=== PATIENT | female | born 1965 | race Caucasian/White ===

== ENCOUNTER 2019-09-01 15:45 | Emergency (ER) | payer OTHER, MEDICAID ==
[~2019-09-01] VITALS: Ht 152.4 cm; Wt 149.7 kg
[2019-09-01 16:57] VITALS: BP 128/88
[2019-09-01 18:10] LABS: Basophils # (auto) 0.1 10 ^3/uL (0-0.2); Eosinophils # (auto) 0.4 10 ^3/uL (0-0.8); Hemoglobin 12.3 g/dL (12.2-16.2); Lymphocytes # (auto) 2.8 10 ^3/uL (0.4-5.4); Mean Corpuscular Hemoglobin 24.5 pg (28.0-32.0); Mean Corpuscular Hgb Conc. 32.2 g/dL (32.0-36.0); Neutrophils # (auto) 6.2 10 ^3/uL (1.6-8.6); Nucleated Red Blood Cells % 0.1 %
[2019-09-01 18:12] LABS: Eosinophils % (auto) 3.6 % (0.0-7.0); Hematocrit 38.3 % (36.0-46.0); Mean Corpuscular Volume 76.1 fL (80.0-100.0); Monocytes # (auto) 0.5 10 ^3/uL (0-1.3); Monocytes % (auto) 5.4 % (0.0-12.0); Platelet Count (auto) 244 10^3/uL (140-450); Red Blood Cells 5.03 10^6/uL (4.0-5.20); Red Cell Distribution Width 18.3 % (11.8-14.3); White Blood Cell 9.9 10^3/uL (4.4-10.8)
[2019-09-01] MEDS ORDERED: CLINDAMYCIN 600 MG/4 ML VL IM ONE (18:15)
== END 2019-09-01 19:02 | disposition home or self-care (01) ==
LOC: ER 15:45
DX: K42.9 Umbilical hernia without obstruction or gangrene (principal); B37.9 Candidiasis, unspecified; L03.316 Cellulitis of umbilicus; J45.909 Unspecified asthma, uncomplicated; K21.9 Gastro-esophageal reflux disease without esophagitis; I10 Essential (primary) hypertension; Z88.0 Allergy status to penicillin
CPT/HCPCS: 36415; 76705; 85025; 87205

== ENCOUNTER 2025-02-20 17:32 | Inpatient (IN) | payer MEDICARE, MEDICAID ==
[~2025-02-20] VITALS: Ht 180.3 cm; Wt 129.3 kg
[2025-02-20 17:52] VITALS: RESP 18; O2SAT 96
[2025-02-20] MEDS ORDERED: VANCOMYCIN PER PHARMACY 0 MG IV SCH (18:00)
--- NOTE | 2025-02-20 18:08 | ED.PDOC ---
Altered Mental Status HPI Comments Patient is a 59-year-old female with past medical history diabetes, asthma, hypertension, who was brought in by EMS due to altered mental status. According to EMS, per patient's caregiver patient has been having a gradually progressive decline in her mentation over the last 2 months, currently patient noted to be AO x2. Patient was found to be covered in her own feces, unable to communicate effectively which is what prompted the caregiver to call the EMS. On route patient was noted to have a blood glucose of 470, tachycardic in 120s with blood pressure 118/98 saturating 80% on room air and 100% on 4 L O2 via NC. An accurate review of systems could not be completed as patient AO x2 only. Past medical history: Asthma, hypertension, diabetes Past surgical history: Unable to obtain Home medications: Albuterol, metoprolol, Ozempic Social & Personal history: Unable to obtain Allergies: Penicillin Patient seen and examined at bedside. Patient is alert and oriented only to time and place, not responding to most questions. Accurate review of systems could not be completed. Attestation note: Dr. Manriquez: I was the supervising attending for this ED encounter. Please see the resident's notes. I was available for questions and consultations. Differential diagnosis: DDX include CVA, TGA, cerebellar ischemia/infarct, carotid stenosis, Intracranial mass/infection/bleed, encephalopathy, electrolyte abnormality, thyroid disease, hydrocephalus, hypoglycemia, drug toxicity, cardiac arrhythmia, seizure, infection in the elderly, Hyperammonemia., kidney failure., sepsis. MDM: MDM: patient presented with the above HPI.-altered mental status-----workup was initiated. patient was found with the above mentioned diagnosis. the following medications were ordered: please refer to order lists of meds and tests obtained by myself Dr. Manriquez. Patient ED course and VS have been stabilized. Patient has been reassessed in the ED and remained in a stable condition. Patient has been observed in the ED adequate length of time to insure improvement/stability. Escalation of care considered: Consideration of escalation to observation or admission Sepsis and DKA protocol were initiated. Patient was ADMITTED to the medicine team for further evaluation and treatment of their presentation. All the reports of any imaging studies that were ordered by myself were reviewed by myself. Chief Complaint: ALOC Time Seen by MD: 17:50 Primary Care Provider: DEBI Reviewed Notes: Allergies Allergies: Coded Allergies: Penicillins (Verified Allergy, Unknown, 09/01/19) Information Source: Emergency Med Personnel Mode of Arrival: EMS Severity: Severe Timing: Days, Months Past Medical History PAST MEDICAL HISTORY: Anemia, Asthma, GERD, HTN Surgical History: Tonsillectomy Family History Family History: No family hx of DM Social History Smoker: Non-Smoker Alcohol: Denies ETOH Use Drugs: Denies Drug Use Lives In: Home Physical Exam General Appearance: Moderate Distress, Obese HEENT: Normal ENT Inspection, PERRL/EOMI Neck: Non-Tender, Normal, Normal Inspection Respiratory: Decreased Breath Sounds, No Accessory Muscle Use, No Respiratory Distress Cardiovascular: No Gallop, Tachycardia Breast Exam: Deferred Gastrointestinal: Non Tender, Normal Bowel Sounds, Other (Noted to have umbilical hernia with dried blood) Genitalia: Deferred Pelvic: Deferred Rectal: Rectal Exam not done Extremities: No calf tenderness, Non-tender, No pedal edema, Other (Cool per ipheral extremities) Neurologic: Disoriented, No Motor Deficits, No Sensory Deficits Cerebellar Function: NOT DONE Reflexes: NOT DONE Skin: Dry, Mottled Peripheral Pulses: 2+ dorsalis pedis (R), 2+ dorsalis pedis (L) Lymphatic: NOT DONE Was a procedure done? Was a procedure done?: No Differential Diagnosis (ALOC) Differential Diagnosis: Dehydration, DKA, Encephalopathy, Sepsis X-Ray, Labs, Meds, VS Vital Signs Date Time Temp Pulse Resp B/P (MAP) Pulse Ox O2 Delivery O2 Flow Rate FiO2 02/20/25 20:00 113 20 157/86 (109) 100 02/20/25 19:45 113 17 141/74 (96) 98 02/20/25 19:30 97.7 110 14 128/86 (100) 96 97.7 02/20/25 19:30 Room Air* 0 21 02/20/25 17:52 18 96 Nasal Cannula* 3 32 02/20/25 17:52 122 02/20/25 17:35 98.9 120 16 115/94 98 98.9 Lab Test 02/20/25 20:14 02/20/25 19:53 02/20/25 19:15 02/20/25 19:00 Range/Units Troponin I High Sensitivity 193 *H 201 *H </=34 ng/L Lactic Acid Level 5.0 *H 0.4-2.0 mmol/L White Blood Count 13.1 H 4.4-10.8 10^3/uL Red Blood Count 5.74 H 4.0-5.20 10^6/uL Hemoglobin 16.1 12.2-16.2 g/dL Hematocrit 50.5 H 36.0-46.0 % Mean Corpuscular Volume 88.0 80.0-100.0 fL Mean Corpuscular Hemoglobin 28.1 28.0-32.0 pg Mean Corpuscular Hemoglobin Concent 31.9 L 32.0-36.0 g/dL Red Cell Distribution Width 18.2 H 11.8-14.3 % Platelet Count 189 140-450 10^3/uL Mean Platelet Volume 10.4 6.9-10.8 fL Neutrophils (%) (Auto) 76.0 37.0-80.0 % Lymphocytes (%) (Auto) 18.6 10.0-50.0 % Monocytes (%) (Auto) 4.8 0.0-12.0 % Eosinophils (%) (Auto) 0.2 0.0-7.0 % Basophils (%) (Auto) 0.4 0.0-2.0 % Neutrophils # (Auto) 10.0 H 1.6-8.6 10 ^3/uL Lymphocytes # (Auto) 2.4 0.4-5.4 10 ^3/uL Monocytes # (Auto) 0.6 0-1.3 10 ^3/uL Eosinophils # (Auto) 0 0-0.8 10 ^3/uL Basophils # (Auto) 0.1 0-0.2 10 ^3/uL Nucleated Red Blood Cells 0.2 % Sodium Level 144 136-145 mmol/L Potassium Level 3.4 L 3.5-5.1 mmol/L Chloride Level 96 L 98-107 mmol/L Carbon Dioxide Level 29 20-31 mmol/L Anion Gap 19 H 5-15 Blood Urea Nitrogen 94 *H 9-23 mg/dL Creatinine 3.31 H 0.550-1.02 mg/dL Glomerular Filtration Rate Calc 16 >90 mL/min BUN/Creatinine Ratio 28.4 H 10.0-20.0 Serum Glucose 459 *H 74-106 mg/dL Serum Osmolality 352 H 278-298 mOsm/kg Calcium Level 9.8 8.7-10.4 mg/dL Phosphorus Level 2.0 L 2.4-5.1 mg/dL Total Bilirubin 1.6 H 0.2-1.0 mg/dL Aspartate Amino Transferase (AST) 52 H 13-40 U/L Alanine Aminotransferase (ALT) 74 H 7-40 U/L Alkaline Phosphatase 146 H 46-116 U/L B-Type Natriuretic Peptide 30.16 0-100 pg/mL Total Protein 7.0 5.7-8.2 g/dL Albumin 4.2 3.2-4.8 g/dL Beta-Hydroxybutyric Acid 0.662 H < 0.4 mmol/L Blood Gas Specimen Type Arterial Blood Gas Sample Site Left radial Blood Gas Patient Temperature 37.0 Arterial Blood Date Drawn [id number] Arterial Blood pH 7.662 *H 7.350-7.450 Arterial Blood Partial Pressure CO2 23.3 L 32.0-45.0 mmHg Arterial Blood Partial Pressure O2 72.6 L 83.0-108.0 mmHg Arterial Blood HCO3 25.8 21.0-28.0 mmol/L Arterial Blood Oxygen Saturation 95.8 94.0-98.0 % Arterial Blood Base Excess 7.0 H -2.0-3.0 mmol/L Arterial Blood Oxyhemoglobin 94.4 94.0-98.0 % Arterial Blood Carboxyhemoglobin 0.9 0.5-1.5 % Arterial Blood Methemoglobin 0.6 0.0-1.5 % Arterial Blood Deoxyhemoglobin 4.1 0.0-5.0 % Fox Test Modified Blood Gas Total Hemoglobin 16.00 12.0-16.0 g/dL Blood Gas Modality Room air FiO2 % 21.0 Blood Gas Critical Value Read Back Yes Blood Gas Notified Whom Md adrian avilez Blood Gas Notified Time [id number] Blood Gas Notified By Rt toney gupta Microbiology Date/Time Source Procedure Growth Status 02/20/25 19:53 Blood Blood Culture - Final NO GROWTH AFTER 5 DAYS OF INCUBATION. Complete 02/20/25 19:15 Blood Blood Culture - Final NO GROWTH AFTER 5 DAYS OF INCUBATION. Complete Time of 1ST Reevaluation: 18:19 Reevaluation 1ST: Unchanged Patient Education/Counseling: Other (Patient altered) Family Education/Counseling: No Family Present SEPSIS Sepsis Screen Date sepsis recognized/suspect: Feb 20, 2025 Time Sepsis recognized/suspect: 1750 Recent Procedure: No On Antibiotic Therapy: No Respiratory Rate >20: No Heart Rate >90: Yes Temp<36 C (96.8 F) or >38.3 C: No SBP <90 or MAP <65 mmHG: No New Acute Mental Status Change: Yes Is the patient on CPAP, BIPAP,: No Physician Orders Electrocardigram (02/20/25 17:51) Chest Portable (02/20/25 17:51) Notify Md If Map <65 Or Bp<90 (02/20/25 17:53) If Map<65 Start Vasopressor (02/20/25 17:53) Sepsis Reassesment After Fluid (02/20/25 18:53) Ct Ab Pel Wo Con-No Oral Or Iv (02/20/25 17:57) Abg W/ Co-Ox (02/20/25 18:07) Insert/Manage Urinary Catheter QSHIFT (02/20/25 18:16) [place] [place] * Cardiology Consult (02/20/25 20:01) Allergies (02/20/25 20:01) Neurological Assessment (02/20/25 20:08) Code Status (02/20/25 20:01) Sodium Chloride Lock (Saline Lock Ns) (02/20/25 22:00) Oxygen Per Hour (02/20/25 20:01) Ondansetron Hcl (Zofran) (02/20/25 20:15) Docusate Sodium Capsule (Colace Capsule) (02/20/25 20:15) Condition: Serious (02/20/25 20:01) Acetaminophen Tablet (Tylenol Tablet) (02/20/25 20:15) Maintain Bed Rest (02/20/25 20:01) Sequential Compression Device (02/20/25 ) Head Without Contrast (02/20/25 20:14) Vital Signs Date Time Temp Pulse Resp B/P (MAP) Pulse Ox O2 Delivery O2 Flow Rate FiO2 02/20/25 20:00 113 20 157/86 (109) 100 02/20/25 19:45 113 17 141/74 (96) 98 02/20/25 19:30 97.7 110 14 128/86 (100) 96 97.7 02/20/25 19:30 Room Air* 0 21 02/20/25 17:52 18 96 Nasal Cannula* 3 32 02/20/25 17:52 122 02/20/25 17:35 98.9 120 16 115/94 98 98.9 Laboratory Tests Test 02/20/25 19:15 02/20/25 19:53 White Blood Count 13.1 10^3/uL (4.4-10.8) H Lactic Acid Level 5.0 mmol/L (0.4-2.0) *H Departure 1 Departure Time of Disposition: 20:11 Impression: Primary Impression: Altered mental status Qualified Codes: R41.0 - Disorientation, unspecified Additional Impressions: Metabolic encephalopathy DKA (diabetic ketoacidosis) Sepsis Acute renal failure Elevated troponin Umbilical hernia Disposition: ADMITTED INPATIENT Admit to: ICU Condition: Critical Discharged With: Self Critical Care Note Critical Care Time?: Yes (1 hr-critical care time only) Critical care comment: Due to a high probability of clinically significant, life threatening deterioration, the patient required my highest level of preparedness to intervene emergently and I personally spent this critical care time directly and personally managing the patient. This critical care time included obtaining a history; examining the patient; pulse oximetry; ordering and review of studies; arranging urgent treatment with development of a management plan; evaluation of patient's response to treatment; frequent reassessment; and, discussions with other providers. This critical care time was performed to assess and manage the high probability of imminent, life-threatening deterioration that could result in multi-organ failure. It was exclusive of separately billable procedures and treating other patients and teaching time. Please see my other sections and the rest of the note for further information on patient assessment and treatment. Stability Stability form required: No Heart Score Heart Score: Heart Score Response (Comments) Value History Slightly Suspicious 0 EKG Normal 0 Age 45-64 1 Risk Factors >3 or Hx ASHD 2 Troponin >3 x's Normal limit 2 Total 5 I personally scribed for TYSHAWN MANRIQUEZ DO ([email or web address]) on 02/20/25 at 21:50. Electronically submitted by Kaia Soto ([facility]). ARY AVILEZ Feb 20, 2025 18:08 TYSHAWN MANRIQUEZ DO Feb 20, 2025 20:11
[2025-02-20] MEDS ORDERED: VANCOMYCIN 1.5GM/250ML 250 ML IV ONE (19:00)
[2025-02-20 19:16] LABS: Base Excess 7.0 mmol/L (-2.0-3.0)
[2025-02-20 19:31] LABS: Hematocrit 50.5 % (36.0-46.0); Hemoglobin 16.1 g/dL (12.2-16.2); Mean Corpuscular Hemoglobin 28.1 pg (28.0-32.0); Mean Corpuscular Volume 88.0 fL (80.0-100.0); Nucleated Red Blood Cells % 0.2 %
[2025-02-20 19:44] LABS: Albumin 4.2 g/dL (3.2-4.8); Anion Gap 19 (5-15); BUN/Creatinine Ratio 28.4 (10.0-20.0); Calcium 9.8 mg/dL (8.7-10.4); Carbon Dioxide 29 mmol/L (20-31); Sodium 144 mmol/L (136-145); Total Protein 7.0 g/dL (5.7-8.2)
[2025-02-20 19:45] LABS: Bilirubin, Total 1.6 mg/dL (0.2-1.0)
[2025-02-20 19:46] LABS: Alanine Aminotransferase 74 U/L (7-40); Alkaline Phosphatase 146 U/L (46-116); Chloride 96 mmol/L (98-107); Potassium 3.4 mmol/L (3.5-5.1)
[2025-02-20 19:47] LABS: Glucose 459 mg/dL (74-106)
[2025-02-20 19:48] LABS: Blood Urea Nitrogen 94 mg/dL (9-23)
[2025-02-20] MEDS ORDERED: DOCUSATE SOD 100 MG CAP PO PRN (20:15)
[2025-02-20] MEDS ORDERED: DEXTROSE (50%) 50ML SYRG IV PRN ×2 (20:15)
[2025-02-20] MEDS ORDERED: HYDROcodone-ACET 5/325MG TAB PO PRN (20:15)
[2025-02-20] MEDS ORDERED: ACETAMINOPHEN 325 MG TAB PO PRN (20:15)
[2025-02-20] MEDS: POTASSIUM CHL 20MEQ/100ML 100 ML IV ONE (20:15)
[2025-02-20] MEDS ORDERED: ONDANSETRON HCL 4 MG/2 ML VIAL IV PRN (20:15)
[2025-02-20 20:34] LABS: Lactic Acid w/Reflex 5.0 mmol/L (0.4-2.0)
[2025-02-20] MEDS: ASPirin-EC 325mg tab PO ONE (20:35)
--- NOTE | 2025-02-20 20:58 | DVH ---
CHEST RADIOGRAPH INDICATION: altered mental status TECHNIQUE: Single frontal view of the chest was obtained. COMPARISON: None FINDINGS: No focal consolidation. No significant pleural effusion. No pneumothorax. Mildly enlarged cardiomediastinal silhouette. IMPRESSION: No acute pulmonary process.
--- NOTE | 2025-02-20 21:04 | DVHHP2 ---
History of Present Illness Reason for Visit: Diabetes mellitus with ketoacidosis History of Present Illness The patient is a 59-year-old female morbidly obese with past medical history of diabetes mellitus, asthma, GERD, anemia, and hypertension who presented to [facility] ED for evaluation of altered level of consciousness. As reported by EMS, patient's caregiver reports that patient has been gradually decline in her mental status for the past 2 months, noted to be alert oriented x2, found to be covered on feces, and unable to communicate efficiently, prompting caregiver to call the EMS. Patient was seen and evaluated in the ED, laboratory data shows WBC 13.1, platelets 189, sodium 144, potassium 3.4, BUN 94, creatinine 3.31, GFR 16, glucose 459, anion gap 19, total bilirubin 1.6, calcium 9.8, AST 52, ALT 74, alkaline phos 146, troponin 201 trending down to 193, BNP 30.16, beta hydroxybutyric acid 0.662, blood pressure 115/94, heart rate 122 trending down to 100, temperature 98.9 F, O2 saturation 96% on oxygen. Head CT showed no acute intracranial abnormality. Urinalysis positive for urinary tract infection. Patient was started on diabetes ketoacidosis protocol, please see medication orders section in the computer. On my assessment, patient denied chest pain, headache, dizziness, diaphoresis, currently on oxygen, no a bdominal pain, diarrhea, nausea, vomiting, fever, no chills. Patient was admitted for further evaluation and medical management. Past Medical History DM, Anemia, Asthma, GERD, HTN Past Surgical History Tonsillectomy Family History Reviewed, noncontributory to the management of this case. Past Social History The patient lives at home, denies smoking, alcohol or illicit drugs abuse. Review of Systems Constitutional: Yes: Weakness; No: Fever, Chills, Sweats, Malaise, Other Eyes: No: Pain, Vision change, Conjunctivae inflammation, Eyelid inflammation, Other, Redness ENT: No: Ear pain, Ear discharge, Nose pain, Nose discharge, Nose congestion, Mouth pain, Mouth swelling, Throat pain, Throat swelling, Other Respiratory: No: Cough, Dry, Shortness of breath, SOB with excertion, Wheezing, Hemoptysis, Pleuritic Pain, Sputum, Wheezing, Other Cardiovascular: No: Chest Pain, Palpitations, Orthopnea, Paroxysmal Noc. Dyspnea, Edema, Lt Headedness, Other Gastrointestinal: No: Nausea, Vomiting, Abdominal Pain, Diarrhea, Constipation, Melena, Hematochezia, Other Musculoskeletal: No: other, neck pain, shoulder pain, arm pain, back pain, hand pain, leg pain, foot pain Skin: No: Rash, Lesions, Jaundice, Bruising, Other Neurological: Other (Altered level of consciousness); No: Weakness, Numbness, Incoordination, Change in speech, Confusion, Seizures Allergies: Coded Allergies: Penicillins (Verified Allergy, Unknown, 09/01/19) Medications Current Medications Medications Dose Ordered Sig/Tim Route Start Time Stop Time Status Last Admin Dose Admin Vancomycin HCl 0 ml @ 0 mls/hr PER PHARMACY IV 02/20/25 18:00 Metronidazole 100 ml @ 100 mls/hr Q8HR IV 02/20/25 22:00 Heparin Sodium (Porcine) 5,000 units Q12HR SC 02/20/25 22:00 Diagnostic Test (Pha) 1 strip IQ4HR 02/21/25 00:00 UNV Sodium Chloride 10 ml Q8HR IV 02/20/25 22:00 Acetaminophen/ Hydrocodone Bitart 1 tab Q4HP PRN PO 02/20/25 20:15 Ondansetron HCl 4 mg Q4HP PRN IV 02/20/25 20:15 Docusate Sodium 100 mg BIDPRN PRN PO 02/20/25 20:15 Acetaminophen 650 mg Q6HP PRN PO 02/20/25 20:15 Sodium Chloride 1,000 ml @ 250 mls/hr Q4H IV 02/21/25 00:15 02/21/25 02:14 Sodium Chloride 1,000 ml @ 150 mls/hr Q6H40M IV 02/21/25 02:15 Insulin Human (Reg)/Sodium Chloride 100 ml @ 0.5 mls/hr Q24H IV 02/20/25 20:15 Dextrose 50 ml UD PRN IV 02/20/25 20:15 Diagnostic Test (Pha) 1 strip Q90MIN 02/20/25 21:00 Exam Vital Signs Vital Signs Date Time Temp Pulse Resp B/P (MAP) Pulse Ox O2 Delivery O2 Flow Rate FiO2 02/20/25 19:30 97.7 110 14 128/86 (100) 96 97.7 02/20/25 19:30 Room Air* 0 21 General Appearance: Alert, Oriented X3, Cooperative, No acute distress HEENT: Atraumatic, PERRLA, EOMI, Mucous membr. moist/pink Respiratory: Normal air movement Cardiovascular: Regular rate, Normal S1, Normal S2, No murmurs Abdominal: Normal bowel sounds, Soft, No tenderness, No hepatospenomegaly, No masses Extremities: No clubbing, No cyanosis, No edema, Normal pulses, No tenderness/swelling Skin: No rashes, No significant lesion Neuro: Normal speech, Normal tone, Sensation intact, Cranial nerves 3-12 NL, Reflexes 2+, Other (Generalized weakness) Psych/Mental Status: Mood NL, Other (Altered mental status) Labs/Xrays Labs Test 02/20/25 19:53 02/20/25 19:15 02/20/25 19:00 Range/Units Lactic Acid Level 5.0 *H 0.4-2.0 mmol/L White Blood Count 13.1 H 4.4-10.8 10^3/uL Red Blood Count 5.74 H 4.0-5.20 10^6/uL Hemoglobin 16.1 12.2-16.2 g/dL Hematocrit 50.5 H 36.0-46.0 % Mean Corpuscular Volume 88.0 80.0-100.0 fL Mean Corpuscular Hemoglobin 28.1 28.0-32.0 pg Mean Corpuscular Hemoglobin Concent 31.9 L 32.0-36.0 g/dL Red Cell Distribution Width 18.2 H 11.8-14.3 % Platelet Count 189 140-450 10^3/uL Mean Platelet Volume 10.4 6.9-10.8 fL Neutrophils (%) (Auto) 76.0 37.0-80.0 % Lymphocytes (%) (Auto) 18.6 10.0-50.0 % Monocytes (%) (Auto) 4.8 0.0-12.0 % Eosinophils (%) (Auto) 0.2 0.0-7.0 % Basophils (%) (Auto) 0.4 0.0-2.0 % Neutrophils # (Auto) 10.0 H 1.6-8.6 10 ^3/uL Lymphocytes # (Auto) 2.4 0.4-5.4 10 ^3/uL Monocytes # (Auto) 0.6 0-1.3 10 ^3/uL Eosinophils # (Auto) 0 0-0.8 10 ^3/uL Basophils # (Auto) 0.1 0-0.2 10 ^3/uL Nucleated Red Blood Cells 0.2 % Sodium Level 144 136-145 mmol/L Potassium Level 3.4 L 3.5-5.1 mmol/L Chloride Level 96 L 98-107 mmol/L Carbon Dioxide Level 29 20-31 mmol/L Anion Gap 19 H 5-15 Blood Urea Nitrogen 94 *H 9-23 mg/dL Creatinine 3.31 H 0.550-1.02 mg/dL Glomerular Filtration Rate Calc 16 >90 mL/min BUN/Creatinine Ratio 28.4 H 10.0-20.0 Serum Glucose 459 *H 74-106 mg/dL Calcium Level 9.8 8.7-10.4 mg/dL Phosphorus Level 2.0 L 2.4-5.1 mg/dL Total Bilirubin 1.6 H 0.2-1.0 mg/dL Aspartate Amino Transferase (AST) 52 H 13-40 U/L Alanine Aminotransferase (ALT) 74 H 7-40 U/L Alkaline Phosphatase 146 H 46-116 U/L B-Type Natriuretic Peptide 30.16 0-100 pg/mL Total Protein 7.0 5.7-8.2 g/dL Albumin 4.2 3.2-4.8 g/dL Beta-Hydroxybutyric Acid 0.662 H < 0.4 mmol/L Blood Gas Specimen Type Arterial Blood Gas Sample Site Left radial Blood Gas Patient Temperature 37.0 Arterial Blood Date Drawn [id number] Arterial Blood pH 7.662 *H 7.350-7.450 Arterial Blood Partial Pressure CO2 23.3 L 32.0-45.0 mmHg Arterial Blood Partial Pressure O2 72.6 L 83.0-108.0 mmHg Arterial Blood HCO3 25.8 21.0-28.0 mmol/L Arterial Blood Oxygen Saturation 95.8 94.0-98.0 % Arterial Blood Base Excess 7.0 H -2.0-3.0 mmol/L Arterial Blood Oxyhemoglobin 94.4 94.0-98.0 % Arterial Blood Carboxyhemoglobin 0.9 0.5-1.5 % Arterial Blood Methemoglobin 0.6 0.0-1.5 % Arterial Blood Deoxyhemoglobin 4.1 0.0-5.0 % Fox Test Modified Blood Gas Total Hemoglobin 16.00 12.0-16.0 g/dL Blood Gas Modality Room air FiO2 % 21.0 Blood Gas Critical Value Read Back Yes Blood Gas Notified Whom Md adrian avilez Blood Gas Notified Time [id number] Blood Gas Notified By Rt toney gupta PATIENT: VIANCA FRIEDMAN ACCT: [id number] UNIT: [id number] : 1965 LOC: ER ROOM / BED: / AGE / SEX: 59 / F ADM STATUS: REG ER SERVICE [id number] ORDERING PHYSICIAN: ARY AVILEZ PROCEDURE(s): ABPL - CT AB PEL WO CON-NO ORAL OR IV REASON: umbilical hernia bleeding? ORDER NUMBER(s): [id number], ACCESSION NUMBER(s): [id number] EXAM: CT CT AB PEL WO CON-NO ORAL OR IV History: umbilical hernia bleeding Comparison Study: None TECHNIQUE: Multidetector CT of the abdomen and pelvis without IV contrast. Axial, coronal and sagittal multiplanar reformats were obtained from the axial data set by the technologist. Radiation Dose Information: CT Dose: CTDI volume is 24.42 mGy. Dose-length product is 1441.42 mGy*cm FINDINGS: The lung bases are clear. Partially visualized heart is normal in size. Trace pericardial effusion. 1.5 cm left hepatic lobe fatty lesion adjacent to the falciform ligament. Mild hepatomegaly. Spleen, gallbladder, pancreas and adrenal glands are unremarkable. Kidneys, ureters and urinary bladder are unremarkable. Uterus and adnexa are unremarkable. Tiny Hiatal hernia. Stomach is unremarkable. Small bowel loops are unremarkable. Appendix is unremarkable. Large bowel is unremarkable. No evidence of intraperitoneal free air or free fluid. No evidence of aortic aneurysm. Large umbilical hernia containing bowel loops without evidence of obstruction or strangulation. Soft tissues are unremarkable. Diffuse demineralization. No evidence of acute osseous abnormalities. Sclerotic foci the bilateral pelvic bone which may represent Small bone islands. IMPRESSION: No evidence of Acute abdominopelvic abnormalities. Large umbilical hernia containing bowel loops without evidence of obstruction or strangulation. ORDERING PHYSICIAN: TYSHAWN MANRIQUEZ DO PROCEDURE(s): HWOCT - HEAD WITHOUT CONTRAST REASON: aloc ORDER NUMBER(s): [id number], ACCESSION NUMBER(s): [id number] CT HEAD WITHOUT CONTRAST HISTORY: ALOC. COMPARISON: None available. CONTRAST: Study was performed without contrast. TECHNIQUE: Axial images from the skull base to the vertex with coronal and sagittal reformatted images. Dose reduction technique was used on this scan by utilizing automated exposure control, adjustment of the mA and/or kV according to the patient size. DICOM format image data available to non-affiliated external healthcare facilities or entities on a secure, media free, reciprocally searchable basis with patient authorization for at least a 12 month period after the study. CTDIvol: 57.4, 57.4, 57.4 mGy; DLP: 3386.8 mGy-cm. FINDINGS: BRAIN PARENCHYMA: No acute hemorrhage, large vascular territory infarct, or mass effect. Scattered white matter hypo-densities, which are nonspecific but likely represent the sequela of chronic microangipathic change. Mild cerebral volume loss with ex vacuo dilation of the ventricles, which is commensurate for age. VENTRICLES/EXTRA-AXIAL SPACES: No evidence of hydrocephalus. No extra-axial collection. Basal cisterns are patent. Right frontal convexity with a centrally calcified extra-axial lesion measuring 2.2 x 1.8 x 1.4 cm (TV x AP x CC; 8/59, 602/26). No significant underlying mass effect. EXTRACRANIAL STRUCTURES: No acute or suspicious ossues abnormality. Incidentally noted hyperostosis frontalis interna. Normal soft tissues. Partially images portions of the paranasal sinuses and mastoids demonstrate no significant abnormality. Orbits are unremarkable. IMPRESSION: 1. No acute intracranial abnormality. 2. Right frontal convexity with a centrally calcified extra-axial lesion measuring up to 2.2 cm, which favors a benign meningioma. No significant underlying mass effect. ORDERING PHYSICIAN: ARY AVILEZ RESIDENT PROCEDURE(s): CXRP - CHEST PORTABLE REASON: altered mental status ORDER NUMBER(s): [id number], ACCESSION NUMBER(s): [id number] CHEST RADIOGRAPH INDICATION: altered mental status TECHNIQUE: Single frontal view of the chest was obtained. COMPARISON: None FINDINGS: No focal consolidation. No significant pleural effusion. No pneumothorax. Mildly enlarged cardiomediastinal silhouette. IMPRESSION: No acute pulmonary process. SEPSIS Sepsis Screen Date sepsis recognized/suspect: Feb 20, 2025 Time Sepsis recognized/suspect: 1929 Recent Procedure: No On Antibiotic Therapy: No Respiratory Rate >20: No Heart Rate >90: Yes Temp<36 C (96.8 F) or >38.3 C: No SBP <90 or MAP <65 mmHG: Yes New Acute Mental Status Change: Yes Is the patient on CPAP, BIPAP,: No Physician Orders Electrocardigram (02/20/25 17:51) Urinalysis (02/20/25 17:51) Chest Portable (02/20/25 17:51) Troponin-I Hs (02/20/25 18:51) Troponin-I Hs (02/20/25 20:51) Blood Culture (02/20/25 17:53) Notify Md If Map <65 Or Bp<90 (02/20/25 17:53) If Map<65 Start Vasopressor (02/20/25 17:53) Sepsis Reassesment After Fluid (02/20/25 18:53) Vancomycin Per Pharmacy (02/20/25 18:00) Cefepime 1gm/50ml (Maxipime 1gm/50ml) (02/20/25 20:30) Ct Ab Pel Wo Con-No Oral Or Iv (02/20/25 17:57) Abg W/ Co-Ox (02/20/25 18:07) Vancomycin,Random (02/21/25 04:00) Creatinine (02/21/25 04:00) Complete Blood Count (02/21/25 04:00) Insert/Manage Urinary Catheter QSHIFT (02/20/25 18:16) *[facility] (02/20/25 20:01) [facility] (02/21/25 Breakfast) Metronidazole 500mg/100ml (Flagyl 500mg/ (02/20/25 22:00) Insulin Drip Protocol (02/20/25 ) Sodium Chloride 0.9% (02/21/25 00:15) Heparin Sodium (Porcine) (02/20/25 22:00) Sodium Chloride 0.9% (02/21/25 02:15) * Cardiology Consult (02/20/25 20:01) Insulin Drip 100 Unit/100ml (Myxredlin 1 (02/20/25 20:15) Dextrose 50% Syringe (12/12/25 20:15) Glucose Blood (Accu-Chek Comfort Curve T (02/20/25 21:00) Allergies (02/20/25 20:01) Osmolality, Serum (02/20/25 20:08) Neurological Assessment (02/20/25 20:08) Vs/Hemodynamics .PER UNIT PROTOCOL (02/20/25 20:08) Code Status (02/20/25 20:01) Sodium Chloride Lock (Saline Lock Ns) (02/20/25 22:00) Oxygen Per Hour (02/20/25 20:01) Hydrocodone-Acet 5/325mg Tab (Catherine 5/32 (02/20/25 20:15) Ondansetron Hcl (Zofran) (02/20/25 20:15) Docusate Sodium Capsule (Colace Capsule) (02/20/25 20:15) Fall Risk Precautions In Place QSHIFT (02/20/25 20:01) Comprehensive Metabolic Panel (02/21/25 04:00) Condition: Serious (02/20/25 20:01) Acetaminophen Tablet (Tylenol Tablet) (02/20/25 20:15) Maintain Bed Rest (02/20/25 20:01) Sequential Compression Device (02/20/25 ) Potassium Chl 20meq/100ml (02/20/25 20:15) Head Without Contrast (02/20/25 20:14) Insert Marshall Catheter QSHIFT (02/20/25 20:59) Vital Signs Date Time Temp Pulse Resp B/P (MAP) Pulse Ox O2 Delivery O2 Flow Rate FiO2 02/20/25 19:30 97.7 110 14 128/86 (100) 96 97.7 02/20/25 19:30 Room Air* 0 21 02/20/25 17:52 18 96 Nasal Cannula* 3 32 02/20/25 17:52 122 02/20/25 17:35 98.9 120 16 115/94 98 98.9 Laboratory Tests Test 02/20/25 19:15 02/20/25 19:53 White Blood Count 13.1 10^3/uL (4.4-10.8) H Lactic Acid Level 5.0 mmol/L (0.4-2.0) *H Assessment/Plan Assessment/Plan Diabetes mellitus with ketoacidosis Acute renal failure Morbid obesity Urinary tract infection Altered mental status Elevated troponin Elevated liver enzymes Metabolic encephalopathy Leukocytosis, unspecified Generalized weakness Plan 1. Admit to intensive care unit 2. Breathing treatment 3. Pain control management 4. IV antibiotic management 5. Management of fluids and electrolytes 6. Consultation for Cardiology/Nephrology 7. Diagnostic test head CT 8. DVT prophylaxis-on heparin 9. Repeat labs CBC, CMP in a.m. 10. Home medication reviewed and reconciled 11. Continue with current medical management 12. Treatment plan discussed with patient and RN. Patient verbalized understanding. Plan discussed with: Patient, Other (RN) My Orders Orders - EDY PITTMAN DNP Procedure Category Date Status Time *Dr. Beny Wise CONS 02/20/25 Transmitted -[place] 20:01 Consistent DIET 02/21/25 Transmitted Carb(Ccho)Diabetes Breakfast Metronidazole PHA 02/20/25 In Process 500mg/100ml (Flagyl 22:00 Heparin Sodium PHA 02/20/25 In Process (Porcine) 22:00 * Cardiology Consult CONS 02/20/25 Transmitted 20:01 Allergies [place] 02/20/25 In Process 20:01 Code Status CODE 02/20/25 Transmitted 20:01 Sodium Chloride Lock PHA 02/20/25 In Process (Saline Lock Ns) 22:00 Oxygen Per Hour RT 02/20/25 Transmitted 20:01 Hydrocodone-Acet PHA 02/20/25 In Process 5/325mg Tab (Catherine 20:15 Ondansetron Hcl PHA 02/20/25 In Process (Zofran) 20:15 Docusate Sodium PHA 02/20/25 In Process Capsule (Colace 20:15 Fall Risk Precautions [place] 02/20/[address] 20:01 Comprehensive LAB 02/21/25 Verified Metabolic Panel 04:00 Condition: Serious [place] 02/20/25 In Process 20:01 Acetaminophen Tablet PHA 02/20/25 In Process (Tylenol Tablet) 20:15 Maintain Bed Rest [place] 02/20/25 In Process 20:01 Sequential [place] 02/20/25 In Process Compression Device Potassium Chl PHA 02/20/25 In Process 20meq/100ml 20:15 Insert Marshall Catheter [place] 02/20/25 In Process 20:59 Problem List: (1) Diabetes mellitus with ketoacidosis (2) Acute renal failure (3) Morbid obesity (4) Urinary tract infection (5) Altered mental status (6) Elevated troponin (7) Elevated liver enzymes (8) Metabolic encephalopathy (9) Leukocytosis, unspecified (10) Generalized weakness Date of Service: Feb 20, 2025 Billing Provider: EDY PITTMAN DNP Common Visit Codes: [id number] INP/OBS CARE (HIGH) EDY PITTMAN DNP Feb 20, 2025 21:04
--- NOTE | 2025-02-20 21:13 | DVH ---
CT HEAD WITHOUT CONTRAST HISTORY: ALOC. COMPARISON: None available. CONTRAST: Study was performed without contrast. TECHNIQUE: Axial images from the skull base to the vertex with coronal and sagittal reformatted images. Dose reduction technique was used on this scan by utilizing automated exposure control, adjustment of the mA and/or kV according to the patient size. DICOM format image data available to non-affiliated external healthcare facilities or entities on a secure, media free, reciprocally searchable basis with patient authorization for at least a 12 month period after the study. CTDIvol: 57.4, 57.4, 57.4 mGy; DLP: 3386.8 mGy-cm. FINDINGS: BRAIN PARENCHYMA: No acute hemorrhage, large vascular territory infarct, or mass effect. Scattered white matter hypodensities, which are nonspecific but likely represent the sequela of chronic microangipathic change. Mild cerebral volume loss with ex vacuo dilation of the ventricles, which is commensurate for age. VENTRICLES/EXTRA-AXIAL SPACES: No evidence of hydrocephalus. No extra-axial collection. Basal cisterns are patent. Right frontal convexity with a centrally calcified extra-axial lesion measuring 2.2 x 1.8 x 1.4 cm (TV x AP x CC; 8/59, 602/26). No significant underlying mass effect. EXTRACRANIAL STRUCTURES: No acute or suspicious ossues abnormality. Incidentally noted hyperostosis frontalis interna. Normal soft tissues. Partially images portions of the paranasal sinuses and mastoids demonstrate no significant abnormality. Orbits are unremarkable. IMPRESSION: 1. No acute intracranial abnormality. 2. Right frontal convexity with a centrally calcified extra-axial lesion measuring up to 2.2 cm, which favors a benign meningioma. No significant underlying mass effect.
[2025-02-20] MEDS ORDERED: NITROGLYCERIN 0.4 MG SL TAB SL PRN (21:15)
[2025-02-20] MEDS ORDERED: MORPHINE SULFATE INJ 2 MG/ml SYRG IV PRN (21:15)
[2025-02-20] MEDS: InsuLIN REG 1unit/0.01ml Soln (100units/ml) IV ONE (21:21)
--- NOTE | 2025-02-20 21:21 | DVH ---
EXAM: CT CT AB PEL WO CON-NO ORAL OR IV History: umbilical hernia bleeding Comparison Study: None TECHNIQUE: Multidetector CT of the abdomen and pelvis without IV contrast. Axial, coronal and sagittal multiplanar reformats were obtained from the axial data set by the technologist. Radiation Dose Information: CT Dose: CTDI volume is 24.42 mGy. Dose-length product is 1441.42 mGy*cm FINDINGS: The lung bases are clear. Partially visualized heart is normal in size. Trace pericardial effusion. 1.5 cm left hepatic lobe fatty lesion adjacent to the falciform ligament. Mild hepatomegaly. Spleen, gallbladder, pancreas and adrenal glands are unremarkable. Kidneys, ureters and urinary bladder are unremarkable. Uterus and adnexa are unremarkable. Tiny Hiatal hernia. Stomach is unremarkable. Small bowel loops are unremarkable. Appendix is unremarkable. Large bowel is unremarkable. No evidence of intraperitoneal free air or free fluid. No evidence of aortic aneurysm. Large umbilical hernia containing bowel loops without evidence of obstruction or strangulation. Soft tissues are unremarkable. Diffuse demineralization. No evidence of acute osseous abnormalities. Sclerotic foci the bilateral pelvic bone which may represent Small bone islands. IMPRESSION: No evidence of Acute abdominopelvic abnormalities. Large umbilical hernia containing bowel loops without evidence of obstruction or strangulation.
[2025-02-20] MEDS: INSULIN DRIP 100 UNIT/100ML 100 ML IV SCH (21:23)
[2025-02-20] MEDS: ACCU-CHEK COMFORT CURVE STRIP VI SCH (21:29)
[2025-02-20] MEDS: SODIUM CHLOR 0.9% PF (SALINE LOCK) 10ML VIAL/SYR IV SCH (22:00)
[2025-02-20] MEDS: VANCOMYCIN 1.5GM/250ML 250 ML IV ONE (22:48)
[2025-02-20 22:51] LABS: Urine Protein, UAD 1+ (Negative); Urine WBC Clumps PRESENT /hpf (None Seen)
[2025-02-20] MEDS: LACTATED RINGER'S 2,100 ML IV ONE (22:56)
[2025-02-20] MEDS: HEPARIN SODIUM (PORCINE) 5000 UNITS/ML 1ML VIAL SC SCH (23:02)
[2025-02-20] MEDS: CEFEPIME 1GM/50ML 50 ML IV ONE (23:02)
[2025-02-21] VITALS (92 sets, daily range): BP systolic 97–150; BP diastolic 32–99; PULSE 64–107; RESP 10–22; TEMP 97.4–98.5; O2SAT 76–100
[2025-02-21] MEDS ORDERED: InsuLIN REG 1unit/0.01ml Soln (100units/ml) SC SCH
[2025-02-21] MEDS ORDERED: ACCU-CHEK COMFORT CURVE STRIP VI SCH
[2025-02-21] MEDS: SODIUM CHLORIDE 0.9% 1,000 ML IV SCH ×2 (01:07→03:00)
[2025-02-21 03:36] LABS: Base Excess 1.7 mmol/L (-2.0-3.0)
[2025-02-21 04:10] LABS: Hematocrit 44.0 % (36.0-46.0); Hemoglobin 14.5 g/dL (12.2-16.2); Mean Corpuscular Hemoglobin 28.2 pg (28.0-32.0); Mean Corpuscular Volume 85.3 fL (80.0-100.0); Nucleated Red Blood Cells % 0.2 %
[2025-02-21 04:32] LABS: Albumin 3.6 g/dL (3.2-4.8); Anion Gap 18 (5-15); BUN/Creatinine Ratio 23.8 (10.0-20.0); Calcium 9.4 mg/dL (8.7-10.4); Carbon Dioxide 27 mmol/L (20-31); Chloride 103 mmol/L (98-107); Total Protein 6.3 g/dL (5.7-8.2)
[2025-02-21 04:33] LABS: Alanine Aminotransferase 57 U/L (7-40); Alkaline Phosphatase 117 U/L (46-116); Bilirubin, Total 1.2 mg/dL (0.2-1.0); Blood Urea Nitrogen 72 mg/dL (9-23); Glucose 196 mg/dL (74-106); Sodium 148 mmol/L (136-145)
[2025-02-21 04:34] LABS: Potassium 2.5 mmol/L (3.5-5.1)
[2025-02-21] MEDS: INSULIN DRIP 100 UNIT/100ML 100 ML IV SCH ×4 (04:49→12:00)
[2025-02-21] MEDS: POTASSIUM CHL 20MEQ/100ML 100 ML IV SCH (06:20)
[2025-02-21 08:54] LABS: Lactic Acid w/Reflex 2.3 mmol/L (0.4-2.0)
--- NOTE | 2025-02-21 10:53 | DVHPN2 ---
Subjective 59-year-old female with a history of type 2 diabetes, asthma, GERD, morbid obesity was admitted to the hospital for altered level of consciousness and was found to have a DKA She is admitted to the ICU Initially she had a blood glucose of 459 and CO2 of 29 and anion gap of 19 with a potassium of 3.4 and creatinine of 3.3 This morning and potassium is 2.5, sodium 148, creatinine is 3.0, anion gap is 18 CO2 is 27 now Her latest blood sugar is 110 Changes from previous H/P or p: Changes Eyes: No Pain, No Vision change, No Conjunctivae inflammation, No Eyelid inflammation, No Other, No Redness ENT: No Ear pain, No Ear discharge, No Nose pain, No Nose discharge, No Nose congestion, No Mouth pain, No Mouth swelling, No Throat pain, No Throat swelling, No Other Cardiovascular: No Chest Pain, No Palpitations, No Orthopnea, No Paroxysmal Noc. Dyspnea, No Edema, No Lt Headedness, No Other Respiratory: No Cough, No Dry, No Shortness of breath, No SOB with excertion, No Wheezing, No Hemoptysis, No Pleuritic Pain, No Sputum, No Other Gastrointestinal: No Nausea, No Vomiting, No Abdominal Pain, No Diarrhea, No Constipation, No Melena, No Hematochezia, No Other Musculoskeletal: No other, No neck pain, No shoulder pain, No arm pain, No back pain, No hand pain, No leg pain, No foot pain Skin: No Rash, No Lesions, No Jaundice, No Bruising, No Other Objective Vitals Vital Signs Date Time Temp Pulse Resp B/P (MAP) Pulse Ox O2 Delivery O2 Flow Rate FiO2 02/21/25 10:00 13 100 Nasal Cannula* 2 28 02/21/25 10:00 91 02/21/25 07:00 107/73 (84) 02/21/25 04:00 98.0 98.0 Intake/Output Intake and Output 02/21/25 07:00 Intake Total 3166.000 ml Output Total 50 ml Balance 3116.000 ml Intake Oral 0 ml IV Total 3166.000 ml Output Urine Total 50 ml General Appearance: Alert, Oriented X3, Cooperative, No acute distress Lungs: Clear to auscultation Cardiovascular: Regular rate, Normal S1, Normal S2, No murmurs Abdomen: Normal bowel sounds, Soft, No tenderness Extremities: No edema Medications Current Medications Medications Dose Ordered Sig/Tim Route Start Time Stop Time Status Last Admin Dose Admin Vancomycin HCl 0 ml @ 0 mls/hr PER PHARMACY IV 02/20/25 18:00 Heparin Sodium (Porcine) 5,000 units Q12HR SC 02/20/25 22:00 02/21/25 10:28 5,000 UNITS Diagnostic Test (Pha) 1 strip IQ4HR 02/21/25 00:00 UNV Sodium Chloride 10 ml Q8HR IV 02/20/25 22:00 02/21/25 06:21 10 ML Acetaminophen/ Hydrocodone Bitart 1 tab Q4HP PRN PO 02/20/25 20:15 Ondansetron HCl 4 mg Q4HP PRN IV 02/20/25 20:15 Docusate Sodium 100 mg BIDPRN PRN PO 02/20/25 20:15 Acetaminophen 650 mg Q6HP PRN PO 02/20/25 20:15 Sodium Chloride 1,000 ml @ 150 mls/hr Q6H40M IV 02/21/25 02:15 02/21/25 04:47 150 MLS/HR Dextrose 50 ml UD PRN IV 02/20/25 20:15 Diagnostic Test (Pha) 1 strip Q90MIN 02/20/25 21:00 02/21/25 10:23 1 STRIP Nitroglycerin 0.4 mg Q5MINP PRN SL 02/20/25 21:15 Morphine Sulfate 2 mg Q30M PRN IV 02/20/25 21:15 Metronidazole 100 ml @ 100 mls/hr Q8H IV 02/21/25 02:00 02/21/25 10:22 100 MLS/HR Potassium Chloride 100 ml @ 50 mls/hr Q2H IV 02/21/25 05:45 02/21/25 11:44 02/21/25 09:10 50 MLS/HR Insulin Human (Reg)/Sodium Chloride 100 ml @ 0.5 mls/hr Q24H IV 02/21/25 07:45 02/21/25 07:45 0.5 MLS/HR Potassium Chloride/Dextrose/ Sod Cl 1,000 ml @ 150 mls/hr Q6H40M IV 02/21/25 09:15 Laboratory Results Laboratory Tests 02/21/25 03:47 Chemistry Test 02/20/25 19:15 02/21/25 03:47 Albumin 4.2 g/dL (3.2-4.8) 3.6 g/dL (3.2-4.8) Calcium Level 9.8 mg/dL (8.7-10.4) 9.4 mg/dL (8.7-10.4) Phosphorus Level 2.0 mg/dL (2.4-5.1) L Total Protein 7.0 g/dL (5.7-8.2) 6.3 g/dL (5.7-8.2) Cardiac Markers Test 02/20/25 19:15 B-Type Natriuretic Peptide 30.16 pg/mL (0-100) LFT Test 02/20/25 19:15 02/21/25 03:47 Alanine Aminotransferase (ALT) 74 U/L (7-40) H 57 U/L (7-40) H Alkaline Phosphatase 146 U/L (46-116) H 117 U/L (46-116) H Aspartate Amino Transferase (AST) 52 U/L (13-40) H 58 U/L (13-40) H Total Bilirubin 1.6 mg/dL (0.2-1.0) H 1.2 mg/dL (0.2-1.0) H Urinalysis Test 02/20/25 21:52 Urine Color [place] (Yellow) H Urine Clarity Ex.turbid (Clear) Urine pH 5.0 (5.0-9.0) Urine Specific [place] 1.020 (1.001-1.035) Urine Protein 1+ (Negative) H Urine Ketones Negative (Negative) Urine Blood 2+ /uL (Negative) H Urine Nitrite Negative (Negative) Urine Bilirubin 1+ (Negative) H Urine Urobilinogen 4 mg/dL (Negative) H Urine Leukocyte Esterase 3+ /uL (Negative) Urine RBC 24 /hpf (0 - 4) Urine WBC Clumps Present /hpf (None Seen) Urine Microscopic WBC 382 /HPF (0-5) H Urine Squamous Epithelial Cells Few /hpf (<5) Urine Bacteria Many /hpf (None Seen) H Urine Hyaline Casts Few /lpf (0 - 2) Urine Mucus Few (None Seen) Urine Glucose 4+ mg/dL (Normal) H Blood Gas Results Test 02/20/25 19:00 02/21/25 03:13 Arterial Blood pH 7.662 (7.350-7.450) 7.556 (7.350-7.450) FiO2 % 21.0 21.0 Assessment/Plan Assessment/Plan Acute DKA Hypernatremia Acute kidney injury possibly due to vasomotor nephropathy Hypokalemia Transaminitis Morbid obesity Leukocytosis UTI Sepsis due to UTI Metabolic acidosis with respiratory alkalosis Plan Switch with a normal saline to D5 half NS with potassium IV Give potassium IV 60 mEq use Continue sliding scale insulin drip IV antibiotics cefepime and vancomycin Full code Urine and blood culture MRSA screen Monitor closely Plan discussed with: Patient My Orders Orders - JAROD CHURCH MD Procedure Category Date Status Time D5w/Sod Chl 0.45%/Kcl PHA 02/21/25 In Process 20meq 09:15 Date of Service: Feb 21, 2025 Billing Provider: JAROD CHURCH MD Common Visit Codes: [id number] CARE 30-74 MIN JAROD CHURCH MD Feb 21, 2025 10:53
[2025-02-21] MEDS: D5W/SOD CHL 0.45%/KCL 20MEQ 1,000 ML IV SCH (13:22)
--- NOTE | 2025-02-21 16:46 | DVHINCON2 ---
Date of service: Feb 21, [address] Da Silva Reason for Consultation Acute kidney injury History of Present Illness Nicci is a 59-year-old female with presentation in the hospital altered mental status. She was found at home on the floor significantly altered per history from the chart. Current consultation requested due to elevated serum creatinine to the three range significant increase in azotemia. Patient was arousable and communicative minimally. Most of the history was obtained through chart documentation. Urine volumes have also been negligible. Past Medical History Diabetes Anemia Hypertension GERD Has been Morbid obesity. Allergies: Coded Allergies: Penicillins (Verified Allergy, Unknown, 09/01/19) Current Medications Current Medications Medications (Trade) Dose Ordered Sig/Tim Route PRN Reason Start Time Stop Time Status Last Admin Vancomycin HCl 0 ml @ 0 mls/hr PER PHARMACY IV 02/20/25 18:00 Metronidazole 100 ml @ 100 mls/hr Q8HR IV 02/20/25 22:00 02/21/25 01:12 DC Heparin Sodium (Porcine) 5,000 units Q12HR SC 02/20/25 22:00 02/21/25 10:28 Diagnostic Test (Pha) (Accu-Chek Comfort Curve T) 1 strip IQ4HR 02/21/25 00:00 UNV Insulin Human Regular (InsuLIN R) IQ4HR SC 02/21/25 00:00 02/20/25 20:45 DC Dextrose 50 ml UD PRN IV Blood Sugar LESS THAN 60 02/20/25 20:15 02/20/25 20:45 DC Sodium Chloride (Saline Lock Ns) 10 ml Q8HR IV 02/20/25 22:00 02/21/25 13:40 Acetaminophen/ Hydrocodone Bitart ([place] 5/325MG Tab) 1 tab Q4HP PRN PO MODERATE PAIN (4-6 PAIN SCALE) 02/20/25 20:15 Ondansetron HCl (Zofran) 4 mg Q4HP PRN IV NAUSEA / VOMITING 02/20/25 20:15 Docusate Sodium (Colace Capsule) 100 mg BIDPRN PRN PO FOR CONSTIPATION 02/20/25 20:15 Acetaminophen (Tylenol Tablet) 650 mg Q6HP PRN PO PAIN SCALE 1-3 OR TEMP>100.4 02/20/25 20:15 Sodium Chloride 1,000 ml @ 250 mls/hr Q4H IV 02/21/25 00:15 02/21/25 02:14 DC 02/21/25 01:07 Sodium Chloride 1,000 ml @ 150 mls/hr Q6H40M IV 02/21/25 02:15 02/21/25 10:49 DC 02/21/25 04:47 Insulin Human (Reg)/Sodium Chloride 100 ml @ 0.5 mls/hr Q24H IV 02/20/25 20:15 02/21/25 03:34 DC 02/20/25 21:23 Dextrose 50 ml UD PRN IV SEE CURRENT ALGORITHM or SCALE 02/20/25 20:15 Diagnostic Test (Pha) (Accu-Chek Comfort Curve T) 1 strip Q90MIN 02/20/25 21:00 02/21/25 16:31 Nitroglycerin (Ntrostat Sublingual) 0.4 mg Q5MINP PRN SL FOR CHEST PAIN 02/20/25 21:15 Morphine Sulfate 2 mg Q30M PRN IV FOR CHEST PAIN 02/20/25 21:15 Metronidazole 100 ml @ 100 mls/hr Q8H IV 02/21/25 02:00 02/21/25 10:22 Insulin Human (Reg)/Sodium Chloride 100 ml @ 0.5 mls/hr Q24H IV 02/21/25 03:45 02/21/25 04:53 DC 02/21/25 04:49 Insulin Human (Reg)/Sodium Chloride 100 ml @ 1 mls/hr Q24H IV 02/21/25 05:00 02/21/25 07:34 DC 02/21/25 05:22 Potassium Chloride 100 ml @ 50 mls/hr Q2H IV 02/21/25 05:45 02/21/25 11:44 DC 02/21/25 10:55 Insulin Human (Reg)/Sodium Chloride 100 ml @ 0.5 mls/hr Q24H IV 02/21/25 07:45 02/21/25 11:19 DC 02/21/25 07:45 Potassium Chloride/Dextrose/ Sod Cl 1,000 ml @ 150 mls/hr Q6H40M IV 02/21/25 09:15 02/21/25 13:22 Insulin Human (Reg)/Sodium Chloride 100 ml @ 0.5 mls/hr Q24H IV 02/21/25 11:30 02/21/25 12:00 Review of Systems Unable to be obtained due to patient's altered mental status H&P Exam Vital Signs/I&O Vital Sign Date Time Temp Pulse Resp B/P (MAP) Pulse Ox O2 Delivery O2 Flow Rate FiO2 02/21/25 16:00 97.7 92 12 116/79 (91) 100 97.7 02/21/25 16:00 Nasal Cannula* 2 28 Intake and Output 02/20/25 02/21/25 18:59 06:59 Intake Total 2963.000 ml Output Total 50 ml Balance 2913.000 ml Intake Oral 0 ml IV Total 2963.000 ml Output Urine Total 50 ml Physical Exam Gen: nad, obese, lying supine in bed heent: Dry oral mucosa lungs: cta anteriorly cvs: no rub abd: soft, bowel sounds audible ext: no edema, slight bluish discoloration of toes bilaterally. skin: no rash neuro: Confused but able to follow simple commands Labs/Diagnostic Data Labs/Diagnostic Data Laboratory Tests Test 02/21/25 15:01 02/21/25 13:38 02/21/25 12:02 02/21/25 10:28 Range/Units POC Glucose 157 H 134 H 123 H 110 H 70-106 mg/dl Test 02/21/25 08:59 02/21/25 07:24 02/21/25 06:13 02/21/25 05:14 Range/Units POC Glucose 105 85 121 H 70-106 mg/dl Lactic Acid Level 2.3 *H 0.4-2.0 mmol/L Test 02/21/25 04:40 02/21/25 03:47 02/21/25 03:13 02/21/25 03:09 Range/Units POC Glucose 171 H 181 H 70-106 mg/dl White Blood Count 13.2 H 4.4-10.8 10^3/uL Red Blood Count 5.15 4.0-5.20 10^6/uL Hemoglobin 14.5 12.2-16.2 g/dL Hematocrit 44.0 # 36.0-46.0 % Mean Corpuscular Volume 85.3 80.0-100.0 fL Mean Corpuscular Hemoglobin 28.2 28.0-32.0 pg Mean Corpuscular Hemoglobin Concent 33.0 32.0-36.0 g/dL Red Cell Distribution Width 17.7 H 11.8-14.3 % Platelet Count 176 140-450 10^3/uL Mean Platelet Volume 9.9 6.9-10.8 fL Neutrophils (%) (Auto) 69.2 37.0-80.0 % Lymphocytes (%) (Auto) 25.5 10.0-50.0 % Monocytes (%) (Auto) 5.0 0.0-12.0 % Eosinophils (%) (Auto) 0.1 0.0-7.0 % Basophils (%) (Auto) 0.2 0.0-2.0 % Neutrophils # (Auto) 9.1 H 1.6-8.6 10 ^3/uL Lymphocytes # (Auto) 3.4 0.4-5.4 10 ^3/uL Monocytes # (Auto) 0.7 0-1.3 10 ^3/uL Eosinophils # (Auto) 0 0-0.8 10 ^3/uL Basophils # (Auto) 0 0-0.2 10 ^3/uL Nucleated Red Blood Cells 0.2 % Sodium Level 148 H 136-145 mmol/L Potassium Level 2.5 *L 3.5-5.1 mmol/L Chloride Level 103 98-107 mmol/L Carbon Dioxide Level 27 20-31 mmol/L Anion Gap 18 H 5-15 Blood Urea Nitrogen 72 #H 9-23 mg/dL Creatinine 3.03 H 0.550-1.02 mg/dL Glomerular Filtration Rate Calc 17 >90 mL/min BUN/Creatinine Ratio 23.8 H 10.0-20.0 Serum Glucose 196 H 74-106 mg/dL Calcium Level 9.4 8.7-10.4 mg/dL Total Bilirubin 1.2 H 0.2-1.0 mg/dL Aspartate Amino Transferase (AST) 58 H 13-40 U/L Alanine Aminotransferase (ALT) 57 H 7-40 U/L Alkaline Phosphatase 117 H 46-116 U/L Ammonia 11 11-32 umol/L Total Protein 6.3 5.7-8.2 g/dL Albumin 3.6 3.2-4.8 g/dL Random Vancomycin Level 22.1 H 5-10 ug/mL Blood Gas Specimen Type Arterial Blood Gas Sample Site Right radial Blood Gas Patient Temperature 37.0 Arterial Blood Date Drawn Arterial Blood pH 7.556 *H 7.350-7.450 Arterial Blood Partial Pressure CO2 26.0 L 32.0-45.0 mmHg Arterial Blood Partial Pressure O2 76.8 L 83.0-108.0 mmHg Arterial Blood HCO3 22.5 21.0-28.0 mmol/L Arterial Blood Oxygen Saturation 94.8 94.0-98.0 % Arterial Blood Base Excess 1.7 -2.0-3.0 mmol/L Arterial Blood Oxyhemoglobin 94.0 94.0-98.0 % Arterial Blood Carboxyhemoglobin 0.4 L 0.5-1.5 % Arterial Blood Methemoglobin 0.4 0.0-1.5 % Arterial Blood Deoxyhemoglobin 5.2 H 0.0-5.0 % Fox Test Yes Blood Gas Total Hemoglobin 13.90 12.0-16.0 g/dL Blood Gas Modality Room air FiO2 % 21.0 Blood Gas Critical Value Read Back Yes Blood Gas Notified Whom kat Woodard Blood Gas Notified Time [id number] Blood Gas Notified By Rt adrian clifford Test 02/21/25 01:25 02/20/25 22:15 02/20/25 21:52 02/20/25 20:14 Range/Units POC Glucose 298 H 70-106 mg/dl Lactic Acid Level 6.7 *H 0.4-2.0 mmol/L Troponin I High Sensitivity 204 *H 193 *H </=34 ng/L Urine Color [place] H Yellow Urine Clarity Ex.turbid Clear Urine pH 5.0 5.0-9.0 Urine Specific [place] 1.020 1.001-1.035 Urine Protein 1+ H Negative Urine Ketones Negative Negative Urine Blood 2+ H Negative /uL Urine Nitrite Negative Negative Urine Bilirubin 1+ H Negative Urine Urobilinogen 4 H Negative mg/dL Urine Leukocyte Esterase 3+ Negative /uL Urine RBC 24 0 - 4 /hpf Urine WBC Clumps Present None Seen /hpf Urine Microscopic WBC 382 H 0-5 /HPF Urine Squamous Epithelial Cells Few <5 /hpf Urine Bacteria Many H None Seen /hpf Urine Hyaline Casts Few 0 - 2 /lpf Urine Mucus Few None Seen Urine Glucose 4+ H Normal mg/dL Test 02/20/25 19:53 02/20/25 19:15 02/20/25 19:00 Range/Units Lactic Acid Level 5.0 *H 0.4-2.0 mmol/L White Blood Count 13.1 H 4.4-10.8 10^3/uL Red Blood Count 5.74 H 4.0-5.20 10^6/uL Hemoglobin 16.1 12.2-16.2 g/dL Hematocrit 50.5 H 36.0-46.0 % Mean Corpuscular Volume 88.0 80.0-100.0 fL Mean Corpuscular Hemoglobin 28.1 28.0-32.0 pg Mean Corpuscular Hemoglobin Concent 31.9 L 32.0-36.0 g/dL Red Cell Distribution Width 18.2 H 11.8-14.3 % Platelet Count 189 140-450 10^3/uL Mean Platelet Volume 10.4 6.9-10.8 fL Neutrophils (%) (Auto) 76.0 37.0-80.0 % Lymphocytes (%) (Auto) 18.6 10.0-50.0 % Monocytes (%) (Auto) 4.8 0.0-12.0 % Eosinophils (%) (Auto) 0.2 0.0-7.0 % Basophils (%) (Auto) 0.4 0.0-2.0 % Neutrophils # (Auto) 10.0 H 1.6-8.6 10 ^3/uL Lymphocytes # (Auto) 2.4 0.4-5.4 10 ^3/uL Monocytes # (Auto) 0.6 0-1.3 10 ^3/uL Eosinophils # (Auto) 0 0-0.8 10 ^3/uL Basophils # (Auto) 0.1 0-0.2 10 ^3/uL Nucleated Red Blood Cells 0.2 % Sodium Level 144 136-145 mmol/L Potassium Level 3.4 L 3.5-5.1 mmol/L Chloride Level 96 L 98-107 mmol/L Carbon Dioxide Level 29 20-31 mmol/L Anion Gap 19 H 5-15 Blood Urea Nitrogen 94 *H 9-23 mg/dL Creatinine 3.31 H 0.550-1.02 mg/dL Glomerular Filtration Rate Calc 16 >90 mL/min BUN/Creatinine Ratio 28.4 H 10.0-20.0 Serum Glucose 459 *H 74-106 mg/dL Serum Osmolality 352 H 278-298 mOsm/kg Calcium Level 9.8 8.7-10.4 mg/dL Phosphorus Level 2.0 L 2.4-5.1 mg/dL Total Bilirubin 1.6 H 0.2-1.0 mg/dL Aspartate Amino Transferase (AST) 52 H 13-40 U/L Alanine Aminotransferase (ALT) 74 H 7-40 U/L Alkaline Phosphatase 146 H 46-116 U/L Troponin I High Sensitivity 201 *H </=34 ng/L B-Type Natriuretic Peptide 30.16 0-100 pg/mL Total Protein 7.0 5.7-8.2 g/dL Albumin 4.2 3.2-4.8 g/dL Beta-Hydroxybutyric Acid 0.662 H < 0.4 mmol/L Blood Gas Specimen Type Arterial Blood Gas Sample Site Left radial Blood Gas Patient Temperature 37.0 Arterial Blood Date Drawn [id number] Arterial Blood pH 7.662 *H 7.350-7.450 Arterial Blood Partial Pressure CO2 23.3 L 32.0-45.0 mmHg Arterial Blood Partial Pressure O2 72.6 L 83.0-108.0 mmHg Arterial Blood HCO3 25.8 21.0-28.0 mmol/L Arterial Blood Oxygen Saturation 95.8 94.0-98.0 % Arterial Blood Base Excess 7.0 H -2.0-3.0 mmol/L Arterial Blood Oxyhemoglobin 94.4 94.0-98.0 % Arterial Blood Carboxyhemoglobin 0.9 0.5-1.5 % Arterial Blood Methemoglobin 0.6 0.0-1.5 % Arterial Blood Deoxyhemoglobin 4.1 0.0-5.0 % Fox Test Modified Blood Gas Total Hemoglobin 16.00 12.0-16.0 g/dL Blood Gas Modality Room air FiO2 % 21.0 Blood Gas Critical Value Read Back Yes Blood Gas Notified Whom Md adrian avilez Blood Gas Notified Time [id number] Blood Gas Notified By Rt toney gupta Microbiology Date/Time Source Procedure Growth Status 02/21/25 01:55 Nose MRSA Screen - Final Complete Assessment IMP: 1) Hemodynamically mediated acute kidney injury and vasomotor nephropathy 2) toxic metabolic encephalopathy 3) hypernatremia 4) dehydration 5) alkalemia REC: - IV hydration with NS - strict Is&Os, we will check urine studies, serial chemistry panels - we will check CPK level to evaluate for any associated rhabdomyolysis if patient was on the floor for prolonged period of time - we will continue to follow closely with you. Thank you for the consultation. Plan discussed with: Other PANDA GARCIA MD Feb 21, 2025 16:46
[2025-02-21] MEDS ORDERED: POTASSIUM CHLORIDE 80 MEQ, LIDOCAINE 1% (LOCAL ANESTH.) 6 ML in SODIUM CHL 0.9% 500 ML IV ONE (17:00)
--- NOTE | 2025-02-21 17:42 | DVH ---
BILATERAL Lower Extremity Arterial Duplex Date: 02/21/2025 03:33 PM CLINICAL HISTORY: ASSESS LOWER EXTREMITY PERFUSION COMPARISON: None TECHNIQUE: Duplex Doppler evaluation including color Doppler and spectral/pulsed waveform analysis of the lower extremity arteries was performed. Finding: RIGHT: Peak systolic velocities are as follows: [employer] 107 cm/s triphasic waveform Deep femoral 89.2 cm/s triphasic waveform SFA proximal 96.3 cm/s triphasic waveform SFA mid-portion 126.7 cm/s Triphasic waveform SFA distal 62.4 cm/s triphasic waveform Popliteal proximal artery: 94.5 cm/s triphasic waveform Popliteal artery distally: 103.4 cm/sec, triphasic waveform Posterior tibial 74 cm/s triphasic waveform Anterior tibial 80.8 cm/s triphasic waveform Dorsalis pedis 45.1 cm/s triphasic waveform The waveforms are triphasic waveform throughout. LEFT: Peak systolic velocities are as follows: [employer] 84.8 cm/s triphasic waveform Deep femoral 115.6 cm/s triphasic waveform SFA proximal 123.9 cm/s triphasic waveform SFA mid-portion 103.7 cm/s triphasic waveform SFA distal 66.4 cm/s triphasic waveform Popliteal artery proximally : 33.2 cm/s triphasic waveform Posterior tibial artery distally : 99.3 cm/s triphasic waveform Anterior tibial 56.6 cm/s triphasic waveform Dorsalis pedis 50.2 cm/s triphasic waveform The waveforms are triphasic waveform throughout. REFERENCE VALUES, [facility] ([facility]) vascular Imaging Lab Criteria: Peak systolic velocity ranges (in cm/sec) are as follows: <150 cm/s - <20 % stenosis 150-200 cm/s - 20-49% stenosis 200-300 cm/s - 50-75% stenosis >300 cm/s -> 75% stenosis IMPRESSION: 1. There is no evidence for peripheral vascular insufficiency in the right lower extremity. 2. There is no evidence for peripheral vascular insufficiency in the left lower extremity. 3. No significant focal stenosis is identified.
[2025-02-21] MEDS: SODIUM CHLORIDE 0.9% 2,000 ML IV ONE (18:03)
[2025-02-21] MEDS: POTASSIUM CHLORIDE 40 MEQ, LIDOCAINE 1% (LOCAL ANESTH.) 4 ML in SODIUM CHL 0.9% 250 ML IV ONE (20:50)
[2025-02-22] VITALS (56 sets, daily range): BP systolic 101–164; BP diastolic 53–97; PULSE 84–105; RESP 10–23; TEMP 97.5–98.7; O2SAT 98–100
[2025-02-22 03:42] LABS: Hematocrit 39.6 % (36.0-46.0); Hemoglobin 12.9 g/dL (12.2-16.2); Mean Corpuscular Hemoglobin 28.0 pg (28.0-32.0); Mean Corpuscular Volume 86.3 fL (80.0-100.0); Nucleated Red Blood Cells % 0.2 %
[2025-02-22 03:51] LABS: Albumin 3.3 g/dL (3.2-4.8); Alkaline Phosphatase 110 U/L (46-116); Anion Gap 12 (5-15); BUN/Creatinine Ratio 30.7 (10.0-20.0); Carbon Dioxide 30 mmol/L (20-31); Magnesium 1.7 mg/dL (1.6-2.6)
[2025-02-22 03:52] LABS: Bilirubin, Total 0.9 mg/dL (0.2-1.0)
[2025-02-22 03:53] LABS: Alanine Aminotransferase 47 U/L (7-40); Blood Urea Nitrogen 71 mg/dL (9-23); Calcium 8.2 mg/dL (8.7-10.4); Chloride 114 mmol/L (98-107); Glucose 157 mg/dL (74-106); Potassium 3.4 mmol/L (3.5-5.1); Sodium 156 mmol/L (136-145); Total Protein 5.5 g/dL (5.7-8.2)
[2025-02-22] MEDS ORDERED: DEXTROSE (50%) 50ML SYRG IV PRN (04:30)
[2025-02-22] MEDS: ACCU-CHEK COMFORT CURVE STRIP VI SCH ×2 (08:24→17:28)
[2025-02-22] MEDS: InsuLIN REG 1unit/0.01ml Soln (100units/ml) SC SCH ×2 (08:26→17:28)
--- NOTE | 2025-02-22 10:08 | ECG ---
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
[2025-02-22] MEDS: POTASSIUM CHLORIDE 20 MEQ, LIDOCAINE 1% (LOCAL ANESTH.) 2 ML in SODIUM CHL 0.9% 100 ML IV ONE (11:07)
--- NOTE | 2025-02-22 11:42 | DVHPN2 ---
Progress Note - Dictate Date Seen: Feb 22, 2025 Medical Necessity Reason Pt with a Central, PICC or Fol: Yes The following are medically ne: Diallo Catheter Reason for diallo catheter: Strict I&O Subjective Patient remains lethargic but slightly more alert today. Receiving supplemental potassium. vital signs Vital Sign Date Time Temp Pulse Resp B/P (MAP) Pulse Ox O2 Delivery O2 Flow Rate FiO2 02/22/25 09:53 99 02/22/25 09:53 13 100 Nasal Cannula* 1 24 02/22/25 06:45 121/70 (87) 02/22/25 04:00 98.2 98.2 Total Intake and Output 02/21/25 02/21/25 02/22/25 14:59 22:59 06:59 Intake Total 1231.5 ml 2409.5 ml 494 ml Output Total 550 ml 400 ml Balance 1231.5 ml 1859.5 ml 94 ml medications Current Medications Medications Dose Ordered Sig/Tim Route Start Time Stop Time Status Last Admin Dose Admin Vancomycin HCl 0 ml @ 0 mls/hr PER PHARMACY IV 02/20/25 18:00 Heparin Sodium (Porcine) 5,000 units Q12HR SC 02/20/25 22:00 02/22/25 09:30 5,000 UNITS Diagnostic Test (Pha) 1 strip IQ4HR 02/21/25 00:00 UNV Sodium Chloride 10 ml Q8HR IV 02/20/25 22:00 02/22/25 06:08 10 ML Acetaminophen/ Hydrocodone Bitart 1 tab Q4HP PRN PO 02/20/25 20:15 Ondansetron HCl 4 mg Q4HP PRN IV 02/20/25 20:15 Docusate Sodium 100 mg BIDPRN PRN PO 02/20/25 20:15 Acetaminophen 650 mg Q6HP PRN PO 02/20/25 20:15 Nitroglycerin 0.4 mg Q5MINP PRN SL 02/20/25 21:15 Morphine Sulfate 2 mg Q30M PRN IV 02/20/25 21:15 Metronidazole 100 ml @ 100 mls/hr Q8H IV 02/21/25 02:00 02/22/25 09:30 100 MLS/HR Diagnostic Test (Pha) 1 strip IQ4HR 02/22/25 08:00 02/22/25 08:24 1 STRIP Insulin Human Regular IQ4HR SC 02/22/25 08:00 02/22/25 08:26 2 UNITS Dextrose 50 ml UD PRN IV 02/22/25 04:30 Dextrose 1,000 ml @ 125 mls/hr Q8H IV 02/22/25 10:45 objective Gen: nad, slow to respond heent: nc/at, mmm lungs: cta anteriorly cvs: no rub abd: soft, bowel sounds audible ext: no edema skin: no rash neuro: Slightly lethargic laboratory and microbiology Laboratory Tests 02/22/25 02:20 Test 02/22/25 02:20 Range/Units Serum Glucose 157 H 74-106 mg/dL Assessment/Plan IMP: 1) Hemodynamically mediated acute kidney injury and vasomotor nephropathy 2) toxic metabolic encephalopathy 3) hypernatremia 4) dehydration 5) alkalemia REC: - D5W - noted ongoing supplemental potassium - anticipate continued improvement in kidney function with conservative means. Plan discussed with: Other PANDA GARCIA MD Feb 22, 2025 11:42
--- NOTE | 2025-02-22 11:59 | DVHPN2 ---
Subjective Doing better Off the insulin drip CO2 is 30 Anion gap is 12 Creatinine 2.3 Changes from previous H/P or p: Changes Eyes: No Pain, No Vision change, No Conjunctivae inflammation, No Eyelid inflammation, No Other, No Redness ENT: No Ear pain, No Ear discharge, No Nose pain, No Nose discharge, No Nose congestion, No Mouth pain, No Mouth swelling, No Throat pain, No Throat swelling, No Other Cardiovascular: No Chest Pain, No Palpitations, No Orthopnea, No Paroxysmal Noc. Dyspnea, No Edema, No Lt Headedness, No Other Respiratory: No Cough, No Dry, No Shortness of breath, No SOB with excertion, No Wheezing, No Hemoptysis, No Pleuritic Pain, No Sputum, No Other Gastrointestinal: No Nausea, No Vomiting, No Abdominal Pain, No Diarrhea, No Constipation, No Melena, No Hematochezia, No Other Musculoskeletal: No other, No neck pain, No shoulder pain, No arm pain, No back pain, No hand pain, No leg pain, No foot pain Skin: No Rash, No Lesions, No Jaundice, No Bruising, No Other Objective Vitals Vital Signs Date Time Temp Pulse Resp B/P (MAP) Pulse Ox O2 Delivery O2 Flow Rate FiO2 02/22/25 11:40 15 99 Room Air* 0 21 02/22/25 11:30 98 113/68 (83) 02/22/25 08:00 98.7 98.7 Intake/Output Intake and Output 02/22/25 07:00 Intake Total 3932.0 ml Output Total 950 ml Balance 2982.0 ml Intake Oral 120 ml IV Total 3812.0 ml Output Urine Total 950 ml General Appearance: Alert, Oriented X3, Cooperative, No acute distress Lungs: Clear to auscultation Cardiovascular: Regular rate, Normal S1, Normal S2, No murmurs Abdomen: Normal bowel sounds, Soft, No tenderness Extremities: No edema Medications Current Medications Medications Dose Ordered Sig/Tim Route Start Time Stop Time Status Last Admin Dose Admin Vancomycin HCl 0 ml @ 0 mls/hr PER PHARMACY IV 02/20/25 18:00 Heparin Sodium (Porcine) 5,000 units Q12HR SC 02/20/25 22:00 02/22/25 09:30 5,000 UNITS Diagnostic Test (Pha) 1 strip IQ4HR 02/21/25 00:00 UNV Sodium Chloride 10 ml Q8HR IV 02/20/25 22:00 02/22/25 06:08 10 ML Acetaminophen/ Hydrocodone Bitart 1 tab Q4HP PRN PO 02/20/25 20:15 Ondansetron HCl 4 mg Q4HP PRN IV 02/20/25 20:15 Docusate Sodium 100 mg BIDPRN PRN PO 02/20/25 20:15 Acetaminophen 650 mg Q6HP PRN PO 02/20/25 20:15 Nitroglycerin 0.4 mg Q5MINP PRN SL 02/20/25 21:15 Morphine Sulfate 2 mg Q30M PRN IV 02/20/25 21:15 Metronidazole 100 ml @ 100 mls/hr Q8H IV 02/21/25 02:00 02/22/25 09:30 100 MLS/HR Diagnostic Test (Pha) 1 strip IQ4HR 02/22/25 08:00 02/22/25 08:24 1 STRIP Insulin Human Regular IQ4HR SC 02/22/25 08:00 02/22/25 08:26 2 UNITS Dextrose 50 ml UD PRN IV 02/22/25 04:30 Dextrose 1,000 ml @ 125 mls/hr Q8H IV 02/22/25 10:45 Laboratory Results Laboratory Tests 02/22/25 02:20 Chemistry Test 02/22/25 02:20 Albumin 3.3 g/dL (3.2-4.8) Calcium Level 8.2 mg/dL (8.7-10.4) L Magnesium Level 1.7 mg/dL (1.6-2.6) Total Protein 5.5 g/dL (5.7-8.2) L LFT Test 02/22/25 02:20 Alanine Aminotransferase (ALT) 47 U/L (7-40) H Alkaline Phosphatase 110 U/L (46-116) Aspartate Amino Transferase (AST) 60 U/L (13-40) H Total Bilirubin 0.9 mg/dL (0.2-1.0) HgA1c, TSH Test 02/22/25 02:20 Hemoglobin A1c 8.4 % A1C (<5.7) H Urinalysis Test 02/20/25 21:52 Urine Color [place] (Yellow) H Urine Clarity Ex.turbid (Clear) Urine pH 5.0 (5.0-9.0) Urine Specific [place] 1.020 (1.001-1.035) Urine Protein 1+ (Negative) H Urine Ketones Negative (Negative) Urine Blood 2+ /uL (Negative) H Urine Nitrite Negative (Negative) Urine Bilirubin 1+ (Negative) H Urine Urobilinogen 4 mg/dL (Negative) H Urine Leukocyte Esterase 3+ /uL (Negative) Urine RBC 24 /hpf (0 - 4) Urine WBC Clumps Present /hpf (None Seen) Urine Microscopic WBC 382 /HPF (0-5) H Urine Squamous Epithelial Cells Few /hpf (<5) Urine Bacteria Many /hpf (None Seen) H Urine Hyaline Casts Few /lpf (0 - 2) Urine Mucus Few (None Seen) Urine Glucose 4+ mg/dL (Normal) H Microbiology Microbiology Date/Time Source Procedure Growth Status 02/21/25 20:32 Back Wound Gram Stain Pending Resulted 02/21/25 20:32 Back Wound Wound Culture - Preliminary Resulted 02/21/25 01:55 Urine - [place] Urine Culture - Preliminary Resulted 02/20/25 19:53 Blood Blood Culture - Preliminary NO GROWTH AFTER 24 HOURS OF INCUBATION. Resulted Assessment/Plan Assessment/Plan Acute DKA Hypernatremia Acute kidney injury possibly due to vasomotor nephropathy Hypokalemia Transaminitis Morbid obesity Leukocytosis UTI Sepsis due to UTI Metabolic acidosis with respiratory alkalosis Plan Switch with a normal saline to D5 half NS with potassium IV Give potassium IV 60 mEq use Continue sliding scale insulin drip IV antibiotics cefepime and vancomycin Full code Urine and blood culture MRSA screen Monitor closely 02/22/2025: Continue IV fluids D5W Metronidazole and vancomycin Consistent carbohydrate diet Accu-Cheks AC and HS Downgrade to telemetry Physical therapy evaluation Plan discussed with: Patient My Orders Orders - JAROD CHURCH MD Procedure Category Date Status Time Cleanse Wound With [place] 02/21/25 In Process Wound Clean 12:17 Apply Z-Guard [place] 02/21/25 In Process 12:17 Cleanse Wound With [place] 02/21/25 In Process Mild Soap A 12:17 Wound Culture W/ Gs ADELA 02/21/25 In Process 19:04 Transfer Orders XFER 02/22/25 Transmitted 10:45 Date of Service: Feb 22, 2025 Billing Provider: JAROD CHURCH MD Common Visit Codes: [id number] CARE 30-74 MIN JAROD CHURCH MD Feb 22, 2025 11:59
[2025-02-22] MEDS: D5W 5% 1,000 ML IV SCH (13:56)
[2025-02-22] MEDS: MAGNESIUM SULFATE 1GM/100ML 100 ML IV ONE (14:02)
[2025-02-22] MEDS: VANCOMYCIN 500mg/100mL 100 ML IV ONE (15:03)
[2025-02-23] VITALS (7 sets, daily range): BP systolic 124–148; BP diastolic 70–100; PULSE 87–108; RESP 18–19; TEMP 97.3–99.1; O2SAT 96–98
[2025-02-23 09:34] LABS: Anion Gap 19 (5-15); Carbon Dioxide 21 mmol/L (20-31)
--- NOTE | 2025-02-23 09:39 | DVHPN2 ---
Progress Note Date Seen: Feb 23, 2025 Medical Necessity Reason Pt with a Central, PICC or Fol: Yes The following are medically ne: Diallo Catheter Reason for diallo catheter: Strict I&O Objective vital signs Vital Sign Date Time Temp Pulse Resp B/P (MAP) Pulse Ox O2 Delivery O2 Flow Rate FiO2 02/23/25 08:00 97.4 105 19 130/89 (103) 97 97.4 02/22/25 20:00 Room Air* 0 21 Total Intake and Output 02/22/25 02/22/25 02/23/25 15:00 23:00 07:00 Intake Total 212 ml 900 ml 100 ml Balance 212 ml 900 ml 100 ml medications Current Medications Medications Dose Ordered Sig/Tim Route Start Time Stop Time Status Last Admin Dose Admin Vancomycin HCl 0 ml @ 0 mls/hr PER PHARMACY IV 02/20/25 18:00 Heparin Sodium (Porcine) 5,000 units Q12HR SC 02/20/25 22:00 02/22/25 21:53 5,000 UNITS Diagnostic Test (Pha) 1 strip IQ4HR 02/21/25 00:00 UNV Sodium Chloride 10 ml Q8HR IV 02/20/25 22:00 02/23/25 05:10 10 ML Acetaminophen/ Hydrocodone Bitart 1 tab Q4HP PRN PO 02/20/25 20:15 Ondansetron HCl 4 mg Q4HP PRN IV 02/20/25 20:15 Docusate Sodium 100 mg BIDPRN PRN PO 02/20/25 20:15 Acetaminophen 650 mg Q6HP PRN PO 02/20/25 20:15 Nitroglycerin 0.4 mg Q5MINP PRN SL 02/20/25 21:15 Morphine Sulfate 2 mg Q30M PRN IV 02/20/25 21:15 Metronidazole 100 ml @ 100 mls/hr Q8H IV 02/21/25 02:00 02/23/25 02:00 100 MLS/HR Dextrose 50 ml UD PRN IV 02/22/25 04:30 Dextrose 1,000 ml @ 125 mls/hr Q8H IV 02/22/25 10:45 02/22/25 13:56 125 MLS/HR Diagnostic Test (Pha) 1 strip ACHS 02/22/25 17:00 02/23/25 06:34 1 STRIP Insulin Human Regular ACHS SC 02/22/25 17:00 02/23/25 06:35 6 UNITS Examination: GENERAL:Normal, CVS:Normal laboratory and microbiology Laboratory Tests 02/22/25 02:20 Test 02/23/25 06:00 Range/Units Serum Glucose Pending Microbiology Date/Time Source Procedure Growth Status 02/21/25 20:32 Back Wound Gram Stain Pending Resulted 02/21/25 20:32 Back Wound Wound Culture - Preliminary Resulted 02/21/25 01:55 Urine - [place] Urine Culture - Preliminary Resulted 02/20/25 19:53 Blood Blood Culture - Preliminary NO GROWTH AFTER 48 HOURS OF INCUBATION. Resulted Problem List/Assessment/Plan Problem List/Assessment/Plan Acute kidney injury DKA sepsis UTI uncontrolled Dm2 morbid obesity hypernatremia baseline renal function unknown but continues to improve switch to 0.45%NACL , continue until sodium has normalized. replace K and Mg per hospital guidelines ABX insulin subQ protocol Plan discussed with: Patient ANTHONY LYMAN MD Feb 23, 2025 09:39
[2025-02-23 09:40] LABS: BUN/Creatinine Ratio 14.6 (10.0-20.0)
[2025-02-23 09:49] LABS: Blood Urea Nitrogen 31 mg/dL (9-23); Calcium 8.6 mg/dL (8.7-10.4); Chloride 118 mmol/L (98-107); Glucose 236 mg/dL (74-106); Potassium 3.3 mmol/L (3.5-5.1); Sodium 158 mmol/L (136-145)
[2025-02-23] MEDS: SOD CHL 0.45% 1,000 ML IV SCH (10:00)
[2025-02-23] MEDS: POTASSIUM CHL 20 Meq TABLET PO ONE (10:30)
--- NOTE | 2025-02-23 10:32 | DVHPN2 ---
Subjective Although she is more alert however she is still confused and not able to relate her problems or give any history Sodium is high at 158 Potassium 3.3 Creatinine 2.1 Changes from previous H/P or p: Changes Eyes: No Pain, No Vision change, No Conjunctivae inflammation, No Eyelid inflammation, No Other, No Redness ENT: No Ear pain, No Ear discharge, No Nose pain, No Nose discharge, No Nose congestion, No Mouth pain, No Mouth swelling, No Throat pain, No Throat swelling, No Other Cardiovascular: No Chest Pain, No Palpitations, No Orthopnea, No Paroxysmal Noc. Dyspnea, No Edema, No Lt Headedness, No Other Respiratory: No Cough, No Dry, No Shortness of breath, No SOB with excertion, No Wheezing, No Hemoptysis, No Pleuritic Pain, No Sputum, No Other Gastrointestinal: No Nausea, No Vomiting, No Abdominal Pain, No Diarrhea, No Constipation, No Melena, No Hematochezia, No Other Musculoskeletal: No other, No neck pain, No shoulder pain, No arm pain, No back pain, No hand pain, No leg pain, No foot pain Skin: No Rash, No Lesions, No Jaundice, No Bruising, No Other Objective Vitals Vital Signs Date Time Temp Pulse Resp B/P (MAP) Pulse Ox O2 Delivery O2 Flow Rate FiO2 02/23/25 08:00 97.4 105 19 130/89 (103) 97 97.4 02/23/25 08:00 Room Air* 0 21 Intake/Output Intake and Output 02/23/25 07:00 Intake Total 1212 ml Balance 1212 ml IV Total 1212 ml General Appearance: Alert, Oriented X3, Cooperative, No acute distress Lungs: Clear to auscultation Cardiovascular: Regular rate, Normal S1, Normal S2, No murmurs Abdomen: Normal bowel sounds, Soft, No tenderness Extremities: No edema Medications Current Medications Medications Dose Ordered Sig/Tim Route Start Time Stop Time Status Last Admin Dose Admin Vancomycin HCl 0 ml @ 0 mls/hr PER PHARMACY IV 02/20/25 18:00 Heparin Sodium (Porcine) 5,000 units Q12HR SC 02/20/25 22:00 02/23/25 10:08 5,000 UNITS Diagnostic Test (Pha) 1 strip IQ4HR 02/21/25 00:00 UNV Sodium Chloride 10 ml Q8HR IV 02/20/25 22:00 02/23/25 05:10 10 ML Acetaminophen/ Hydrocodone Bitart 1 tab Q4HP PRN PO 02/20/25 20:15 Ondansetron HCl 4 mg Q4HP PRN IV 02/20/25 20:15 Docusate Sodium 100 mg BIDPRN PRN PO 02/20/25 20:15 Acetaminophen 650 mg Q6HP PRN PO 02/20/25 20:15 Nitroglycerin 0.4 mg Q5MINP PRN SL 02/20/25 21:15 Morphine Sulfate 2 mg Q30M PRN IV 02/20/25 21:15 Metronidazole 100 ml @ 100 mls/hr Q8H IV 02/21/25 02:00 02/23/25 10:00 100 MLS/HR Dextrose 50 ml UD PRN IV 02/22/25 04:30 Diagnostic Test (Pha) 1 strip ACHS 02/22/25 17:00 02/23/25 06:34 1 STRIP Insulin Human Regular ACHS SC 02/22/25 17:00 02/23/25 06:35 6 UNITS Sodium Chloride 1,000 ml @ 100 mls/hr Q10H IV 02/23/25 09:45 02/23/25 10:00 100 MLS/HR Laboratory Results Laboratory Tests 02/22/25 02:20 02/23/25 06:00 Chemistry Test 02/23/25 06:00 Calcium Level 8.6 mg/dL (8.7-10.4) L Urinalysis Test 02/20/25 21:52 Urine Color [place] (Yellow) H Urine Clarity Ex.turbid (Clear) Urine pH 5.0 (5.0-9.0) Urine Specific [place] 1.020 (1.001-1.035) Urine Protein 1+ (Negative) H Urine Ketones Negative (Negative) Urine Blood 2+ /uL (Negative) H Urine Nitrite Negative (Negative) Urine Bilirubin 1+ (Negative) H Urine Urobilinogen 4 mg/dL (Negative) H Urine Leukocyte Esterase 3+ /uL (Negative) Urine RBC 24 /hpf (0 - 4) Urine WBC Clumps Present /hpf (None Seen) Urine Microscopic WBC 382 /HPF (0-5) H Urine Squamous Epithelial Cells Few /hpf (<5) Urine Bacteria Many /hpf (None Seen) H Urine Hyaline Casts Few /lpf (0 - 2) Urine Mucus Few (None Seen) Urine Glucose 4+ mg/dL (Normal) H Microbiology Microbiology Date/Time Source Procedure Growth Status 02/21/25 20:32 Back Wound Gram Stain Pending Resulted 02/21/25 20:32 Back Wound Wound Culture - Preliminary Resulted 02/21/25 01:55 Urine - [place] Urine Culture - Preliminary Resulted 02/20/25 19:53 Blood Blood Culture - Preliminary NO GROWTH AFTER 48 HOURS OF INCUBATION. Resulted Assessment/Plan Assessment/Plan Acute DKA Hypernatremia Acute kidney injury possibly due to vasomotor nephropathy Hypokalemia Transaminitis Morbid obesity Leukocytosis UTI Sepsis due to UTI Metabolic acidosis with respiratory alkalosis Plan Switch with a normal saline to D5 half NS with potassium IV Give potassium IV 60 mEq use Continue sliding scale insulin drip IV antibiotics cefepime and vancomycin Full code Urine and blood culture MRSA screen Monitor closely 02/22/2025: Continue IV fluids D5W Metronidazole and vancomycin Consistent carbohydrate diet Accu-Cheks AC and HS Downgrade to telemetry Physical therapy evaluation 02/23/2025: Hypernatremia: Continue IV fluids half NS to try to improve her hypernatremia DKA: Resolved Hypokalemia: Replace Generalized weakness Morbid obesity UTI: Urine culture shows Gram-negative rods, Discontinue vancomycin and Flagyl Start meropenem IV for UTI with Gram-negative rods Sepsis due to UTI Umbilical hernia Acute kidney injury Plan discussed with: Patient My Orders Orders - JAROD CHURCH MD Procedure Category Date Status Time Transfer Orders XFER 02/22/25 Transmitted 10:45 Glucose Blood PHA 02/22/25 In Process (Accu-Chek Comfort 17:00 Insulin R (Human) PHA 02/22/25 In Process (Insulin R) 17:00 Pt Request For Service PT 02/22/25 Logged 11:57 Date of Service: Feb 23, 2025 Billing Provider: JAROD CHURCH MD Common Visit Codes: [id number] INP/OBS CARE(HIGH) JAROD CHURCH MD Feb 23, 2025 10:32
[2025-02-23] MEDS: MEROPENEM 1GM IVPB 50 ML IV ONE (11:29)
[2025-02-23] MEDS: MEROPENEM 1GM IVPB 50 ML IV SCH (22:25)
[2025-02-24] VITALS (8 sets, daily range): BP systolic 131–163; BP diastolic 82–98; PULSE 95–112; RESP 18–22; TEMP 97.5–99; O2SAT 95–98
[2025-02-24 05:14] LABS: Hematocrit 36.5 % (36.0-46.0); Hemoglobin 11.9 g/dL (12.2-16.2); Mean Corpuscular Hemoglobin 28.0 pg (28.0-32.0); Mean Corpuscular Volume 85.9 fL (80.0-100.0); Nucleated Red Blood Cells % 0.1 %
[2025-02-24 06:01] LABS: Alanine Aminotransferase 32 U/L (7-40); Albumin 3.3 g/dL (3.2-4.8); Alkaline Phosphatase 110 U/L (46-116); Anion Gap 14 (5-15); Carbon Dioxide 26 mmol/L (20-31); Magnesium 1.9 mg/dL (1.6-2.6); Total Protein 5.7 g/dL (5.7-8.2)
[2025-02-24 06:02] LABS: Bilirubin, Total 1.0 mg/dL (0.2-1.0)
[2025-02-24 06:04] LABS: Calcium 8.6 mg/dL (8.7-10.4); Chloride 115 mmol/L (98-107); Glucose 134 mg/dL (74-106); Potassium 3.0 mmol/L (3.5-5.1); Sodium 155 mmol/L (136-145)
[2025-02-24 06:10] LABS: BUN/Creatinine Ratio 18.7 (10.0-20.0)
[2025-02-24 06:12] LABS: Blood Urea Nitrogen 36 mg/dL (9-23)
--- NOTE | 2025-02-24 09:27 | DVHPN2 ---
Subjective The patient is still lethargic Sodium 155 Creatinine 1.9 Potassium 3.0 Changes from previous H/P or p: Changes Eyes: No Pain, No Vision change, No Conjunctivae inflammation, No Eyelid inflammation, No Other, No Redness ENT: No Ear pain, No Ear discharge, No Nose pain, No Nose discharge, No Nose congestion, No Mouth pain, No Mouth swelling, No Throat pain, No Throat swelling, No Other Cardiovascular: No Chest Pain, No Palpitations, No Orthopnea, No Paroxysmal Noc. Dyspnea, No Edema, No Lt Headedness, No Other Respiratory: No Cough, No Dry, No Shortness of breath, No SOB with excertion, No Wheezing, No Hemoptysis, No Pleuritic Pain, No Sputum, No Other Gastrointestinal: No Nausea, No Vomiting, No Abdominal Pain, No Diarrhea, No Constipation, No Melena, No Hematochezia, No Other Musculoskeletal: No other, No neck pain, No shoulder pain, No arm pain, No back pain, No hand pain, No leg pain, No foot pain Skin: No Rash, No Lesions, No Jaundice, No Bruising, No Other Objective Vitals Vital Signs Date Time Temp Pulse Resp B/P (MAP) Pulse Ox O2 Delivery O2 Flow Rate FiO2 02/24/25 08:54 98.7 95 19 159/94 (115) 98 98.7 02/23/25 20:00 Room Air* 0 21 Intake/Output Intake and Output 02/24/25 07:00 Intake Total 800 ml Output Total 800 ml Balance 0 ml IV Total 800 ml Output Urine Total 800 ml General Appearance: Alert, Oriented X3, Cooperative, No acute distress Lungs: Clear to auscultation Cardiovascular: Regular rate, Normal S1, Normal S2, No murmurs Abdomen: Normal bowel sounds, Soft, No tenderness Extremities: No edema Medications Current Medications Medications Dose Ordered Sig/Tim Route Start Time Stop Time Status Last Admin Dose Admin Heparin Sodium (Porcine) 5,000 units Q12HR SC 02/20/25 22:00 02/24/25 09:16 5,000 UNITS Diagnostic Test (Pha) 1 strip IQ4HR 02/21/25 00:00 UNV Sodium Chloride 10 ml Q8HR IV 02/20/25 22:00 02/24/25 06:03 10 ML Acetaminophen/ Hydrocodone Bitart 1 tab Q4HP PRN PO 02/20/25 20:15 Ondansetron HCl 4 mg Q4HP PRN IV 02/20/25 20:15 Docusate Sodium 100 mg BIDPRN PRN PO 02/20/25 20:15 Acetaminophen 650 mg Q6HP PRN PO 02/20/25 20:15 Nitroglycerin 0.4 mg Q5MINP PRN SL 02/20/25 21:15 Morphine Sulfate 2 mg Q30M PRN IV 02/20/25 21:15 Dextrose 50 ml UD PRN IV 02/22/25 04:30 Diagnostic Test (Pha) 1 strip ACHS 02/22/25 17:00 02/24/25 06:04 1 STRIP Insulin Human Regular ACHS SC 02/22/25 17:00 02/23/25 22:20 2 UNITS Sodium Chloride 1,000 ml @ 100 mls/hr Q10H IV 02/23/25 09:45 02/24/25 09:07 100 MLS/HR Meropenem 50 ml @ 17 mls/hr Q12HR IV 02/23/25 22:00 02/24/25 09:12 17 MLS/HR Laboratory Results Laboratory Tests 02/24/25 04:27 Chemistry Test 02/24/25 04:27 Albumin 3.3 g/dL (3.2-4.8) Calcium Level 8.6 mg/dL (8.7-10.4) L Magnesium Level 1.9 mg/dL (1.6-2.6) Total Protein 5.7 g/dL (5.7-8.2) LFT Test 02/24/25 04:27 Alanine Aminotransferase (ALT) 32 U/L (7-40) Alkaline Phosphatase 110 U/L (46-116) Aspartate Amino Transferase (AST) 35 U/L (13-40) Total Bilirubin 1.0 mg/dL (0.2-1.0) Urinalysis Test 02/20/25 21:52 Urine Color [place] (Yellow) H Urine Clarity Ex.turbid (Clear) Urine pH 5.0 (5.0-9.0) Urine Specific [place] 1.020 (1.001-1.035) Urine Protein 1+ (Negative) H Urine Ketones Negative (Negative) Urine Blood 2+ /uL (Negative) H Urine Nitrite Negative (Negative) Urine Bilirubin 1+ (Negative) H Urine Urobilinogen 4 mg/dL (Negative) H Urine Leukocyte Esterase 3+ /uL (Negative) Urine RBC 24 /hpf (0 - 4) Urine WBC Clumps Present /hpf (None Seen) Urine Microscopic WBC 382 /HPF (0-5) H Urine Squamous Epithelial Cells Few /hpf (<5) Urine Bacteria Many /hpf (None Seen) H Urine Hyaline Casts Few /lpf (0 - 2) Urine Mucus Few (None Seen) Urine Glucose 4+ mg/dL (Normal) H Microbiology Microbiology Date/Time Source Procedure Growth Status 02/21/25 20:32 Back Wound Gram Stain Pending Resulted 02/21/25 20:32 Back Wound Wound Culture - Preliminary Resulted 02/21/25 01:55 Urine - [place] Urine Culture - Final Escherichia coli - ESBL Complete 02/20/25 19:53 Blood Blood Culture - Preliminary NO GROWTH AFTER 72 HOURS OF INCUBATION. Resulted Assessment/Plan Assessment/Plan Acute DKA Hypernatremia Acute kidney injury possibly due to vasomotor nephropathy Hypokalemia Transaminitis Morbid obesity Leukocytosis UTI Sepsis due to UTI Metabolic acidosis with respiratory alkalosis Plan Switch with a normal saline to D5 half NS with potassium IV Give potassium IV 60 mEq use Continue sliding scale insulin drip IV antibiotics cefepime and vancomycin Full code Urine and blood culture MRSA screen Monitor closely 02/22/2025: Continue IV fluids D5W Metronidazole and vancomycin Consistent carbohydrate diet Accu-Cheks AC and HS Downgrade to telemetry Physical therapy evaluation 02/23/2025: Hypernatremia: Continue IV fluids half NS to try to improve her hypernatremia DKA: Resolved Hypokalemia: Replace Generalized weakness Morbid obesity UTI: Urine culture shows Gram-negative rods, Discontinue vancomycin and Flagyl Start meropenem IV for UTI with Gram-negative rods Sepsis due to UTI Umbilical hernia Acute kidney injury 02/24/2025: UTI with E coli ESBL: IV ertapenem Hypernatremia: Half-normal saline Metabolic encephalopathy: Repeat CT scan of the head, CPK, TSH, folic acid, B12, ammonia, blood culture, JAMEE: IV fluids Hypokalemia: Replace IV Nephrology consult on board We will need IV antibiotics upon discharge Plan discussed with: Patient My Orders Orders - JAROD CHURCH MD Procedure Category Date Status Time Meropenem 1gm Ivpb PHA 02/23/25 In Process (Merrem 1gm/50ml) 22:00 Date of Service: Feb 24, 2025 Billing Provider: JAROD CHURCH MD Common Visit Codes: [id number] INP/OBS CARE(HIGH) JAROD CHURCH MD Feb 24, 2025 09:27
[2025-02-24] MEDS: POTASSIUM CHL 20MEQ/100ML 100 ML IV ONE (10:43)
--- NOTE | 2025-02-24 11:29 | DVH ---
EXAM: CT HEAD WITHOUT CONTRAST INDICATION: ALOC TECHNIQUE: CT of the head without intravenous contrast. Radiation Dose : 1. Head: CT Dose: CTDI volume is 60.04 mGy. Dose-length product is 1183.13 mGy*cm The dose indicators for CT are the volume Computed Tomography (CT) Dose Index (CTDIvol) and the Dose Length Product (DLP), and are measured in units of mGy and mGy-cm, respectively. These indicators are not patient dose, but values generated from the CT scanner acquisition factors. The report includes radiation exposure data for exposures received during this examination. COMPARISON: CT HEAD WITHOUT CONTRAST on DOS: 02/20/25 FINDINGS: Redemonstration of a 2.2 cm partially calcified right frontal extra-axial lesion without significant mass effect. No acute territorial infarct or intracranial hemorrhage. There are global involutional changes with compensatory prominence of the ventricles and sulci. Patchy periventricular and subcortical white matter hypoattenuation is nonspecific but may be related to small vessel ischemic disease. The orbits are normal. The paranasal sinuses and mastoid air cells are clear. The osseous structures are unremarkable. IMPRESSION: 1. No acute territorial infarct or intracranial hemorrhage. 2. Age-related involutional changes. Chronic microvascular changes. 3. 2.2 cm right frontal extra-axial lesion may reflect a meningioma. A nonemergent MRI of the brain is suggested in further assessment. Radiation optimization: All CT scans at this facility use at least one of these dose optimization techniques: automated exposure control mA and/or kV adjustment per patient size (includes targeted exams where dose is matched to clinical indication) or iterative reconstruction.
--- NOTE | 2025-02-24 12:32 | DVHPN2 ---
Progress Note Date Seen: Feb 24, 2025 Medical Necessity Reason Pt with a Central, PICC or Fol: Yes The following are medically ne: Diallo Catheter Reason for diallo catheter: Strict I&O Objective vital signs Vital Sign Date Time Temp Pulse Resp B/P (MAP) Pulse Ox O2 Delivery O2 Flow Rate FiO2 02/24/25 08:54 98.7 95 19 159/94 (115) 98 98.7 02/24/25 08:00 Room Air* 0 21 Total Intake and Output 02/23/25 02/23/25 02/24/25 15:00 23:00 07:00 Intake Total 50 ml 750 ml Output Total 400 ml 400 ml Balance 50 ml -400 ml 350 ml medications Current Medications Medications Dose Ordered Sig/Tim Route Start Time Stop Time Status Last Admin Dose Admin Heparin Sodium (Porcine) 5,000 units Q12HR SC 02/20/25 22:00 02/24/25 09:16 5,000 UNITS Diagnostic Test (Pha) 1 strip IQ4HR 02/21/25 00:00 UNV Sodium Chloride 10 ml Q8HR IV 02/20/25 22:00 02/24/25 06:03 10 ML Acetaminophen/ Hydrocodone Bitart 1 tab Q4HP PRN PO 02/20/25 20:15 Ondansetron HCl 4 mg Q4HP PRN IV 02/20/25 20:15 Docusate Sodium 100 mg BIDPRN PRN PO 02/20/25 20:15 Acetaminophen 650 mg Q6HP PRN PO 02/20/25 20:15 Nitroglycerin 0.4 mg Q5MINP PRN SL 02/20/25 21:15 Morphine Sulfate 2 mg Q30M PRN IV 02/20/25 21:15 Dextrose 50 ml UD PRN IV 02/22/25 04:30 Diagnostic Test (Pha) 1 strip ACHS 02/22/25 17:00 02/24/25 12:08 1 STRIP Insulin Human Regular ACHS SC 02/22/25 17:00 02/23/25 22:20 2 UNITS Sodium Chloride 1,000 ml @ 100 mls/hr Q10H IV 02/23/25 09:45 02/24/25 09:07 100 MLS/HR Meropenem 50 ml @ 17 mls/hr Q8H IV 02/24/25 17:00 Examination: CVS:Normal laboratory and microbiology Laboratory Tests 02/24/25 11:44 02/24/25 04:27 Test 02/24/25 04:27 Range/Units Serum Glucose 134 H 74-106 mg/dL Microbiology Date/Time Source Procedure Growth Status 02/21/25 20:32 Back Wound Gram Stain Pending Resulted 02/21/25 20:32 Back Wound Wound Culture - Preliminary Resulted 02/21/25 01:55 Urine - [place] Urine Culture - Final Escherichia coli - ESBL Complete 02/20/25 19:53 Blood Blood Culture - Preliminary NO GROWTH AFTER 72 HOURS OF INCUBATION. Resulted Problem List/Assessment/Plan Problem List/Assessment/Plan Acute kidney injury DKA sepsis UTI uncontrolled Dm2 morbid obesity hypernatremia baseline renal function unknown but continues to improve continue 0.45%NACL , continue until sodium has normalized. replace K and Mg per hospital guidelines ABX insulin subQ protocol Plan discussed with: Patient ANTHONY LYMAN MD Feb 24, 2025 12:32
[2025-02-24] MEDS: MEROPENEM 1GM IVPB 50 ML IV SCH (16:49)
[2025-02-24] MEDS: hydrALAZINE HCL 20 MG/ML VL IV PRN (16:50)
--- NOTE | 2025-02-24 21:10 | DVHINCON2 ---
Date of service: Feb 24, [address] Da Silva Reason for Consultation ALOC History of Present Illness Ms. Herrera is a 59 years old female with a history of hypertension, diabetes, morbid obesity, anemia, kidney failure, GERD, he was brought to the [facility] on 02/28/2025 with a chief complaint of altered mental status, at this time, the patient is awake, oriented to person, possibly to place as well, she speaks with slurry voice, she is not cooperative, history is obtained from Ibeth, her [id number] According to cataract, the patient's maybe physically mentally declined for about six months of time, more so in the last two months, on 02/28/2025, the patient is found mentally altered, covered in feces and blood, her glucose on scene was 470, heart rate 120, blood pressure 118/98, oxygen saturation 80% on room air. In the hospital, the patient is found to have UTI, dehydration, hypernatremia, lactic acidosis, DKA According to cataract, recently she ate a lot of ice screen, potato chips, [place] fries According to caregiver, the patient was able to walk without a cane or walker Urine culture, 02/21/2025: E coli Blood culture, 02/20/2025: Wound culture, 02/21/2025: Many growth Urinalysis, 02/20/2025: WBC: 382, urine leukocyte esterase: 3 +, WBC/HB/PLT/MCV, 02/24/2025: 6.8/11.9/148/85.9 Na, 02/20/2025: 144, 02/21/2025: 48, 02/22/2025: 156, 02/23/2025: 158, 02/24/2025: 157, 02/24/2025: 155 BUN/CR, 02/20/2025: 94/3.31, 02/24/2025: 36/1.93 GFR, 02/20/2025: 16, 02/24/2025: 30 Glucose, 02/20/2025: 459, 02/21/2025: 196 HGB A1c, 02/22/2025: 8.4 Lactic acid, 02/20/2025: 5, 6.7 02/21/2025: 2.3 Beta hydroxybutyric acid, 02/20/2025: 0.662 TG/HDL/LDL/HDL, 02/21/2025: 1.2/58/57/117, 02/24/2025: Normal Ammonia, 02/24/2025: <10 Vitamin B12, 02/24/2025: 682 Folic acid, 02/24/2025: 3.45 TSH, 02/24/2025: 3.24 CT head, 02/24/2025: 1. No acute territorial infarct or intracranial hemorrhage.2. Age-related involutional changes. Chronic microvascular changes. 3. 2.2 cm right frontal extra-axial lesion may reflect a meningioma. A nonemergent MRI of the brain is suggested in further assessment. Past Medical History Hypertension, diabetes, anemia, kidney failure, GERD, morbid obesity Past Surgical History Tonsillectomy Family History Diabetes, hypertension, cancer Social History She has no history of tobacco smoking, drug or alcohol abuse Allergies: Coded Allergies: Penicillins (Verified Allergy, Unknown, 09/01/19) Current Medications Current Medications Medications (Trade) Dose Ordered Sig/Tim Route PRN Reason Start Time Stop Time Status Last Admin Meropenem 50 ml @ 17 mls/hr Q12HR IV 02/23/25 22:00 02/24/25 12:09 DC 02/24/25 09:12 Meropenem 50 ml @ 17 mls/hr Q8H IV 02/24/25 17:00 02/24/25 16:49 Hydralazine HCl (Apresoline Injection) 10 mg Q6HP PRN IV SBP>150 02/24/25 16:30 02/24/25 16:50 Review of Systems As above, the other systems are negative Vital Signs Vital Signs Date Time Temp Pulse Resp B/P (MAP) Pulse Ox O2 Delivery O2 Flow Rate FiO2 02/24/25 17:00 98.1 104 19 163/98 (119) 96 98.1 02/24/25 08:00 Room Air* 0 21 Physical Exam GENERAL EXAM: General: the patient is well developed and nourished. No acute distress. HEENT: Normocephalic, neck is supple, no carotid bruits. No mass. RESPIRATORY: Normal respiratory effort with symmetrical lung expansion. Lungs clear to auscultation. CARDIOVASCULAR: Regular rate and rhythm with no murmurs. S1, S2. ABDOMEN: Soft, nontender, normal bowel sound NEUROLOGICAL: MENTAL STATUS: Awake, oriented to person, possibly to place SPEECH, LANGUAGE, HIGHER CORTICAL FUNCTION: She talks a little bit, with slurry voice CRANIAL NERVES: #2: Visual ghosh okay to visual thread #3,4,6: Pupils are equal, round and reactive. Right eyes liver deviated, #5: Facial sensation fine in all three divisions bilaterally. Mandibular strength intact. #7: Facial muscles symmetrical and strength intact. #8: Hearing grossly normal to voice. #9,10: Deferred #11: Deferred #12: Deferred SENSATION: Sensation to touch and pinprick is fine MOTOR: Normal tone in the upper and lower extremity. Normal muscle bulk. No fasciculations. No abnormal movements or posturing. He moves the arms and legs REFLEXES: Deep tendon reflexes are symmetrical. No pathological reflexes. CEREBELLAR/COORDINATION: Deferred GAIT/STATION: deferred. Labs/Diagnostic Data Labs Test 02/24/25 18:10 02/24/25 16:56 02/24/25 11:44 02/24/25 09:23 Range/Units Sodium Level 155 H 136-145 mmol/L POC Glucose 115 H 70-106 mg/dl Ammonia < 10 L 11-32 umol/L Vitamin B12 Level 682 211-911 pg/mL Folic Acid 3.45 >5.38 ng/mL Test 02/24/25 04:27 02/23/25 06:00 02/22/25 02:20 02/21/25 05:14 Range/Units White Blood Count 6.8 4.4-10.8 10^3/uL Red Blood Count 4.26 4.0-5.20 10^6/uL Hemoglobin 11.9 L 12.2-16.2 g/dL Hematocrit 36.5 36.0-46.0 % Mean Corpuscular Volume 85.9 80.0-100.0 fL Mean Corpuscular Hemoglobin 28.0 28.0-32.0 pg Mean Corpuscular Hemoglobin Concent 32.6 32.0-36.0 g/dL Red Cell Distribution Width 19.2 H 11.8-14.3 % Platelet Count 148 140-450 10^3/uL Mean Platelet Volume 8.9 6.9-10.8 fL Neutrophils (%) (Auto) 53.6 37.0-80.0 % Lymphocytes (%) (Auto) 39.4 10.0-50.0 % Monocytes (%) (Auto) 4.1 0.0-12.0 % Eosinophils (%) (Auto) 2.2 0.0-7.0 % Basophils (%) (Auto) 0.7 0.0-2.0 % Neutrophils # (Auto) 3.6 1.6-8.6 10 ^3/uL Lymphocytes # (Auto) 2.7 0.4-5.4 10 ^3/uL Monocytes # (Auto) 0.3 0-1.3 10 ^3/uL Eosinophils # (Auto) 0.1 0-0.8 10 ^3/uL Basophils # (Auto) 0 0-0.2 10 ^3/uL Nucleated Red Blood Cells 0.1 % Potassium Level 3.0 L 3.5-5.1 mmol/L Chloride Level 115 H 98-107 mmol/L Carbon Dioxide Level 26 20-31 mmol/L Anion Gap 14 5-15 Blood Urea Nitrogen 36 H 9-23 mg/dL Creatinine 1.93 H 0.550-1.02 mg/dL Glomerular Filtration Rate Calc 30 >90 mL/min BUN/Creatinine Ratio 18.7 10.0-20.0 Serum Glucose 134 H 74-106 mg/dL Calcium Level 8.6 L 8.7-10.4 mg/dL Magnesium Level 1.9 1.6-2.6 mg/dL Total Bilirubin 1.0 0.2-1.0 mg/dL Aspartate Amino Transferase (AST) 35 13-40 U/L Alanine Aminotransferase (ALT) 32 7-40 U/L Alkaline Phosphatase 110 46-116 U/L Creatine Kinase 108 34-145 U/L Total Protein 5.7 5.7-8.2 g/dL Albumin 3.3 3.2-4.8 g/dL Thyroid Stimulating Hormone (TSH) 3.24 0.55-4.78 uIU/mL Random Vancomycin Level 14.6 H 5-10 ug/mL Hemoglobin A1c 8.4 H <5.7 % A1C Lactic Acid Level 2.3 *H 0.4-2.0 mmol/L Test 02/21/25 03:13 02/20/25 22:15 02/20/25 21:52 02/20/25 19:15 Range/Units Blood Gas Specimen Type Arterial Blood Gas Sample Site Right radial Blood Gas Patient Temperature 37.0 Arterial Blood Date Drawn Arterial Blood pH 7.556 *H 7.350-7.450 Arterial Blood Partial Pressure CO2 26.0 L 32.0-45.0 mmHg Arterial Blood Partial Pressure O2 76.8 L 83.0-108.0 mmHg Arterial Blood HCO3 22.5 21.0-28.0 mmol/L Arterial Blood Oxygen Saturation 94.8 94.0-98.0 % Arterial Blood Base Excess 1.7 -2.0-3.0 mmol/L Arterial Blood Oxyhemoglobin 94.0 94.0-98.0 % Arterial Blood Carboxyhemoglobin 0.4 L 0.5-1.5 % Arterial Blood Methemoglobin 0.4 0.0-1.5 % Arterial Blood Deoxyhemoglobin 5.2 H 0.0-5.0 % Fox Test Yes Blood Gas Total Hemoglobin 13.90 12.0-16.0 g/dL Blood Gas Modality Room air FiO2 % 21.0 Blood Gas Critical Value Read Back Yes Blood Gas Notified Whom kat Woodard Blood Gas Notified Time [id number] Blood Gas Notified By Rt adrian clifford Troponin I High Sensitivity 204 *H </=34 ng/L Urine Color [place] H Yellow Urine Clarity Ex.turbid Clear Urine pH 5.0 5.0-9.0 Urine Specific [place] 1.020 1.001-1.035 Urine Protein 1+ H Negative Urine Ketones Negative Negative Urine Blood 2+ H Negative /uL Urine Nitrite Negative Negative Urine Bilirubin 1+ H Negative Urine Urobilinogen 4 H Negative mg/dL Urine Leukocyte Esterase 3+ Negative /uL Urine RBC 24 0 - 4 /hpf Urine WBC Clumps Present None Seen /hpf Urine Microscopic WBC 382 H 0-5 /HPF Urine Squamous Epithelial Cells Few <5 /hpf Urine Bacteria Many H None Seen /hpf Urine Hyaline Casts Few 0 - 2 /lpf Urine Mucus Few None Seen Urine Glucose 4+ H Normal mg/dL Serum Osmolality 352 H 278-298 mOsm/kg Phosphorus Level 2.0 L 2.4-5.1 mg/dL B-Type Natriuretic Peptide 30.16 0-100 pg/mL Beta-Hydroxybutyric Acid 0.662 H < 0.4 mmol/L Microbiology Date/Time Source Procedure Growth Status 02/21/25 20:32 Back Wound Gram Stain - Final Resulted 02/21/25 20:32 Back Wound Wound Culture - Preliminary Resulted 02/21/25 01:55 Urine - [place] Urine Culture - Final Escherichia coli - ESBL Complete 02/20/25 19:53 Blood Blood Culture - Preliminary NO GROWTH AFTER 72 HOURS OF INCUBATION. Resulted Assessment Altered mental status secondary to metabolic encephalopathy Diabetic ketoacidosis Metabolic acidosis UTI Sepsis Morbid obesity Acute respiratory failure Kidney failure Dehydration Hypernatremia Morbid obesity ? Obesity hypoventilation syndrome Plan/Recommendation Monitoring Supportive treatment Telemetry EEG Follow up labs IV antibiotics IV fluids Oxygen Nephrology on case Cardiology on case More recommendation per clinical course Progress: Poor This medical document was created using an electronic medical record system with [employer] computerized dictation system. Although this document has been carefully reviewed, there may still be some phonetic and typographical errors. These areas are purely typographical due to imperfections of the software programs, and do not reflect any compromise in the patient's medical care. Plan discussed with: Other NO MONDRAGON MD Feb 24, 2025 21:10
[2025-02-25] VITALS (11 sets, daily range): BP systolic 124–166; BP diastolic 75–104; PULSE 105–124; RESP 19–22; TEMP 97.7–99.7; O2SAT 96–98
[2025-02-25 06:55] LABS: Hematocrit 35.5 % (36.0-46.0); Hemoglobin 11.7 g/dL (12.2-16.2); Mean Corpuscular Hemoglobin 28.6 pg (28.0-32.0); Mean Corpuscular Volume 87.0 fL (80.0-100.0); Nucleated Red Blood Cells % 0.3 %
[2025-02-25 07:18] LABS: Alanine Aminotransferase 31 U/L (7-40); Alkaline Phosphatase 112 U/L (46-116)
[2025-02-25 07:19] LABS: Anion Gap 19 (5-15); BUN/Creatinine Ratio 21.6 (10.0-20.0); Bilirubin, Total 1.0 mg/dL (0.2-1.0); Carbon Dioxide 20 mmol/L (20-31); Magnesium 1.8 mg/dL (1.6-2.6); Potassium 3.9 mmol/L (3.5-5.1)
[2025-02-25 07:30] LABS: Albumin 3.1 g/dL (3.2-4.8); Blood Urea Nitrogen 38 mg/dL (9-23); Calcium 8.4 mg/dL (8.7-10.4); Chloride 117 mmol/L (98-107); Glucose 180 mg/dL (74-106); Sodium 156 mmol/L (136-145); Total Protein 5.2 g/dL (5.7-8.2)
--- NOTE | 2025-02-25 09:33 | DVHPN2 ---
Progress Note - Dictate Date Seen: Feb 25, 2025 Medical Necessity Reason Pt with a Central, PICC or Fol: Yes The following are medically ne: Diallo Catheter Reason for diallo catheter: Strict I&O Subjective Ms. Herrera is a 59 years old female with a history of hypertension, diabetes, morbid obesity, anemia, kidney failure, GERD, he was brought to the [facility] on 02/28/2025 with a chief complaint of altered mental status, at this time, the patient is awake, oriented to person, possibly to place as well, she speaks with slurry voice, she is not cooperative, history is obtained from Ibeth, her [id number] According to her [id number],, the patient's maybe physically and mentally declined for about six months, more so in the last two months, on 02/20/2025, the patient is found mentally altered, covered in feces and blood, her glucose on scene was 470, heart rate 120, blood pressure 118/98, oxygen saturation 80% on room air. In the hospital, the patient is found to have UTI, dehydration, hypernatremia, lactic acidosis, DKA According to her sister in law, recently she ate a lot of ice cream, potato chips, [place] fries According [id number], the patient was able to walk without a cane or walker I have seen and examined the patient along with her nurse, she is awake, she mumbles, not able to answer questions properly, she may only oriented to herself, she moves the arms and legs, she is not cooperative with physical examination The case was discussed with Dr. Da Silva Urine culture, 02/21/2025: E coli Blood culture, 02/20/2025: Wound culture, 02/21/2025: Many growth Urinalysis, 02/20/2025: WBC: 382, urine leukocyte esterase: 3 +, WBC/HB/PLT/MCV, 02/24/2025: 6.8/11.9/148/85.9 Na, 02/20/2025: 144, 02/21/2025: 48, 02/22/2025: 156, 02/23/2025: 158, 02/24/2025: 157, 02/24/2025: 155, 02/25/25: 156 BUN/CR, 02/20/2025: 94/3.31, 02/24/2025: 36/1.93, 02/25/2025: 38/1.76 GFR, 02/20/2025: 16, 02/24/2025: 30 Glucose, 02/20/2025: 459, 02/21/2025: 196 HGB A1c, 02/22/2025: 8.4 Lactic acid, 02/20/2025: 5, 6.7 02/21/2025: 2.3 Beta hydroxybutyric acid, 02/20/2025: 0.662 TG/HDL/LDL/HDL, 02/21/2025: 1.2/58/57/117, 02/24/2025: Normal Ammonia, 02/24/2025: <10 Vitamin B12, 02/24/2025: 682 Folic acid, 02/24/2025: 3.45 TSH, 02/24/2025: 3.24 Chest x-ray, 02/20/2025: No acute pulmonary process. CT head, 02/24/2025: 1. No acute territorial infarct or intracranial hemorrhage.2. Age-related involutional changes. Chronic microvascular changes. 3. 2.2 cm right frontal extra-axial lesion may reflect a meningioma. A nonemergent MRI of the brain is suggested in further assessment. vital signs Vital Sign Date Time Temp Pulse Resp B/P (MAP) Pulse Ox O2 Delivery O2 Flow Rate FiO2 02/25/25 09:00 97.7 109 19 158/91 (113) 98 97.7 02/25/25 08:00 Room Air* 0 21 Total Intake and Output 02/24/25 02/24/25 02/25/25 15:00 23:00 07:00 Intake Total 350 ml 850 ml 600 ml Output Total 350 ml 300 ml Balance 350 ml 500 ml 300 ml medications Current Medications Medications Dose Ordered Sig/Tim Route Start Time Stop Time Status Last Admin Dose Admin Heparin Sodium (Porcine) 5,000 units Q12HR SC 02/20/25 22:00 02/25/25 08:54 5,000 UNITS Diagnostic Test (Pha) 1 strip IQ4HR 02/21/25 00:00 UNV Sodium Chloride 10 ml Q8HR IV 02/20/25 22:00 02/25/25 06:19 10 ML Acetaminophen/ Hydrocodone Bitart 1 tab Q4HP PRN PO 02/20/25 20:15 Ondansetron HCl 4 mg Q4HP PRN IV 02/20/25 20:15 Docusate Sodium 100 mg BIDPRN PRN PO 02/20/25 20:15 Acetaminophen 650 mg Q6HP PRN PO 02/20/25 20:15 Nitroglycerin 0.4 mg Q5MINP PRN SL 02/20/25 21:15 Morphine Sulfate 2 mg Q30M PRN IV 02/20/25 21:15 Dextrose 50 ml UD PRN IV 02/22/25 04:30 Diagnostic Test (Pha) 1 strip ACHS 02/22/25 17:00 02/25/25 06:21 1 STRIP Insulin Human Regular ACHS SC 02/22/25 17:00 02/25/25 06:18 3 UNITS Sodium Chloride 1,000 ml @ 100 mls/hr Q10H IV 02/23/25 09:45 02/25/25 01:45 100 MLS/HR Meropenem 50 ml @ 17 mls/hr Q8H IV 02/24/25 17:00 02/25/25 08:44 17 MLS/HR Hydralazine HCl 10 mg Q6HP PRN IV 02/24/25 16:30 02/25/25 08:46 10 MG objective General: the patient is well developed and nourished. No acute distress. MENTAL STATUS: Awake, oriented to person, possibly to place SPEECH, LANGUAGE, HIGHER CORTICAL FUNCTION: She talks a little bit, with slurry voice CRANIAL NERVES: Visual ghosh okay to visual thread Pupils are equal, round and reactive. Right eye is laterally deviated, Facial sensation fine in all three divisions bilaterally. Mandibular strength intact. Facial muscles symmetrical and strength intact. SENSATION: Sensation to touch and pinprick is fine MOTOR: Normal tone in the upper and lower extremity. Normal muscle bulk. No fasciculations. No abnormal movements or posturing. She moves the arms and legs REFLEXES: Deep tendon reflexes are symmetrical. No pathological reflexes. CEREBELLAR/COORDINATION: Deferred GAIT/STATION: deferred. laboratory and microbiology Laboratory Tests 02/25/25 06:22 Test 02/25/25 06:22 Range/Units Serum Glucose 180 H 74-106 mg/dL Problem List Altered mental status secondary to metabolic encephalopathy Diabetic ketoacidosis Metabolic acidosis UTI Sepsis Morbid obesity Acute respiratory failure Kidney failure Dehydration Hypernatremia Morbid obesity ? Obesity hypoventilation syndrome Assessment/Plan Monitoring Supportive treatment Telemetry EEG Follow up labs MRI head, IV antibiotics IV fluids Oxygen Nephrology on case Cardiology on case More recommendation per clinical course This medical document was created using an electronic medical record system with [employer] dictation system. Although this document has been carefully reviewed, there may still be some phonetic and typographical errors. These areas are purely typographical due to imperfections of the software programs, and do not reflect any compromise in the patient's medical care. Prognosis poor Plan discussed with: Other Total Time (mins): 35 NO MONDRAGON MD Feb 25, 2025 09:33
[2025-02-25] MEDS ORDERED: LORazepam 2MG/ML-1ML VIAL IV PRN (10:45)
--- NOTE | 2025-02-25 12:41 | DVH ---
CLINICAL HISTORY: ALOC TECHNIQUE: Routine multiplanar imaging of the brain was performed without gadolinium contrast. COMPARISON: CT HEAD WITHOUT CONTRAST on DOS: 02/24/25, CT HEAD WITHOUT CONTRAST on DOS: 02/20/25 FINDINGS: There is no abnormal restricted diffusion to suggest acute infarction. There are no significant chronic small vessel ischemic foci. There is no evidence for acute ischemic changes, mass, mass effect, or extra- axial fluid collection. There is no hydrocephalus or midline shift. The cerebral sulci and subarachnoid cisterns are not effaced. The imaged paranasal sinuses are clear. The globes are intact. The midline structures, including the corpus callosum, are unremarkable. The intracranial flow voids are maintained. IMPRESSION: No acute intracranial abnormality seen.
--- NOTE | 2025-02-25 13:39 | DVH ---
CLINICAL HISTORY: ALOC TECHNIQUE: Routine multiplanar imaging of the brain was performed without gadolinium contrast. COMPARISON: CT HEAD WITHOUT CONTRAST on DOS: 02/24/25, CT HEAD WITHOUT CONTRAST on DOS: 02/20/25 FINDINGS: Evaluation is limited due to image degradation secondary to patient motion There is no abnormal restricted diffusion to suggest acute infarction. There are no significant chronic small vessel ischemic foci. There is a 1.9 cm right medial posterior frontal extra-axial mass. There is no evidence for acute ischemic changes, or extra-axial fluid collection. There is no hydrocephalus or midline shift. The cerebral sulci and subarachnoid cisterns are not effaced. The imaged paranasal sinuses are clear. The globes are intact. The midline structures, including the corpus callosum, are unremarkable. The intracranial flow voids are maintained. IMPRESSION: No acute intracranial abnormality seen. 1.9 cm right medial posterior frontal extra-axial mass, most compatible with meningioma. No underlying mass effect/ vasogenic edema.
--- NOTE | 2025-02-25 13:41 | DVHPN2 ---
Progress Note Date Seen: Feb 25, 2025 Medical Necessity Reason Pt with a Central, PICC or Fol: Yes The following are medically ne: Diallo Catheter Reason for diallo catheter: Strict I&O Objective vital signs Vital Sign Date Time Temp Pulse Resp B/P (MAP) Pulse Ox O2 Delivery O2 Flow Rate FiO2 02/25/25 13:00 99.7 115 20 124/75 (91) 98 99.7 02/25/25 08:00 Room Air* 0 21 Total Intake and Output 02/24/25 02/24/25 02/25/25 15:00 23:00 07:00 Intake Total 350 ml 850 ml 600 ml Output Total 350 ml 300 ml Balance 350 ml 500 ml 300 ml medications Current Medications Medications Dose Ordered Sig/Tim Route Start Time Stop Time Status Last Admin Dose Admin Heparin Sodium (Porcine) 5,000 units Q12HR SC 02/20/25 22:00 02/25/25 08:54 5,000 UNITS Diagnostic Test (Pha) 1 strip IQ4HR 02/21/25 00:00 UNV Sodium Chloride 10 ml Q8HR IV 02/20/25 22:00 02/25/25 06:19 10 ML Acetaminophen/ Hydrocodone Bitart 1 tab Q4HP PRN PO 02/20/25 20:15 Ondansetron HCl 4 mg Q4HP PRN IV 02/20/25 20:15 Docusate Sodium 100 mg BIDPRN PRN PO 02/20/25 20:15 Acetaminophen 650 mg Q6HP PRN PO 02/20/25 20:15 Nitroglycerin 0.4 mg Q5MINP PRN SL 02/20/25 21:15 Morphine Sulfate 2 mg Q30M PRN IV 02/20/25 21:15 Dextrose 50 ml UD PRN IV 02/22/25 04:30 Diagnostic Test (Pha) 1 strip ACHS 02/22/25 17:00 02/25/25 13:32 1 STRIP Insulin Human Regular ACHS SC 02/22/25 17:00 02/25/25 13:35 3 UNITS Sodium Chloride 1,000 ml @ 100 mls/hr Q10H IV 02/23/25 09:45 02/25/25 01:45 100 MLS/HR Meropenem 50 ml @ 17 mls/hr Q8H IV 02/24/25 17:00 02/25/25 08:44 17 MLS/HR Hydralazine HCl 10 mg Q6HP PRN IV 02/24/25 16:30 02/25/25 08:46 10 MG Lorazepam 1 mg ONCE PRN IV 02/25/25 10:45 Examination: GENERAL:Normal, CVS:Normal, ABDOMEN:Normal laboratory and microbiology Laboratory Tests 02/25/25 06:22 Test 02/25/25 06:22 Range/Units Serum Glucose 180 H 74-106 mg/dL Microbiology Date/Time Source Procedure Growth Status 02/24/25 11:44 Blood Blood Culture - Preliminary NO GROWTH AFTER 24 HOURS OF INCUBATION. Resulted 02/21/25 20:32 Back Wound Gram Stain - Final Resulted 02/21/25 20:32 Back Wound Wound Culture - Preliminary Resulted 02/21/25 01:55 Urine - [place] Urine Culture - Final Escherichia coli - ESBL Complete Problem List/Assessment/Plan Problem List/Assessment/Plan Acute kidney injury DKA sepsis UTI uncontrolled Dm2 morbid obesity hypernatremia baseline renal function unknown but continues to improve continue 0.45%NACL , continue until sodium has normalized. Na 156 will change to D5W if sodium remains elevated replace K and Mg per hospital guidelines ABX insulin subQ protocol Plan discussed with: Patient ANTHONY LYMAN MD Feb 25, 2025 13:41
--- NOTE | 2025-02-25 14:28 | DVHPN2 ---
Subjective The mental status is still not getting better Sodium is slightly better Culture of the wound showed E coli ESBL and Staph aureus Urine culture is E coli ESBL Changes from previous H/P or p: Changes Eyes: No Pain, No Vision change, No Conjunctivae inflammation, No Eyelid inflammation, No Other, No Redness ENT: No Ear pain, No Ear discharge, No Nose pain, No Nose discharge, No Nose congestion, No Mouth pain, No Mouth swelling, No Throat pain, No Throat swelling, No Other Cardiovascular: No Chest Pain, No Palpitations, No Orthopnea, No Paroxysmal Noc. Dyspnea, No Edema, No Lt Headedness, No Other Respiratory: No Cough, No Dry, No Shortness of breath, No SOB with excertion, No Wheezing, No Hemoptysis, No Pleuritic Pain, No Sputum, No Other Gastrointestinal: No Nausea, No Vomiting, No Abdominal Pain, No Diarrhea, No Constipation, No Melena, No Hematochezia, No Other Musculoskeletal: No other, No neck pain, No shoulder pain, No arm pain, No back pain, No hand pain, No leg pain, No foot pain Skin: No Rash, No Lesions, No Jaundice, No Bruising, No Other Objective Vitals Vital Signs Date Time Temp Pulse Resp B/P (MAP) Pulse Ox O2 Delivery O2 Flow Rate FiO2 02/25/25 13:00 99.7 115 20 124/75 (91) 98 99.7 02/25/25 08:00 Room Air* 0 21 Intake/Output Intake and Output 02/25/25 07:00 Intake Total 1800 ml Output Total 650 ml Balance 1150 ml Intake Oral 0 ml IV Total 1800 ml Output Urine Total 650 ml General Appearance: Alert, Oriented X3, Cooperative, No acute distress Lungs: Clear to auscultation Cardiovascular: Regular rate, Normal S1, Normal S2, No murmurs Abdomen: Normal bowel sounds, Soft, No tenderness Extremities: No edema Medications Current Medications Medications Dose Ordered Sig/Tim Route Start Time Stop Time Status Last Admin Dose Admin Heparin Sodium (Porcine) 5,000 units Q12HR SC 02/20/25 22:00 02/25/25 08:54 5,000 UNITS Diagnostic Test (Pha) 1 strip IQ4HR 02/21/25 00:00 UNV Sodium Chloride 10 ml Q8HR IV 02/20/25 22:00 02/25/25 06:19 10 ML Acetaminophen/ Hydrocodone Bitart 1 tab Q4HP PRN PO 02/20/25 20:15 Ondansetron HCl 4 mg Q4HP PRN IV 02/20/25 20:15 Docusate Sodium 100 mg BIDPRN PRN PO 02/20/25 20:15 Acetaminophen 650 mg Q6HP PRN PO 02/20/25 20:15 Nitroglycerin 0.4 mg Q5MINP PRN SL 02/20/25 21:15 Morphine Sulfate 2 mg Q30M PRN IV 02/20/25 21:15 Dextrose 50 ml UD PRN IV 02/22/25 04:30 Diagnostic Test (Pha) 1 strip ACHS 02/22/25 17:00 02/25/25 13:32 1 STRIP Insulin Human Regular ACHS SC 02/22/25 17:00 02/25/25 13:35 3 UNITS Sodium Chloride 1,000 ml @ 100 mls/hr Q10H IV 02/23/25 09:45 02/25/25 01:45 100 MLS/HR Meropenem 50 ml @ 17 mls/hr Q8H IV 02/24/25 17:00 02/25/25 08:44 17 MLS/HR Hydralazine HCl 10 mg Q6HP PRN IV 02/24/25 16:30 02/25/25 08:46 10 MG Lorazepam 1 mg ONCE PRN IV 02/25/25 10:45 Laboratory Results Laboratory Tests 02/25/25 06:22 Chemistry Test 02/25/25 06:22 02/25/25 14:19 Albumin 3.1 g/dL (3.2-4.8) L Calcium Level 8.4 mg/dL (8.7-10.4) L Pending Magnesium Level 1.8 mg/dL (1.6-2.6) Total Protein 5.2 g/dL (5.7-8.2) L LFT Test 02/25/25 06:22 Alanine Aminotransferase (ALT) 31 U/L (7-40) Alkaline Phosphatase 112 U/L (46-116) Aspartate Amino Transferase (AST) 45 U/L (13-40) H Total Bilirubin 1.0 mg/dL (0.2-1.0) Urinalysis Test 02/20/25 21:52 Urine Color [place] (Yellow) H Urine Clarity Ex.turbid (Clear) Urine pH 5.0 (5.0-9.0) Urine Specific [place] 1.020 (1.001-1.035) Urine Protein 1+ (Negative) H Urine Ketones Negative (Negative) Urine Blood 2+ /uL (Negative) H Urine Nitrite Negative (Negative) Urine Bilirubin 1+ (Negative) H Urine Urobilinogen 4 mg/dL (Negative) H Urine Leukocyte Esterase 3+ /uL (Negative) Urine RBC 24 /hpf (0 - 4) Urine WBC Clumps Present /hpf (None Seen) Urine Microscopic WBC 382 /HPF (0-5) H Urine Squamous Epithelial Cells Few /hpf (<5) Urine Bacteria Many /hpf (None Seen) H Urine Hyaline Casts Few /lpf (0 - 2) Urine Mucus Few (None Seen) Urine Glucose 4+ mg/dL (Normal) H Microbiology Microbiology Date/Time Source Procedure Growth Status 02/24/25 11:44 Blood Blood Culture - Preliminary NO GROWTH AFTER 24 HOURS OF INCUBATION. Resulted 02/21/25 20:32 Back Wound Gram Stain - Final Complete 02/21/25 20:32 Wound Culture - Final Staphylococcus aureus Escherichia coli - ESBL Complete 02/21/25 01:55 Urine - [place] Urine Culture - Final Escherichia coli - ESBL Complete Assessment/Plan Assessment/Plan Acute DKA Hypernatremia Acute kidney injury possibly due to vasomotor nephropathy Hypokalemia Transaminitis Morbid obesity Leukocytosis UTI Sepsis due to UTI Metabolic acidosis with respiratory alkalosis Plan Switch with a normal saline to D5 half NS with potassium IV Give potassium IV 60 mEq use Continue sliding scale insulin drip IV antibiotics cefepime and vancomycin Full code Urine and blood culture MRSA screen Monitor closely 02/22/2025: Continue IV fluids D5W Metronidazole and vancomycin Consistent carbohydrate diet Accu-Cheks AC and HS Downgrade to telemetry Physical therapy evaluation 02/23/2025: Hypernatremia: Continue IV fluids half NS to try to improve her hypernatremia DKA: Resolved Hypokalemia: Replace Generalized weakness Morbid obesity UTI: Urine culture shows Gram-negative rods, Discontinue vancomycin and Flagyl Start meropenem IV for UTI with Gram-negative rods Sepsis due to UTI Umbilical hernia Acute kidney injury 02/24/2025: UTI with E coli ESBL: IV Meropenem Hypernatremia: Half-normal saline Metabolic encephalopathy: Repeat CT scan of the head, CPK, TSH, folic acid, B12, ammonia, blood culture, JAMEE: IV fluids Hypokalemia: Replace IV Nephrology consult on board We will need IV antibiotics upon discharge 02/25/25: Hypernatremia: Continue half-normal saline IV fluids UTI with E coli ESBL Wound infection with the E coli ESBL and Staph aureus Metabolic encephalopathy Acute kidney injury due to vasomotor nephropathy Plan: Change antibiotics to IV Levaquin which should cover both wound infection and UTI Continue IV fluids Monitor closely Plan discussed with: Patient, Other My Orders Orders - JAROD CHURCH MD Procedure Category Date Status Time Hydralazine Injection PHA 02/24/25 In Process (Apresoline Inject 16:30 Insert Midline ORDERS 02/25/25 Transmitted 08:07 Date of Service: Feb 25, 2025 Billing Provider: JAROD CHURCH MD Common Visit Codes: [id number] INP/OBS CARE(HIGH) JAROD CHURCH MD Feb 25, 2025 14:28
[2025-02-25 15:01] LABS: Potassium 4.6 mmol/L (3.5-5.1)
[2025-02-25 15:02] LABS: Anion Gap 17 (5-15); Carbon Dioxide 22 mmol/L (20-31)
[2025-02-25 15:07] LABS: BUN/Creatinine Ratio 15.6 (10.0-20.0); Calcium 8.5 mg/dL (8.7-10.4); Chloride 118 mmol/L (98-107); Sodium 157 mmol/L (136-145)
[2025-02-25 15:08] LABS: Blood Urea Nitrogen 27 mg/dL (9-23); Glucose 156 mg/dL (74-106)
[2025-02-26] VITALS (9 sets, daily range): BP systolic 123–152; BP diastolic 81–93; PULSE 102–111; RESP 17–21; TEMP 97.7–98.5; O2SAT 95–98
[2025-02-26 08:08] LABS: Potassium 4.4 mmol/L (3.5-5.1)
[2025-02-26 08:10] LABS: Anion Gap 16 (5-15); Carbon Dioxide 22 mmol/L (20-31)
[2025-02-26 08:15] LABS: BUN/Creatinine Ratio 23.3 (10.0-20.0); Blood Urea Nitrogen 35 mg/dL (9-23); Calcium 8.3 mg/dL (8.7-10.4); Chloride 118 mmol/L (98-107); Glucose 117 mg/dL (74-106); Magnesium 1.9 mg/dL (1.6-2.6); Sodium 156 mmol/L (136-145)
--- NOTE | 2025-02-26 09:54 | DVHPN2 ---
Subjective Still mostly lethargic Not answering questions Opens her eyes but not verbal Changes from previous H/P or p: Changes Eyes: No Pain, No Vision change, No Conjunctivae inflammation, No Eyelid inflammation, No Other, No Redness ENT: No Ear pain, No Ear discharge, No Nose pain, No Nose discharge, No Nose congestion, No Mouth pain, No Mouth swelling, No Throat pain, No Throat swelling, No Other Cardiovascular: No Chest Pain, No Palpitations, No Orthopnea, No Paroxysmal Noc. Dyspnea, No Edema, No Lt Headedness, No Other Respiratory: No Cough, No Dry, No Shortness of breath, No SOB with excertion, No Wheezing, No Hemoptysis, No Pleuritic Pain, No Sputum, No Other Gastrointestinal: No Nausea, No Vomiting, No Abdominal Pain, No Diarrhea, No Constipation, No Melena, No Hematochezia, No Other Musculoskeletal: No other, No neck pain, No shoulder pain, No arm pain, No back pain, No hand pain, No leg pain, No foot pain Skin: No Rash, No Lesions, No Jaundice, No Bruising, No Other Objective Vitals Vital Signs Date Time Temp Pulse Resp B/P (MAP) Pulse Ox O2 Delivery O2 Flow Rate FiO2 02/26/25 09:00 98.5 103 17 143/86 (105) 98 98.5 02/25/25 22:00 Room Air* 0 21 Intake/Output Intake and Output 02/26/25 07:00 Intake Total 900 ml Output Total 650 ml Balance 250 ml Intake Oral 0 ml IV Total 900 ml Output Urine Total 650 ml General Appearance: Alert, Oriented X3, Cooperative, No acute distress Lungs: Clear to auscultation Cardiovascular: Regular rate, Normal S1, Normal S2, No murmurs Abdomen: Normal bowel sounds, Soft, No tenderness Extremities: No edema Medications Current Medications Medications Dose Ordered Sig/Tim Route Start Time Stop Time Status Last Admin Dose Admin Heparin Sodium (Porcine) 5,000 units Q12HR SC 02/20/25 22:00 02/25/25 22:11 5,000 UNITS Diagnostic Test (Pha) 1 strip IQ4HR 02/21/25 00:00 UNV Sodium Chloride 10 ml Q8HR IV 02/20/25 22:00 02/26/25 06:22 10 ML Acetaminophen/ Hydrocodone Bitart 1 tab Q4HP PRN PO 02/20/25 20:15 Ondansetron HCl 4 mg Q4HP PRN IV 02/20/25 20:15 Docusate Sodium 100 mg BIDPRN PRN PO 02/20/25 20:15 Acetaminophen 650 mg Q6HP PRN PO 02/20/25 20:15 Nitroglycerin 0.4 mg Q5MINP PRN SL 02/20/25 21:15 Morphine Sulfate 2 mg Q30M PRN IV 02/20/25 21:15 Dextrose 50 ml UD PRN IV 02/22/25 04:30 Diagnostic Test (Pha) 1 strip ACHS 02/22/25 17:00 02/26/25 06:22 1 STRIP Insulin Human Regular ACHS SC 02/22/25 17:00 02/25/25 18:17 2 UNITS Sodium Chloride 1,000 ml @ 100 mls/hr Q10H IV 02/23/25 09:45 02/25/25 22:08 100 MLS/HR Meropenem 50 ml @ 17 mls/hr Q8H IV 02/24/25 17:00 02/26/25 01:06 17 MLS/HR Hydralazine HCl 10 mg Q6HP PRN IV 02/24/25 16:30 02/25/25 08:46 10 MG Lorazepam 1 mg ONCE PRN IV 02/25/25 10:45 Laboratory Results Laboratory Tests 02/25/25 06:22 02/26/25 07:23 Chemistry Test 02/25/25 14:19 02/26/25 07:23 Calcium Level 8.5 mg/dL (8.7-10.4) L 8.3 mg/dL (8.7-10.4) L Magnesium Level 1.9 mg/dL (1.6-2.6) Urinalysis Test 02/20/25 21:52 Urine Color [place] (Yellow) H Urine Clarity Ex.turbid (Clear) Urine pH 5.0 (5.0-9.0) Urine Specific [place] 1.020 (1.001-1.035) Urine Protein 1+ (Negative) H Urine Ketones Negative (Negative) Urine Blood 2+ /uL (Negative) H Urine Nitrite Negative (Negative) Urine Bilirubin 1+ (Negative) H Urine Urobilinogen 4 mg/dL (Negative) H Urine Leukocyte Esterase 3+ /uL (Negative) Urine RBC 24 /hpf (0 - 4) Urine WBC Clumps Present /hpf (None Seen) Urine Microscopic WBC 382 /HPF (0-5) H Urine Squamous Epithelial Cells Few /hpf (<5) Urine Bacteria Many /hpf (None Seen) H Urine Hyaline Casts Few /lpf (0 - 2) Urine Mucus Few (None Seen) Urine Glucose 4+ mg/dL (Normal) H Microbiology Microbiology Date/Time Source Procedure Growth Status 02/24/25 11:44 Blood Blood Culture - Preliminary NO GROWTH AFTER 24 HOURS OF INCUBATION. Resulted 02/21/25 20:32 Back Wound Gram Stain - Final Complete 02/21/25 20:32 Wound Culture - Final Staphylococcus aureus Escherichia coli - ESBL Complete 02/21/25 01:55 Urine - [place] Urine Culture - Final Escherichia coli - ESBL Complete Assessment/Plan Assessment/Plan Acute DKA Hypernatremia Acute kidney injury possibly due to vasomotor nephropathy Hypokalemia Transaminitis Morbid obesity Leukocytosis UTI Sepsis due to UTI Metabolic acidosis with respiratory alkalosis Plan Switch with a normal saline to D5 half NS with potassium IV Give potassium IV 60 mEq use Continue sliding scale insulin drip IV antibiotics cefepime and vancomycin Full code Urine and blood culture MRSA screen Monitor closely 02/22/2025: Continue IV fluids D5W Metronidazole and vancomycin Consistent carbohydrate diet Accu-Cheks AC and HS Downgrade to telemetry Physical therapy evaluation 02/23/2025: Hypernatremia: Continue IV fluids half NS to try to improve her hypernatremia DKA: Resolved Hypokalemia: Replace Generalized weakness Morbid obesity UTI: Urine culture shows Gram-negative rods, Discontinue vancomycin and Flagyl Start meropenem IV for UTI with Gram-negative rods Sepsis due to UTI Umbilical hernia Acute kidney injury 02/24/2025: UTI with E coli ESBL: IV Meropenem Hypernatremia: Half-normal saline Metabolic encephalopathy: Repeat CT scan of the head, CPK, TSH, folic acid, B12, ammonia, blood culture, JAMEE: IV fluids Hypokalemia: Replace IV Nephrology consult on board We will need IV antibiotics upon discharge 02/25/25: Hypernatremia: Continue half-normal saline IV fluids UTI with E coli ESBL Wound infection with the E coli ESBL and Staph aureus Metabolic encephalopathy Acute kidney injury due to vasomotor nephropathy Plan: Change antibiotics to IV Levaquin which should cover both wound infection and UTI Continue IV fluids Monitor closely 02/26/2025: Hypernatremia Acute kidney injury UTI with E coli ESBL: IV Levaquin Wound infection with E coli ESBL and Staph aureus: IV Levaquin Metabolic encephalopathy Plan discussed with: Patient, Other Date of Service: Feb 26, 2025 Billing Provider: JAROD CHURCH MD Common Visit Codes: [id number] INP/OBS CARE(HIGH) JAROD CHURCH MD Feb 26, 2025 09:54
--- NOTE | 2025-02-26 14:23 | DVHPN2 ---
Progress Note Date Seen: Feb 26, 2025 Medical Necessity Reason Pt with a Central, PICC or Fol: Yes The following are medically ne: Diallo Catheter Reason for diallo catheter: Strict I&O Objective vital signs Vital Sign Date Time Temp Pulse Resp B/P (MAP) Pulse Ox O2 Delivery O2 Flow Rate FiO2 02/26/25 13:00 98.5 107 17 152/90 (110) 96 98.5 02/26/25 08:20 Room Air* 0 21 Total Intake and Output 02/25/25 02/25/25 02/26/25 15:00 23:00 07:00 Intake Total 450 ml 400 ml 50 ml Output Total 300 ml 350 ml Balance 450 ml 100 ml -300 ml medications Current Medications Medications Dose Ordered Sig/Tim Route Start Time Stop Time Status Last Admin Dose Admin Heparin Sodium (Porcine) 5,000 units Q12HR SC 02/20/25 22:00 02/26/25 10:46 5,000 UNITS Diagnostic Test (Pha) 1 strip IQ4HR 02/21/25 00:00 UNV Sodium Chloride 10 ml Q8HR IV 02/20/25 22:00 02/26/25 14:21 10 ML Ondansetron HCl 4 mg Q4HP PRN IV 02/20/25 20:15 Docusate Sodium 100 mg BIDPRN PRN PO 02/20/25 20:15 Acetaminophen 650 mg Q6HP PRN PO 02/20/25 20:15 Nitroglycerin 0.4 mg Q5MINP PRN SL 02/20/25 21:15 Dextrose 50 ml UD PRN IV 02/22/25 04:30 Diagnostic Test (Pha) 1 strip ACHS 02/22/25 17:00 02/26/25 10:58 1 STRIP Insulin Human Regular ACHS SC 02/22/25 17:00 02/25/25 18:17 2 UNITS Hydralazine HCl 10 mg Q6HP PRN IV 02/24/25 16:30 02/25/25 08:46 10 MG Lorazepam 1 mg ONCE PRN IV 02/25/25 10:45 Levofloxacin 50 ml @ 50 mls/hr DAILY IV 02/27/25 10:00 Cancel Levofloxacin/ Dextrose 100 ml @ 100 mls/hr DAILY IV 02/27/25 10:00 Dextrose 1,000 ml @ 75 mls/hr [id number] IV 02/26/25 14:30 UNV Examination: GENERAL:Abnormal, CVS:Normal laboratory and microbiology Laboratory Tests 02/26/25 07:23 02/25/25 06:22 Test 02/26/25 07:23 Range/Units Serum Glucose 117 H 74-106 mg/dL Microbiology Date/Time Source Procedure Growth Status 02/24/25 11:44 Blood Blood Culture - Preliminary NO GROWTH AFTER 48 HOURS OF INCUBATION. Resulted 02/21/25 20:32 Back Wound Gram Stain - Final Complete 02/21/25 20:32 Wound Culture - Final Staphylococcus aureus Escherichia coli - ESBL Complete 02/21/25 01:55 Urine - [place] Urine Culture - Final Escherichia coli - ESBL Complete Problem List/Assessment/Plan Problem List/Assessment/Plan Acute kidney injury DKA sepsis UTI uncontrolled Dm2 morbid obesity hypernatremia baseline renal function unknown but continues to improve change to D5W A 75cc/hr replace K and Mg per hospital guidelines ABX insulin subQ protocol Plan discussed with: Patient My Orders My Orders Orders - ANTHONY LYMAN MD Procedure Category Date Status Time D5w 5% PHA 02/26/25 Transmitted 14:30 Urinalysis LAB 02/26/25 Transmitted 14:21 Dietary Evaluation Review Comments: Diet Order: Continue CCHO-60, 2-gram sodium diet. Monitoring: Monitor PO intake and tolerance. Monitor renal function and updated lab values (electrolytes, BUN/Cr, GFR). Follow up with nephrology and GI reports. Reassessment: Reassess PRN based on clinical status and intake. Discharge Planning: Address weight management upon discharge. Expected Outcomes/Goals: gradual wt loss ANTHONY LYMNA MD Feb 26, 2025 14:23
[2025-02-26] MEDS: D5W 5% 1,000 ML IV SCH (14:37)
[2025-02-26 15:49] LABS: Urine Amorphous Crystal FEW /hpf (None Seen); Urine Protein, UAD 1+ (Negative)
--- NOTE | 2025-02-26 23:53 | DVHEEG2 ---
Neurology EEG Procedural Note Procedural Note EXAM DATE: 02/26/2025 REFERRING DOCTOR: Moreno TECHNIQUE: Eighteen channels of EEG, 2 channels of EOG, and 1 channel of EKG were recorded using the International 10/20 system. CLINICAL DATA: The patient was referred for an EEG evaluation for the evidence of seizure disorder. MEDICATIONS: See the chart BACKGROUND ACTIVITY: This record showed diffuse low to medium voltage polymorphic theta and delta activity over both hemispheres, that was reactive to external stimuli ACTIVATION: Hyperventilation: Not done Photic Stimulation: Not done Sleep: Not seen IMPRESSION: This is a mildly to moderately abnormal EEG, this EEG is seen in mild to moderate cerebral dysfunction due to metabolic/hypoxic encephalopathy or medication effect, please correlate clinically The EKG channel showed a regular heart rate of 108/minute [place] [address] NO MONDRAGON MD Feb 26, 2025 23:53
[2025-02-27] VITALS (76 sets, daily range): BP systolic 67–165; BP diastolic 43–91; PULSE 64–110; RESP 8–27; TEMP 97.3–99.3; O2SAT 92–100
[2025-02-27] MEDS: fentaNYL Drip 2500mCg/250mlNS 250 ML IV ONE (06:49)
[2025-02-27] MEDS: NOREPINEPHRINE 8 MG/250ML KIT 250 ML IV ONE (06:50)
[2025-02-27] MEDS: MIDAZOLAM DRIP 100 mg/100mL NS 100 ML IV ONE (07:10)
[2025-02-27] MEDS: MIDAZOLAM DRIP 100 mg/100mL NS 100 ML IV SCH (07:15)
[2025-02-27] MEDS: fentaNYL Drip 2500mCg/250mlNS 250 ML IV SCH (07:15)
[2025-02-27 07:29] LABS: Base Excess -14.6 mmol/L (-2.0-3.0)
[2025-02-27] MEDS: NOREPINEPHRINE 8 MG/250ML KIT 250 ML IV SCH (07:56)
--- NOTE | 2025-02-27 08:04 | RESUS ---
CODE BLUE ASSESSSMENT History of Events History of Events: The patient is a 59-year-old female morbidly obese with past medical history of diabetes mellitus, asthma, GERD, anemia, and hypertension who presented to [facility] ED for evaluation of altered level of consciousness. As reported by EMS, patient's caregiver reports that patient has been gradually decline in her mental status for the past 2 months, noted to be alert oriented x2, found to be covered on feces, and unable to communicate efficiently, prompting caregiver to call the EMS. Pt was admitted to [facility] that pt became bradycardic run to room pt was pulseless. Initial Information Date: Feb 27, 2025 Time: : [place]rest[place] Witnessed: Yes CPR started initial time: : CPR started by whom: Hospital Staff Pre-Hospital Care: ACLS Type of arrest: Cardiac, Respiratory, Adult, Witnessed Spontaneous Respirations: No Pulse Present: No Monitoring: ECG, Pulse Oximetry, Telemetry Crash Cart Opened and Supplies: Yes Airway Ventilation Breathing at Onset: Apneic O2 Sat by Pulse Oximetry: 0 Oxygen Delivery Method: Ambu-Bag Oxygen 100% Time of first Assisted Ventila: 06:40 Artificial Ventilation: Bag/Endo tube Intubation Size: 8.0 cuffed Intubated by: DAWIT BOLANOS Intubation Attempts: 1 Intubated orally: Yes Intubated Nasaly: No Tube secured at: 22 Cricoid pressure done: No CO2 indicator used: Yes Confirmation: Auscultation, Exhaled CO2 Suctioning (Oral/Tracheal): No Circulation Circulation : Time: :31 Pulse Rate (adult): 0 Blood Pressure Systolic: 0 Blood Pressure Diastolic: 0 Temperature (Fahrenheit): 98 Defibrillation Defbrillation #1: Time Defibrillator Applied: 06:37 EKG Rhythm: V-Fibrillation Compressions: Device Compressions Hold/Resume: 0637 Time Defibrillator Shocked Pt.: 06:37 Defib. Joules: 200 Pulse Present: No EKG Rhythm: PEA Defbrillation #2: Time Defibrillator Applied: 06:40 EKG Rhythm: V-Tachycardia Compressions Hold/Resume: 0640 Time Defibrillator Shocked Pt.: 06:40 Defib. Joules: 150 EKG Rhythm: Sinus Tachycardia Comment SYNCHRONIZED Procedure - IV Procedure - IV : IV Side: Right IV Location: Upper Arm Anterior IV Catheter Type: Mid-line IV Placed: In Hospital IV Placed by PREVIOUSLY PLACED Medications & Response Medications and Responses #1: Medication Time: 06:31 ADULT Medications Given ADULT: Epinephrine 1 mg Route of Administration: IV Heart Rate: 0 EKG Rhythm: PEA Blood Pressure Systolic: 0 Blood Pressure Diastolic: 0 Respiratory Rate: 0 O2 Sat by Pulse Oximetry: 0 EKG Rhythm: PEA Comment NO PULSE 0637 Medications and Responses #2: Medication Time: 06:37 ADULT Medications Given ADULT: Epinephrine 1 mg, Magnesium Sulfate 1 gm Route of Administration: IV Heart Rate: 0 EKG Rhythm: V-Fibrillation Blood Pressure Systolic: 0 Blood Pressure Diastolic: 0 Respiratory Rate: 0 O2 Sat by Pulse Oximetry: 0 EKG Rhythm: PEA Comment PULSE CHECK 0650 ROSC WITH V TACH PULSE 145 BP 82/61 PT WAS GIVEN AMIODORONE 300 IV. Pacing Pacer Pads Applied and Pacing: Yes Procedure - [place] Catheter Comment: PREVIOUSLY PLACED Nurses Notes [place] Coma Scale Eye Opening: None (1) [place] Coma Scale Verbal: None (1) [place] Coma Scale Motor: None (1) Pupil Reaction: Sluggish Bedside Blood Glucose: 263 EKG Rhythm: Sinus Tachycardia Time Code Ended Time Code Ended: 06:40 Post Arrest Status: Ventilated Outcome of code: Successful Family notified: Yes Attending called: Yes Code Team Present: GENNARO RAZO RN HS, CHRISTO RN, JAROCHO RN, CARMELLA RN, MERRICK RN, JEANINE RN,DAWIT RT, CHERYL RN Post Resuscitation Neurologica Pupil Size: 4 ROSC Time of ROSC: 06:40 Pt Meets Criteria for Therapeu: No Therapeutic Hyperthermia Start: No GENNARO CYR Feb 27, 2025 08:04
--- NOTE | 2025-02-27 08:11 | DVH ---
CLINICAL INFORMATION: 59 years old, Female; post cpr and intubation. TECHNIQUE: Single AP portable chest radiograph was obtained. COMPARISON: XY CHEST PORTABLE on DOS: 02/20/25 FINDINGS: Endotracheal tube extends slightly into the right mainstem bronchus. Retraction by approximately 2 cm recommended to optimize positioning. Minimal atelectasis in the lung bases. No focal consolidation, pneumothorax, or pleural effusion visualized. No other significant interval change. IMPRESSION: Endotracheal tube extends slightly into the right mainstem bronchus. Recommend retraction by 2 cm and reimaging.
--- NOTE | 2025-02-27 10:05 | DVHPN2 ---
Reviewed: H&P Changes from previous H/P or p: No Changes General: Per HPI Eyes: No Pain, No Vision change, No Conjunctivae inflammation, No Eyelid inflammation, No Other, No Redness ENT: No Ear pain, No Ear discharge, No Nose pain, No Nose discharge, No Nose congestion, No Mouth pain, No Mouth swelling, No Throat pain, No Throat swelling, No Other Cardiovascular: No Chest Pain, No Palpitations, No Orthopnea, No Paroxysmal Noc. Dyspnea, No Edema, No Lt Headedness, No Other Respiratory: No Cough, No Dry, No Shortness of breath, No SOB with excertion, No Wheezing, No Hemoptysis, No Pleuritic Pain, No Sputum, No Other Gastrointestinal: No Nausea, No Vomiting, No Abdominal Pain, No Diarrhea, No Constipation, No Melena, No Hematochezia, No Other Musculoskeletal: No other, No neck pain, No shoulder pain, No arm pain, No back pain, No hand pain, No leg pain, No foot pain Skin: No Rash, No Lesions, No Jaundice, No Bruising, No Other Objective Vitals Vital Signs Date Time Temp Pulse Resp B/P (MAP) Pulse Ox O2 Delivery O2 Flow Rate FiO2 02/27/25 09:30 78 20 116/74 (88) 100 02/27/25 08:22 100 02/27/25 08:04 208.4 Ambu-Bag 02/27/25 08:00 0 Intake/Output Intake and Output 02/27/25 07:00 Intake Total 625 ml Output Total 300 ml Balance 325 ml Intake Oral 0 ml IV Total 625 ml Output Urine Total 300 ml Exam Lungs: Clear to auscultation Cardiovascular: Regular rate, Normal S1, Normal S2, No murmurs Abdomen: Normal bowel sounds, Soft, No tenderness Extremities: No edema Lungs: Clear to auscultation Cardiovascular: Regular rate, Normal S1, Normal S2, No murmurs Abdomen: Normal bowel sounds, Soft, No tenderness Extremities: No edema Medications Current Medications Medications Dose Ordered Sig/Tim Route Start Time Stop Time Status Last Admin Dose Admin Heparin Sodium (Porcine) 5,000 units Q12HR SC 02/20/25 22:00 02/26/25 21:15 5,000 UNITS Diagnostic Test (Pha) 1 strip IQ4HR 02/21/25 00:00 UNV Sodium Chloride 10 ml Q8HR IV 02/20/25 22:00 02/27/25 06:11 10 ML Ondansetron HCl 4 mg Q4HP PRN IV 02/20/25 20:15 Docusate Sodium 100 mg BIDPRN PRN PO 02/20/25 20:15 Acetaminophen 650 mg Q6HP PRN PO 02/20/25 20:15 Nitroglycerin 0.4 mg Q5MINP PRN SL 02/20/25 21:15 Dextrose 50 ml UD PRN IV 02/22/25 04:30 Diagnostic Test (Pha) 1 strip ACHS 02/22/25 17:00 02/27/25 06:12 1 STRIP Insulin Human Regular ACHS SC 02/22/25 17:00 02/27/25 06:16 6 UNITS Hydralazine HCl 10 mg Q6HP PRN IV 02/24/25 16:30 02/25/25 08:46 10 MG Lorazepam 1 mg ONCE PRN IV 02/25/25 10:45 Levofloxacin 50 ml @ 50 mls/hr DAILY IV 02/27/25 10:00 Cancel Levofloxacin/ Dextrose 100 ml @ 100 mls/hr DAILY IV 02/27/25 10:00 Dextrose 1,000 ml @ 75 mls/hr [id number] IV 02/26/25 14:30 02/27/25 03:53 75 MLS/HR Midazolam HCl 100 ml @ 1 mls/hr Q24H IV 02/27/25 07:15 Fentanyl Citrate 250 ml @ 2.5 mls/hr Q24H IV 02/27/25 07:15 Norepinephrine Bitartrate 250 ml @ 3.75 mls/hr Q24H IV 02/27/25 07:15 02/27/25 07:56 3.75 MLS/HR Laboratory Results Laboratory Tests 02/25/25 06:22 Chemistry Test 02/27/25 07:00 Albumin Pending Calcium Level Pending Magnesium Level Pending Phosphorus Level Pending Total Protein Pending LFT Test 02/27/25 07:00 Alanine Aminotransferase (ALT) Pending Alkaline Phosphatase Pending Aspartate Amino Transferase (AST) Pending Total Bilirubin Pending Urinalysis Test 02/20/25 21:52 02/26/25 15:08 Urine WBC Clumps Present /hpf (None Seen) Urine Hyaline Casts Few /lpf (0 - 2) Urine Mucus Few (None Seen) Urine Color Yellow (Yellow) Urine Clarity Turbid (Clear) H Urine pH 5.5 (5.0-9.0) Urine Specific [place] 1.020 (1.001-1.035) Urine Protein 1+ (Negative) H Urine Ketones 1+ (Negative) H Urine Blood 2+ /uL (Negative) H Urine Nitrite Negative (Negative) Urine Bilirubin Negative (Negative) Urine Urobilinogen 4 mg/dL (Negative) H Urine Leukocyte Esterase Trace /uL (Negative) Urine RBC 27 /hpf (0 - 4) Urine Microscopic WBC 3 /HPF (0-5) Urine Squamous Epithelial Cells Few /hpf (<5) Urine Amorphous Crystals Few /hpf (None Seen) Urine Bacteria None seen /hpf (None Seen) Urine Glucose 1+ mg/dL (Normal) H Blood Gas Results Test 02/27/25 07:14 Arterial Blood pH 6.973 (7.350-7.450) FiO2 % 100.0 Microbiology Microbiology Date/Time Source Procedure Growth Status 02/24/25 11:44 Blood Blood Culture - Preliminary NO GROWTH AFTER 48 HOURS OF INCUBATION. Resulted 02/21/25 20:32 Back Wound Gram Stain - Final Complete 02/21/25 20:32 Wound Culture - Final Staphylococcus aureus Escherichia coli - ESBL Complete 02/21/25 01:55 Urine - [place] Urine Culture - Final Escherichia coli - ESBL Complete Labs and/or images reviewed: Labs reviewed by me, Image(s) reviewed by me Assessment/Plan Assessment/Plan The patient is a 59-year-old female morbidly obese with past medical history of diabetes mellitus, asthma, GERD, anemia, and hypertension who presented to [facility] ED for evaluation of altered level of consciousness. As reported by EMS, patient's caregiver reports that patient has been gradually decline in her mental status for the past 2 months, noted to be alert oriented x2, found to be covered on feces, and unable to communicate efficiently, prompting caregiver to call the EMS. diagnosis: sp cardiac arrest ventricular tachycardia, s/p unsync cardioversion Acute DKA , resolved morbid obesity acute metabolic encephalopathy NSTEMI BETH on OHS likely Hypernatremia Acute kidney injury possibly due to vasomotor nephropathy Hypokalemia Transaminitis Morbid obesity Leukocytosis UTI Sepsis due to UTI Metabolic acidosis with respiratory alkalosis Plan Switch with a normal saline to D5 half NS with potassium IV Give potassium IV 60 mEq use Continue sliding scale insulin drip IV antibiotics cefepime and vancomycin Full code Urine and blood culture MRSA screen Monitor closely 02/22/2025: Continue IV fluids D5W Metronidazole and vancomycin Consistent carbohydrate diet Accu-Cheks AC and HS Downgrade to telemetry Physical therapy evaluation 02/23/2025: Hypernatremia: Continue IV fluids half NS to try to improve her hypernatremia DKA: Resolved Hypokalemia: Replace Generalized weakness Morbid obesity UTI: Urine culture shows Gram-negative rods, Discontinue vancomycin and Flagyl Start meropenem IV for UTI with Gram-negative rods Sepsis due to UTI Umbilical hernia Acute kidney injury 02/24/2025: UTI with E coli ESBL: IV Meropenem Hypernatremia: Half-normal saline Metabolic encephalopathy: Repeat CT scan of the head, CPK, TSH, folic acid, B12, ammonia, blood culture, JAMEE: IV fluids Hypokalemia: Replace IV Nephrology consult on board We will need IV antibiotics upon discharge 02/25/25: Hypernatremia: Continue half-normal saline IV fluids UTI with E coli ESBL Wound infection with the E coli ESBL and Staph aureus Metabolic encephalopathy Acute kidney injury due to vasomotor nephropathy Plan: Change antibiotics to IV Levaquin which should cover both wound infection and UTI Continue IV fluids Monitor closely 02/26/2025: Hypernatremia Acute kidney injury UTI with E coli ESBL: IV Levaquin Wound infection with E coli ESBL and Staph aureus: IV Levaquin Metabolic encephalopathy 02/27: Patient here for hypernatremia, sepsis, NSTEMI, acute metabolic encephalopathy. Patient was being treated with Levaquin and D5W. Patient coded this a.m. received 2 shocks, amnio, 2 amps bicarb. Currently intubated on levo for, faint. Can use fentanyl and Versed to maintain RASS-3. Repeating ABG, 500/26/100%/5. We will escalate antibiotics to Zosyn/doxy, kelly lab pending. Cardiology consult for V-tach/RS/NSTEMI, pulmonology consult for vent management. will get echo. Jessie and CVC to be inserted. -abx change to meropenem/doxy. ICU dnr dni (per brother) Plan discussed with: Other Date of Service: Feb 27, 2025 Billing Provider: ALEXANDRA MADISON MD Common Visit Codes: 69142-[id number] CARE 30-74 MIN, [id number] CARE-EACH +30MIN ALEXANDRA MADISON MD Feb 27, 2025 10:05
[2025-02-27 10:24] LABS: Hematocrit 39.8 % (36.0-46.0); Hemoglobin 12.5 g/dL (12.2-16.2); Mean Corpuscular Hemoglobin 27.9 pg (28.0-32.0); Mean Corpuscular Volume 88.7 fL (80.0-100.0); Nucleated Red Blood Cells % 1.2 %
[2025-02-27 10:55] LABS: Anion Gap 20 (5-15)
[2025-02-27 10:58] LABS: Lactic Acid w/Reflex 8.3 mmol/L (0.4-2.0)
[2025-02-27 11:08] LABS: Alanine Aminotransferase 121 U/L (7-40); Albumin 3.2 g/dL (3.2-4.8); Alkaline Phosphatase 130 U/L (46-116); BUN/Creatinine Ratio 15.1 (10.0-20.0); Bilirubin, Total 1.4 mg/dL (0.2-1.0); Blood Urea Nitrogen 33 mg/dL (9-23); Calcium 8.8 mg/dL (8.7-10.4); Carbon Dioxide 20 mmol/L (20-31); Chloride 114 mmol/L (98-107); Glucose 272 mg/dL (74-106); Magnesium 2.0 mg/dL (1.6-2.6); Potassium 4.7 mmol/L (3.5-5.1); Sodium 154 mmol/L (136-145); Total Protein 5.7 g/dL (5.7-8.2)
[2025-02-27] MEDS ORDERED: AMIODARONE HCL (50 MG/ ML) 3 ML VIAL IV ONE (11:12)
[2025-02-27] MEDS ORDERED: MAGNESIUM SULF SDV 50% 4MEQ/ML-2 ML VIAL IV ONE (11:12)
[2025-02-27] MEDS ORDERED: SODIUM BICARB 8.4% 50Meq/50ml SYR INJ IV ONE (11:12)
[2025-02-27] MEDS ORDERED: EPINEPHrine HCL 1 MG/10 ML SYRG IV ONE (11:12)
[2025-02-27 11:25] LABS: Base Excess -2.3 mmol/L (-2.0-3.0)
[2025-02-27 11:35] LABS: INR 1.18 (0.9-1.15); Partial Thromboplastin Time 23.6 SEC (24.5-34.5); Prothrombin Time 12.3 sec (9.3-11.8)
[2025-02-27] MEDS ORDERED: CEFEPIME 1GM/50ML 50 ML IV SCH (13:00)
--- NOTE | 2025-02-27 13:24 | DVHPN2 ---
Progress Note - Dictate Date Seen: Feb 27, 2025 Medical Necessity Reason Pt with a Central, PICC or Fol: Yes The following are medically ne: Diallo Catheter Reason for diallo catheter: Strict I&O Subjective Ms. Herrera is a 59 years old female with a history of hypertension, diabetes, morbid obesity, anemia, kidney failure, GERD, he was brought to the [facility] on 02/28/2025 with a chief complaint of altered mental status He coded at 02/27/25 0631. He has a attack early, and then was found to be pulseless when our staff went to her room, the patient's resuscitated, intubated. The code ended at 0640 At that time, she is intubated, sedated, responsive to painful stimuli Versed 2 mg/hour, fentanyl 50 mcg/hour, levo 4 mcg/minute Urine culture, 02/21/2025: E coli Blood culture, 02/20/2025: Wound culture, 02/21/2025: Many growth Urinalysis, 02/20/2025: WBC: 382, urine leukocyte esterase: 3 +, ABG, 02/20/2025: Respiratory acidosis, hypoxia, 02/27/2025: Respiratory acidosis, hypoxia WBC/HB/PLT/MCV, 02/24/2025: 6.8/11.9/148/85.9 Na, 02/20/2025: 144, 02/21/2025: 48, 02/22/2025: 156, 02/23/2025: 158, 02/24/2025: 157, 02/24/2025: 155, 02/25/25: 156, 02/27/2025: 152 BUN/CR, 02/20/2025: 94/3.31, 02/24/2025: 36/1.93, 02/25/2025: 38/1.76 GFR, 02/20/2025: 16, 02/24/2025: 30 Glucose, 02/20/2025: 459, 02/21/2025: 196 HGB A1c, 02/22/2025: 8.4 Lactic acid, 02/20/2025: 5, 6.7 02/21/2025: 2.3 Beta hydroxybutyric acid, 02/20/2025: 0.662 TG/HDL/LDL/HDL, 02/21/2025: 1.2/58/57/117, 02/24/2025: Normal Ammonia, 02/24/2025: <10 Vitamin B12, 02/24/2025: 682 Folic acid, 02/24/2025: 3.45 TSH, 02/24/2025: 3.24 Chest x-ray, 02/20/2025: No acute pulmonary process. CT head, 02/24/2025: 1. No acute territorial infarct or intracranial hemorrhage.2. Age-related involutional changes. Chronic microvascular changes. 3. 2.2 cm right frontal extra-axial lesion may reflect a meningioma. A nonemergent MRI of the brain is suggested in further assessment MR head, 02/25/2025: No acute intracranial abnormality seen. 1.9 cm right medial posterior frontal extra-axial mass, most compatible with meningioma. No underlying mass effect/ vasogenic edema. vital signs Vital Sign Date Time Temp Pulse Resp B/P (MAP) Pulse Ox O2 Delivery O2 Flow Rate FiO2 02/27/25 11:06 98.7 76 26 118/91 100 100 98.7 02/27/25 08:04 Ambu-Bag 02/27/25 08:00 0 Total Intake and Output 02/26/25 02/26/25 02/27/25 15:00 23:00 07:00 Intake Total 325 ml 300 ml 0 ml Output Total 300 ml Balance 325 ml 300 ml -300 ml medications Current Medications Medications Dose Ordered Sig/Tim Route Start Time Stop Time Status Last Admin Dose Admin Heparin Sodium (Porcine) 5,000 units Q12HR SC 02/20/25 22:00 02/26/25 21:15 5,000 UNITS Diagnostic Test (Pha) 1 strip IQ4HR 02/21/25 00:00 UNV Sodium Chloride 10 ml Q8HR IV 02/20/25 22:00 02/27/25 06:11 10 ML Ondansetron HCl 4 mg Q4HP PRN IV 02/20/25 20:15 Docusate Sodium 100 mg BIDPRN PRN PO 02/20/25 20:15 Acetaminophen 650 mg Q6HP PRN PO 02/20/25 20:15 Nitroglycerin 0.4 mg Q5MINP PRN SL 02/20/25 21:15 Dextrose 50 ml UD PRN IV 02/22/25 04:30 Diagnostic Test (Pha) 1 strip ACHS 02/22/25 17:00 02/27/25 06:12 1 STRIP Insulin Human Regular ACHS SC 02/22/25 17:00 02/27/25 06:16 6 UNITS Hydralazine HCl 10 mg Q6HP PRN IV 02/24/25 16:30 02/25/25 08:46 10 MG Lorazepam 1 mg ONCE PRN IV 02/25/25 10:45 Levofloxacin 50 ml @ 50 mls/hr DAILY IV 02/27/25 10:00 Cancel Levofloxacin/ Dextrose 100 ml @ 100 mls/hr DAILY IV 02/27/25 10:00 Dextrose 1,000 ml @ 75 mls/hr [id number] IV 02/26/25 14:30 02/27/25 03:53 75 MLS/HR Midazolam HCl 100 ml @ 1 mls/hr Q24H IV 02/27/25 07:15 Fentanyl Citrate 250 ml @ 2.5 mls/hr Q24H IV 02/27/25 07:15 Norepinephrine Bitartrate 250 ml @ 3.75 mls/hr Q24H IV 02/27/25 07:15 02/27/25 07:56 3.75 MLS/HR Cefepime HCl 50 ml @ 12.5 mls/hr Q8H IV 02/27/25 13:00 Metronidazole 100 ml @ 100 mls/hr Q8H IV 02/27/25 12:00 objective The patient is well-nourished and well-developed with no distress. The patient is intubated MENTAL STATUS: Subjective CRANIAL NERVES: Pupils are equal, round and reactive.There are corneal reflexes and doll's eyes phenomenon. No signs of facial weakness. There are gagging or coughing reflexes SENSATION: Responses to pain stimuli. MOTOR: Normal tone in the upper and lower extremity. Normal muscle bulk. No fasciculations. No spontaneous movement. REFLEXES: Deep tendon reflexes are symmetrical. No pathological reflexes. CEREBELLAR/COORDINATION: Deferred GAIT/STATION: deferred. laboratory and microbiology Laboratory Tests 02/27/25 10:21 02/27/25 10:02 Test 02/27/25 10:21 Range/Units Serum Glucose 272 H 74-106 mg/dL Problem List Altered mental status Metabolic encephalopathy Hypoxic encephalopathy Toxic encephalopathy Cardiopulmonary arrest Acute on chronic respiratory failure Diabetic ketoacidosis Metabolic acidosis UTI Sepsis Morbid obesity Acute respiratory failure Kidney failure Dehydration Hypernatremia Morbid obesity ? Obesity hypoventilation syndrome Assessment/Plan Monitoring Supportive treatment ICU care Follow up labs Stabilize vitals/pressor drip Respiratory support/vent management Oxygen IV antibiotics D5W 5% IIV fluids Nephrology on case Cardiology on case Pulmonology consultation More recommendation per clinical course Condition: Guarded This medical document was created using an electronic medical record system with [employer] dictation system. Although this document has been carefully reviewed, there may still be some phonetic and typographical errors. These areas are purely typographical due to imperfections of the software programs, and do not reflect any compromise in the patient's medical care. Prognosis Poor Dietary Evaluation Review Comments: Diet Order: Continue CCHO-60, 2-gram sodium diet. Monitoring: Monitor PO intake and tolerance. Monitor renal function and updated lab values (electrolytes, BUN/Cr, GFR). Follow up with nephrology and GI reports. Reassessment: Reassess PRN based on clinical status and intake. Discharge Planning: Address weight management upon discharge. Expected Outcomes/Goals: gradual wt loss Plan discussed with: Other Critical Care Time(min): 40 NO MONDRAGON MD Feb 27, 2025 13:24
--- NOTE | 2025-02-27 14:52 | DVHNC2 ---
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 hands were washed immediately prior to the procedure. we wore a surgical cap, mask with protective eyewear, sterile gown and sterile gloves throughout the procedure. Left groin was prepped using chlorhexidine scrub and draped in sterile fashion using sterile towels. The femoral artery was identified through the ultrasound. With the help of ultrasound, a needle was inserted into the left femoral artery, which was visualized on ultrasound. Arterial blood was seen in the syringe. Syringe was removed and needle was kept in place and The guidewire was advanced easily into the left femoral artery. Needle was then removed and The catheter was then advanced over the wire and wire were withdrawn. Catheter was then connected to the the tubing. The catheter was sutured in place. A sterile dressing was placed over the catheter at the insertion site. At the time of procedure completion, the catheter was connected to the cardiac rn and calibrated. Appropriate waveform and blood pressure tracing was observed. Mendel Anthony Resident Himanshu Hathaway MD Date of Service: Feb 27, 2025 Billing Provider: HIMANSHU HATHAWAY MD Common Visit Codes: PROCEDURE ONLY Procedure Codes: [id number] LINE MENDEL ANTHONY Feb 27, 2025 14:51 HIMANSHU HATHAWAY MD Mar 08, 2025 22:33
[2025-02-27] MEDS: MEROPENEM 1GM IVPB 50 ML IV ONE (15:00)
[2025-02-27] MEDS ORDERED: SODIUM BICARB 50mEq/50ml Vial 50 ML in SOD CHL 0.45% 1,000 ML IV SCH (15:30)
--- NOTE | 2025-02-27 16:08 | DVHPN2 ---
Progress Note Date Seen: Feb 27, 2025 Medical Necessity Reason Pt with a Central, PICC or Fol: Yes The following are medically ne: Diallo Catheter Reason for diallo catheter: Strict I&O Subjective Review of Systems: Deferred Objective vital signs Vital Sign Date Time Temp Pulse Resp B/P (MAP) Pulse Ox O2 Delivery O2 Flow Rate FiO2 02/27/25 14:14 16 100 Mechanical Ventilator+ 100 100 02/27/25 14:06 88 107/68 (81) 02/27/25 11:06 98.7 98.7 02/27/25 08:00 0 Total Intake and Output 02/26/25 02/26/25 02/27/25 15:00 23:00 07:00 Intake Total 325 ml 300 ml 0 ml Output Total 300 ml Balance 325 ml 300 ml -300 ml medications Current Medications Medications Dose Ordered Sig/Tim Route Start Time Stop Time Status Last Admin Dose Admin Heparin Sodium (Porcine) 5,000 units Q12HR SC 02/20/25 22:00 02/26/25 21:15 5,000 UNITS Diagnostic Test (Pha) 1 strip IQ4HR 02/21/25 00:00 UNV Sodium Chloride 10 ml Q8HR IV 02/20/25 22:00 02/27/25 14:11 10 ML Ondansetron HCl 4 mg Q4HP PRN IV 02/20/25 20:15 Docusate Sodium 100 mg BIDPRN PRN PO 02/20/25 20:15 Acetaminophen 650 mg Q6HP PRN PO 02/20/25 20:15 Nitroglycerin 0.4 mg Q5MINP PRN SL 02/20/25 21:15 Dextrose 50 ml UD PRN IV 02/22/25 04:30 Diagnostic Test (Pha) 1 strip ACHS 02/22/25 17:00 02/27/25 06:12 1 STRIP Insulin Human Regular ACHS SC 02/22/25 17:00 02/27/25 06:16 6 UNITS Hydralazine HCl 10 mg Q6HP PRN IV 02/24/25 16:30 02/25/25 08:46 10 MG Lorazepam 1 mg ONCE PRN IV 02/25/25 10:45 Levofloxacin 50 ml @ 50 mls/hr DAILY IV 02/27/25 10:00 Cancel Dextrose 1,000 ml @ 75 mls/hr [id number] IV 02/26/25 14:30 02/27/25 03:53 75 MLS/HR Midazolam HCl 100 ml @ 1 mls/hr Q24H IV 02/27/25 07:15 Fentanyl Citrate 250 ml @ 2.5 mls/hr Q24H IV 02/27/25 07:15 Norepinephrine Bitartrate 250 ml @ 3.75 mls/hr Q24H IV 02/27/25 07:15 02/27/25 07:56 3.75 MLS/HR Metronidazole 100 ml @ 100 mls/hr Q8H IV 02/27/25 12:00 Doxycycline Hyclate 100 ml @ 50 mls/hr Q12H IV 02/27/25 17:00 Meropenem 50 ml @ 17 mls/hr Q8HR IV 02/27/25 22:00 Sodium Bicarbonate 50 ml/ Sodium Chloride 1,050 ml @ 100 mls/hr [id number] IV 02/27/25 15:30 UNV Examination: GENERAL:Abnormal, LUNGS:Abnormal, CVS:Abnormal, ABDOMEN:Abnormal laboratory and microbiology Laboratory Tests 02/27/25 10:21 02/27/25 10:02 Test 02/27/25 10:21 Range/Units Serum Glucose 272 H 74-106 mg/dL Microbiology Date/Time Source Procedure Growth Status 02/24/25 11:44 Blood Blood Culture - Preliminary NO GROWTH AFTER 72 HOURS OF INCUBATION. Resulted 02/21/25 20:32 Back Wound Gram Stain - Final Complete 02/21/25 20:32 Wound Culture - Final Staphylococcus aureus Escherichia coli - ESBL Complete 02/21/25 01:55 Urine - [place] Urine Culture - Final Escherichia coli - ESBL Complete Problem List/Assessment/Plan Problem List/Assessment/Plan Acute kidney injury DKA sepsis UTI uncontrolled Dm2 morbid obesity hypernatremia Lactic acidosis in the setting of hypoperfusion Cardiac arrest 02/27 Acute respiratory failure Recurrent kidney injury in the setting of hypotension and hypoperfusion Maintain map greater than 65 continue D5W 75cc/hr replace K and Mg per hospital guidelines ABX insulin subQ protocol Plan discussed with: Other (nurse) Dietary Evaluation Review Comments: Diet Order: Continue CCHO-60, 2-gram sodium diet. Monitoring: Monitor PO intake and tolerance. Monitor renal function and updated lab values (electrolytes, BUN/Cr, GFR). Follow up with nephrology and GI reports. Reassessment: Reassess PRN based on clinical status and intake. Discharge Planning: Address weight management upon discharge. Expected Outcomes/Goals: gradual wt loss ANTHONY LYMAN MD Feb 27, 2025 16:08
--- NOTE | 2025-02-27 16:52 | DVHINCON2 ---
Date Seen: Feb 27, [address] Carreno Reason for Consultation s/p cardiac arrest with ROSC History of Present Illness Patient is a 59-year-old female with a medical history of type 2 diabetes, anemia, asthma, GERD, hypertension was brought to the hospital with altered level of consciousness. Initially patient was found to be dehydrated, elevated blood glucose levels and elevated lactic acid levels and abdominal CT showed umbilical hernia which had a wound with a serous exudate growing MSSA and ESBL E coli. Patient was being treated with IV antibiotics and other supportive treatment. inventory assistant today 02/27/2025 patient was noted to be bradycardic on telemonitor and head 6:31 a.m. asystole following which a code blue was called. As per the resuscitation report at 6:37 a.m. patient was seen to be in V fibrillation following which she was defibrillated and went into PEA, CPR was resumed and patient again went into ventricular tachycardia at 6:40 a.m. following which she was given another defibrillation following which patient had sinus rhythm. ROSC achieved at 6:50 a.m. with a V-tach pulse following which she was given amiodarone 300 IV. Post ROSC ECG showed junctional rhythm with a RBBB Past Medical History As per HPI Past Surgical History Tonsillectomy Family History Noncontributory Social History Patient has a caregiver Allergies: Coded Allergies: Penicillins (Verified Allergy, Unknown, 09/01/19) Current Medications Current Medications Medications (Trade) Dose Ordered Sig/Tim Route PRN Reason Start Time Stop Time Status Last Admin Levofloxacin 50 ml @ 50 mls/hr DAILY IV 02/27/25 10:00 Cancel Levofloxacin/ Dextrose 100 ml @ 100 mls/hr DAILY IV 02/27/25 10:00 02/27/25 14:50 DC Midazolam HCl 100 ml @ 1 mls/hr Q24H IV 02/27/25 07:15 Fentanyl Citrate 250 ml @ 2.5 mls/hr Q24H IV 02/27/25 07:15 Norepinephrine Bitartrate 250 ml @ 3.75 mls/hr Q24H IV 02/27/25 07:15 02/27/25 07:56 Cefepime HCl 50 ml @ 12.5 mls/hr Q8H IV 02/27/25 13:00 02/27/25 14:50 DC Metronidazole 100 ml @ 100 mls/hr Q8H IV 02/27/25 12:00 Doxycycline Hyclate 100 ml @ 50 mls/hr Q12H IV 02/27/25 17:00 Meropenem 50 ml @ 17 mls/hr Q8HR IV 02/27/25 22:00 Sodium Bicarbonate 50 ml/ Sodium Chloride 1,050 ml @ 100 mls/hr [id number] IV 02/27/25 15:30 02/27/25 16:12 DC Sodium Bicarbonate 50 ml/ Dextrose 1,050 ml @ 100 mls/hr [id number] IV 02/27/25 16:15 UNV Review of Systems Patient seen and examined with the bedside Sinus rhythm on the tele monitor, ECG done in the morning showed sinus rhythm, left axis deviation, Q-waves in inferior leads Vital Signs Vital Signs Date Time Temp Pulse Resp B/P (MAP) Pulse Ox O2 Delivery O2 Flow Rate FiO2 02/27/25 14:14 16 100 Mechanical Ventilator+ 100 100 02/27/25 14:06 88 107/68 (81) 02/27/25 11:06 98.7 98.7 02/27/25 08:00 0 Physical Exam Skin - Patients skin is warm and dry, wound with the mid abdomen with sterile dressing. HEENT - normocephalic, atraumatic, moist mucous membranes, no scleral icterus, no conjunctival pallor. Neck - full ROM, no LAD, no JVD Pulmonary - B/L clear breath sounds without any wheezing or rales cardiovascular - regular S1,S2 heard, no added sounds or murmurs appreciated. peripheral pulses normal radial 2+, pedal 2+. No extremity edema GI - soft abdomen with dressing no hepatospleenomegaly. Bowel sounds hypoactive Neurological - Patient is A/O X 4 . Bilateral upper extremity strength 5/5, bilateral lower extremity strength 5/5, no facial droop, normal speech, no tremor, no sensory deficiets. Labs/Diagnostic Data Labs Test 02/27/25 12:26 02/27/25 11:18 02/27/25 10:21 02/27/25 10:02 Range/Units Blood Gas Specimen Type Arterial Blood Gas Sample Site Right radial Blood Gas Patient Temperature 37.0 Arterial Blood Date Drawn [id number] Arterial Blood pH 7.535 H 7.350-7.450 Arterial Blood Partial Pressure CO2 22.4 L 32.0-45.0 mmHg Arterial Blood Partial Pressure O2 430.8 *H 83.0-108.0 mmHg Arterial Blood HCO3 18.5 L 21.0-28.0 mmol/L Arterial Blood Oxygen Saturation 99.3 H 94.0-98.0 % Arterial Blood Base Excess -2.3 L -2.0-3.0 mmol/L Arterial Blood Oxyhemoglobin 98.5 H 94.0-98.0 % Arterial Blood Carboxyhemoglobin 0.3 L 0.5-1.5 % Arterial Blood Methemoglobin 0.5 0.0-1.5 % Arterial Blood Deoxyhemoglobin 0.7 0.0-5.0 % Fox Test Modified Blood Gas Total Hemoglobin 12.90 12.0-16.0 g/dL Blood Gas Set Respiration Rate 26.0 Blood Gas Modality Vent - ac FiO2 % 100.0 Blood Gas Tidal Volume 500.0 Blood Gas PEEP or CPAP 5.0 Blood Gas Critical Value Read Back yes Blood Gas Notified Whom Blood Gas Notified Time [id number] Blood Gas Notified By hybrid tester eugene Prothrombin Time 12.3 H 9.3-11.8 sec Prothrombin Time INR 1.18 H 0.9-1.15 Activated Partial Thromboplast Time 23.6 L 24.5-34.5 SEC Sodium Level 154 H 136-145 mmol/L Potassium Level 4.7 3.5-5.1 mmol/L Chloride Level 114 H 98-107 mmol/L Carbon Dioxide Level 20 20-31 mmol/L Anion Gap 20 H 5-15 Blood Urea Nitrogen 33 H 9-23 mg/dL Creatinine 2.18 #H 0.550-1.02 mg/dL Glomerular Filtration Rate Calc 26 >90 mL/min BUN/Creatinine Ratio 15.1 10.0-20.0 Serum Glucose 272 H 74-106 mg/dL Calcium Level 8.8 8.7-10.4 mg/dL Phosphorus Level 4.2 2.4-5.1 mg/dL Magnesium Level 2.0 1.6-2.6 mg/dL Total Bilirubin 1.4 H 0.2-1.0 mg/dL Aspartate Amino Transferase (AST) 393 H 13-40 U/L Alanine Aminotransferase (ALT) 121 H 7-40 U/L Alkaline Phosphatase 130 H 46-116 U/L Total Protein 5.7 5.7-8.2 g/dL Albumin 3.2 3.2-4.8 g/dL White Blood Count 14.7 #H 4.4-10.8 10^3/uL Red Blood Count 4.49 4.0-5.20 10^6/uL Hemoglobin 12.5 12.2-16.2 g/dL Hematocrit 39.8 # 36.0-46.0 % Mean Corpuscular Volume 88.7 80.0-100.0 fL Mean Corpuscular Hemoglobin 27.9 L 28.0-32.0 pg Mean Corpuscular Hemoglobin Concent 31.4 L 32.0-36.0 g/dL Red Cell Distribution Width 19.8 H 11.8-14.3 % Platelet Count 126 L 140-450 10^3/uL Mean Platelet Volume 9.3 6.9-10.8 fL Neutrophils (%) (Auto) 80.7 H 37.0-80.0 % Lymphocytes (%) (Auto) 16.0 10.0-50.0 % Monocytes (%) (Auto) 2.7 0.0-12.0 % Eosinophils (%) (Auto) 0.4 0.0-7.0 % Basophils (%) (Auto) 0.2 0.0-2.0 % Neutrophils # (Auto) 11.8 H 1.6-8.6 10 ^3/uL Lymphocytes # (Auto) 2.3 0.4-5.4 10 ^3/uL Monocytes # (Auto) 0.4 0-1.3 10 ^3/uL Eosinophils # (Auto) 0.1 0-0.8 10 ^3/uL Basophils # (Auto) 0 0-0.2 10 ^3/uL Nucleated Red Blood Cells 1.2 % Platelet Estimate Decrea Large Platelets Few Ammonia 94 H 11-32 umol/L Test 02/27/25 07:54 02/27/25 07:14 02/26/25 15:08 02/24/25 09:23 Range/Units POC Glucose 315 H 70-106 mg/dl Blood Gas Spontaneous Rate 24 Urine Color Yellow Yellow Urine Clarity Turbid H Clear Urine pH 5.5 5.0-9.0 Urine Specific [place] 1.020 1.001-1.035 Urine Protein 1+ H Negative Urine Ketones 1+ H Negative Urine Blood 2+ H Negative /uL Urine Nitrite Negative Negative Urine Bilirubin Negative Negative Urine Urobilinogen 4 H Negative mg/dL Urine Leukocyte Esterase Trace Negative /uL Urine RBC 27 0 - 4 /hpf Urine Microscopic WBC 3 0-5 /HPF Urine Squamous Epithelial Cells Few <5 /hpf Urine Amorphous Crystals Few None Seen /hpf Urine Bacteria None seen None Seen /hpf Urine Glucose 1+ H Normal mg/dL Vitamin B12 Level 682 211-911 pg/mL Folic Acid 3.45 >5.38 ng/mL Test 02/24/25 04:27 02/23/25 06:00 02/22/25 02:20 02/20/25 22:15 Range/Units Creatine Kinase 108 34-145 U/L Thyroid Stimulating Hormone (TSH) 3.24 0.55-4.78 uIU/mL Random Vancomycin Level 14.6 H 5-10 ug/mL Hemoglobin A1c 8.4 H <5.7 % A1C Troponin I High Sensitivity 204 *H </=34 ng/L Test 02/20/25 21:52 02/20/25 19:15 Range/Units Urine WBC Clumps Present None Seen /hpf Urine Hyaline Casts Few 0 - 2 /lpf Urine Mucus Few None Seen Serum Osmolality 352 H 278-298 mOsm/kg B-Type Natriuretic Peptide 30.16 0-100 pg/mL Beta-Hydroxybutyric Acid 0.662 H < 0.4 mmol/L Microbiology Date/Time Source Procedure Growth Status 02/24/25 11:44 Blood Blood Culture - Preliminary NO GROWTH AFTER 72 HOURS OF INCUBATION. Resulted 02/21/25 20:32 Back Wound Gram Stain - Final Complete 02/21/25 20:32 Wound Culture - Final Staphylococcus aureus Escherichia coli - ESBL Complete 02/21/25 01:55 Urine - [place] Urine Culture - Final Escherichia coli - ESBL Complete Assessment S/p cardiac arrest with ROSC Cardiac arrest likely secondary to metabolic causes (severe acidosis) Acute metabolic encephalopathy likely from sepsis/dehydration Acute on chronic kidney injury likely in the setting of shock Shock liver Plan/Recommendation - echocardiogram with definity pending - monitor electrolytes keep potassium above 4 and Mag above 2 - strict I&Os, reduced afterload and preload - further cardiac workup to be done with the patient is more medically stable and neurological status improved Goals of care discussed with the primary team and primary RN Plan discussed with Dr. Davies Plan discussed with: Other (RN Renée) NYHA Physical activity limitations: NA Date of Service: Feb 27, 2025 Billing Provider: AUREA DAVIES MD Cardiology Common Codes: [id number] INP/OBS CARE (High) SHANNAN JACKSON RESIDENT Feb 27, 2025 16:52
--- NOTE | 2025-02-27 17:15 | DVHSR ---
APPROVED REPORT EXAM: LIMITED Two-dimensional and M-mode echocardiogram with Doppler and color Doppler. Blood Pressure: 118/91 mmHg INDICATION S/P Cardiac Arrest RISK FACTORS Obesity: Height: 4' 11", Weight: 370 DIMENSIONS LVDd 3.2 (3.8-5.7cm) LA (2D) 3.1 (1.9-4.0cm) Aortic Root 3.2 (2.0-3.7cm) LVDs 2.3 (2.5-4.0cm) LA (MM) (1.9-4.0cm) Aortic Cusp Exc 1.8 (1.5-2.0cm) EF (%) 55.0 (55-70%) Rt. Atrium 4.0 (1.9-4.0cm) Asc. Aorta cm IVSd 1.6 (0.7-1.1cm) RV (D) (1.8-2.4cm) PWd 1.6 (0.7-1.1cm) Mitral Valve Mitral Mitral Stenosis E wave 0.80m/s MV Mean GR. mmHg A wave 0.40m/s MV Peak GR. mmHg E/A ratio 2.0 2D MVA cm2 Aortic Valve Aortic Valve Aortic Stenosis V1 1.10m/s AO Mean GR. 3mmHg V2 1.20m/s AO Peak GR. 6mmHg LVOT Diameter 2.1 (1.8-2.4cm) Doppler ADRI 3.17cm2 AI P 1/2 Time 873.50ms Pulmonic Valve V2 0.90m/s Tricuspid Valve TR Velocity 2.30m/s RVSP 28mmHg Other Information Quality : Technically Limited Rhythm : Technically limited study due to body habitus, patient position and on vent. Conclusion Poor quality sstudy. consider definity study 1-Low normal left ventricle systolic function with estimated ejection fraction of 50-55%. Severe left ventricle hypertrophy. There are right and left ventricular trabeculation. May consider cardiac MRI for further evaluation if clinically correlated 2-Mild mitral an tricuspid regurgitation 3-Estimated RVSP of 30-35 mmHg
--- NOTE | 2025-02-27 17:24 | DVHNC2 ---
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 The skin was thoroughly sponged with chlorhexidine and allowed to dry. All persons involved were shielded with hair nets, face masks and sterile gowns. With sterile-gloved hands the right neck area was draped with the large disposable sterile field provided in the pre-manufactured kit. The skin and subcutaneous tissues superficial to the RIGHT internal jugular vein were anesthetized with 2 mL of 1% lidocaine. The RIGHT internal jugular vein was identified on ultrasound from the angle of the mandible down into the supraclavicular fossa using the linear ultrasound probe in the transverse orientation. The carotid artery was identified and barby ided utilizing color-flow. The internal jugular vein was then placed in the center of the ultrasound field and compressed for patency. A movement artifact was identified as the needle was advanced through the skin and advanced toward the vessel. A real time hyperechoic signal revealed visualization of vascular needle entry into the lumen as blood was noted to flashback in the syringe. The needle was then held in place while the guide wire was advanced. The needle was then removed. Direct visualization of guide wire location within the vein was noted on ultrasound indicating proper placement and was document in the electronic medical record chart. A skin dilator was advanced over the guidewire and removed, and the triple-lumen catheter was then advanced over the guide wire into proper position. The guide wire was removed and discarded. The ports were aspirated which showed good blood return and then carefully flushed with normal saline. The catheter was stabilized and sutured to the skin with 2-0 silk at 2 anchor points. A sterile bio-patch and dressing was placed over the catheter, including the insertion site. The patient tolerated the procedure well. A chest x-ray was ordered for position confirmation. Post-procedure chest x-ray is pending at time of writing this note. Carolynn Anthony Resident Alexandra Hathaway MD Date of Service: Feb 27, 2025 Billing Provider: ALEXANDRA HATHAWAY MD Common Visit Codes: PROCEDURE ONLY Procedure Codes: [id number] NON-TUNNEL CV CATH CAROLYNN ANTHONY Feb 27, 2025 17:24 ALEXANDRA HATHAWAY MD Mar 08, 2025 22:34
--- NOTE | 2025-02-27 18:31 | DVH ---
CHEST RADIOGRAPH INDICATION: central line placement TECHNIQUE: XY CHEST PORTABLE COMPARISON: 02/27/2025 FINDINGS: Right IJ catheter tip projects over the SVC. Endotracheal tube tip projects 1.4 cm above the raza. The cardiac silhouette is enlarged. The lungs demonstrate bilateral patchy airspace opacities, increased Interval most pronounced in the right mid/lower lung region. The pulmonary vasculature is prominent. There is no pleural effusion. There is no pneumothorax. IMPRESSION: As above
[2025-02-27] MEDS: SODIUM BICARB 50mEq/50ml Vial 50 ML in D5W 5% 1,000 ML IV SCH (22:29)
[2025-02-28] VITALS (119 sets, daily range): BP systolic 90–151; BP diastolic 41–85; PULSE 56–97; RESP 14–19; TEMP 96.8–98.6; O2SAT 95–100
[2025-02-28] MEDS: MEROPENEM 1GM IVPB 50 ML IV SCH ×2 (00:13→08:55)
--- NOTE | 2025-02-28 01:48 | DVH ---
CHEST RADIOGRAPH INDICATION: NGT Placement Confirmation TECHNIQUE: Single frontal view of the chest was obtained COMPARISON: XY CHEST PORTABLE on DOS: 02/27/25, XY CHEST XRAY 1 VIEW on DOS: 02/27/25, XY CHEST PORTABLE on DOS: 02/20/25 FINDINGS: ET tube tip terminating 2 cm above the raza. NG tube in the mid stomach. Right IJ line with tip in the lower SVC. Cardiac silhouette is enlarged. Diffuse prominence of the pulmonary vasculature. IMPRESSION: NG tube in the mid stomach.
[2025-02-28 03:26] LABS: Hematocrit 31.6 % (36.0-46.0); Hemoglobin 10.2 g/dL (12.2-16.2); Mean Corpuscular Hemoglobin 27.8 pg (28.0-32.0); Mean Corpuscular Volume 85.7 fL (80.0-100.0); Nucleated Red Blood Cells % 0.1 %
[2025-02-28 03:39] LABS: Anion Gap 12 (5-15); Carbon Dioxide 28 mmol/L (20-31); Potassium 3.7 mmol/L (3.5-5.1)
[2025-02-28 03:41] LABS: Calcium 8.4 mg/dL (8.7-10.4); Chloride 115 mmol/L (98-107); Sodium 155 mmol/L (136-145)
[2025-02-28 03:45] LABS: BUN/Creatinine Ratio 18.3 (10.0-20.0)
[2025-02-28 03:49] LABS: Blood Urea Nitrogen 46 mg/dL (9-23); Glucose 251 mg/dL (74-106)
[2025-02-28] MEDS: DOXYCYCLINE 100MG/100ML 100 ML IV SCH (05:42)
--- NOTE | 2025-02-28 05:46 | DVH ---
CHEST RADIOGRAPH Indication: INTUBATION Technique: Single frontal view of the chest was obtained COMPARISON: XY CHEST XRAY 1 VIEW on DOS: 02/28/25, XY CHEST PORTABLE on DOS: 02/27/25, XY CHEST XRAY 1 VIEW on DOS: 02/27/25, XY CHEST PORTABLE on DOS: 02/20/25 FINDINGS: Lines and Tubes: Endotracheal tube, enteric catheter and right central venous catheter in satisfactory position. Lungs: Unchanged pulmonary vascular congestion Pleura: No effusion. No pneumothorax. Cardiomediastinal contours: Cardiomegaly. Bones: Unremarkable IMPRESSION: Lines and tubes in satisfactory position. No significant interval change.
[2025-02-28 06:05] LABS: Base Excess 2.1 mmol/L (-2.0-3.0)
--- NOTE | 2025-02-28 10:48 | DVHPN2 ---
Reviewed: H&P Changes from previous H/P or p: No Changes General: Per HPI Eyes: No Pain, No Vision change, No Conjunctivae inflammation, No Eyelid inflammation, No Other, No Redness ENT: No Ear pain, No Ear discharge, No Nose pain, No Nose discharge, No Nose congestion, No Mouth pain, No Mouth swelling, No Throat pain, No Throat swelling, No Other Cardiovascular: No Chest Pain, No Palpitations, No Orthopnea, No Paroxysmal Noc. Dyspnea, No Edema, No Lt Headedness, No Other Respiratory: No Cough, No Dry, No Shortness of breath, No SOB with excertion, No Wheezing, No Hemoptysis, No Pleuritic Pain, No Sputum, No Other Gastrointestinal: No Nausea, No Vomiting, No Abdominal Pain, No Diarrhea, No Constipation, No Melena, No Hematochezia, No Other Musculoskeletal: No other, No neck pain, No shoulder pain, No arm pain, No back pain, No hand pain, No leg pain, No foot pain Skin: No Rash, No Lesions, No Jaundice, No Bruising, No Other Objective Vitals Vital Signs Date Time Temp Pulse Resp B/P (MAP) Pulse Ox O2 Delivery O2 Flow Rate FiO2 02/28/25 09:34 86 16 109/52 (71) 100 30 02/28/25 09:07 97.7 97.7 02/28/25 08:05 Mechanical Ventilator+ 02/28/25 08:00 0 Intake/Output Intake and Output 02/28/25 07:00 Intake Total 1167.00 ml Output Total 85 ml Balance 1082.00 ml IV Total 1167.00 ml Output Urine Total 85 ml Exam Lungs: Clear to auscultation Cardiovascular: Regular rate, Normal S1, Normal S2, No murmurs Abdomen: Normal bowel sounds, Soft, No tenderness Extremities: No edema Lungs: Clear to auscultation Cardiovascular: Regular rate, Normal S1, Normal S2, No murmurs Abdomen: Normal bowel sounds, Soft, No tenderness Extremities: No edema Medications Current Medications Medications Dose Ordered Sig/Tim Route Start Time Stop Time Status Last Admin Dose Admin Diagnostic Test (Pha) 1 strip IQ4HR 02/21/25 00:00 UNV Sodium Chloride 10 ml Q8HR IV 02/20/25 22:00 02/28/25 06:33 10 ML Ondansetron HCl 4 mg Q4HP PRN IV 02/20/25 20:15 Docusate Sodium 100 mg BIDPRN PRN PO 02/20/25 20:15 Acetaminophen 650 mg Q6HP PRN PO 02/20/25 20:15 Nitroglycerin 0.4 mg Q5MINP PRN SL 02/20/25 21:15 Dextrose 50 ml UD PRN IV 02/22/25 04:30 Diagnostic Test (Pha) 1 strip ACHS 02/22/25 17:00 02/28/25 06:33 1 STRIP Insulin Human Regular ACHS SC 02/22/25 17:00 02/28/25 06:38 4 UNITS Hydralazine HCl 10 mg Q6HP PRN IV 02/24/25 16:30 02/25/25 08:46 10 MG Lorazepam 1 mg ONCE PRN IV 02/25/25 10:45 Levofloxacin 50 ml @ 50 mls/hr DAILY IV 02/27/25 10:00 Cancel Midazolam HCl 100 ml @ 1 mls/hr Q24H IV 02/27/25 07:15 02/27/25 07:15 0 MLS/HR Fentanyl Citrate 250 ml @ 2.5 mls/hr Q24H IV 02/27/25 07:15 Norepinephrine Bitartrate 250 ml @ 3.75 mls/hr Q24H IV 02/27/25 07:15 02/27/25 07:56 3.75 MLS/HR Metronidazole 100 ml @ 100 mls/hr Q8H IV 02/27/25 12:00 02/28/25 04:42 100 MLS/HR Doxycycline Hyclate 100 ml @ 50 mls/hr Q12H IV 02/27/25 17:00 02/28/25 06:26 50 MLS/HR Sodium Bicarbonate 50 ml/ Dextrose 1,050 ml @ 100 mls/hr [id number] IV 02/27/25 16:15 02/28/25 08:43 100 MLS/HR Meropenem 50 ml @ 17 mls/hr Q8HR IV 02/28/25 08:00 02/28/25 08:55 17 MLS/HR Laboratory Results Laboratory Tests 02/28/25 03:03 Chemistry Test 02/28/25 03:03 Calcium Level 8.4 mg/dL (8.7-10.4) L Urinalysis Test 02/20/25 21:52 02/26/25 15:08 Urine WBC Clumps Present /hpf (None Seen) Urine Hyaline Casts Few /lpf (0 - 2) Urine Mucus Few (None Seen) Urine Color Yellow (Yellow) Urine Clarity Turbid (Clear) H Urine pH 5.5 (5.0-9.0) Urine Specific [place] 1.020 (1.001-1.035) Urine Protein 1+ (Negative) H Urine Ketones 1+ (Negative) H Urine Blood 2+ /uL (Negative) H Urine Nitrite Negative (Negative) Urine Bilirubin Negative (Negative) Urine Urobilinogen 4 mg/dL (Negative) H Urine Leukocyte Esterase Trace /uL (Negative) Urine RBC 27 /hpf (0 - 4) Urine Microscopic WBC 3 /HPF (0-5) Urine Squamous Epithelial Cells Few /hpf (<5) Urine Amorphous Crystals Few /hpf (None Seen) Urine Bacteria None seen /hpf (None Seen) Urine Glucose 1+ mg/dL (Normal) H Blood Gas Results Test 02/27/25 11:18 02/28/25 06:00 Arterial Blood pH 7.535 (7.350-7.450) 7.447 (7.350-7.450) FiO2 % 100.0 30.0 Microbiology Microbiology Date/Time Source Procedure Growth Status 02/27/25 14:05 Sputum Endotracheal Wash Gram Stain - Final Resulted 02/27/25 14:05 Sputum Endotracheal Wash Respiratory Culture - Preliminary Resulted 02/27/25 10:21 Blood Blood Culture - Preliminary NO GROWTH AFTER 24 HOURS OF INCUBATION. Resulted 02/21/25 20:32 Back Wound Gram Stain - Final Complete 02/21/25 20:32 Wound Culture - Final Staphylococcus aureus Escherichia coli - ESBL Complete 02/21/25 01:55 Urine - [place] Urine Culture - Final Escherichia coli - ESBL Complete Labs and/or images reviewed: Labs reviewed by me, Image(s) reviewed by me Assessment/Plan Assessment/Plan The patient is a 59-year-old female morbidly obese with past medical history of diabetes mellitus, asthma, GERD, anemia, and hypertension who presented to [facility] ED for evaluation of altered level of consciousness. As reported by EMS, patient's caregiver reports that patient has been gradually decline in her mental status for the past 2 months, noted to be alert oriented x2, found to be covered on feces, and unable to communicate efficiently, prompting caregiver to call the EMS. diagnosis: sp cardiac arrest ventricular tachycardia, s/p unsync cardioversion Acute DKA , resolved morbid obesity acute metabolic encephalopathy NSTEMI BETH on OHS likely Hypernatremia Acute kidney injury possibly due to vasomotor nephropathy Hypokalemia Transaminitis Morbid obesity Leukocytosis UTI Sepsis due to UTI Metabolic acidosis with respiratory alkalosis Plan Switch with a normal saline to D5 half NS with potassium IV Give potassium IV 60 mEq use Continue sliding scale insulin drip IV antibiotics cefepime and vancomycin Full code Urine and blood culture MRSA screen Monitor closely 02/22/2025: Continue IV fluids D5W Metronidazole and vancomycin Consistent carbohydrate diet Accu-Cheks AC and HS Downgrade to telemetry Physical therapy evaluation 02/23/2025: Hypernatremia: Continue IV fluids half NS to try to improve her hypernatremia DKA: Resolved Hypokalemia: Replace Generalized weakness Morbid obesity UTI: Urine culture shows Gram-negative rods, Discontinue vancomycin and Flagyl Start meropenem IV for UTI with Gram-negative rods Sepsis due to UTI Umbilical hernia Acute kidney injury 02/24/2025: UTI with E coli ESBL: IV Meropenem Hypernatremia: Half-normal saline Metabolic encephalopathy: Repeat CT scan of the head, CPK, TSH, folic acid, B12, ammonia, blood culture, JAMEE: IV fluids Hypokalemia: Replace IV Nephrology consult on board We will need IV antibiotics upon discharge 02/25/25: Hypernatremia: Continue half-normal saline IV fluids UTI with E coli ESBL Wound infection with the E coli ESBL and Staph aureus Metabolic encephalopathy Acute kidney injury due to vasomotor nephropathy Plan: Change antibiotics to IV Levaquin which should cover both wound infection and UTI Continue IV fluids Monitor closely 02/26/2025: Hypernatremia Acute kidney injury UTI with E coli ESBL: IV Levaquin Wound infection with E coli ESBL and Staph aureus: IV Levaquin Metabolic encephalopathy 02/27: Patient here for hypernatremia, sepsis, NSTEMI, acute metabolic encephalopathy. Patient was being treated with Levaquin and D5W. Patient coded this a.m. received 2 shocks, amnio, 2 amps bicarb. Currently intubated on levo for, faint. Can use fentanyl and Versed to maintain RASS-3. Repeating ABG, 500/26/100%/5. We will escalate antibiotics to Zosyn/doxy, kelly lab pending. Cardiology consult for V-tach/RS/NSTEMI, pulmonology consult for vent management. will get echo. Jessie and CVC to be inserted. -abx change to meropenem/doxy. 02/28: Patient appears to be anuric, we will trouble shoot the [place]. Still remains on Levophed, we will stop sodium bicarb D5 drip as patient has gotten good amount of fluid. We will stop bicarb drip and start D5W drip at 50, nephrology to improve. Patient is DNR DNI per brother yesterday. Vent settings reviewed appropriate, ABG reviewed. Patient currently on fentanyl 50 Versed 2 Levophed for A-line right femoral CBC right IJ ETT NG tube. Nephrology to follow up as patient appears to be anuric. Vent settings 16/4 50/30%/5. Otherwise continue IV antibiotics continue management as per yesterday. ICU dnr dni (per brother) Plan discussed with: Other My Orders Orders - ALEXANDRA MADISON MD Procedure Category Date Status Time Ventilator Orders RT 02/27/25 Transmitted 11:32 Doxycycline PHA 02/27/25 In Process 100mg/100ml 17:00 *Dr. Beny Wise CONS 02/27/25 Transmitted -[place] 14:31 D5w 5% (Dextrose 5%) PHA 02/27/25 In Process W/Sodium Bicarb 50m 16:15 * Marzipan Maker CONS 02/27/25 Transmitted Consult Chest Portable XY 02/28/25 Resulted 04:00 Mrsa Screen ADELA 02/27/25 Logged 23:11 Mrsa Screen ADELA 02/27/25 In Process 22:45 Chest Xray 1 View XY 02/28/25 Resulted 00:53 Meropenem 1gm Ivpb PHA 02/28/25 In Process (Merrem 1gm/50ml) 08:00 Date of Service: Feb 28, 2025 Billing Provider: ALEXANDRA MADISON MD Common Visit Codes: [id number] CARE 30-74 MIN ALEXANDRA MADISON MD Feb 28, 2025 10:48
[2025-02-28] MEDS: FREE WATER GT SCH (12:00)
[2025-02-28] MEDS: D5W 5% 1,000 ML IV SCH (12:45)
--- NOTE | 2025-02-28 15:02 | DVHPN2 ---
Progress Note Date Seen: Feb 28, 2025 Medical Necessity Reason Pt with a Central, PICC or Fol: Yes The following are medically ne: Diallo Catheter Reason for diallo catheter: Strict I&O Subjective Review of Systems: Deferred Objective vital signs Vital Sign Date Time Temp Pulse Resp B/P (MAP) Pulse Ox O2 Delivery O2 Flow Rate FiO2 02/28/25 14:22 97.9 82 16 119/53 (75) 99 97.9 02/28/25 13:44 30 02/28/25 08:05 Mechanical Ventilator+ 02/28/25 08:00 0 Total Intake and Output 02/27/25 02/27/25 02/28/25 15:00 23:00 07:00 Intake Total 37.5 ml 178.75 ml 950.75 ml Output Total 10 ml 75 ml Balance 37.5 ml 168.75 ml 875.75 ml medications Current Medications Medications Dose Ordered Sig/Tim Route Start Time Stop Time Status Last Admin Dose Admin Diagnostic Test (Pha) 1 strip IQ4HR 02/21/25 00:00 UNV Sodium Chloride 10 ml Q8HR IV 02/20/25 22:00 02/28/25 06:33 10 ML Ondansetron HCl 4 mg Q4HP PRN IV 02/20/25 20:15 Docusate Sodium 100 mg BIDPRN PRN PO 02/20/25 20:15 Acetaminophen 650 mg Q6HP PRN PO 02/20/25 20:15 Nitroglycerin 0.4 mg Q5MINP PRN SL 02/20/25 21:15 Dextrose 50 ml UD PRN IV 02/22/25 04:30 Diagnostic Test (Pha) 1 strip ACHS 02/22/25 17:00 02/28/25 12:35 1 STRIP Insulin Human Regular ACHS SC 02/22/25 17:00 02/28/25 12:52 4 UNITS Hydralazine HCl 10 mg Q6HP PRN IV 02/24/25 16:30 02/25/25 08:46 10 MG Lorazepam 1 mg ONCE PRN IV 02/25/25 10:45 Levofloxacin 50 ml @ 50 mls/hr DAILY IV 02/27/25 10:00 Cancel Midazolam HCl 100 ml @ 1 mls/hr Q24H IV 02/27/25 07:15 02/27/25 07:15 0 MLS/HR Fentanyl Citrate 250 ml @ 2.5 mls/hr Q24H IV 02/27/25 07:15 Norepinephrine Bitartrate 250 ml @ 3.75 mls/hr Q24H IV 02/27/25 07:15 02/27/25 07:56 3.75 MLS/HR Metronidazole 100 ml @ 100 mls/hr Q8H IV 02/27/25 12:00 02/28/25 13:10 100 MLS/HR Doxycycline Hyclate 100 ml @ 50 mls/hr Q12H IV 02/27/25 17:00 02/28/25 06:26 50 MLS/HR Meropenem 50 ml @ 17 mls/hr Q8HR IV 02/28/25 08:00 02/28/25 08:55 17 MLS/HR Dextrose 1,000 ml @ 50 mls/hr Q20H IV 02/28/25 10:45 02/28/25 12:45 50 MLS/HR Enteral Nutritional Formula 1,000 ml 30ML/HR GT 02/28/25 10:45 Purified Water 200 ml Q6HR GT 02/28/25 12:00 Budesonide 0.5 mg BID NEB 02/28/25 22:00 Methylprednisolone Sodium Succinate 40 mg BID IV 02/28/25 22:00 Examination: GENERAL:Abnormal, LUNGS:Abnormal, SKIN:Normal laboratory and microbiology Laboratory Tests 02/28/25 03:03 Test 02/28/25 03:03 Range/Units Serum Glucose 251 H 74-106 mg/dL Microbiology Date/Time Source Procedure Growth Status 02/27/25 22:45 Nose MRSA Screen - Final Complete 02/27/25 14:05 Sputum Endotracheal Wash Gram Stain - Final Resulted 02/27/25 14:05 Sputum Endotracheal Wash Respiratory Culture - Preliminary Resulted 02/27/25 10:21 Blood Blood Culture - Preliminary NO GROWTH AFTER 24 HOURS OF INCUBATION. Resulted 02/21/25 01:55 Urine - [place] Urine Culture - Final Escherichia coli - ESBL Complete Problem List/Assessment/Plan Problem List/Assessment/Plan Acute kidney injury DKA sepsis UTI uncontrolled Dm2 morbid obesity hypernatremia Lactic acidosis in the setting of hypoperfusion Cardiac arrest 02/27 Acute respiratory failure Recurrent kidney injury in the setting of hypotension and hypoperfusion Maintain map greater than 65 completed sodium bicarb continue D5W 50cc/hr replace K and Mg per hospital guidelines ABX insulin subQ protocol Plan discussed with: Other Dietary Evaluation Review Comments: Diet Order: Continue CCHO-60, 2-gram sodium diet. Monitoring: Monitor PO intake and tolerance. Monitor renal function and updated lab values (electrolytes, BUN/Cr, GFR). Follow up with nephrology and GI reports. Reassessment: Reassess PRN based on clinical status and intake. Discharge Planning: Address weight management upon discharge. Expected Outcomes/Goals: gradual wt loss ANTHONY LYMAN MD Feb 28, 2025 15:02
[2025-02-28] MEDS: Glucerna 1.2 Cal 1Liter BOTTLE GT SCH (16:16)
--- NOTE | 2025-02-28 17:20 | DVHPN2 ---
Consult Progress Note Date Seen: Feb 28, 2025 Subjective Other Systems: No cardiac events reported Objective vital signs Vital Sign Date Time Temp Pulse Resp B/P (MAP) Pulse Ox O2 Delivery O2 Flow Rate FiO2 02/28/25 15:56 83 16 111/56 (74) 100 30 02/28/25 14:22 97.9 97.9 02/28/25 14:00 Mechanical Ventilator+ 02/28/25 08:00 0 Total Intake and Output 02/27/25 02/27/25 02/28/25 15:00 23:00 07:00 Intake Total 37.5 ml 178.75 ml 950.75 ml Output Total 10 ml 75 ml Balance 37.5 ml 168.75 ml 875.75 ml medications Current Medications Medications Dose Ordered Sig/Tim Route Start Time Stop Time Status Last Admin Dose Admin Diagnostic Test (Pha) 1 strip IQ4HR 02/21/25 00:00 UNV Sodium Chloride 10 ml Q8HR IV 02/20/25 22:00 02/28/25 14:00 10 ML Ondansetron HCl 4 mg Q4HP PRN IV 02/20/25 20:15 Docusate Sodium 100 mg BIDPRN PRN PO 02/20/25 20:15 Acetaminophen 650 mg Q6HP PRN PO 02/20/25 20:15 Nitroglycerin 0.4 mg Q5MINP PRN SL 02/20/25 21:15 Dextrose 50 ml UD PRN IV 02/22/25 04:30 Diagnostic Test (Pha) 1 strip ACHS 02/22/25 17:00 02/28/25 12:35 1 STRIP Insulin Human Regular ACHS SC 02/22/25 17:00 02/28/25 12:52 4 UNITS Hydralazine HCl 10 mg Q6HP PRN IV 02/24/25 16:30 02/25/25 08:46 10 MG Lorazepam 1 mg ONCE PRN IV 02/25/25 10:45 Levofloxacin 50 ml @ 50 mls/hr DAILY IV 02/27/25 10:00 Cancel Midazolam HCl 100 ml @ 1 mls/hr Q24H IV 02/27/25 07:15 02/27/25 07:15 0 MLS/HR Fentanyl Citrate 250 ml @ 2.5 mls/hr Q24H IV 02/27/25 07:15 Norepinephrine Bitartrate 250 ml @ 3.75 mls/hr Q24H IV 02/27/25 07:15 02/28/25 15:25 7.5 MLS/HR Metronidazole 100 ml @ 100 mls/hr Q8H IV 02/27/25 12:00 02/28/25 13:10 100 MLS/HR Doxycycline Hyclate 100 ml @ 50 mls/hr Q12H IV 02/27/25 17:00 02/28/25 06:26 50 MLS/HR Meropenem 50 ml @ 17 mls/hr Q8HR IV 02/28/25 08:00 02/28/25 15:25 17 MLS/HR Dextrose 1,000 ml @ 50 mls/hr Q20H IV 02/28/25 10:45 02/28/25 12:45 50 MLS/HR Enteral Nutritional Formula 1,000 ml 30ML/HR GT 02/28/25 10:45 Purified Water 200 ml Q6HR GT 02/28/25 12:00 Budesonide 0.5 mg BID NEB 02/28/25 22:00 Methylprednisolone Sodium Succinate 40 mg BID IV 02/28/25 22:00 Examination: GENERAL:Abnormal, LUNGS:Abnormal (Endotracheall intubated 30% FiO2), CVS:Abnormal (NSR. On single vasopressor), NEURO:Abnormal (Chemically sedated) laboratory and microbiology Laboratory Tests 02/28/25 03:03 Test 02/28/25 03:03 Range/Units Serum Glucose 251 H 74-106 mg/dL Problem List/Assessment/Plan Problem List/Assessment/Plan V-fib/V-tach cardiac arrest status post defibrillation x 2 with ROSC Cardiac arrest likely secondary to metabolic causes (severe acidosis) Acute metabolic encephalopathy likely from sepsis/dehydration Acute on chronic kidney injury likely in the setting of shock Shock liver Plan/Recommendation (Dr. Davies) - A transthoracic echocardiogram revealed an LVEF of 50-55% with severe left ventricular hypertrophy. There are right and left ventricular trabeculation. May consider cardiac MRI for further evaluation if clinical correlated -Initiate therapeutic Lovenox and single antiplatelet therapy - Monitor electrolytes keep potassium above 4 and Mag above 2 - Strict I&Os, reduced afterload and preload -Continue Nephrology recommendations Plan discussed with Dr. Davies. We will consider further ischemic cardiac workup once the patient is more medically stable and neurological status improved. The meantime, we will continue to monitor closely. Thank you for allowing us to participate in this patient's care. Please call if you have any questions or concerns. Critical care time: 50 minutes. This medical document was created using an electronic medical record system with voice recognition software and computerized dictation system. Although this document has been carefully reviewed, there might still be some phonetic and typographical errors. Occasional wrong-word or ``sound-alike substitutions may have occurred due to the inherent limitations of voice recognition software. These areas are purely typographical due to imperfections of the software programs and do not reflect any compromise in the patient's medical care. Please read the chart carefully and recognize, using context, where these substitutions have occurred. Plan discussed with: Other Dietary Evaluation Review Comments: Diet Order: Continue CCHO-60, 2-gram sodium diet. Monitoring: Monitor PO intake and tolerance. Monitor renal function and updated lab values (electrolytes, BUN/Cr, GFR). Follow up with nephrology and GI reports. Reassessment: Reassess PRN based on clinical status and intake. Discharge Planning: Address weight management upon discharge. Expected Outcomes/Goals: gradual wt loss Date of Service: Feb 28, 2025 Billing Provider: LYNDA WILKES Cardiology Common Codes: [id number] CARE 30-74 MIN LYNDA WILKES Feb 28, 2025 17:20
[2025-02-28] MEDS: BUDESONIDE (INHALATION) 0.5 MG/2 ML NEB NEB SCH (20:41)
[2025-02-28] MEDS: methylPREDNISolone SOD SUCC 40 MG/ML VL IV SCH (21:27)
--- NOTE | 2025-02-28 21:42 | DVHINCON2 ---
Date of service: Feb 28, [address] Carreno Reason for Consultation Acute hypoxic respiratory failure requiring mechanical ventilator. History of Present Illness A 59-year-old woman, morbidly obese with past medical history of asthma, diabetes mellitus, GERD, anemia, and hypertension who presented to ED on 02/20/25 for evaluation of altered level of consciousness. As reported by EMS, patient's caregiver reports that patient has been gradually declining in her mental status for the past 2 months, noted to be alert oriented x2, found to be covered in feces and unable to communicate efficiently, prompting caregiver to call the EMS. Patient was seen and evaluated in the ED. Initial labs show WBC 13.1, platelets 189, sodium 144, potassium 3.4, BUN 94, creatinine 3.31, GFR 16, glucose 459, anion gap 19, total bilirubin 1.6, calcium 9.8, AST 52, ALT 74, alkaline phos 146. Troponin 201 trending down to 193, BNP 30.16, beta hydroxybutyric acid 0.662. Urinalysis positive for urinary tract infection. Head CT showed no acute intracranial abnormality. Initial vitals show BP of 115/94, heart rate 122 trending down to 100, temperature 98.9 F, O2 saturation 96% on oxygen. Patient was started on diabetic ketoacidosis protocol and admitted for further care. Pulmonary consultation is requested for evaluation and management of acute hypoxic respiratory failure requiring mechanical ventilator. Review of Systems: Unable to obtain d/t intubated status Past Medical History DM, Anemia, Asthma, GERD, HTN Past Surgical History Tonsillectomy Medications: Reviewed. Allergies: Penicillin Family History: No family history of premature CAD. No family history of lung disorders. Social History: Nonsmoker. No alcohol or illicit drug use. Allergies: Coded Allergies: Penicillins (Verified Allergy, Unknown, 09/01/19) Current Medications Current Medications Medications (Trade) Dose Ordered Sig/Tim Route PRN Reason Start Time Stop Time Status Last Admin Meropenem 50 ml @ 17 mls/hr Q8HR IV 02/27/25 22:00 02/28/25 06:30 DC 02/28/25 00:13 Meropenem 50 ml @ 17 mls/hr Q8HR IV 02/28/25 08:00 02/28/25 15:25 Dextrose 1,000 ml @ 50 mls/hr Q20H IV 02/28/25 10:45 02/28/25 12:45 Enteral Nutritional Formula (Glucerna 1.2 Jitendra) 1,000 ml 30ML/HR GT 02/28/25 10:45 02/28/25 16:16 Purified Water 200 ml Q6HR GT 02/28/25 12:00 02/28/25 18:03 Budesonide (Pulmicort) 0.5 mg BID NEB 02/28/25 22:00 02/28/25 20:41 Methylprednisolone Sodium Succinate (Solu Medrol) 40 mg BID IV 02/28/25 22:00 Enoxaparin Sodium (Lovenox) 120 mg DAILY SC 03/01/25 10:00 Future Hold Aspirin 81 mg DAILY GT 03/01/25 10:00 Vital Signs Vital Signs Date Time Temp Pulse Resp B/P (MAP) Pulse Ox O2 Delivery O2 Flow Rate FiO2 02/28/25 20:41 88 16 98/47 (64) 100 30 02/28/25 18:37 98.4 98.4 02/28/25 18:00 Mechanical Ventilator+ 02/28/25 08:00 0 Physical Exam Gen.: Patient lying in bed in medical ICU. Sedated, intubated on mechanical ventilator. Head: Normocephalic, atraumatic. Eyes: PERRLA. Ears: Normal external anatomy. Throat: Endotracheal tube and orogastric tube in place. Neck: Supple, trachea midline. Chest: Transmitted breath sounds bilaterally. Decreased air entry bilaterally. No wheezing. Bibasilar crackles. Cardiovascular: Positive S1, positive S2. Regular rate and rhythm. Abdomen: Positive bowel sounds in all 4 quadrants. Soft, nontender, nondistended. : [place] in place. Normal external genitalia. Rectal: Deferred. Skin: Warm, dry. Intact. Extremities: 2+ radial pulses bilaterally. No lower extremity edema. Neuro: Sedated. Labs/Diagnostic Data Labs Test 02/28/25 17:37 02/28/25 06:00 02/28/25 03:03 02/27/25 19:09 Range/Units POC Glucose 194 H 70-106 mg/dl Blood Gas Specimen Type Arterial Blood Gas Sample Site Right radial Blood Gas Patient Temperature 37.0 Arterial Blood Date Drawn [id number] Arterial Blood pH 7.447 7.350-7.450 Arterial Blood Partial Pressure CO2 38.8 32.0-45.0 mmHg Arterial Blood Partial Pressure O2 77.4 L 83.0-108.0 mmHg Arterial Blood HCO3 26.2 21.0-28.0 mmol/L Arterial Blood Oxygen Saturation 94.9 94.0-98.0 % Arterial Blood Base Excess 2.1 -2.0-3.0 mmol/L Arterial Blood Oxyhemoglobin 94.1 94.0-98.0 % Arterial Blood Carboxyhemoglobin 0.3 L 0.5-1.5 % Arterial Blood Methemoglobin 0.5 0.0-1.5 % Arterial Blood Deoxyhemoglobin 5.1 H 0.0-5.0 % Fox Test Modified Blood Gas Total Hemoglobin 11.30 L 12.0-16.0 g/dL Blood Gas Set Respiration Rate 16.0 Blood Gas Modality Vent - ac FiO2 % 30.0 Blood Gas Tidal Volume 450.0 White Blood Count 8.3 # 4.4-10.8 10^3/uL Red Blood Count 3.68 L 4.0-5.20 10^6/uL Hemoglobin 10.2 #L 12.2-16.2 g/dL Hematocrit 31.6 #L 36.0-46.0 % Mean Corpuscular Volume 85.7 80.0-100.0 fL Mean Corpuscular Hemoglobin 27.8 L 28.0-32.0 pg Mean Corpuscular Hemoglobin Concent 32.4 32.0-36.0 g/dL Red Cell Distribution Width 19.4 H 11.8-14.3 % Platelet Count 86 L 140-450 10^3/uL Mean Platelet Volume 8.7 6.9-10.8 fL Neutrophils (%) (Auto) 71.3 37.0-80.0 % Lymphocytes (%) (Auto) 23.7 10.0-50.0 % Monocytes (%) (Auto) 2.8 0.0-12.0 % Eosinophils (%) (Auto) 1.8 0.0-7.0 % Basophils (%) (Auto) 0.4 0.0-2.0 % Neutrophils # (Auto) 5.9 1.6-8.6 10 ^3/uL Lymphocytes # (Auto) 2.0 0.4-5.4 10 ^3/uL Monocytes # (Auto) 0.2 0-1.3 10 ^3/uL Eosinophils # (Auto) 0.1 0-0.8 10 ^3/uL Basophils # (Auto) 0 0-0.2 10 ^3/uL Nucleated Red Blood Cells 0.1 % Sodium Level 155 H 136-145 mmol/L Potassium Level 3.7 3.5-5.1 mmol/L Chloride Level 115 H 98-107 mmol/L Carbon Dioxide Level 28 20-31 mmol/L Anion Gap 12 5-15 Blood Urea Nitrogen 46 #H 9-23 mg/dL Creatinine 2.52 H 0.550-1.02 mg/dL Glomerular Filtration Rate Calc 22 >90 mL/min BUN/Creatinine Ratio 18.3 10.0-20.0 Serum Glucose 251 H 74-106 mg/dL Calcium Level 8.4 L 8.7-10.4 mg/dL Ammonia < 10 L 11-32 umol/L Lactic Acid Level 2.5 *H 0.4-2.0 mmol/L Test 02/27/25 11:18 02/27/25 10:21 02/27/25 10:02 02/27/25 07:14 Range/Units Blood Gas PEEP or CPAP 5.0 Blood Gas Critical Value Read Back yes Blood Gas Notified Whom Blood Gas Notified Time [id number] Blood Gas Notified By memorial marker designer eugene Prothrombin Time 12.3 H 9.3-11.8 sec Prothrombin Time INR 1.18 H 0.9-1.15 Activated Partial Thromboplast Time 23.6 L 24.5-34.5 SEC Phosphorus Level 4.2 2.4-5.1 mg/dL Magnesium Level 2.0 1.6-2.6 mg/dL Total Bilirubin 1.4 H 0.2-1.0 mg/dL Aspartate Amino Transferase (AST) 393 H 13-40 U/L Alanine Aminotransferase (ALT) 121 H 7-40 U/L Alkaline Phosphatase 130 H 46-116 U/L Total Protein 5.7 5.7-8.2 g/dL Albumin 3.2 3.2-4.8 g/dL Platelet Estimate Decrea Large Platelets Few Blood Gas Spontaneous Rate 24 Test 02/26/25 15:08 02/24/25 09:23 02/24/25 04:27 02/23/25 06:00 Range/Units Urine Color Yellow Yellow Urine Clarity Turbid H Clear Urine pH 5.5 5.0-9.0 Urine Specific [place] 1.020 1.001-1.035 Urine Protein 1+ H Negative Urine Ketones 1+ H Negative Urine Blood 2+ H Negative /uL Urine Nitrite Negative Negative Urine Bilirubin Negative Negative Urine Urobilinogen 4 H Negative mg/dL Urine Leukocyte Esterase Trace Negative /uL Urine RBC 27 0 - 4 /hpf Urine Microscopic WBC 3 0-5 /HPF Urine Squamous Epithelial Cells Few <5 /hpf Urine Amorphous Crystals Few None Seen /hpf Urine Bacteria None seen None Seen /hpf Urine Glucose 1+ H Normal mg/dL Vitamin B12 Level 682 211-911 pg/mL Folic Acid 3.45 >5.38 ng/mL Creatine Kinase 108 34-145 U/L Thyroid Stimulating Hormone (TSH) 3.24 0.55-4.78 uIU/mL Random Vancomycin Level 14.6 H 5-10 ug/mL Test 02/22/25 02:20 02/20/25 22:15 02/20/25 21:52 02/20/25 19:15 Range/Units Hemoglobin A1c 8.4 H <5.7 % A1C Troponin I High Sensitivity 204 *H </=34 ng/L Urine WBC Clumps Present None Seen /hpf Urine Hyaline Casts Few 0 - 2 /lpf Urine Mucus Few None Seen Serum Osmolality 352 H 278-298 mOsm/kg B-Type Natriuretic Peptide 30.16 0-100 pg/mL Beta-Hydroxybutyric Acid 0.662 H < 0.4 mmol/L Microbiology Date/Time Source Procedure Growth Status 02/27/25 22:45 Nose MRSA Screen - Final Complete 02/27/25 14:05 Sputum Endotracheal Wash Gram Stain - Final Resulted 02/27/25 14:05 Sputum Endotracheal Wash Respiratory Culture - Preliminary Resulted 02/27/25 10:21 Blood Blood Culture - Preliminary NO GROWTH AFTER 24 HOURS OF INCUBATION. Resulted 02/21/25 01:55 Urine - [place] Urine Culture - Final Escherichia coli - ESBL Complete Assessment Impression: Acute hypoxic respiratory failure On mechanical ventilator S/p cardiac arrest Acute DKA, resolved Acute metabolic encephalopathy BETH on OHS likely Acute kidney injury Hypernatremia Sepsis due to UTI Urinary tract infection Morbid obesity Plan: s/p intubation on mechanical ventilator. ABG reviewed. On AC mode; RR 16, VT 450, PEEP 5, FiO2 30% Titrate FIO2 to keep O2 saturation above 90%. VAP bundle. Daily ABG and CXR while intubated Sedate for ventilator synchrony Sedated on Versed, Fentanyl Continue IV antibiotics. Follow up cultures. Steroids - on Solu-Medrol 40 mg IVP q.12 hours Pulmicort 0.5 mg BID Pressors for hemodynamic support Levophed 4 mcg/min Titrate to keep mean arterial pressure greater than 65 mmHg. Follow up Cardiology recs NG tube in place. Tube feeds for nutritional support Stop sodium bicarb-D5 drip as patient has gotten good amount of fluid. We will stop bicarb drip and start D5W drip at 50. Monitor renal function Monitor electrolytes. Supplement as necessary. Monitor ins and outs. Maintain euvolemia. Nephrology to follow up as patient appears to be anuric. Recommend diet and lifestyle modifications for weight reduction Obesity complicates all care GI prophylaxis. DVT prophylaxis. Prognosis: Poor given patient's multiple co-morbidities. Condition: Critical Rest of plan per hospitalist and other consultants. A total of 35 minutes of critical care time was spent reviewing the patient record, examining the patient, making a diagnostic and therapeutic plan, dis cussing this plan with the medical personnel, following up on diagnostic studies and following the patient for clinical stability excluding any and all procedures. At least 50% of this time was spent in direct, [id number] contact. Thank you, Dr. Carreno, for allowing me to participate in this patient's care. Further recommendations will depend on the patient's clinical course. Please do not hesitate to contact me if you have any questions or concerns. This medical document was created using an electronic medical record system with [employer] dictation system. Although these documentations are being carefully reviewed, there may still be some phonetic and typographical changes. The errors are purely typographical, due to imperfection on the software program, and do not reflect any compromise in the patient's medical care. Plan discussed with: Other (REI Decker/) Visit Coding Pulmonary Billing Provider: JOSE CASTRO MD Date of Service if different f: Feb 28, 2025 Common Visit Codes: [id number] INP/OBS CARE (HIGH), [id number] CARE 30- 74 MIN JOSE CASTRO MD Feb 28, 2025 21:42
[2025-03-01] VITALS (116 sets, daily range): BP systolic 93–130; BP diastolic 40–96; PULSE 79–100; RESP 8–18; TEMP 97.3–98.4; O2SAT 94–100
[2025-03-01 04:22] LABS: Alanine Aminotransferase 40 U/L (7-40); Anion Gap 11 (5-15); BUN/Creatinine Ratio 17.5 (10.0-20.0); Bilirubin, Total 0.9 mg/dL (0.2-1.0); Carbon Dioxide 27 mmol/L (20-31); Magnesium 1.8 mg/dL (1.6-2.6); Potassium 4.2 mmol/L (3.5-5.1)
[2025-03-01 04:29] LABS: Albumin 2.7 g/dL (3.2-4.8); Alkaline Phosphatase 121 U/L (46-116); Blood Urea Nitrogen 51 mg/dL (9-23); Calcium 8.2 mg/dL (8.7-10.4); Chloride 110 mmol/L (98-107); Glucose 309 mg/dL (74-106); Sodium 148 mmol/L (136-145); Total Protein 5.0 g/dL (5.7-8.2)
[2025-03-01 04:31] LABS: Hematocrit 29.6 % (36.0-46.0); Hemoglobin 9.8 g/dL (12.2-16.2); Mean Corpuscular Hemoglobin 28.5 pg (28.0-32.0); Mean Corpuscular Volume 86.2 fL (80.0-100.0); Nucleated Red Blood Cells % 0.2 %
--- NOTE | 2025-03-01 06:23 | DVH ---
CHEST RADIOGRAPH INDICATION: INTUBATION TECHNIQUE: Single frontal view of the chest was obtained COMPARISON: XY CHEST PORTABLE on DOS: 02/28/25, XY CHEST XRAY 1 VIEW on DOS: 02/28/25, XY CHEST PORTABLE on DOS: 02/27/25, XY CHEST XRAY 1 VIEW on DOS: 02/27/25, XY CHEST PORTABLE on DOS: 02/20/25, XY CHEST PORTABLE on DOS: 02/28/25 FINDINGS: Lines and Tubes: Endotracheal tube, enteric catheter and right central venous catheter in satisfactory position. Lungs: Unchanged pulmonary vascular congestion. Lower lung volumes. Pleura: No effusion. No pneumothorax. Cardiomediastinal contours: Cardiomegaly. Bones: Unremarkable IMPRESSION: Lines and tubes in satisfactory position. Lower lung volumes.
[2025-03-01 06:27] LABS: Base Excess 1.6 mmol/L (-2.0-3.0)
[2025-03-01] MEDS ORDERED: ENOXAPARIN SOD 120 MG/0.8 ML SYRINGE SC SCH (10:00)
--- NOTE | 2025-03-01 11:00 | DVHPN2 ---
Reviewed: H&P Changes from previous H/P or p: No Changes General: Per HPI Eyes: No Pain, No Vision change, No Conjunctivae inflammation, No Eyelid inflammation, No Other, No Redness ENT: No Ear pain, No Ear discharge, No Nose pain, No Nose discharge, No Nose congestion, No Mouth pain, No Mouth swelling, No Throat pain, No Throat swelling, No Other Cardiovascular: No Chest Pain, No Palpitations, No Orthopnea, No Paroxysmal Noc. Dyspnea, No Edema, No Lt Headedness, No Other Respiratory: No Cough, No Dry, No Shortness of breath, No SOB with excertion, No Wheezing, No Hemoptysis, No Pleuritic Pain, No Sputum, No Other Gastrointestinal: No Nausea, No Vomiting, No Abdominal Pain, No Diarrhea, No Constipation, No Melena, No Hematochezia, No Other Musculoskeletal: No other, No neck pain, No shoulder pain, No arm pain, No back pain, No hand pain, No leg pain, No foot pain Skin: No Rash, No Lesions, No Jaundice, No Bruising, No Other Objective Vitals Vital Signs Date Time Temp Pulse Resp B/P (MAP) Pulse Ox O2 Delivery O2 Flow Rate FiO2 03/01/25 09:33 90 16 121/64 (83) 100 30 03/01/25 08:00 Mechanical Ventilator+ 03/01/25 03:53 98.2 98.2 02/28/25 08:00 0 Intake/Output Intake and Output 03/01/25 07:00 Intake Total 2024.00 ml Output Total 175 ml Balance 1849.00 ml IV Total 1767.00 ml Tube Feeding 257 ml Output Urine Total 175 ml Exam Lungs: Clear to auscultation Cardiovascular: Regular rate, Normal S1, Normal S2, No murmurs Abdomen: Normal bowel sounds, Soft, No tenderness Extremities: No edema Lungs: Clear to auscultation Cardiovascular: Regular rate, Normal S1, Normal S2, No murmurs Abdomen: Normal bowel sounds, Soft, No tenderness Extremities: No edema Medications Current Medications Medications Dose Ordered Sig/Tim Route Start Time Stop Time Status Last Admin Dose Admin Diagnostic Test (Pha) 1 strip IQ4HR 02/21/25 00:00 UNV Sodium Chloride 10 ml Q8HR IV 02/20/25 22:00 03/01/25 06:27 10 ML Ondansetron HCl 4 mg Q4HP PRN IV 02/20/25 20:15 Docusate Sodium 100 mg BIDPRN PRN PO 02/20/25 20:15 Acetaminophen 650 mg Q6HP PRN PO 02/20/25 20:15 Nitroglycerin 0.4 mg Q5MINP PRN SL 02/20/25 21:15 Dextrose 50 ml UD PRN IV 02/22/25 04:30 Diagnostic Test (Pha) 1 strip ACHS 02/22/25 17:00 03/01/25 06:27 1 STRIP Insulin Human Regular ACHS SC 02/22/25 17:00 03/01/25 06:30 8 UNITS Hydralazine HCl 10 mg Q6HP PRN IV 02/24/25 16:30 02/25/25 08:46 10 MG Lorazepam 1 mg ONCE PRN IV 02/25/25 10:45 Levofloxacin 50 ml @ 50 mls/hr DAILY IV 02/27/25 10:00 Cancel Midazolam HCl 100 ml @ 1 mls/hr Q24H IV 02/27/25 07:15 02/27/25 07:15 0 MLS/HR Fentanyl Citrate 250 ml @ 2.5 mls/hr Q24H IV 02/27/25 07:15 Norepinephrine Bitartrate 250 ml @ 3.75 mls/hr Q24H IV 02/27/25 07:15 02/28/25 15:25 7.5 MLS/HR Metronidazole 100 ml @ 100 mls/hr Q8H IV 02/27/25 12:00 03/01/25 03:28 100 MLS/HR Doxycycline Hyclate 100 ml @ 50 mls/hr Q12H IV 02/27/25 17:00 03/01/25 05:04 50 MLS/HR Meropenem 50 ml @ 17 mls/hr Q8HR IV 02/28/25 08:00 03/01/25 06:00 17 MLS/HR Dextrose 1,000 ml @ 50 mls/hr Q20H IV 02/28/25 10:45 03/01/25 08:55 50 MLS/HR Enteral Nutritional Formula 1,000 ml 30ML/HR GT 02/28/25 10:45 02/28/25 16:16 1,000 ML Purified Water 200 ml Q6HR GT 02/28/25 12:00 03/01/25 05:09 200 ML Budesonide 0.5 mg BID NEB 02/28/25 22:00 03/01/25 06:11 0.5 MG Methylprednisolone Sodium Succinate 40 mg BID IV 02/28/25 22:00 03/01/25 10:42 40 MG Aspirin 81 mg DAILY GT 03/01/25 10:00 03/01/25 10:53 81 MG Laboratory Results Laboratory Tests 03/01/25 03:31 Chemistry Test 03/01/25 03:31 Albumin 2.7 g/dL (3.2-4.8) L Calcium Level 8.2 mg/dL (8.7-10.4) L Magnesium Level 1.8 mg/dL (1.6-2.6) Total Protein 5.0 g/dL (5.7-8.2) L LFT Test 03/01/25 03:31 Alanine Aminotransferase (ALT) 40 U/L (7-40) Alkaline Phosphatase 121 U/L (46-116) H Aspartate Amino Transferase (AST) 73 U/L (13-40) H Total Bilirubin 0.9 mg/dL (0.2-1.0) Urinalysis Test 02/20/25 21:52 02/26/25 15:08 Urine WBC Clumps Present /hpf (None Seen) Urine Hyaline Casts Few /lpf (0 - 2) Urine Mucus Few (None Seen) Urine Color Yellow (Yellow) Urine Clarity Turbid (Clear) H Urine pH 5.5 (5.0-9.0) Urine Specific [place] 1.020 (1.001-1.035) Urine Protein 1+ (Negative) H Urine Ketones 1+ (Negative) H Urine Blood 2+ /uL (Negative) H Urine Nitrite Negative (Negative) Urine Bilirubin Negative (Negative) Urine Urobilinogen 4 mg/dL (Negative) H Urine Leukocyte Esterase Trace /uL (Negative) Urine RBC 27 /hpf (0 - 4) Urine Microscopic WBC 3 /HPF (0-5) Urine Squamous Epithelial Cells Few /hpf (<5) Urine Amorphous Crystals Few /hpf (None Seen) Urine Bacteria None seen /hpf (None Seen) Urine Glucose 1+ mg/dL (Normal) H Blood Gas Results Test 03/01/25 06:23 Arterial Blood pH 7.397 (7.350-7.450) FiO2 % 30.0 Microbiology Microbiology Date/Time Source Procedure Growth Status 02/27/25 22:45 Nose MRSA Screen - Final Complete 02/27/25 14:05 Sputum Endotracheal Wash Gram Stain - Final Resulted 02/27/25 14:05 Sputum Endotracheal Wash Respiratory Culture - Preliminary Resulted 02/27/25 10:21 Blood Blood Culture - Preliminary NO GROWTH AFTER 48 HOURS OF INCUBATION. Resulted 02/21/25 01:55 Urine - [place] Urine Culture - Final Escherichia coli - ESBL Complete Labs and/or images reviewed: Labs reviewed by me, Image(s) reviewed by me Assessment/Plan Assessment/Plan The patient is a 59-year-old female morbidly obese with past medical history of diabetes mellitus, asthma, GERD, anemia, and hypertension who presented to [facility] ED for evaluation of altered level of consciousness. As reported by EMS, patient's caregiver reports that patient has been gradually decline in her mental status for the past 2 months, noted to be alert oriented x2, found to be covered on feces, and unable to communicate efficiently, prompting caregiver to call the EMS. diagnosis: sp cardiac arrest ventricular tachycardia, s/p unsync cardioversion Acute DKA , resolved morbid obesity acute metabolic encephalopathy NSTEMI BETH on OHS likely Hypernatremia Acute kidney injury possibly due to vasomotor nephropathy Hypokalemia Transaminitis Morbid obesity Leukocytosis UTI Sepsis due to UTI Metabolic acidosis with respiratory alkalosis Plan Switch with a normal saline to D5 half NS with potassium IV Give potassium IV 60 mEq use Continue sliding scale insulin drip IV antibiotics cefepime and vancomycin Full code Urine and blood culture MRSA screen Monitor closely 02/22/2025: Continue IV fluids D5W Metronidazole and vancomycin Consistent carbohydrate diet Accu-Cheks AC and HS Downgrade to telemetry Physical therapy evaluation 02/23/2025: Hypernatremia: Continue IV fluids half NS to try to improve her hypernatremia DKA: Resolved Hypokalemia: Replace Generalized weakness Morbid obesity UTI: Urine culture shows Gram-negative rods, Discontinue vancomycin and Flagyl Start meropenem IV for UTI with Gram-negative rods Sepsis due to UTI Umbilical hernia Acute kidney injury 02/24/2025: UTI with E coli ESBL: IV Meropenem Hypernatremia: Half-normal saline Metabolic encephalopathy: Repeat CT scan of the head, CPK, TSH, folic acid, B12, ammonia, blood culture, JAMEE: IV fluids Hypokalemia: Replace IV Nephrology consult on board We will need IV antibiotics upon discharge 02/25/25: Hypernatremia: Continue half-normal saline IV fluids UTI with E coli ESBL Wound infection with the E coli ESBL and Staph aureus Metabolic encephalopathy Acute kidney injury due to vasomotor nephropathy Plan: Change antibiotics to IV Levaquin which should cover both wound infection and UTI Continue IV fluids Monitor closely 02/26/2025: Hypernatremia Acute kidney injury UTI with E coli ESBL: IV Levaquin Wound infection with E coli ESBL and Staph aureus: IV Levaquin Metabolic encephalopathy 02/27: Patient here for hypernatremia, sepsis, NSTEMI, acute metabolic encephalopathy. Patient was being treated with Levaquin and D5W. Patient coded this a.m. received 2 shocks, amnio, 2 amps bicarb. Currently intubated on levo for, faint. Can use fentanyl and Versed to maintain RASS-3. Repeating ABG, 500/26/100%/5. We will escalate antibiotics to Zosyn/doxy, kelly lab pending. Cardiology consult for V-tach/RS/NSTEMI, pulmonology consult for vent management. will get echo. Jessie and CVC to be inserted. -abx change to meropenem/doxy. 02/28: Patient appears to be anuric, we will trouble shoot the [place]. Still remains on Levophed, we will stop sodium bicarb D5 drip as patient has gotten good amount of fluid. We will stop bicarb drip and start D5W drip at 50, nephrology to improve. Patient is DNR DNI per brother yesterday. Vent settings reviewed appropriate, ABG reviewed. Patient currently on fentanyl 50 Versed 2 Levophed for A-line right femoral CBC right IJ ETT NG tube. Nephrology to follow up as patient appears to be anuric. Vent settings 16/4 50/30%/5. Otherwise continue IV antibiotics continue management as per yesterday. 03/01: Platelets low but no signs of bleeding we will continue aspirin, blood pressure adequate with levo is off. Some bleeding from oral cavity but no overt bleeding. Hemoglobin stable. Patient has umbilical region wound open umbilical hernia growing ESBL. Remains anuric nephrology on board. X-ray looking more hazy. Getting lots of fluids. We will try Lasix 61 time. We will stop Solu- Medrol 40 b.i.d., stop it. Central brainstem reflexes are diminished sluggish pupillary response, we will get CT noncontrast, possible since anuric maybe sedatives are not clearing from the system. Nephrology to follow, neurology to follow up. We will continue OG feeds after sedation vacation trial. ICU dnr dni (per brother) Plan discussed with: Other My Orders Orders - ALEXANDRA MADISON MD Procedure Category Date Status Time Chest Portable XY 03/01/25 Resulted 04:00 Date of Service: Mar 01, 2025 Billing Provider: ALEXANDRA MADISON MD Common Visit Codes: [id number] CARE 30-74 MIN ALEXANDRA MADISON MD Mar 01, 2025 11:00
--- NOTE | 2025-03-01 11:30 | MEDREC ---
[facility] Intervention Section I [facility] Intervention: Duplication of therapy (PLEASE CONSIDER D/C FLAGYL SINCE BOTH MEROPENEM AND FLAGYL COVER FOR ANAEROBE ORGANISMS (DUPLICATE) ) MYLES FISHER PHARMACIST Mar 01, 2025 11:30
--- NOTE | 2025-03-01 14:39 | DVHPN2 ---
Progress Note - Dictate Date Seen: Mar 01, 2025 Medical Necessity Reason Pt with a Central, PICC or Fol: Yes The following are medically ne: Diallo Catheter Reason for diallo catheter: Strict I&O Subjective Ms. Herrera is a 59 years old female with a history of hypertension, diabetes, morbid obesity, anemia, kidney failure, GERD, he was brought to the [facility] on 02/28/2025 with a chief complaint of altered mental status He coded at 02/27/25 0631. He had tachycardia, then was found to be pulseless by our staff, the patient was resuscitated, intubated. The code ended at 0640 I have seen and examined the patient, I have talked to her nurse, she is intubated, has been off sedation since 5:00 a.m. She has questionably responsive to stroke painful stimuli, he has sluggish light reflexes, her eyes are adducted, the possible doll's eye phenomenon, low corneal reflexes, she has sluggish cough/gag reflexes Urine culture, 02/21/2025: E coli Blood culture, 02/20/2025: Wound culture, 02/21/2025: Many growth Urinalysis, 02/20/2025: WBC: 382, urine leukocyte esterase: 3 +, ABG, 02/20/2025: Respiratory acidosis, hypoxia, 02/27/2025: Respiratory acidosis, hypoxia WBC/HB/PLT/MCV, 02/24/2025: 6.8/11.9/148/85.9 Na, 02/20/2025: 144, 02/21/2025: 48, 02/22/2025: 156, 02/23/2025: 158, 02/24/2025: 157, 02/24/2025: 155, 02/25/25: 156, 02/27/2025: 152 BUN/CR, 02/20/2025: 94/3.31, 02/24/2025: 36/1.93, 02/25/2025: 38/1.76 GFR, 02/20/2025: 16, 02/24/2025: 30 Glucose, 02/20/2025: 459, 02/21/2025: 196 HGB A1c, 02/22/2025: 8.4 Lactic acid, 02/20/2025: 5, 6.7 02/21/2025: 2.3 Beta hydroxybutyric acid, 02/20/2025: 0.662 TG/HDL/LDL/HDL, 02/21/2025: 1.2/58/57/117, 02/24/2025: Normal Ammonia, 02/24/2025: <10 Vitamin B12, 02/24/2025: 682 Folic acid, 02/24/2025: 3.45 TSH, 02/24/2025: 3.24 Chest x-ray, 02/20/2025: No acute pulmonary process. CT head, 02/24/2025: 1. No acute territorial infarct or intracranial hemorrhage.2. Age-related involutional changes. Chronic microvascular changes. 3. 2.2 cm right frontal extra-axial lesion may reflect a meningioma. A nonemergent MRI of the brain is suggested in further assessment MR head, 02/25/2025: No acute intracranial abnormality seen. 1.9 cm right medial posterior frontal extra-axial mass, most compatible with meningioma. No underlying mass effect/ vasogenic edema. vital signs Vital Sign Date Time Temp Pulse Resp B/P (MAP) Pulse Ox O2 Delivery O2 Flow Rate FiO2 03/01/25 13:39 85 16 99/47 (64) 100 30 03/01/25 11:38 97.7 207.9 03/01/25 10:00 Mechanical Ventilator+ 02/28/25 08:00 0 Total Intake and Output 02/28/25 02/28/25 03/01/25 15:00 23:00 07:00 Intake Total 826.0 ml 516.5 ml 681.50 ml Output Total 50 ml 125 ml Balance 826.0 ml 466.5 ml 556.50 ml medications Current Medications Medications Dose Ordered Sig/Tim Route Start Time Stop Time Status Last Admin Dose Admin Diagnostic Test (Pha) 1 strip IQ4HR 02/21/25 00:00 UNV Sodium Chloride 10 ml Q8HR IV 02/20/25 22:00 03/01/25 13:51 10 ML Ondansetron HCl 4 mg Q4HP PRN IV 02/20/25 20:15 Docusate Sodium 100 mg BIDPRN PRN PO 02/20/25 20:15 Acetaminophen 650 mg Q6HP PRN PO 02/20/25 20:15 Nitroglycerin 0.4 mg Q5MINP PRN SL 02/20/25 21:15 Dextrose 50 ml UD PRN IV 02/22/25 04:30 Diagnostic Test (Pha) 1 strip ACHS 02/22/25 17:00 03/01/25 12:34 1 STRIP Insulin Human Regular ACHS SC 02/22/25 17:00 03/01/25 12:53 8 UNITS Hydralazine HCl 10 mg Q6HP PRN IV 02/24/25 16:30 02/25/25 08:46 10 MG Lorazepam 1 mg ONCE PRN IV 02/25/25 10:45 Levofloxacin 50 ml @ 50 mls/hr DAILY IV 02/27/25 10:00 Cancel Midazolam HCl 100 ml @ 1 mls/hr Q24H IV 02/27/25 07:15 02/27/25 07:15 0 MLS/HR Fentanyl Citrate 250 ml @ 2.5 mls/hr Q24H IV 02/27/25 07:15 Norepinephrine Bitartrate 250 ml @ 3.75 mls/hr Q24H IV 02/27/25 07:15 02/28/25 15:25 7.5 MLS/HR Metronidazole 100 ml @ 100 mls/hr Q8H IV 02/27/25 12:00 03/01/25 12:34 100 MLS/HR Doxycycline Hyclate 100 ml @ 50 mls/hr Q12H IV 02/27/25 17:00 03/01/25 05:04 50 MLS/HR Dextrose 1,000 ml @ 50 mls/hr Q20H IV 02/28/25 10:45 03/01/25 08:55 50 MLS/HR Enteral Nutritional Formula 1,000 ml 30ML/HR GT 02/28/25 10:45 02/28/25 16:16 1,000 ML Purified Water 200 ml Q6HR GT 02/28/25 12:00 03/01/25 12:00 200 ML Budesonide 0.5 mg BID NEB 02/28/25 22:00 03/01/25 06:11 0.5 MG Methylprednisolone Sodium Succinate 40 mg BID IV 02/28/25 22:00 03/01/25 10:42 40 MG Aspirin 81 mg DAILY GT 03/01/25 10:00 03/01/25 10:53 81 MG Meropenem 50 ml @ 17 mls/hr Q12H IV 03/01/25 20:00 objective The patient is well-nourished and well-developed with no distress. The patient is intubated MENTAL STATUS: Subjective CRANIAL NERVES: Pupils are equal, round and reactive, eyes are deducted.There are no corneal reflexes and weak doll's eyes phenomenon. No signs of facial weakness. There are weakgagging or coughing reflexes SENSATION: Possibly responsive to pain stimuli. MOTOR: Normal tone in the upper and lower extremity. Normal muscle bulk. No fasciculations. No spontaneous movement. REFLEXES: Deep tendon reflexes are symmetrical. No pathological reflexes. CEREBELLAR/COORDINATION: Deferred GAIT/STATION: deferred. laboratory and microbiology Laboratory Tests 03/01/25 03:31 Test 03/01/25 03:31 Range/Units Serum Glucose 309 H 74-106 mg/dL Problem List Altered mental status Metabolic encephalopathy Hypoxic encephalopathy Toxic encephalopathy Cardiopulmonary arrest Acute on chronic respiratory failure Diabetic ketoacidosis Metabolic acidosis UTI Sepsis Morbid obesity Acute respiratory failure Kidney failure Dehydration Hypernatremia Morbid obesity ? Obesity hypoventilation syndrome Assessment/Plan Monitoring Supportive treatment ICU care Follow up labs Stabilize vitals/pressor drip Respiratory support/vent management Oxygen IV antibiotics D5W 5% IIV fluids Nephrology on case Cardiology on case Pulmonology consultation More recommendation per clinical course This medical document was created using an electronic medical record system with [employer] dictation system. Although this document has been carefully reviewed, there may still be some phonetic and typographical errors. These areas are purely typographical due to imperfections of the software programs, and do not reflect any compromise in the patient's medical care. Prognosis poor Dietary Evaluation Review Comments: Diet Order: Continue CCHO-60, 2-gram sodium diet. Monitoring: Monitor PO intake and tolerance. Monitor renal function and updated lab values (electrolytes, BUN/Cr, GFR). Follow up with nephrology and GI reports. Reassessment: Reassess PRN based on clinical status and intake. Discharge Planning: Address weight management upon discharge. Expected Outcomes/Goals: gradual wt loss Plan discussed with: Other Critical Care Time(min): 35 NO MONDRAGON MD Mar 01, 2025 14:39
--- NOTE | 2025-03-01 15:24 | DVHPN2 ---
Progress Note Date Seen: Mar 01, 2025 Medical Necessity Reason Pt with a Central, PICC or Fol: Yes The following are medically ne: Diallo Catheter Reason for diallo catheter: Strict I&O Subjective Review of Systems: Deferred Objective vital signs Vital Sign Date Time Temp Pulse Resp B/P (MAP) Pulse Ox O2 Delivery O2 Flow Rate FiO2 03/01/25 13:39 85 16 99/47 (64) 100 30 03/01/25 12:00 Mechanical Ventilator+ 03/01/25 11:38 97.7 207.9 02/28/25 08:00 0 Total Intake and Output 02/28/25 02/28/25 03/01/25 15:00 23:00 07:00 Intake Total 826.0 ml 516.5 ml 681.50 ml Output Total 50 ml 125 ml Balance 826.0 ml 466.5 ml 556.50 ml medications Current Medications Medications Dose Ordered Sig/Tim Route Start Time Stop Time Status Last Admin Dose Admin Diagnostic Test (Pha) 1 strip IQ4HR 02/21/25 00:00 UNV Sodium Chloride 10 ml Q8HR IV 02/20/25 22:00 03/01/25 13:51 10 ML Ondansetron HCl 4 mg Q4HP PRN IV 02/20/25 20:15 Docusate Sodium 100 mg BIDPRN PRN PO 02/20/25 20:15 Acetaminophen 650 mg Q6HP PRN PO 02/20/25 20:15 Nitroglycerin 0.4 mg Q5MINP PRN SL 02/20/25 21:15 Dextrose 50 ml UD PRN IV 02/22/25 04:30 Diagnostic Test (Pha) 1 strip ACHS 02/22/25 17:00 03/01/25 12:34 1 STRIP Insulin Human Regular ACHS SC 02/22/25 17:00 03/01/25 12:53 8 UNITS Hydralazine HCl 10 mg Q6HP PRN IV 02/24/25 16:30 02/25/25 08:46 10 MG Lorazepam 1 mg ONCE PRN IV 02/25/25 10:45 Levofloxacin 50 ml @ 50 mls/hr DAILY IV 02/27/25 10:00 Cancel Midazolam HCl 100 ml @ 1 mls/hr Q24H IV 02/27/25 07:15 02/27/25 07:15 0 MLS/HR Fentanyl Citrate 250 ml @ 2.5 mls/hr Q24H IV 02/27/25 07:15 Norepinephrine Bitartrate 250 ml @ 3.75 mls/hr Q24H IV 02/27/25 07:15 02/28/25 15:25 7.5 MLS/HR Metronidazole 100 ml @ 100 mls/hr Q8H IV 02/27/25 12:00 03/01/25 12:34 100 MLS/HR Doxycycline Hyclate 100 ml @ 50 mls/hr Q12H IV 02/27/25 17:00 03/01/25 05:04 50 MLS/HR Dextrose 1,000 ml @ 50 mls/hr Q20H IV 02/28/25 10:45 03/01/25 08:55 50 MLS/HR Enteral Nutritional Formula 1,000 ml 30ML/HR GT 02/28/25 10:45 02/28/25 16:16 1,000 ML Purified Water 200 ml Q6HR GT 02/28/25 12:00 03/01/25 12:00 200 ML Budesonide 0.5 mg BID NEB 02/28/25 22:00 03/01/25 06:11 0.5 MG Methylprednisolone Sodium Succinate 40 mg BID IV 02/28/25 22:00 03/01/25 10:42 40 MG Aspirin 81 mg DAILY GT 03/01/25 10:00 03/01/25 10:53 81 MG Meropenem 50 ml @ 17 mls/hr Q12H IV 03/01/25 20:00 Examination: GENERAL:Abnormal, LUNGS:Abnormal, CVS:Abnormal, SKIN:Abnormal, NEURO:Abnormal laboratory and microbiology Laboratory Tests 03/01/25 03:31 Test 03/01/25 03:31 Range/Units Serum Glucose 309 H 74-106 mg/dL Microbiology Date/Time Source Procedure Growth Status 02/27/25 22:45 Nose MRSA Screen - Final Complete 02/27/25 14:05 Sputum Endotracheal Wash Gram Stain - Final Resulted 02/27/25 14:05 Sputum Endotracheal Wash Respiratory Culture - Preliminary Resulted 02/27/25 10:21 Blood Blood Culture - Preliminary NO GROWTH AFTER 48 HOURS OF INCUBATION. Resulted 02/21/25 01:55 Urine - Diallo Port Urine Culture - Final Escherichia coli - ESBL Complete Problem List/Assessment/Plan Problem List/Assessment/Plan Acute kidney injury hemodynamically in the setting of shock and hypotension DKA sepsis UTI uncontrolled Dm2 morbid obesity hypernatremia Lactic acidosis in the setting of hypoperfusion Cardiac arrest 02/27 Acute respiratory failure Progressive worsening renal failure increased congestion noted on chest x-ray with decreased urinary output start diuretics Maintain map greater than 65 continue D5W 50cc/hr replace K and Mg per hospital guidelines ABX insulin subQ protocol Poor prognosis Plan discussed with: Other My Orders My Orders Orders - ANTHONY LYMAN MD Procedure Category Date Status Time Basic Metabolic Panel LAB 03/02/25 Verified 04:00 Furosemide Injection PHA 03/01/25 Transmitted (Lasix Injection) 15:30 Dietary Evaluation Review Comments: Diet Order: Continue CCHO-60, 2-gram sodium diet. Monitoring: Monitor PO intake and tolerance. Monitor renal function and updated lab values (electrolytes, BUN/Cr, GFR). Follow up with nephrology and GI reports. Reassessment: Reassess PRN based on clinical status and intake. Discharge Planning: Address weight management upon discharge. Expected Outcomes/Goals: gradual wt loss ANTHONY LYMAN MD Mar 01, 2025 15:24
[2025-03-01] MEDS: FUROSEMIDE 100 MG/10ML VIAL IV ONE ×2 (15:30→18:40)
--- NOTE | 2025-03-01 15:43 | DVH ---
EXAM: CT HEAD WITHOUT CONTRAST INDICATION: ALOC TECHNIQUE: CT of the head without intravenous contrast. Radiation Dose Information: CT Dose: CTDI volume is 62.2 mGy. Dose-length product is 1178.86 mGy*cm The dose indicators for CT are the volume Computed Tomography (CT) Dose Index (CTDIvol) and the Dose Length Product (DLP), and are measured in units of mGy and mGy-cm, respectively. These indicators are not patient dose, but values generated from the CT scanner acquisition factors. The report includes radiation exposure data for exposures received during this examination. COMPARISON: MRI BRAIN HEAD WO CONTRAST on DOS: 02/25/25, MRI BRAIN HEAD WO CONTRAST on DOS: 02/25/25, CT HEAD WITHOUT CONTRAST on DOS: 02/24/25, CT HEAD WITHOUT CONTRAST on DOS: 02/20/25 FINDINGS: There is a 17 mm partially calcified dural-based mass noted at the right vertex. There is no evidence of acute intracranial hemorrhage, extra-axial collection, mass effect, midline shift, herniation or hydrocephalus. The ventricles, sulci and cisterns are age appropriate. The dale-white differentiation is intact. Patchy periventricular and subcortical white matter hypoattenuation is nonspecific but may be related to small vessel ischemic disease. The visualized paranasal sinuses and mastoid air cells are clear. The surrounding soft tissues and osseous structures are unremarkable. IMPRESSION: 1. No acute intracranial abnormality. 2. Probable right vertex meningioma.
--- NOTE | 2025-03-01 17:23 | DVHPN2 ---
WILKESDOMI RAMIREZ [facility] 03/01/25 1723: Consult Progress Note Date Seen: Mar 01, 2025 Subjective Other Systems: No cardiac events reported Objective vital signs Vital Sign Date Time Temp Pulse Resp B/P (MAP) Pulse Ox O2 Delivery O2 Flow Rate FiO2 03/01/25 16:10 86 16 102/51 (68) 100 30 03/01/25 15:38 97.7 97.7 03/01/25 14:00 Mechanical Ventilator+ 02/28/25 08:00 0 Total Intake and Output 02/28/25 02/28/25 03/01/25 15:00 23:00 07:00 Intake Total 826.0 ml 516.5 ml 731.50 ml Output Total 50 ml 125 ml Balance 826.0 ml 466.5 ml 606.50 ml medications Current Medications Medications Dose Ordered Sig/Tim Route Start Time Stop Time Status Last Admin Dose Admin Diagnostic Test (Pha) 1 strip IQ4HR 02/21/25 00:00 UNV Sodium Chloride 10 ml Q8HR IV 02/20/25 22:00 03/01/25 13:51 10 ML Ondansetron HCl 4 mg Q4HP PRN IV 02/20/25 20:15 Docusate Sodium 100 mg BIDPRN PRN PO 02/20/25 20:15 Acetaminophen 650 mg Q6HP PRN PO 02/20/25 20:15 Nitroglycerin 0.4 mg Q5MINP PRN SL 02/20/25 21:15 Dextrose 50 ml UD PRN IV 02/22/25 04:30 Diagnostic Test (Pha) 1 strip ACHS 02/22/25 17:00 03/01/25 12:34 1 STRIP Insulin Human Regular ACHS SC 02/22/25 17:00 03/01/25 12:53 8 UNITS Hydralazine HCl 10 mg Q6HP PRN IV 02/24/25 16:30 02/25/25 08:46 10 MG Lorazepam 1 mg ONCE PRN IV 02/25/25 10:45 Levofloxacin 50 ml @ 50 mls/hr DAILY IV 02/27/25 10:00 Cancel Midazolam HCl 100 ml @ 1 mls/hr Q24H IV 02/27/25 07:15 02/27/25 07:15 0 MLS/HR Fentanyl Citrate 250 ml @ 2.5 mls/hr Q24H IV 02/27/25 07:15 Norepinephrine Bitartrate 250 ml @ 3.75 mls/hr Q24H IV 02/27/25 07:15 02/28/25 15:25 7.5 MLS/HR Doxycycline Hyclate 100 ml @ 50 mls/hr Q12H IV 02/27/25 17:00 03/01/25 05:04 50 MLS/HR Enteral Nutritional Formula 1,000 ml 30ML/HR GT 02/28/25 10:45 02/28/25 16:16 1,000 ML Budesonide 0.5 mg BID NEB 02/28/25 22:00 03/01/25 06:11 0.5 MG Aspirin 81 mg DAILY GT 03/01/25 10:00 03/01/25 10:53 81 MG Meropenem 50 ml @ 17 mls/hr Q12H IV 03/01/25 20:00 Furosemide 40 mg DAILY IV 03/02/25 10:00 Nystatin 1 applic BID TOP 03/01/25 22:00 Examination: LUNGS:Abnormal (Endotracheally intubated), CVS:Normal (NSR. Off vasopressors), NEURO:Abnormal (Off sedation ) laboratory and microbiology Laboratory Tests 03/01/25 03:31 Test 03/01/25 03:31 Range/Units Serum Glucose 309 H 74-106 mg/dL Problem List/Assessment/Plan Problem List/Assessment/Plan V-fib/V-tach cardiac arrest status post defibrillation x 2 with ROSC Cardiac arrest likely secondary to metabolic causes (severe acidosis) Acute metabolic encephalopathy likely from sepsis/dehydration Acute on chronic kidney injury likely in the setting of shock Shock liver Thrombocytopenia Plan/Recommendation (Dr. Vásquez) - A transthoracic echocardiogram revealed an LVEF of 50-55% with severe left ventricular hypertrophy. There are right and left ventricular trabeculation. May consider cardiac MRI for further evaluation if clinical correlated - Full AC therapy held secondary to thrombocytopenia - Continue single-antiplatelet therapy - Monitor electrolytes keep potassium above 4 and Mag above 2 - Strict I&Os, reduced afterload and preload -Continue Nephrology recommendations We will consider further ischemic cardiac workup once the patient is more medically stable and platelet count has improved. In the meantime, we will continue to monitor closely. Thank you for allowing us to participate in this patient's care. Please call if you have any questions or concerns. Critical care time: 30 minutes. This medical document was created using an electronic medical record system with voice recognition software and computerized dictation system. Although this document has been carefully reviewed, there might still be some phonetic and typographical errors. Occasional wrong-word or ``sound-alike substitutions may have occurred due to the inherent limitations of voice recognition software. These areas are purely typographical due to imperfections of the software programs and do not reflect any compromise in the patient's medical care. Please read the chart carefully and recognize, using context, where these substitutions have occurred. Plan discussed with: Other Dietary Evaluation Review Comments: Diet Order: Continue CCHO-60, 2-gram sodium diet. Monitoring: Monitor PO intake and tolerance. Monitor renal function and updated lab values (electrolytes, BUN/Cr, GFR). Follow up with nephrology and GI reports. Reassessment: Reassess PRN based on clinical status and intake. Discharge Planning: Address weight management upon discharge. Expected Outcomes/Goals: gradual wt loss Date of Service: Mar 01, 2025 Billing Provider: DOMI WILKES Cardiology Common Codes: 89241-[facility] 30-74 MIN RITCHIE VÁSQUEZ MD 03/01/25 1816: ADDENDUM ADDENDUM ADDENDUM Patient was seen and examined at bedside and plan was formulated with Domi Wilkes cardiology [employer] as above. Ritchie Vásquez MD Interventional cardiology DOMI WILKES Mar 01, 2025 17:23 RITCHIE VÁSQUEZ MD Mar 01, 2025 18:16
[2025-03-01] MEDS: MEROPENEM 1GM IVPB 50 ML IV SCH (20:04)
[2025-03-01] MEDS: NYSTATIN TOPICAL POWDER 15GM TOP SCH (22:00)
--- NOTE | 2025-03-01 23:58 | DVHPN2 ---
Subjective DOS: 03/01/2025 Patient seen and examined at bedside. intubated on mechanical ventilator. Overnight events reviewed. Reviewed: H&P Changes from previous H/P or p: No Changes General: Per HPI Eyes: No Pain, No Vision change, No Conjunctivae inflammation, No Eyelid inflammation, No Other, No Redness ENT: No Ear pain, No Ear discharge, No Nose pain, No Nose discharge, No Nose congestion, No Mouth pain, No Mouth swelling, No Throat pain, No Throat swelling, No Other Cardiovascular: No Chest Pain, No Palpitations, No Orthopnea, No Paroxysmal Noc. Dyspnea, No Edema, No Lt Headedness, No Other Respiratory: No Cough, No Dry, No Shortness of breath, No SOB with excertion, No Wheezing, No Hemoptysis, No Pleuritic Pain, No Sputum, No Other Gastrointestinal: No Nausea, No Vomiting, No Abdominal Pain, No Diarrhea, No Constipation, No Melena, No Hematochezia, No Other Musculoskeletal: No other, No neck pain, No shoulder pain, No arm pain, No back pain, No hand pain, No leg pain, No foot pain Skin: No Rash, No Lesions, No Jaundice, No Bruising, No Other Objective Vitals Vital Signs Date Time Temp Pulse Resp B/P (MAP) Pulse Ox O2 Delivery O2 Flow Rate FiO2 03/01/25 23:08 97.9 91 16 96/46 (63) 95 208.2 03/01/25 22:24 30 03/01/25 22:00 Mechanical Ventilator+ 02/28/25 08:00 0 Intake/Output Intake and Output 03/01/25 07:00 Intake Total 2091.00 ml Output Total 175 ml Balance 1916.00 ml IV Total 1834.00 ml Tube Feeding 257 ml Output Urine Total 175 ml Exam Gen.: Patient lying in bed in medical ICU. Intubated on mechanical ventilator. Head: Normocephalic, atraumatic. Eyes: PERRLA. Ears: Normal external anatomy. Throat: Endotracheal tube and orogastric tube in place. Neck: Supple, trachea midline. Chest: Transmitted breath sounds bilaterally. Decreased air entry bilaterally. No wheezing. Bibasilar crackles. Cardiovascular: Positive S1, positive S2. Regular rate and rhythm. Abdomen: Positive bowel sounds in all 4 quadrants. Soft, nontender, nondistended. : [place] in place. Normal external genitalia. Rectal: Deferred. Skin: Warm, dry. Intact. Extremities: 2+ radial pulses bilaterally. No lower extremity edema. Neuro: Off sedation Lungs: Clear to auscultation Cardiovascular: Regular rate, Normal S1, Normal S2, No murmurs Abdomen: Normal bowel sounds, Soft, No tenderness Extremities: No edema Medications Current Medications Medications Dose Ordered Sig/Tim Route Start Time Stop Time Status Last Admin Dose Admin Diagnostic Test (Pha) 1 strip IQ4HR 02/21/25 00:00 UNV Sodium Chloride 10 ml Q8HR IV 02/20/25 22:00 03/01/25 22:35 10 ML Ondansetron HCl 4 mg Q4HP PRN IV 02/20/25 20:15 Docusate Sodium 100 mg BIDPRN PRN PO 02/20/25 20:15 Acetaminophen 650 mg Q6HP PRN PO 02/20/25 20:15 Nitroglycerin 0.4 mg Q5MINP PRN SL 02/20/25 21:15 Dextrose 50 ml UD PRN IV 02/22/25 04:30 Diagnostic Test (Pha) 1 strip ACHS 02/22/25 17:00 03/01/25 22:35 1 STRIP Insulin Human Regular ACHS SC 02/22/25 17:00 03/01/25 22:42 6 UNITS Hydralazine HCl 10 mg Q6HP PRN IV 02/24/25 16:30 02/25/25 08:46 10 MG Lorazepam 1 mg ONCE PRN IV 02/25/25 10:45 Levofloxacin 50 ml @ 50 mls/hr DAILY IV 02/27/25 10:00 Cancel Midazolam HCl 100 ml @ 1 mls/hr Q24H IV 02/27/25 07:15 02/27/25 07:15 0 MLS/HR Fentanyl Citrate 250 ml @ 2.5 mls/hr Q24H IV 02/27/25 07:15 Norepinephrine Bitartrate 250 ml @ 3.75 mls/hr Q24H IV 02/27/25 07:15 02/28/25 15:25 7.5 MLS/HR Doxycycline Hyclate 100 ml @ 50 mls/hr Q12H IV 02/27/25 17:00 03/01/25 18:40 50 MLS/HR Enteral Nutritional Formula 1,000 ml 30ML/HR GT 02/28/25 10:45 03/01/25 19:03 1,000 ML Budesonide 0.5 mg BID NEB 02/28/25 22:00 03/01/25 22:20 0.5 MG Aspirin 81 mg DAILY GT 03/01/25 10:00 03/01/25 10:53 81 MG Meropenem 50 ml @ 17 mls/hr Q12H IV 03/01/25 20:00 03/01/25 20:04 17 MLS/HR Furosemide 40 mg DAILY IV 03/02/25 10:00 Nystatin 1 applic BID TOP 03/01/25 22:00 Laboratory Results Laboratory Tests 03/01/25 03:31 Chemistry Test 03/01/25 03:31 Albumin 2.7 g/dL (3.2-4.8) L Calcium Level 8.2 mg/dL (8.7-10.4) L Magnesium Level 1.8 mg/dL (1.6-2.6) Total Protein 5.0 g/dL (5.7-8.2) L LFT Test 03/01/25 03:31 Alanine Aminotransferase (ALT) 40 U/L (7-40) Alkaline Phosphatase 121 U/L (46-116) H Aspartate Amino Transferase (AST) 73 U/L (13-40) H Total Bilirubin 0.9 mg/dL (0.2-1.0) Urinalysis Test 02/20/25 21:52 02/26/25 15:08 Urine WBC Clumps Present /hpf (None Seen) Urine Hyaline Casts Few /lpf (0 - 2) Urine Mucus Few (None Seen) Urine Color Yellow (Yellow) Urine Clarity Turbid (Clear) H Urine pH 5.5 (5.0-9.0) Urine Specific [place] 1.020 (1.001-1.035) Urine Protein 1+ (Negative) H Urine Ketones 1+ (Negative) H Urine Blood 2+ /uL (Negative) H Urine Nitrite Negative (Negative) Urine Bilirubin Negative (Negative) Urine Urobilinogen 4 mg/dL (Negative) H Urine Leukocyte Esterase Trace /uL (Negative) Urine RBC 27 /hpf (0 - 4) Urine Microscopic WBC 3 /HPF (0-5) Urine Squamous Epithelial Cells Few /hpf (<5) Urine Amorphous Crystals Few /hpf (None Seen) Urine Bacteria None seen /hpf (None Seen) Urine Glucose 1+ mg/dL (Normal) H Blood Gas Results Test 03/01/25 06:23 Arterial Blood pH 7.397 (7.350-7.450) FiO2 % 30.0 Microbiology Microbiology Date/Time Source Procedure Growth Status 02/27/25 22:45 Nose MRSA Screen - Final Complete 02/27/25 14:05 Sputum Endotracheal Wash Gram Stain - Final Resulted 02/27/25 14:05 Sputum Endotracheal Wash Respiratory Culture - Preliminary Resulted 02/27/25 10:21 Blood Blood Culture - Preliminary NO GROWTH AFTER 48 HOURS OF INCUBATION. Resulted 02/21/25 01:55 Urine - [place] Urine Culture - Final Escherichia coli - ESBL Complete Assessment/Plan Assessment/Plan Impression: Acute hypoxic respiratory failure On mechanical ventilator S/p cardiac arrest Acute DKA, resolved Acute metabolic encephalopathy BETH on OHS likely Acute kidney injury Hypernatremia Sepsis due to UTI Urinary tract infection Morbid obesity Events: Remains on vent support On AC mode; RR 16, VT 450, PEEP 5, FiO2 30% Patient failed CPAP trial. Off sedation Awaiting for mentation to improve. CXR reviewed, demonstrates Unchanged pulmonary vascular congestion. Lower lung volumes. CT head reviewed, no evidence of stroke or intracranial hemorrhage. Continue antibiotics. Continue steroids Pulmicort BID Continue diuresis with Lasix Monitor renal function Labs and imaging reviewed. Rest of plan as noted below. Plan: s/p intubation on mechanical ventilator. On AC mode; RR 16, VT 450, PEEP 5, FiO2 30% Titrate FIO2 to keep O2 saturation above 90%. VAP bundle. Daily ABG and CXR while intubated Sedate for ventilator synchrony Continue IV antibiotics. Follow up cultures. Steroids - on Solu-Medrol 40 mg IVP q.12 hours Pulmicort 0.5 mg BID Pressors as necessary for hemodynamic support Titrate to keep mean arterial pressure greater than 65 mmHg. Follow up Cardiology recs NG tube in place. Tube feeds for nutritional support Monitor renal function - Poor UOP Monitor electrolytes. Supplement as necessary. Monitor ins and outs. Maintain euvolemia. Follow up Nephrology recs Recommend diet and lifestyle modifications for weight reduction Obesity complicates all care GI prophylaxis. DVT prophylaxis. Prognosis: Poor given patient's multiple co-morbidities. Condition: Critical Rest of plan per hospitalist and other consultants. A total of 35 minutes of critical care time was spent reviewing the patient record, examining the patient, making a diagnostic and therapeutic plan, discussing this plan with the medical personnel, following up on diagnostic studies and following the patient for clinical stability excluding any and all procedures. At least 50% of this time was spent in direct, [id number] contact. Thank you, Dr. Carreno, for allowing me to participate in this patient's care. Further recommendations will depend on the patient's clinical course. Please do not hesitate to contact me if you have any questions or concerns. This medical document was created using an electronic medical record system with [employer] dictation system. Although these documentations are being carefully reviewed, there may still be some phonetic and typographical changes. The errors are purely typographical, due to imperfection on the software program, and do not reflect any compromise in the patient's medical care. Plan discussed with: Other (REI Staley) My Orders Orders - JOSE CASTRO MD Procedure Category Date Status Time Abg W/ Co-Ox RT 03/01/25 Logged 06:00 Visit Coding Pulmonary Billing Provider: JOSE CASTRO MD Date of Service if different f: Mar 01, 2025 Common Visit Codes: [id number] INP/OBS CARE(HIGH), [id number] CARE 30-74 MIN JOSE CASTRO MD Mar 01, 2025 23:58
[2025-03-02] VITALS (120 sets, daily range): BP systolic 87–140; BP diastolic 21–106; PULSE 85–103; RESP 15–23; TEMP 96.8–99.3; O2SAT 95–100
[2025-03-02 03:30] LABS: Hemoglobin 8.2 g/dL (12.2-16.2)
[2025-03-02 03:35] LABS: Anion Gap 8 (5-15); Carbon Dioxide 30 mmol/L (20-31); Potassium 3.9 mmol/L (3.5-5.1)
[2025-03-02 03:36] LABS: Hematocrit 24.9 % (36.0-46.0); Mean Corpuscular Hemoglobin 28.1 pg (28.0-32.0); Mean Corpuscular Volume 85.1 fL (80.0-100.0); Nucleated Red Blood Cells % 0.1 %
[2025-03-02 03:42] LABS: Calcium 8.2 mg/dL (8.7-10.4); Chloride 109 mmol/L (98-107); Glucose 271 mg/dL (74-106); Sodium 147 mmol/L (136-145)
[2025-03-02 03:53] LABS: BUN/Creatinine Ratio 19.1 (10.0-20.0)
[2025-03-02 03:55] LABS: Blood Urea Nitrogen 71 mg/dL (9-23)
--- NOTE | 2025-03-02 04:33 | DVH ---
CHEST RADIOGRAPH INDICATION: INTUBATED TECHNIQUE: Single frontal view of the chest was obtained COMPARISON: XY CHEST PORTABLE on DOS: 03/01/25, XY CHEST PORTABLE on DOS: 02/28/25, XY CHEST XRAY 1 VIEW on DOS: 02/28/25, XY CHEST PORTABLE on DOS: 02/27/25, XY CHEST XRAY 1 VIEW on DOS: 02/27/25 FINDINGS: Lines and Tubes: Unchanged. Lungs: Stable appearing mild diffuse increased prominence of the pulmonary vasculature. Pleura: No effusion. No pneumothorax. Cardiomediastinal contours: Cardiomegaly. Bones: Unremarkable IMPRESSION: 1. Cardiomegaly and pulmonary vascular congestion. 2. Lines and tubes unchanged.
[2025-03-02 07:05] LABS: Base Excess 1.9 mmol/L (-2.0-3.0)
--- NOTE | 2025-03-02 09:18 | DVHPN2 ---
Progress Note Date Seen: Mar 02, 2025 Resident Creating Document: SHANNAN JACKSON RESIDENT Medical Necessity Reason Pt with a Central, PICC or Fol: Yes The following are medically ne: Diallo Catheter Reason for diallo catheter: Strict I&O Subjective Review of Systems Hgb decreased and drop in plt count CXR increased congestion Patient is off sedation, not currently responding to painful stimulation Objective vital signs Vital Sign Date Time Temp Pulse Resp B/P (MAP) Pulse Ox O2 Delivery O2 Flow Rate FiO2 03/02/25 07:18 94 16 100/52 (68) 100 30 03/02/25 06:53 98.6 209.5 03/02/25 06:00 Mechanical Ventilator+ 02/28/25 08:00 0 Total Intake and Output 03/01/25 03/01/25 03/02/25 15:00 23:00 07:00 Intake Total 284 ml 411 ml 80 ml Output Total 200 ml 350 ml Balance 284 ml 211 ml -270 ml medications Current Medications Medications Dose Ordered Sig/Tim Route Start Time Stop Time Status Last Admin Dose Admin Diagnostic Test (Pha) 1 strip IQ4HR 02/21/25 00:00 UNV Sodium Chloride 10 ml Q8HR IV 02/20/25 22:00 03/02/25 04:58 10 ML Ondansetron HCl 4 mg Q4HP PRN IV 02/20/25 20:15 Docusate Sodium 100 mg BIDPRN PRN PO 02/20/25 20:15 Acetaminophen 650 mg Q6HP PRN PO 02/20/25 20:15 Nitroglycerin 0.4 mg Q5MINP PRN SL 02/20/25 21:15 Dextrose 50 ml UD PRN IV 02/22/25 04:30 Diagnostic Test (Pha) 1 strip ACHS 02/22/25 17:00 03/02/25 05:48 1 STRIP Insulin Human Regular ACHS SC 02/22/25 17:00 03/02/25 05:52 4 UNITS Hydralazine HCl 10 mg Q6HP PRN IV 02/24/25 16:30 02/25/25 08:46 10 MG Lorazepam 1 mg ONCE PRN IV 02/25/25 10:45 Levofloxacin 50 ml @ 50 mls/hr DAILY IV 02/27/25 10:00 Cancel Midazolam HCl 100 ml @ 1 mls/hr Q24H IV 02/27/25 07:15 02/27/25 07:15 0 MLS/HR Fentanyl Citrate 250 ml @ 2.5 mls/hr Q24H IV 02/27/25 07:15 Norepinephrine Bitartrate 250 ml @ 3.75 mls/hr Q24H IV 02/27/25 07:15 02/28/25 15:25 7.5 MLS/HR Doxycycline Hyclate 100 ml @ 50 mls/hr Q12H IV 02/27/25 17:00 03/02/25 05:00 50 MLS/HR Enteral Nutritional Formula 1,000 ml 30ML/HR GT 02/28/25 10:45 03/01/25 19:03 1,000 ML Budesonide 0.5 mg BID NEB 02/28/25 22:00 03/02/25 06:37 0.5 MG Aspirin 81 mg DAILY GT 03/01/25 10:00 03/01/25 10:53 81 MG Meropenem 50 ml @ 17 mls/hr Q12H IV 03/01/25 20:00 03/02/25 08:28 17 MLS/HR Furosemide 40 mg DAILY IV 03/02/25 10:00 Nystatin 1 applic BID TOP 03/01/25 22:00 Examination Skin - Patients skin is warm and dry, wound with the mid abdomen with sterile dressing. HEENT - normocephalic, atraumatic, moist mucous membranes, no scleral icterus, no conjunctival pallor. Neck - full ROM, no LAD, no JVD Pulmonary - B/L coarse breath sounds cardiovascular - regular S1,S2 heard, no added sounds or murmurs appreciated. peripheral pulses normal radial 2+, pedal 2+. Trace extremity edema GI - soft abdomen with dressing no hepatospleenomegaly. Bowel sounds hypoactive Neurological - Patient is on mechanical ventilation, off sedation laboratory and microbiology Laboratory Tests 03/02/25 02:36 Test 03/02/25 02:36 Range/Units Serum Glucose 271 H 74-106 mg/dL Microbiology Date/Time Source Procedure Growth Status 02/27/25 22:45 Nose MRSA Screen - Final Complete 02/27/25 14:05 Sputum Endotracheal Wash Gram Stain - Final Resulted 02/27/25 14:05 Sputum Endotracheal Wash Respiratory Culture - Preliminary Resulted 02/27/25 10:21 Blood Blood Culture - Preliminary NO GROWTH AFTER 48 HOURS OF INCUBATION. Resulted 02/21/25 01:55 Urine - [place] Urine Culture - Final Escherichia coli - ESBL Complete Problem List/Assessment/Plan Problem List/Assessment/Plan V-fib/V-tach cardiac arrest status post defibrillation x 2 with ROSC Cardiac arrest likely secondary to metabolic causes (severe acidosis) Acute metabolic encephalopathy likely from sepsis/dehydration Acute on chronic kidney injury likely in the setting of shock Shock liver Thrombocytopenia Plan/Recommendation - A transthoracic echocardiogram revealed an LVEF of 50-55% with severe left ventricular hypertrophy. There are right and left ventricular trabeculation. May consider cardiac MRI for further evaluation if clinical correlated - Full AC therapy held secondary to thrombocytopenia - aspirin held because of dropping H&H - Monitor electrolytes keep potassium above 4 and Mag above 2 - Strict I&Os, reduced afterload and preload - Continue Nephrology recommendations We will consider further ischemic cardiac workup once the patient is more medically stable, neurological status improved and platelet count has improved. Thank you for consulting. Goals of care discussed with the patient's primary team, RN Plan discussed with Dr. Lake Plan discussed with: Other (Dr. avilez, RN Rebeka) My Orders My Orders Orders - SHANNAN JACKSON RESIDENT Procedure Category Date Status Time Magnesium LAB 03/02/25 Logged 09:00 Dietary Evaluation Review Comments: Diet Order: Continue CCHO-60, 2-gram sodium diet. Monitoring: Monitor PO intake and tolerance. Monitor renal function and updated lab values (electrolytes, BUN/Cr, GFR). Follow up with nephrology and GI reports. Reassessment: Reassess PRN based on clinical status and intake. Discharge Planning: Address weight management upon discharge. Expected Outcomes/Goals: gradual wt loss SHANNAN JACKSON RESIDENT Mar 02, 2025 09:18
[2025-03-02] MEDS: FUROSEMIDE 40 MG/4 ML VIAL IV SCH (10:13)
[2025-03-02] MEDS ORDERED: DEXTROSE (50%) 50ML SYRG IV PRN (10:15)
--- NOTE | 2025-03-02 10:17 | DVHPN2 ---
Progress Note - Dictate Date Seen: Mar 02, 2025 Medical Necessity Reason Pt with a Central, PICC or Fol: Yes The following are medically ne: Diallo Catheter Reason for diallo catheter: Strict I&O Subjective Ms. Herrera is a 59 years old female with a history of hypertension, diabetes, morbid obesity, anemia, kidney failure, GERD, he was brought to the [facility] on 02/28/2025 with a chief complaint of altered mental status He coded at 02/27/25 0631. He had tachycardia, then was found to be pulseless by our staff, the patient was resuscitated, intubated. The code ended at 0640 I have seen and examined the patient, I have talked to her nurse, she is intubated, she is responsive to touch stimuli Urine culture, 02/21/2025: E coli Blood culture, 02/20/2025: Wound culture, 02/21/2025: Many growth Urinalysis, 02/20/2025: WBC: 382, urine leukocyte esterase: 3 +, ABG, 02/20/2025: Respiratory acidosis, hypoxia, 02/27/2025: Respiratory acidosis, hypoxia WBC/HB/PLT/MCV, 02/24/2025: 6.8/11.9/148/85.9 Na, 02/20/2025: 144, 02/21/2025: 48, 02/22/2025: 156, 02/23/2025: 158, 02/24/2025: 157, 02/24/2025: 155, 02/25/25: 156, 02/27/2025: 152 BUN/CR, 02/20/2025: 94/3.31, 02/24/2025: 36/1.93, 02/25/2025: 38/1.76 GFR, 02/20/2025: 16, 02/24/2025: 30 Glucose, 02/20/2025: 459, 02/21/2025: 196 HGB A1c, 02/22/2025: 8.4 Lactic acid, 02/20/2025: 5, 6.7 02/21/2025: 2.3 Beta hydroxybutyric acid, 02/20/2025: 0.662 TG/HDL/LDL/HDL, 02/21/2025: 1.2/58/57/117, 02/24/2025: Normal Ammonia, 02/24/2025: <10 Vitamin B12, 02/24/2025: 682 Folic acid, 02/24/2025: 3.45 TSH, 02/24/2025: 3.24 Chest x-ray, 02/20/2025: No acute pulmonary process. CT head, 02/24/2025: 1. No acute territorial infarct or intracranial hemorrhage.2. Age-related involutional changes. Chronic microvascular changes. 3. 2.2 cm right frontal extra-axial lesion may reflect a meningioma. A nonemergent MRI of the brain is suggested in further assessment MR head, 02/25/2025: No acute intracranial abnormality seen. 1.9 cm right medial posterior frontal extra-axial mass, most compatible with meningioma. No underlying mass effect/ vasogenic edema. vital signs Vital Sign Date Time Temp Pulse Resp B/P (MAP) Pulse Ox O2 Delivery O2 Flow Rate FiO2 03/02/25 10:13 121/68 03/02/25 09:45 99 23 99 30 03/02/25 06:53 98.6 209.5 03/02/25 06:00 Mechanical Ventilator+ 02/28/25 08:00 0 Total Intake and Output 03/01/25 03/01/25 03/02/25 15:00 23:00 07:00 Intake Total 284 ml 411 ml 80 ml Output Total 200 ml 350 ml Balance 284 ml 211 ml -270 ml medications Current Medications Medications Dose Ordered Sig/Tim Route Start Time Stop Time Status Last Admin Dose Admin Diagnostic Test (Pha) 1 strip IQ4HR 02/21/25 00:00 UNV Sodium Chloride 10 ml Q8HR IV 02/20/25 22:00 03/02/25 04:58 10 ML Ondansetron HCl 4 mg Q4HP PRN IV 02/20/25 20:15 Docusate Sodium 100 mg BIDPRN PRN PO 02/20/25 20:15 Acetaminophen 650 mg Q6HP PRN PO 02/20/25 20:15 Nitroglycerin 0.4 mg Q5MINP PRN SL 02/20/25 21:15 Dextrose 50 ml UD PRN IV 02/22/25 04:30 Diagnostic Test (Pha) 1 strip ACHS 02/22/25 17:00 03/02/25 05:48 1 STRIP Hydralazine HCl 10 mg Q6HP PRN IV 02/24/25 16:30 02/25/25 08:46 10 MG Lorazepam 1 mg ONCE PRN IV 02/25/25 10:45 Levofloxacin 50 ml @ 50 mls/hr DAILY IV 02/27/25 10:00 Cancel Midazolam HCl 100 ml @ 1 mls/hr Q24H IV 02/27/25 07:15 02/27/25 07:15 0 MLS/HR Fentanyl Citrate 250 ml @ 2.5 mls/hr Q24H IV 02/27/25 07:15 Norepinephrine Bitartrate 250 ml @ 3.75 mls/hr Q24H IV 02/27/25 07:15 02/28/25 15:25 7.5 MLS/HR Doxycycline Hyclate 100 ml @ 50 mls/hr Q12H IV 02/27/25 17:00 03/02/25 05:00 50 MLS/HR Enteral Nutritional Formula 1,000 ml 30ML/HR GT 02/28/25 10:45 03/01/25 19:03 1,000 ML Budesonide 0.5 mg BID NEB 02/28/25 22:00 03/02/25 06:37 0.5 MG Aspirin 81 mg DAILY GT 03/01/25 10:00 03/01/25 10:53 81 MG Meropenem 50 ml @ 17 mls/hr Q12H IV 03/01/25 20:00 03/02/25 08:28 17 MLS/HR Furosemide 40 mg DAILY IV 03/02/25 10:00 03/02/25 10:13 40 MG Nystatin 1 applic BID TOP 03/01/25 22:00 objective The patient is well-nourished and well-developed with no distress. The patient is intubated MENTAL STATUS: Subjective CRANIAL NERVES: Pupils are equal, round and reactive, right eye is deducted. There are corneal reflexes and weak doll's eyes phenomenon. No signs of facial weakness. There are gagging or coughing reflexes SENSATION: Responsive to touch MOTOR: Normal tone in the upper and lower extremity. Normal muscle bulk. No fasciculations. No spontaneous movement. REFLEXES: Deep tendon reflexes are symmetrical. No pathological reflexes. CEREBELLAR/COORDINATION: Deferred GAIT/STATION: deferred. laboratory and microbiology Laboratory Tests 12/22/25 02:36 Test 03/02/25 02:36 Range/Units Serum Glucose 271 H 74-106 mg/dL Problem List Altered mental status Metabolic encephalopathy Hypoxic encephalopathy Toxic encephalopathy Cardiopulmonary arrest Acute on chronic respiratory failure Diabetic ketoacidosis Metabolic acidosis UTI Sepsis Morbid obesity Acute respiratory failure Kidney failure Dehydration Hypernatremia Morbid obesity ? Obesity hypoventilation syndrome Assessment/Plan Monitoring Supportive treatment ICU care Follow up labs Stabilize vitals/pressor drip Respiratory support/vent management Oxygen IV antibiotics D5W 5% IIV fluids Nephrology on case Cardiology on case Pulmonology consultation More recommendation per clinical course This medical document was created using an electronic medical record system with [employer] dictation system. Although this document has been carefully reviewed, there may still be some phonetic and typographical errors. These areas are purely typographical due to imperfections of the software programs, and do not reflect any compromise in the patient's medical care. Prognosis poor Dietary Evaluation Review Comments: Diet Order: Continue CCHO-60, 2-gram sodium diet. Monitoring: Monitor PO intake and tolerance. Monitor renal function and updated lab values (electrolytes, BUN/Cr, GFR). Follow up with nephrology and GI reports. Reassessment: Reassess PRN based on clinical status and intake. Discharge Planning: Address weight management upon discharge. Expected Outcomes/Goals: gradual wt loss Plan discussed with: Other Critical Care Time(min): 30 NO MONDRAGON MD Mar 02, 2025 10:17
--- NOTE | 2025-03-02 10:57 | DVHPN2 ---
Progress Note Date Seen: Mar 02, 2025 Medical Necessity Reason Pt with a Central, PICC or Fol: Yes The following are medically ne: Diallo Catheter Reason for diallo catheter: Strict I&O Subjective Review of Systems: RESPIRATORY:Abnormal Other Systems: Patient seen and examined by myself today in follow-up, patient remained intubated on ventilator Objective vital signs Vital Sign Date Time Temp Pulse Resp B/P (MAP) Pulse Ox O2 Delivery O2 Flow Rate FiO2 03/02/25 10:13 121/68 03/02/25 09:45 99 23 99 30 03/02/25 06:53 98.6 209.5 03/02/25 06:00 Mechanical Ventilator+ 02/28/25 08:00 0 Total Intake and Output 03/01/25 03/01/25 03/02/25 15:00 23:00 07:00 Intake Total 284 ml 411 ml 80 ml Output Total 200 ml 350 ml Balance 284 ml 211 ml -270 ml medications Current Medications Medications Dose Ordered Sig/Tim Route Start Time Stop Time Status Last Admin Dose Admin Diagnostic Test (Pha) 1 strip IQ4HR 02/21/25 00:00 UNV Sodium Chloride 10 ml Q8HR IV 02/20/25 22:00 03/02/25 04:58 10 ML Ondansetron HCl 4 mg Q4HP PRN IV 02/20/25 20:15 Docusate Sodium 100 mg BIDPRN PRN PO 02/20/25 20:15 Acetaminophen 650 mg Q6HP PRN PO 02/20/25 20:15 Nitroglycerin 0.4 mg Q5MINP PRN SL 02/20/25 21:15 Hydralazine HCl 10 mg Q6HP PRN IV 02/24/25 16:30 02/25/25 08:46 10 MG Lorazepam 1 mg ONCE PRN IV 02/25/25 10:45 Levofloxacin 50 ml @ 50 mls/hr DAILY IV 02/27/25 10:00 Cancel Midazolam HCl 100 ml @ 1 mls/hr Q24H IV 02/27/25 07:15 02/27/25 07:15 0 MLS/HR Fentanyl Citrate 250 ml @ 2.5 mls/hr Q24H IV 02/27/25 07:15 Norepinephrine Bitartrate 250 ml @ 3.75 mls/hr Q24H IV 02/27/25 07:15 02/28/25 15:25 7.5 MLS/HR Doxycycline Hyclate 100 ml @ 50 mls/hr Q12H IV 02/27/25 17:00 03/02/25 05:00 50 MLS/HR Enteral Nutritional Formula 1,000 ml 30ML/HR GT 02/28/25 10:45 03/01/25 19:03 1,000 ML Budesonide 0.5 mg BID NEB 02/28/25 22:00 03/02/25 06:37 0.5 MG Aspirin 81 mg DAILY GT 03/01/25 10:00 03/01/25 10:53 81 MG Meropenem 50 ml @ 17 mls/hr Q12H IV 03/01/25 20:00 03/02/25 08:28 17 MLS/HR Furosemide 40 mg DAILY IV 03/02/25 10:00 03/02/25 10:13 40 MG Nystatin 1 applic BID TOP 03/01/25 22:00 Diagnostic Test (Pha) 1 strip ACHS 03/02/25 11:30 Insulin Human Regular HS SC 03/02/25 22:00 Insulin Human Regular AC SC 03/02/25 11:30 Dextrose 50 ml UD PRN IV 03/02/25 10:15 Examination: LUNGS:Normal, LUNGS:Abnormal, MSK:Normal laboratory and microbiology Laboratory Tests 03/02/25 02:36 Test 03/02/25 02:36 Range/Units Serum Glucose 271 H 74-106 mg/dL Microbiology Date/Time Source Procedure Growth Status 02/27/25 22:45 Nose MRSA Screen - Final Complete 02/27/25 14:05 Sputum Endotracheal Wash Gram Stain - Final Resulted 02/27/25 14:05 Sputum Endotracheal Wash Respiratory Culture - Preliminary Resulted 02/27/25 10:21 Blood Blood Culture - Preliminary NO GROWTH AFTER 72 HOURS OF INCUBATION. Resulted 02/21/25 01:55 Urine - [place] Urine Culture - Final Escherichia coli - ESBL Complete Problem List/Assessment/Plan Problem List/Assessment/Plan Acute kidney injury superimposed Chronic Kidney Disease secondary hemodynamic mediated Acute respiratory failure, intubated on ventilator Status post cardiac arrest 02/17 Septic shock DKA sepsis UTI uncontrolled Dm2 morbid obesity hypernatremia need to insensible water loss Vancomycin toxicity Recommendations Kidney function continue to worsened Slightly increased urine output Diallo catheter Strict I&Os Discontinue vancomycin Free water 200 cc NG tube q.4 hours IV pressors for blood pressure support Insulin sliding scale Check urine electrolytes and protein excretion Kidney reported within normal limit on CT scan We will continue to follow Plan discussed with: Other (Nurse) Dietary Evaluation Review Comments: Diet Order: Continue CCHO-60, 2-gram sodium diet. Monitoring: Monitor PO intake and tolerance. Monitor renal function and updated lab values (electrolytes, BUN/Cr, GFR). Follow up with nephrology and GI reports. Reassessment: Reassess PRN based on clinical status and intake. Discharge Planning: Address weight management upon discharge. Expected Outcomes/Goals: gradual wt loss MARISELA CUEVA MD Mar 02, 2025 10:57
[2025-03-02] MEDS: ACCU-CHEK COMFORT CURVE STRIP VI SCH (11:30)
[2025-03-02] MEDS: DEXMEDETOMIDINE HCL IN D5W 100 ML IV SCH (12:00)
[2025-03-02] MEDS: InsuLIN REG 1unit/0.01ml Soln (100units/ml) SC SCH ×2 (12:31→20:50)
--- NOTE | 2025-03-02 13:35 | DVHPNRES ---
Progress Note Date Seen: Mar 02, 2025 Resident Creating Document: ARY MENESES RESIDENT Medical Necessity Reason Pt with a Central, PICC or Fol: Yes The following are medically ne: Diallo Catheter Reason for diallo catheter: Strict I&O Subjective Review of Systems Patient is a 59-year-old female with past medical history diabetes, asthma, hypertension, who was brought in by EMS due to altered mental status. According to EMS, per patient's caregiver patient has been having a gradually progressive decline in her mentation over the last 2 months, currently patient noted to be AO x2. Patient was found to be covered in her own feces, unable to communicate effectively which is what prompted the caregiver to call the EMS. On route patient was noted to have a blood glucose of 470, tachycardic in 120s with blood pressure 118/98 saturating 80% on room air and 100% on 4 L O2 via NC. An accurate review of systems could not be completed as patient AO x2 only. Past medical history: Asthma, hypertension, diabetes Past surgical history: Unable to obtain Home medications: Albuterol, metoprolol, Ozempic Social & Personal history: Unable to obtain 03/02/25: Patient seen and examined at bedside, urine culture growing ESBL, umbilical hernia wound growing MSSA and ESBL, preliminary respiratory culture showing few GPCs. Platelets have down trended to 72, hemoglobin 8.2. Objective vital signs Vital Sign Date Time Temp Pulse Resp B/P (MAP) Pulse Ox O2 Delivery O2 Flow Rate FiO2 03/02/25 11:34 100 16 112/61 (78) 98 30 03/02/25 11:24 98.8 209.8 03/02/25 10:00 Mechanical Ventilator+ 02/28/25 08:00 0 Total Intake and Output 03/01/25 03/01/25 03/02/25 15:00 23:00 07:00 Intake Total 284 ml 411 ml 130 ml Output Total 200 ml 350 ml Balance 284 ml 211 ml -220 ml medications Current Medications Medications Dose Ordered Sig/Tim Route Start Time Stop Time Status Last Admin Dose Admin Diagnostic Test (Pha) 1 strip IQ4HR 02/21/25 00:00 UNV Sodium Chloride 10 ml Q8HR IV 02/20/25 22:00 03/02/25 04:58 10 ML Ondansetron HCl 4 mg Q4HP PRN IV 02/20/25 20:15 Docusate Sodium 100 mg BIDPRN PRN PO 02/20/25 20:15 Acetaminophen 650 mg Q6HP PRN PO 02/20/25 20:15 Nitroglycerin 0.4 mg Q5MINP PRN SL 02/20/25 21:15 Hydralazine HCl 10 mg Q6HP PRN IV 02/24/25 16:30 02/25/25 08:46 10 MG Lorazepam 1 mg ONCE PRN IV 02/25/25 10:45 Levofloxacin 50 ml @ 50 mls/hr DAILY IV 02/27/25 10:00 Cancel Midazolam HCl 100 ml @ 1 mls/hr Q24H IV 02/27/25 07:15 02/27/25 07:15 0 MLS/HR Fentanyl Citrate 250 ml @ 2.5 mls/hr Q24H IV 02/27/25 07:15 Norepinephrine Bitartrate 250 ml @ 3.75 mls/hr Q24H IV 02/27/25 07:15 02/28/25 15:25 7.5 MLS/HR Doxycycline Hyclate 100 ml @ 50 mls/hr Q12H IV 02/27/25 17:00 03/02/25 05:00 50 MLS/HR Enteral Nutritional Formula 1,000 ml 30ML/HR GT 02/28/25 10:45 03/01/25 19:03 1,000 ML Budesonide 0.5 mg BID NEB 02/28/25 22:00 03/02/25 06:37 0.5 MG Meropenem 50 ml @ 17 mls/hr Q12H IV 03/01/25 20:00 03/02/25 08:28 17 MLS/HR Furosemide 40 mg DAILY IV 03/02/25 10:00 03/02/25 10:13 40 MG Nystatin 1 applic BID TOP 03/01/25 22:00 Diagnostic Test (Pha) 1 strip ACHS 03/02/25 11:30 03/02/25 11:30 1 STRIP Insulin Human Regular HS SC 03/02/25 22:00 Insulin Human Regular AC SC 03/02/25 11:30 03/02/25 12:31 2 UNITS Dextrose 50 ml UD PRN IV 03/02/25 10:15 Examination General Appearance: Intubated, sedated, on mechanical ventilation Head Exam: Equal and reactive pupils Neck Exam: Normal inspection. Non-tender. Normal alignment Pulmonary/Respiratory: Chest non-tender. Coarse and diminished bilateral breath sounds Cardiovascular/Chest: Regular rate and rhythm. Some episodes of tachycardia. No murmurs. No JVD. Peripheral Pulses:. 2+ Pedal (R). 2+ Pedal (L) Abdominal Exam: Normal bowel sounds. Soft. Umbilical abdominal hernia noted Ankle Exam: Trace ankle edema Skin Exam: Generalized body petechiae noted, some bruising on bilateral upper extremities. Normal color. Warm. Dry laboratory and microbiology Laboratory Tests 03/02/25 02:36 Test 03/02/25 02:36 Range/Units Serum Glucose 271 H 74-106 mg/dL Microbiology Date/Time Source Procedure Growth Status 02/27/25 22:45 Nose MRSA Screen - Final Complete 02/27/25 14:05 Sputum Endotracheal Wash Gram Stain - Final Complete 02/27/25 14:05 Sputum Endotracheal Wash Respiratory Culture - Final Complete 02/27/25 10:21 Blood Blood Culture - Preliminary NO GROWTH AFTER 72 HOURS OF INCUBATION. Resulted 02/21/25 01:55 Urine - [place] Urine Culture - Final Escherichia coli - ESBL Complete Labs and/or images reviewed: Labs reviewed by me, Image(s) reviewed by me Problem List/Assessment/Plan Problem List/Assessment/Plan Neurology # acute metabolic encephalopathy # right meningioma - head CT: No acute intracranial abnormality. Probable right vertex meningioma. - brain MRI: No acute intracranial abnormality seen. 1.9 cm right medial posterior frontal extra-axial mass, most compatible with meningioma. No underlying mass effect/vasogenic edema. - EEG report from 02/26/2025: Mild to moderately abnormal EEG seen in [id number] cerebral dysfunction due to metabolic/hypoxic encephalopathy or medication effect. - neurology on board # Sedated - currently off of all sedation since 03/01/2025 5am Cardiovascular # NSTEMI type 1 versus type 2 # septic shock # V-tach - cardiology on board #ROSC s/p Cardiac arrest and CPR, code blue 02/27/2025 -pt had bradycardia, VFib received shock, asystole then V-tach in subsequently received amiodarone. -ROSC post CPR Respiratory # Ventilator -intubated 02/27/2025 -on [facility] vent : VCAC Mode RR 16, TV 450, peep 8, FiO2 30% # Acute hypoxic respiratory failure # obstructive sleep apnea on obesity hypoventilation syndrome - CXR:Cardiomegaly and pulmonary vascular congestion. GI # umbilical hernia containing bowel loops # wound culture from umbilical hernia growing ESBL and MSSA # questionable GI bleed - CT abdomen pelvis: No evidence of acute abdominopelvic abnormalities. Large umbilical hernia containing bowel loops without evidence of obstruction or strangulation. - GI consulted - 100 cc brownish red output noted in NG tube canister - Stable H&H, however, steep decline from hemoglobin 16.1 on admission to 8.2 today. - IV daptomycin # Peptic ulcer prophylaxis -Pantoprazole 40 mg IV daily # Diallo catheter placed on 02/20/2025 # acute complicated UTI growing ESBL - IV meropenem Nephrology # JAMEE likely hemodynamically mediated/VMN versus ATN # hypokalemia # hypernatremia - monitor - discontinued Lasix Infectious disease # infected umbilical wound growing ESBL and MSSA # acute complicated UTI growing ESBL # sepsis due to above # septic shock, now improving - IV meropenem b.i.d. - IV daptomycin Hem/onc # anemia possibly of chronic disease versus blood loss? - monitor Endocrine # type 2 diabetes # morbid obesity # fungal skin infection - moderate sliding scale insulin - topical nystatin b.i.d. DVT prophylaxis holding owing to suspicion of GI bleed? Nutrition Tube feedings Glucerna Lines Right IJ 02/27/2025 Right midline [facility] None Critical care time 83 minutes excluding procedure. Code status discussed greater than 20 minutes: DNR/DNI Family at bedside explained about the condition of the patient Plan discussed with Dr. Villanueva Plan discussed with: Other (RN) My Orders My Orders Orders - ARY MENESES RESIDENT Procedure Category Date Status Time Glucose Blood PHA 03/02/25 In Process (Accu-Chek Comfort 11:30 Insulin R (Human) PHA 03/02/25 In Process (Insulin R) 22:00 Insulin R (Human) PHA 03/02/25 In Process (Insulin R) 11:30 Dextrose 50% Syringe PHA 03/02/25 In Process 10:15 Dietary Evaluation Review Comments: Diet Order: Continue CCHO-60, 2-gram sodium diet. Monitoring: Monitor PO intake and tolerance. Monitor renal function and updated lab values (electrolytes, BUN/Cr, GFR). Follow up with nephrology and GI reports. Reassessment: Reassess PRN based on clinical status and intake. Discharge Planning: Address weight management upon discharge. Expected Outcomes/Goals: gradual wt loss Visit Coding STANDARD RES Billing Provider: BRITTANY VILLANUEVA MD Date of Service if different f: Mar 02, 2025 Common Visit Codes: 68121-[id number] CARE 30-74 MIN, [id number] CARE-EACH +30MIN ARY MENESES Mar 02, 2025 13:35 BRITTANY VILLANUEVA MD Mar 03, 2025 15:39
[2025-03-02 17:45] LABS: Urine Amorphous Crystal FEW /hpf (None Seen); Urine Protein, UAD 1+ (Negative)
[2025-03-02 17:51] LABS: Magnesium 2.0 mg/dL (1.6-2.6)
[2025-03-02 18:00] LABS: Protein, Urine 83.3 mg/dL (1-14)
[2025-03-02] MEDS: DAPTOmycin 400 MG in SODIUM CHL 0.9% 50 ML IV ONE (20:39)
--- NOTE | 2025-03-02 22:17 | DVHEEG2 ---
Neurology EEG Procedural Note Procedural Note EXAM DATE: 02/28/2025 REFERRING DOCTOR: Moreno TECHNIQUE: Eighteen channels of EEG, 2 channels of EOG, and 1 channel of EKG were recorded using the International 10/20 system. CLINICAL DATA: The patient was referred for an EEG evaluation for the evidence of seizure disorder. MEDICATIONS: See the chart BACKGROUND ACTIVITY: This record showed moderate to large amount of diffuse low to medium voltage polymorphic delta and theta activity over both hemispheres, with interval of relatively suppressed background activity ACTIVATION: Hyperventilation: Not done Photic Stimulation: Not done Sleep: Nonresponsiveness IMPRESSION: This is a moderate to remarkably abnormal EEG, this EEG is seen in moderate to severe cerebral dysfunction due to metabolic/hypoxic encephalopathy or medication effect, please correlate clinically The EKG channel showed a regular heart rate of 96/minute [place] [address] NO MONDRAGON MD Mar 02, 2025 22:17
--- NOTE | 2025-03-02 23:25 | DVHPN2 ---
Subjective DOS: 03/02/2025 Patient seen and examined at bedside. intubated on mechanical ventilator. Overnight events reviewed. Reviewed: H&P Changes from previous H/P or p: No Changes General: Per HPI Eyes: No Pain, No Vision change, No Conjunctivae inflammation, No Eyelid inflammation, No Other, No Redness ENT: No Ear pain, No Ear discharge, No Nose pain, No Nose discharge, No Nose congestion, No Mouth pain, No Mouth swelling, No Throat pain, No Throat swelling, No Other Cardiovascular: No Chest Pain, No Palpitations, No Orthopnea, No Paroxysmal Noc. Dyspnea, No Edema, No Lt Headedness, No Other Respiratory: No Cough, No Dry, No Shortness of breath, No SOB with excertion, No Wheezing, No Hemoptysis, No Pleuritic Pain, No Sputum, No Other Gastrointestinal: No Nausea, No Vomiting, No Abdominal Pain, No Diarrhea, No Constipation, No Melena, No Hematochezia, No Other Musculoskeletal: No other, No neck pain, No shoulder pain, No arm pain, No back pain, No hand pain, No leg pain, No foot pain Skin: No Rash, No Lesions, No Jaundice, No Bruising, No Other Objective Vitals Vital Signs Date Time Temp Pulse Resp B/P (MAP) Pulse Ox O2 Delivery O2 Flow Rate FiO2 03/02/25 22:01 101 16 101/53 (69) 100 30 03/02/25 18:54 98.8 98.8 03/02/25 18:00 Mechanical Ventilator+ 02/28/25 08:00 0 Intake/Output Intake and Output 03/02/25 07:00 Intake Total 825 ml Output Total 550 ml Balance 275 ml Intake Oral 290 ml IV Total 485 ml Tube Feeding 50 ml Output Urine Total 550 ml Exam Gen.: Patient lying in bed in medical ICU. Intubated on mechanical ventilator. Head: Normocephalic, atraumatic. Eyes: PERRLA. Ears: Normal external anatomy. Throat: Endotracheal tube and orogastric tube in place. Neck: Supple, trachea midline. Chest: Transmitted breath sounds bilaterally. Decreased air entry bilaterally. No wheezing. Bibasilar crackles. Cardiovascular: Positive S1, positive S2. Regular rate and rhythm. Abdomen: Positive bowel sounds in all 4 quadrants. Soft, nontender, nondistended. : [place] in place. Normal external genitalia. Rectal: Deferred. Skin: Warm, dry. Intact. Extremities: 2+ radial pulses bilaterally. No lower extremity edema. Neuro: Off sedation Lungs: Clear to auscultation Cardiovascular: Regular rate, Normal S1, Normal S2, No murmurs Abdomen: Normal bowel sounds, Soft, No tenderness Extremities: No edema Medications Current Medications Medications Dose Ordered Sig/Tim Route Start Time Stop Time Status Last Admin Dose Admin Diagnostic Test (Pha) 1 strip IQ4HR 02/21/25 00:00 UNV Sodium Chloride 10 ml Q8HR IV 02/20/25 22:00 03/02/25 20:39 10 ML Ondansetron HCl 4 mg Q4HP PRN IV 02/20/25 20:15 Docusate Sodium 100 mg BIDPRN PRN PO 02/20/25 20:15 Acetaminophen 650 mg Q6HP PRN PO 02/20/25 20:15 Nitroglycerin 0.4 mg Q5MINP PRN SL 02/20/25 21:15 Hydralazine HCl 10 mg Q6HP PRN IV 02/24/25 16:30 02/25/25 08:46 10 MG Lorazepam 1 mg ONCE PRN IV 02/25/25 10:45 Levofloxacin 50 ml @ 50 mls/hr DAILY IV 02/27/25 10:00 Cancel Midazolam HCl 100 ml @ 1 mls/hr Q24H IV 02/27/25 07:15 02/27/25 07:15 0 MLS/HR Fentanyl Citrate 250 ml @ 2.5 mls/hr Q24H IV 02/27/25 07:15 Norepinephrine Bitartrate 250 ml @ 3.75 mls/hr Q24H IV 02/27/25 07:15 02/28/25 15:25 7.5 MLS/HR Enteral Nutritional Formula 1,000 ml 30ML/HR GT 02/28/25 10:45 03/02/25 20:50 1,000 ML Budesonide 0.5 mg BID NEB 02/28/25 22:00 03/02/25 18:12 0.5 MG Meropenem 50 ml @ 17 mls/hr Q12H IV 03/01/25 20:00 03/02/25 20:39 17 MLS/HR Nystatin 1 applic BID TOP 03/01/25 22:00 Diagnostic Test (Pha) 1 strip ACHS 03/02/25 11:30 03/02/25 20:40 1 STRIP Insulin Human Regular HS SC 03/02/25 22:00 Insulin Human Regular AC SC 03/02/25 11:30 03/02/25 12:31 2 UNITS Dextrose 50 ml UD PRN IV 03/02/25 10:15 Pantoprazole Sodium 40 mg DAILY IV 03/03/25 10:00 Daptomycin 400 mg/ Sodium Chloride 50 ml @ 100 mls/hr Q48H IV 03/03/25 17:00 Laboratory Results Laboratory Tests 03/02/25 02:36 Chemistry Test 03/02/25 02:36 03/02/25 17:14 Calcium Level 8.2 mg/dL (8.7-10.4) L Magnesium Level 1.9 mg/dL (1.6-2.6) 2.0 mg/dL (1.6-2.6) Phosphorus Level 2.5 mg/dL (2.4-5.1) Urinalysis Test 02/20/25 21:52 03/02/25 17:20 Urine WBC Clumps Present /hpf (None Seen) Urine Hyaline Casts Few /lpf (0 - 2) Urine Mucus Few (None Seen) Urine Color Yellow (Yellow) Urine Clarity Turbid (Clear) H Urine pH 5.0 (5.0-9.0) Urine Specific [place] 1.013 (1.001-1.035) Urine Protein 1+ (Negative) H Urine Ketones Trace (Negative) Urine Blood 1+ /uL (Negative) H Urine Nitrite Negative (Negative) Urine Bilirubin Negative (Negative) Urine Urobilinogen 2 mg/dL (Negative) H Urine Leukocyte Esterase Trace /uL (Negative) Urine RBC 1 /hpf (0 - 4) Urine Microscopic WBC 2 /HPF (0-5) Urine Squamous Epithelial Cells Few /hpf (<5) Urine Calcium Oxalate Crystals Few (None Seen) Urine Amorphous Crystals Few /hpf (None Seen) Urine Bacteria Few /hpf (None Seen) H Urine Osmolality 329 mOsm/kg Urine Creatinine 73.30 mg/dL (30.0-125.0) Urine Protein/Creatinine Ratio 1.14 Urine Sodium 28 mmol/L (40-220) L Urine Glucose 1+ mg/dL (Normal) H Urine Total Protein 83.3 mg/dL (1-14) H Blood Gas Results Test 03/02/25 06:57 Arterial Blood pH 7.394 (7.350-7.450) FiO2 % 30.0 Microbiology Microbiology Date/Time Source Procedure Growth Status 02/27/25 22:45 Nose MRSA Screen - Final Complete 02/27/25 14:05 Sputum Endotracheal Wash Gram Stain - Final Complete 02/27/25 14:05 Sputum Endotracheal Wash Respiratory Culture - Final Complete 02/27/25 10:21 Blood Blood Culture - Preliminary NO GROWTH AFTER 72 HOURS OF INCUBATION. Resulted 02/21/25 01:55 Urine - [place] Urine Culture - Final Escherichia coli - ESBL Complete Assessment/Plan Assessment/Plan Impression: Acute hypoxic respiratory failure On mechanical ventilator S/p cardiac arrest Acute DKA, resolved Acute metabolic encephalopathy BETH on OHS likely Acute kidney injury Hypernatremia Sepsis due to UTI Urinary tract infection Morbid obesity Events: Remains on vent support On AC mode; RR 16, VT 450, PEEP 5-->8, FiO2 30% Patient failed CPAP trial. Off sedation Awaiting for mentation to improve. CXR reviewed, demonstrates cardiomegaly and pulmonary vascular congestion. Devices in place. CT head showed no evidence of stroke or intracranial hemorrhage. Continue CPAP trial - PS 8, PEEP of 5 Precedex OK for agitation Off Levophed, monitor hemodynamics Continue antibiotics. Pulmicort BID Discontinue Solu-Medrol Continue diuresis with Lasix Lasix 40 mg IVP q.daily. Monitor renal function Monitor electrolytes. Supplement as necessary. Monitor ins and outs. Continue tube feeds for nutritional support Labs and imaging reviewed. Rest of plan as noted below. Plan: s/p intubation on mechanical ventilator. On AC mode; RR 16, VT 450, PEEP 8, FiO2 30% Titrate FIO2 to keep O2 saturation above 90%. VAP bundle. Daily ABG and CXR while intubated Sedate for ventilator synchrony Continue IV antibiotics. Follow up cultures. Steroids - Solu-Medrol 40 mg IVP q.12 hours (Discontinued) Pulmicort 0.5 mg BID Pressors as necessary for hemodynamic support Titrate to keep mean arterial pressure greater than 65 mmHg. Follow up Cardiology recs NG tube in place. Tube feeds for nutritional support Monitor renal function - Poor UOP Monitor electrolytes. Supplement as necessary. Monitor ins and outs. Maintain euvolemia. Follow up Nephrology recs Recommend diet and lifestyle modifications for weight reduction Obesity complicates all care GI prophylaxis. DVT prophylaxis. Prognosis: Poor given patient's multiple co-morbidities. Condition: Critical Rest of plan per hospitalist and other consultants. A total of 35 minutes of critical care time was spent reviewing the patient record, examining the patient, making a diagnostic and therapeutic plan, discussing this plan with the medical personnel, following up on diagnostic studies and following the patient for clinical stability excluding any and all procedures. At least 50% of this time was spent in direct, [id number] contact. Thank you, Dr. Carreno, for allowing me to participate in this patient's care. Further recommendations will depend on the patient's clinical course. Please do not hesitate to contact me if you have any questions or concerns. This medical document was created using an electronic medical record system with [employer] dictation system. Although these documentations are being carefully reviewed, there may still be some phonetic and typographical changes. The errors are purely typographical, due to imperfection on the software program, and do not reflect any compromise in the patient's medical care. Plan discussed with: Other (REI Staley) My Orders Orders - JOSE CASTRO MD Procedure Category Date Status Time Cpap Trial For Am ORDERS 03/02/25 Transmitted 11:57 Ventilator Orders RT 03/02/25 Transmitted 09:44 Dexmedetomidine Hcl PHA 03/02/25 In Process In D5w (Precedex) 12:00 Visit Coding Pulmonary Billing Provider: JOSE CASTRO MD Date of Service if different f: Mar 02, 2025 Common Visit Codes: [id number] INP/OBS CARE(HIGH), 46587-MCNVONOS CARE 30-74 MIN JOSE CASTRO MD Mar 02, 2025 23:25
[2025-03-03] VITALS (112 sets, daily range): BP systolic 36–136; BP diastolic 16–102; PULSE 84–108; RESP 11–19; TEMP 98.1–99.7; O2SAT 82–100
[2025-03-03 04:42] LABS: Hemoglobin 8.4 g/dL (12.2-16.2); Mean Corpuscular Volume 85.0 fL (80.0-100.0); Nucleated Red Blood Cells % 0.2 %
[2025-03-03 04:44] LABS: Hematocrit 25.2 % (36.0-46.0); Mean Corpuscular Hemoglobin 28.4 pg (28.0-32.0)
[2025-03-03 04:59] LABS: Alanine Aminotransferase 20 U/L (7-40); Alkaline Phosphatase 95 U/L (46-116); Anion Gap 12 (5-15); BUN/Creatinine Ratio 22.8 (10.0-20.0); Carbon Dioxide 29 mmol/L (20-31); Potassium 3.7 mmol/L (3.5-5.1)
[2025-03-03 05:00] LABS: Bilirubin, Total 0.5 mg/dL (0.2-1.0)
--- NOTE | 2025-03-03 05:03 | DVH ---
CHEST RADIOGRAPH INDICATION: pna TECHNIQUE: Single frontal view of the chest was obtained COMPARISON: XY CHEST PORTABLE on DOS: 03/02/25 FINDINGS: Lines and Tubes: The endotracheal tube terminates 4.1 cm above the raza. Right central venous catheter terminates in the superior vena cava. The enteric tube courses below the left hemidiaphragm and the tip extends outside the field of view. Lungs: Bilateral interstitial prominence. No focal consolidation. Pleura: Bilateral pleural effusions. No pneumothorax. Cardiomediastinal contours: Cardiomegaly Bones: No acute osseous abnormality. IMPRESSION: 1. Stable pulmonary congestion. Bilateral pleural effusions. 2. Similar position of the support lines and tubes.
[2025-03-03 05:04] LABS: Albumin 2.6 g/dL (3.2-4.8); Calcium 8.3 mg/dL (8.7-10.4); Chloride 110 mmol/L (98-107); Glucose 118 mg/dL (74-106); Sodium 151 mmol/L (136-145); Total Protein 4.6 g/dL (5.7-8.2)
[2025-03-03 05:05] LABS: Blood Urea Nitrogen 82 mg/dL (9-23)
[2025-03-03 06:58] LABS: Base Excess 1.7 mmol/L (-2.0-3.0)
--- NOTE | 2025-03-03 07:32 | ECG ---
[facility] Test Date: 2025-02-27 Test Time: 06:57:05 Pat Name: VIANCA FRIEDMAN Department: Respiratoy Room: [address] [place] [address] A Gender: F [employer] Consultant: : 1965 Requested By: OSVALDO PRIETO Order Number: [id number] Reading MD: Cyrus Flor Measurements Intervals [place] Rate: 69 P: 0 MA: 196 QRS: -85 QRSD: 135 T: 82 QT: 440 QTc: 472 Interpretive Statements Sinus rhythm Consider right atrial enlargement Right bundle branch block Inferior infarct, old Probable posterior infarct, acute Baseline wander in lead(s) V1 Electronically Signed On 03-06-2025 10:34:01 PST by Cyrus Flor Please click the below link to view image of tracing.
--- NOTE | 2025-03-03 07:33 | ECG ---
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
[2025-03-03] MEDS: FREE WATER GT SCH (08:45)
[2025-03-03] MEDS: D5W 5% 1,000 ML IV SCH (10:25)
[2025-03-03] MEDS: DOPamine 1600MCG/ML D5W 250 ML IV SCH (10:25)
[2025-03-03] MEDS: PANTOPRAZOLE 40 MG/10 ML VIAL INJ IV SCH (10:25)
--- NOTE | 2025-03-03 11:13 | DVHPN2 ---
Progress Note Date Seen: Mar 03, 2025 Medical Necessity Reason Pt with a Central, PICC or Fol: Yes The following are medically ne: Diallo Catheter Reason for diallo catheter: Strict I&O Subjective Review of Systems: RESPIRATORY:Abnormal Other Systems: Patient seen and examined by myself today in follow-up, patient remained intubated on ventilator Objective vital signs Vital Sign Date Time Temp Pulse Resp B/P (MAP) Pulse Ox O2 Delivery O2 Flow Rate FiO2 03/03/25 11:00 98.6 86 16 100 209.5 03/03/25 10:00 Mechanical Ventilator+ 30 30 Total Intake and Output 03/02/25 03/02/25 03/03/25 15:00 23:00 07:00 Intake Total 101 ml 161 ml 316 ml Output Total 325 ml 375 ml Balance 101 ml -164 ml -59 ml medications Current Medications Medications Dose Ordered Sig/Tim Route Start Time Stop Time Status Last Admin Dose Admin Diagnostic Test (Pha) 1 strip IQ4HR 02/21/25 00:00 UNV Sodium Chloride 10 ml Q8HR IV 02/20/25 22:00 03/03/25 10:26 10 ML Ondansetron HCl 4 mg Q4HP PRN IV 02/20/25 20:15 Docusate Sodium 100 mg BIDPRN PRN PO 02/20/25 20:15 Acetaminophen 650 mg Q6HP PRN PO 02/20/25 20:15 Nitroglycerin 0.4 mg Q5MINP PRN SL 02/20/25 21:15 Hydralazine HCl 10 mg Q6HP PRN IV 02/24/25 16:30 02/25/25 08:46 10 MG Lorazepam 1 mg ONCE PRN IV 02/25/25 10:45 Levofloxacin 50 ml @ 50 mls/hr DAILY IV 02/27/25 10:00 Cancel Midazolam HCl 100 ml @ 1 mls/hr Q24H IV 02/27/25 07:15 02/27/25 07:15 0 MLS/HR Fentanyl Citrate 250 ml @ 2.5 mls/hr Q24H IV 02/27/25 07:15 Norepinephrine Bitartrate 250 ml @ 3.75 mls/hr Q24H IV 02/27/25 07:15 03/03/25 08:51 3.75 MLS/HR Enteral Nutritional Formula 1,000 ml 30ML/HR GT 02/28/25 10:45 03/02/25 20:50 1,000 ML Budesonide 0.5 mg BID NEB 02/28/25 22:00 03/03/25 06:26 0.5 MG Meropenem 50 ml @ 17 mls/hr Q12H IV 03/01/25 20:00 03/03/25 08:35 17 MLS/HR Nystatin 1 applic BID TOP 03/01/25 22:00 03/03/25 10:27 1 APPLIC Diagnostic Test (Pha) 1 strip ACHS 03/02/25 11:30 03/03/25 06:19 1 STRIP Insulin Human Regular HS SC 03/02/25 22:00 Insulin Human Regular AC SC 03/02/25 11:30 03/02/25 12:31 2 UNITS Dextrose 50 ml UD PRN IV 03/02/25 10:15 Pantoprazole Sodium 40 mg DAILY IV 03/03/25 10:00 03/03/25 10:25 40 MG Daptomycin 400 mg/ Sodium Chloride 50 ml @ 100 mls/hr Q48H IV 03/03/25 17:00 Purified Water 200 ml Q4HR GT 03/03/25 08:45 Dextrose 1,000 ml @ 125 mls/hr Q8H IV 03/03/25 09:45 03/03/25 10:25 125 MLS/HR Dopamine HCl/ Dextrose 250 ml @ 9.473 mls/ hr Q24H IV 03/03/25 09:45 03/03/25 10:25 9.473 MLS/HR Examination: LUNGS:Abnormal, CVS:Normal, MSK:Normal laboratory and microbiology Laboratory Tests 03/03/25 04:00 Test 03/03/25 04:00 Range/Units Serum Glucose 118 H 74-106 mg/dL Microbiology Date/Time Source Procedure Growth Status 02/27/25 22:45 Nose MRSA Screen - Final Complete 02/27/25 14:05 Sputum Endotracheal Wash Gram Stain - Final Complete 02/27/25 14:05 Sputum Endotracheal Wash Respiratory Culture - Final Complete 02/27/25 10:21 Blood Blood Culture - Preliminary NO GROWTH AFTER 72 HOURS OF INCUBATION. Resulted 02/21/25 01:55 Urine - Diallo Port Urine Culture - Final Escherichia coli - ESBL Complete Problem List/Assessment/Plan Problem List/Assessment/Plan Acute kidney injury superimposed Chronic Kidney Disease secondary hemodynamic mediated, FeNa < 1% Acute respiratory failure, intubated on ventilator Status post cardiac arrest 02/17 Septic shock DKA sepsis UTI uncontrolled Dm2 morbid obesity hypernatremia need to insensible water loss Vancomycin toxicity Recommendations Kidney function slightly improved today Slightly increased urine output Diallo catheter Strict I&Os Discontinue vancomycin IVF D5W at 125 cc/hour Low-dose dopamine IV pressors for blood pressure support Insulin sliding scale Kidney reported within normal limit on CT scan We will continue to follow Plan discussed with: Other (Nurse) My Orders My Orders Orders - MARISELA CUEVA MD Procedure Category Date Status Time D5w 5% (Dextrose 5%) PHA 03/03/25 In Process 09:45 Dopamine 1600mcg/Ml PHA 03/03/25 In Process D5W 09:45 Dietary Evaluation Review Comments: Diet Order: Continue CCHO-60, 2-gram sodium diet. Monitoring: Monitor PO intake and tolerance. Monitor renal function and updated lab values (electrolytes, BUN/Cr, GFR). Follow up with nephrology and GI reports. Reassessment: Reassess PRN based on clinical status and intake. Discharge Planning: Address weight management upon discharge. Expected Outcomes/Goals: gradual wt loss MARISELA CUEVA MD Mar 03, 2025 11:13
--- NOTE | 2025-03-03 14:44 | MEDREC ---
[facility] Intervention Section I [facility] ASP Intervention: Deescalate AB based on CS (PLEASE CONSIDER DE-ESCALATION ACCORDING TO WOUND CULTURE RESULTS (MSSA) - KEEP DAPTOMYCIN ONLY FOR RESISTANT MICROORGANISMS - DE-ESCALATION HELPS REDUCE THE RISK OF DEVELOPING ANTIMICROBIAL RESISTANCE AND DECREASES POTENTIAL ADVERSE EFFECTS) MYLES FISHER PHARMACIST Mar 03, 2025 14:44
[2025-03-03] MEDS ORDERED: DAPTOmycin 400 MG in SODIUM CHL 0.9% 50 ML IV SCH (17:00)
--- NOTE | 2025-03-03 18:31 | DVHPNRES ---
Progress Note Date Seen: Mar 03, 2025 Resident Creating Document: ARY MENESES RESIDENT Medical Necessity Reason Pt with a Central, PICC or Fol: Yes The following are medically ne: Diallo Catheter Reason for diallo catheter: Strict I&O Subjective Review of Systems Patient is a 59-year-old female with past medical history diabetes, asthma, hypertension, who was brought in by EMS due to altered mental status. According to EMS, per patient's caregiver patient has been having a gradually progressive decline in her mentation over the last 2 months, currently patient noted to be AO x2. Patient was found to be covered in her own feces, unable to communicate effectively which is what prompted the caregiver to call the EMS. On route patient was noted to have a blood glucose of 470, tachycardic in 120s with blood pressure 118/98 saturating 80% on room air and 100% on 4 L O2 via NC. An accurate review of systems could not be completed as patient AO x2 only. Past medical history: Asthma, hypertension, diabetes Past surgical history: Unable to obtain Home medications: Albuterol, metoprolol, Ozempic Social & Personal history: Unable to obtain 03/03/25: Patient seen and examined at bedside, failed CPAP trial due to apneic episodes. Discontinue daptomycin. We will continue to keep patient off of sedation. Objective vital signs Vital Sign Date Time Temp Pulse Resp B/P (MAP) Pulse Ox O2 Delivery O2 Flow Rate FiO2 03/03/25 18:15 99.5 97 16 109/62 (78) 100 211.1 03/03/25 18:00 Mechanical Ventilator+ 30 30 Total Intake and Output 03/02/25 03/02/25 03/03/25 15:00 23:00 07:00 Intake Total 101 ml 161 ml 316 ml Output Total 325 ml 375 ml Balance 101 ml -164 ml -59 ml medications Current Medications Medications Dose Ordered Sig/Tim Route Start Time Stop Time Status Last Admin Dose Admin Diagnostic Test (Pha) 1 strip IQ4HR 02/21/25 00:00 UNV Sodium Chloride 10 ml Q8HR IV 02/20/25 22:00 03/03/25 10:26 10 ML Docusate Sodium 100 mg BIDPRN PRN PO 02/20/25 20:15 Acetaminophen 650 mg Q6HP PRN PO 02/20/25 20:15 Nitroglycerin 0.4 mg Q5MINP PRN SL 02/20/25 21:15 Hydralazine HCl 10 mg Q6HP PRN IV 02/24/25 16:30 02/25/25 08:46 10 MG Lorazepam 1 mg ONCE PRN IV 02/25/25 10:45 Levofloxacin 50 ml @ 50 mls/hr DAILY IV 02/27/25 10:00 Cancel Midazolam HCl 100 ml @ 1 mls/hr Q24H IV 02/27/25 07:15 02/27/25 07:15 0 MLS/HR Fentanyl Citrate 250 ml @ 2.5 mls/hr Q24H IV 02/27/25 07:15 Norepinephrine Bitartrate 250 ml @ 3.75 mls/hr Q24H IV 02/27/25 07:15 03/03/25 08:51 3.75 MLS/HR Enteral Nutritional Formula 1,000 ml 30ML/HR GT 02/28/25 10:45 03/02/25 20:50 1,000 ML Budesonide 0.5 mg BID NEB 02/28/25 22:00 03/03/25 06:26 0.5 MG Meropenem 50 ml @ 17 mls/hr Q12H IV 03/01/25 20:00 03/03/25 08:35 17 MLS/HR Nystatin 1 applic BID TOP 03/01/25 22:00 03/03/25 10:27 1 APPLIC Diagnostic Test (Pha) 1 strip ACHS 03/02/25 11:30 03/03/25 17:10 1 STRIP Insulin Human Regular HS SC 03/02/25 22:00 Insulin Human Regular AC SC 03/02/25 11:30 03/03/25 17:10 3 UNITS Dextrose 50 ml UD PRN IV 03/02/25 10:15 Pantoprazole Sodium 40 mg DAILY IV 03/03/25 10:00 03/03/25 10:25 40 MG Purified Water 200 ml Q4HR GT 03/03/25 08:45 03/03/25 17:11 200 ML Dextrose 1,000 ml @ 125 mls/hr Q8H IV 03/03/25 09:45 03/03/25 10:25 125 MLS/HR Dopamine HCl/ Dextrose 250 ml @ 9.473 mls/ hr Q24H IV 03/03/25 09:45 03/03/25 10:25 9.473 MLS/HR Examination PURGE FLUID laboratory and microbiology Laboratory Tests 03/03/25 04:00 Test 03/03/25 04:00 Range/Units Serum Glucose 118 H 74-106 mg/dL Microbiology Date/Time Source Procedure Growth Status 02/27/25 22:45 Nose MRSA Screen - Final Complete 02/27/25 14:05 Sputum Endotracheal Wash Gram Stain - Final Complete 02/27/25 14:05 Sputum Endotracheal Wash Respiratory Culture - Final Complete 02/27/25 10:21 Blood Blood Culture - Preliminary NO GROWTH AFTER 72 HOURS OF INCUBATION. Resulted 02/21/25 01:55 Urine - Diallo Port Urine Culture - Final Escherichia coli - ESBL Complete Labs and/or images reviewed: Labs reviewed by me, Image(s) reviewed by me Problem List/Assessment/Plan Problem List/Assessment/Plan Neurology # acute metabolic encephalopathy # right meningioma - head CT: No acute intracranial abnormality. Probable right vertex meningioma. - brain MRI: No acute intracranial abnormality seen. 1.9 cm right medial posterior frontal extra-axial mass, most compatible with meningioma. No underlying mass effect/vasogenic edema. - EEG report from 02/26/2025: Mild to moderately abnormal EEG seen in [id number] cerebral dysfunction due to metabolic/hypoxic encephalopathy or medication effect. - neurology on board # Sedated - currently off of all sedation since 03/01/2025 5am Cardiovascular # NSTEMI type 1 versus type 2 # septic shock # V-tach - cardiology on board #ROSC s/p Cardiac arrest and CPR, code blue 02/27/2025 -pt had bradycardia, VFib received shock, asystole then V-tach in subsequently received amiodarone. -ROSC post CPR Respiratory # Ventilator -intubated 02/27/2025 -on [facility] : VCAC Mode RR 16, TV 450, peep 8, FiO2 30% # Acute hypoxic respiratory failure # obstructive sleep apnea on obesity hypoventilation syndrome - CXR:Cardiomegaly and pulmonary vascular congestion. GI # umbilical hernia containing bowel loops # wound culture from umbilical hernia growing ESBL and MSSA # questionable GI bleed - CT abdomen pelvis: No evidence of acute abdominopelvic abnormalities. Large umbilical hernia containing bowel loops without evidence of obstruction or strangulation. - GI consulted - 100 cc brownish red output noted in NG tube canister - Stable H&H, however, steep decline from hemoglobin 16.1 on admission to 8.2 today. - IV daptomycin # Peptic ulcer prophylaxis -Pantoprazole 40 mg IV daily # Diallo catheter placed on 02/20/2025 # acute complicated UTI growing ESBL - IV meropenem Nephrology # JAMEE likely hemodynamically mediated/VMN versus ATN # hypokalemia # hypernatremia - monitor - discontinued Lasix Infectious disease # infected umbilical wound growing ESBL and MSSA # acute complicated UTI growing ESBL # sepsis due to above # septic shock, now improving - IV meropenem b.i.d. - IV daptomycin Hem/onc # anemia possibly of chronic disease versus blood loss? - monitor Endocrine # type 2 diabetes # morbid obesity # fungal skin infection - moderate sliding scale insulin - topical nystatin b.i.d. DVT prophylaxis holding owing to suspicion of GI bleed? Nutrition Tube feedings Glucerna Lines Right IJ 02/27/2025 Right midline 02/25/2025 Drips during mech ventilation None Critical care time 83 minutes excluding procedure. Code status discussed greater than 20 minutes: DNR/DNI Family at bedside explained about the condition of the patient Plan discussed with Dr. Villanueva Plan discussed with: Other (RN) My Orders My Orders Orders - ARY MENESES RESIDENT Procedure Category Date Status Time Free Water PHA 03/03/25 In Process 08:45 Cpap Trial For Am ORDERS 03/03/25 Transmitted 08:54 Complete Blood Count LAB 03/04/25 Verified 04:00 Basic Metabolic Panel LAB 03/04/25 Verified 04:00 Abg W/ Co-Ox RT 03/04/25 Logged 04:00 Chest Portable XY 03/04/25 Logged 04:00 Dietary Evaluation Review Comments: Diet Order: Continue CCHO-60, 2-gram sodium diet. Monitoring: Monitor PO intake and tolerance. Monitor renal function and updated lab values (electrolytes, BUN/Cr, GFR). Follow up with nephrology and GI reports. Reassessment: Reassess PRN based on clinical status and intake. Discharge Planning: Address weight management upon discharge. Expected Outcomes/Goals: gradual wt loss Visit Coding STANDARD RES Billing Provider: BRITTANY VILLANUEVA MD Date of Service if different f: Mar 03, 2025 Common Visit Codes: 92754-CXSOQFKA CARE 30-74 MIN, 54623-DATYEUCI CARE-EACH +30MIN ARY MENESES Mar 03, 2025 18:31 BRITTANY VILLANUEVA MD Mar 04, 2025 13:39
--- NOTE | 2025-03-03 19:59 | DVHPN2 ---
Progress Note - Dictate Date Seen: Mar 03, 2025 Medical Necessity Reason Pt with a Central, PICC or Fol: Yes The following are medically ne: Diallo Catheter Reason for diallo catheter: Strict I&O Subjective Ms. Herrera is a 59 years old female with a history of hypertension, diabetes, morbid obesity, anemia, kidney failure, GERD, he was brought to the [facility] on 02/28/2025 with a chief complaint of altered mental status He coded at 02/27/25 0631. He had tachycardia, then was found to be pulseless by our staff, the patient was resuscitated, intubated. The code ended at 0640 I have seen and examined the patient, I have talked to her nurse, she is intubated, she his not responsive to stroke painful stimuli. No gag She has pain evoked twitching in the left thumb (confirmed on 03/03/2025), and sometimes she also has evoked twitching in the left foot Levo 2 mcg/minute, Dopa 2 mcg/minute Urine culture, 02/21/2025: E coli Blood culture, 02/20/2025: Wound culture, 02/21/2025: Many growth Urinalysis, 02/20/2025: WBC: 382, urine leukocyte esterase: 3 +, ABG, 02/20/2025: Respiratory acidosis, hypoxia, 02/27/2025: Respiratory acidosis, hypoxia WBC/HB/PLT/MCV, 02/24/2025: 6.8/11.9/148/85.9 Na, 02/20/2025: 144, 02/21/2025: 48, 02/22/2025: 156, 02/23/2025: 158, 02/24/2025: 157, 02/24/2025: 155, 02/25/25: 156, 02/27/2025: 152 BUN/CR, 02/20/2025: 94/3.31, 02/24/2025: 36/1.93, 02/25/2025: 38/1.76 GFR, 02/20/2025: 16, 02/24/2025: 30 Glucose, 02/20/2025: 459, 02/21/2025: 196 HGB A1c, 02/22/2025: 8.4 Lactic acid, 02/20/2025: 5, 6.7 02/21/2025: 2.3 Beta hydroxybutyric acid, 02/20/2025: 0.662 TG/HDL/LDL/HDL, 02/21/2025: 1.2/58/57/117, 02/24/2025: Normal Ammonia, 02/24/2025: <10 Vitamin B12, 02/24/2025: 682 Folic acid, 02/24/2025: 3.45 TSH, 02/24/2025: 3.24 Chest x-ray, 02/20/2025: No acute pulmonary process. CT head, 02/24/2025: 1. No acute territorial infarct or intracranial hemorrhage.2. Age-related involutional changes. Chronic microvascular changes. 3. 2.2 cm right frontal extra-axial lesion may reflect a meningioma. A nonemergent MRI of the brain is suggested in further assessment MR head, 02/25/2025: No acute intracranial abnormality seen. 1.9 cm right medial posterior frontal extra-axial mass, most compatible with meningioma. No underlying mass effect/ vasogenic edema. vital signs Vital Sign Date Time Temp Pulse Resp B/P (MAP) Pulse Ox O2 Delivery O2 Flow Rate FiO2 03/03/25 18:52 96 16 104/63 (77) 100 30 03/03/25 18:45 99.7 211.5 03/03/25 18:00 Mechanical Ventilator+ Total Intake and Output 03/02/25 03/02/25 03/03/25 15:00 23:00 07:00 Intake Total 101 ml 161 ml 316 ml Output Total 325 ml 375 ml Balance 101 ml -164 ml -59 ml medications Current Medications Medications Dose Ordered Sig/Tim Route Start Time Stop Time Status Last Admin Dose Admin Diagnostic Test (Pha) 1 strip IQ4HR 02/21/25 00:00 UNV Sodium Chloride 10 ml Q8HR IV 02/20/25 22:00 03/03/25 10:26 10 ML Docusate Sodium 100 mg BIDPRN PRN PO 02/20/25 20:15 Acetaminophen 650 mg Q6HP PRN PO 02/20/25 20:15 Nitroglycerin 0.4 mg Q5MINP PRN SL 02/20/25 21:15 Hydralazine HCl 10 mg Q6HP PRN IV 02/24/25 16:30 02/25/25 08:46 10 MG Lorazepam 1 mg ONCE PRN IV 02/25/25 10:45 Levofloxacin 50 ml @ 50 mls/hr DAILY IV 02/27/25 10:00 Cancel Midazolam HCl 100 ml @ 1 mls/hr Q24H IV 02/27/25 07:15 02/27/25 07:15 0 MLS/HR Fentanyl Citrate 250 ml @ 2.5 mls/hr Q24H IV 02/27/25 07:15 Norepinephrine Bitartrate 250 ml @ 3.75 mls/hr Q24H IV 02/27/25 07:15 03/03/25 08:51 3.75 MLS/HR Enteral Nutritional Formula 1,000 ml 30ML/HR GT 02/28/25 10:45 03/02/25 20:50 1,000 ML Budesonide 0.5 mg BID NEB 02/28/25 22:00 03/03/25 06:26 0.5 MG Meropenem 50 ml @ 17 mls/hr Q12H IV 03/01/25 20:00 03/03/25 08:35 17 MLS/HR Nystatin 1 applic BID TOP 03/01/25 22:00 03/03/25 10:27 1 APPLIC Diagnostic Test (Pha) 1 strip ACHS 03/02/25 11:30 03/03/25 17:10 1 STRIP Insulin Human Regular HS SC 03/02/25 22:00 Insulin Human Regular AC SC 03/02/25 11:30 03/03/25 17:10 3 UNITS Dextrose 50 ml UD PRN IV 03/02/25 10:15 Pantoprazole Sodium 40 mg DAILY IV 03/03/25 10:00 03/03/25 10:25 40 MG Purified Water 200 ml Q4HR GT 03/03/25 08:45 03/03/25 17:11 200 ML Dextrose 1,000 ml @ 125 mls/hr Q8H IV 03/03/25 09:45 03/03/25 18:33 125 MLS/HR Dopamine HCl/ Dextrose 250 ml @ 9.473 mls/ hr Q24H IV 03/03/25 09:45 03/03/25 10:25 9.473 MLS/HR objective The patient is well-nourished and well-developed with no distress. The patient is intubated MENTAL STATUS: Subjective CRANIAL NERVES: Pupils are equal, round and reactive, was eyes are deducted. There are no corneal reflexes, there is doll's eyes phenomenon. No signs of facial weakness. There are no gagging or coughing reflexes SENSATION: Nonresponsive to painful stimuli MOTOR: Normal tone in the upper and lower extremity. Normal muscle bulk. No fasciculations. No spontaneous movement. REFLEXES: Deep tendon reflexes are symmetrical. No pathological reflexes. CEREBELLAR/COORDINATION: Deferred GAIT/STATION: deferred. laboratory and microbiology Laboratory Tests 03/03/25 04:00 Test 03/03/25 04:00 Range/Units Serum Glucose 118 H 74-106 mg/dL Problem List Altered mental status Metabolic encephalopathy Hypoxic encephalopathy Toxic encephalopathy Cardiopulmonary arrest Acute on chronic respiratory failure Diabetic ketoacidosis Metabolic acidosis UTI Sepsis Morbid obesity Acute respiratory failure Kidney failure Dehydration Hypernatremia Morbid obesity ? Obesity hypoventilation syndrome She looks worse today Assessment/Plan Monitoring Supportive treatment ICU care Follow up labs Stabilize vitals/pressor drip Respiratory support/vent management Oxygen IV antibiotics D5W 5% IIV fluids Nephrology on case Cardiology on case Pulmonology consultation More recommendation per clinical course She is likely to have a poor prognosis This medical document was created using an electronic medical record system with [employer] computerized dictation system. Although this document has been carefully reviewed, there may still be some phonetic and typographical errors. These areas are purely typographical due to imperfections of the software programs, and do not reflect any compromise in the patient's medical care. Prognosis poor Dietary Evaluation Review Comments: Diet Order: Continue CCHO-60, 2-gram sodium diet. Monitoring: Monitor PO intake and tolerance. Monitor renal function and updated lab values (electrolytes, BUN/Cr, GFR). Follow up with nephrology and GI reports. Reassessment: Reassess PRN based on clinical status and intake. Discharge Planning: Address weight management upon discharge. Expected Outcomes/Goals: gradual wt loss Plan discussed with: Other Critical Care Time(min): 35 NO MONDRAGON MD Mar 03, 2025 19:59
[2025-03-04] VITALS (119 sets, daily range): BP systolic 93–126; BP diastolic 58–78; PULSE 83–106; RESP 15–21; TEMP 96.6–99.5; O2SAT 97–100
[2025-03-04 03:44] LABS: Hematocrit 26.6 % (36.0-46.0); Hemoglobin 8.8 g/dL (12.2-16.2); Mean Corpuscular Hemoglobin 27.9 pg (28.0-32.0); Mean Corpuscular Volume 84.2 fL (80.0-100.0); Nucleated Red Blood Cells % 0.1 %
[2025-03-04 03:56] LABS: Potassium 3.6 mmol/L (3.5-5.1)
[2025-03-04 03:57] LABS: Anion Gap 10 (5-15); Carbon Dioxide 30 mmol/L (20-31)
[2025-03-04 04:02] LABS: Calcium 8.6 mg/dL (8.7-10.4); Chloride 107 mmol/L (98-107); Sodium 147 mmol/L (136-145)
[2025-03-04 04:03] LABS: BUN/Creatinine Ratio 27.1 (10.0-20.0)
[2025-03-04 04:14] LABS: Blood Urea Nitrogen 79 mg/dL (9-23); Glucose 250 mg/dL (74-106)
--- NOTE | 2025-03-04 05:38 | DVH ---
CHEST RADIOGRAPH INDICATION: intubated TECHNIQUE: Single frontal view of the chest was obtained COMPARISON: XY CHEST PORTABLE on DOS: 03/03/25, XY CHEST PORTABLE on DOS: 03/02/25, XY CHEST PORTABLE on DOS: 03/01/25, XY CHEST PORTABLE on DOS: 02/28/25, XY CHEST XRAY 1 VIEW on DOS: 02/28/25 FINDINGS: Lines and Tubes: Unchanged. Lungs: Mild residual bibasilar pulmonary airspace disease and/or atelectasis. No pneumothorax. Cardiomediastinal contours: Cardiomegaly. Bones: Unremarkable IMPRESSION: 1. Mild bibasilar pulmonary airspace disease and/or atelectasis. 2. Cardiomegaly. 3. Lines and tubes unchanged.
--- NOTE | 2025-03-04 11:21 | DVHPN2 ---
Progress Note Date Seen: Mar 04, 2025 Medical Necessity Reason Pt with a Central, PICC or Fol: Yes The following are medically ne: Diallo Catheter Reason for diallo catheter: Strict I&O Subjective Review of Systems: RESPIRATORY:Abnormal Other Systems: Patient seen and examined by myself today in follow-up, patient remained intubated on ventilator Objective vital signs Vital Sign Date Time Temp Pulse Resp B/P (MAP) Pulse Ox O2 Delivery O2 Flow Rate FiO2 03/04/25 10:56 97/62 03/04/25 10:31 91 16 100 03/04/25 10:01 30 03/04/25 10:00 Mechanical Ventilator+ 03/04/25 08:31 99.3 210.7 Total Intake and Output 03/03/25 03/03/25 03/04/25 15:00 23:00 07:00 Intake Total 694.865 ml 1476.784 ml 1379.784 ml Output Total 825 ml 1000 ml Balance 694.865 ml 651.784 ml 379.784 ml medications Current Medications Medications Dose Ordered Sig/Tim Route Start Time Stop Time Status Last Admin Dose Admin Diagnostic Test (Pha) 1 strip IQ4HR 02/21/25 00:00 UNV Sodium Chloride 10 ml Q8HR IV 02/20/25 22:00 03/04/25 05:15 10 ML Docusate Sodium 100 mg BIDPRN PRN PO 02/20/25 20:15 Acetaminophen 650 mg Q6HP PRN PO 02/20/25 20:15 Nitroglycerin 0.4 mg Q5MINP PRN SL 02/20/25 21:15 Hydralazine HCl 10 mg Q6HP PRN IV 02/24/25 16:30 02/25/25 08:46 10 MG Lorazepam 1 mg ONCE PRN IV 02/25/25 10:45 Levofloxacin 50 ml @ 50 mls/hr DAILY IV 02/27/25 10:00 Cancel Midazolam HCl 100 ml @ 1 mls/hr Q24H IV 02/27/25 07:15 02/27/25 07:15 0 MLS/HR Fentanyl Citrate 250 ml @ 2.5 mls/hr Q24H IV 02/27/25 07:15 Norepinephrine Bitartrate 250 ml @ 3.75 mls/hr Q24H IV 02/27/25 07:15 03/03/25 08:51 3.75 MLS/HR Enteral Nutritional Formula 1,000 ml 30ML/HR GT 02/28/25 10:45 03/03/25 19:53 1,000 ML Budesonide 0.5 mg BID NEB 02/28/25 22:00 03/04/25 10:00 0.5 MG Meropenem 50 ml @ 17 mls/hr Q12H IV 03/01/25 20:00 03/04/25 07:14 17 MLS/HR Nystatin 1 applic BID TOP 03/01/25 22:00 03/04/25 09:31 1 APPLIC Diagnostic Test (Pha) 1 strip ACHS 03/02/25 11:30 03/04/25 11:02 1 STRIP Insulin Human Regular HS SC 03/02/25 22:00 03/03/25 20:42 3 UNITS Insulin Human Regular AC SC 03/02/25 11:30 03/04/25 11:03 3 UNITS Dextrose 50 ml UD PRN IV 03/02/25 10:15 Pantoprazole Sodium 40 mg DAILY IV 03/03/25 10:00 03/04/25 09:30 40 MG Purified Water 200 ml Q4HR GT 03/03/25 08:45 03/04/25 09:30 200 ML Dextrose 1,000 ml @ 125 mls/hr Q8H IV 03/03/25 09:45 03/04/25 10:57 125 MLS/HR Dopamine HCl/ Dextrose 250 ml @ 9.473 mls/ hr Q24H IV 03/03/25 09:45 03/04/25 10:56 9.473 MLS/HR Examination: LUNGS:Abnormal, CVS:Normal, MSK:Normal laboratory and microbiology Laboratory Tests 03/04/25 03:00 Test 03/04/25 03:00 Range/Units Serum Glucose 250 H 74-106 mg/dL Microbiology Date/Time Source Procedure Growth Status 02/27/25 22:45 Nose MRSA Screen - Final Complete 02/27/25 14:05 Sputum Endotracheal Wash Gram Stain - Final Complete 02/27/25 14:05 Sputum Endotracheal Wash Respiratory Culture - Final Complete 02/27/25 10:21 Blood Blood Culture - Final NO GROWTH AFTER 5 DAYS OF INCUBATION. Complete 02/21/25 01:55 Urine - Diallo Port Urine Culture - Final Escherichia coli - ESBL Complete Problem List/Assessment/Plan Problem List/Assessment/Plan Acute kidney injury superimposed Chronic Kidney Disease secondary hemodynamic mediated, FeNa < 1% Vancomycin toxicity Acute respiratory failure, intubated on ventilator Status post cardiac arrest 02/17 Septic shock DKA sepsis UTI uncontrolled Dm2 morbid obesity hypernatremia need to insensible water loss Recommendations Kidney function slightly improved today increased urine output Diallo catheter Strict I&Os Discontinue vancomycin IVF D5W at 125 cc/hour Low-dose dopamine IV pressors for blood pressure support Insulin sliding scale Kidney reported within normal limit on CT scan We will continue to follow Plan discussed with: Other Dietary Evaluation Review Comments: Diet Order: Continue CCHO-60, 2-gram sodium diet. Monitoring: Monitor PO intake and tolerance. Monitor renal function and updated lab values (electrolytes, BUN/Cr, GFR). Follow up with nephrology and GI reports. Reassessment: Reassess PRN based on clinical status and intake. Discharge Planning: Address weight management upon discharge. Expected Outcomes/Goals: gradual wt loss MARISELA CUEVA MD Mar 04, 2025 11:21
--- NOTE | 2025-03-04 14:54 | DVHPNRES ---
Progress Note Date Seen: Mar 04, 2025 Resident Creating Document: ARY MENESES RESIDENT Medical Necessity Reason Pt with a Central, PICC or Fol: Yes The following are medically ne: Diallo Catheter Reason for diallo catheter: Strict I&O Subjective Review of Systems Patient is a 59-year-old female with past medical history diabetes, asthma, hypertension, who was brought in by EMS due to altered mental status. According to EMS, per patient's caregiver patient has been having a gradually progressive decline in her mentation over the last 2 months, currently patient noted to be AO x2. Patient was found to be covered in her own feces, unable to communicate effectively which is what prompted the caregiver to call the EMS. On route patient was noted to have a blood glucose of 470, tachycardic in 120s with blood pressure 118/98 saturating 80% on room air and 100% on 4 L O2 via NC. An accurate review of systems could not be completed as patient AO x2 only. Past medical history: Asthma, hypertension, diabetes Past surgical history: Unable to obtain Home medications: Albuterol, metoprolol, Ozempic Social & Personal history: Unable to obtain 03/04/2025: Patient seen and examined at bedside, pupils briskly reactive today, change from prior. Decrease PEEP to 5. Hypernatremia slightly reduced, kidney function slightly improved. Chest x-ray continues to show bibasilar pulmonary airspace disease, continuing meropenem. Remains on Levophed of 2 and dopamine 2 Objective vital signs Vital Sign Date Time Temp Pulse Resp B/P (MAP) Pulse Ox O2 Delivery O2 Flow Rate FiO2 03/04/25 14:04 92 17 107/66 (80) 100 30 03/04/25 14:01 99.3 210.7 03/04/25 14:00 Mechanical Ventilator+ Total Intake and Output 03/03/25 03/03/25 03/04/25 15:00 23:00 07:00 Intake Total 694.865 ml 1476.784 ml 1379.784 ml Output Total 825 ml 1000 ml Balance 694.865 ml 651.784 ml 379.784 ml medications Current Medications Medications Dose Ordered Sig/Tim Route Start Time Stop Time Status Last Admin Dose Admin Diagnostic Test (Pha) 1 strip IQ4HR 02/21/25 00:00 UNV Sodium Chloride 10 ml Q8HR IV 02/20/25 22:00 03/04/25 13:56 10 ML Docusate Sodium 100 mg BIDPRN PRN PO 02/20/25 20:15 Acetaminophen 650 mg Q6HP PRN PO 02/20/25 20:15 Nitroglycerin 0.4 mg Q5MINP PRN SL 02/20/25 21:15 Hydralazine HCl 10 mg Q6HP PRN IV 02/24/25 16:30 02/25/25 08:46 10 MG Lorazepam 1 mg ONCE PRN IV 02/25/25 10:45 Levofloxacin 50 ml @ 50 mls/hr DAILY IV 02/27/25 10:00 Cancel Midazolam HCl 100 ml @ 1 mls/hr Q24H IV 02/27/25 07:15 02/27/25 07:15 0 MLS/HR Fentanyl Citrate 250 ml @ 2.5 mls/hr Q24H IV 02/27/25 07:15 Norepinephrine Bitartrate 250 ml @ 3.75 mls/hr Q24H IV 02/27/25 07:15 03/03/25 08:51 3.75 MLS/HR Enteral Nutritional Formula 1,000 ml 30ML/HR GT 02/28/25 10:45 03/03/25 19:53 1,000 ML Budesonide 0.5 mg BID NEB 02/28/25 22:00 03/04/25 10:00 0.5 MG Meropenem 50 ml @ 17 mls/hr Q12H IV 03/01/25 20:00 03/04/25 07:14 17 MLS/HR Nystatin 1 applic BID TOP 03/01/25 22:00 03/04/25 09:31 1 APPLIC Diagnostic Test (Pha) 1 strip ACHS 03/02/25 11:30 03/04/25 11:02 1 STRIP Insulin Human Regular HS SC 03/02/25 22:00 03/03/25 20:42 3 UNITS Insulin Human Regular AC SC 03/02/25 11:30 03/04/25 11:03 3 UNITS Dextrose 50 ml UD PRN IV 03/02/25 10:15 Pantoprazole Sodium 40 mg DAILY IV 03/03/25 10:00 03/04/25 09:30 40 MG Purified Water 200 ml Q4HR GT 03/03/25 08:45 03/04/25 13:56 200 ML Dextrose 1,000 ml @ 125 mls/hr Q8H IV 03/03/25 09:45 03/04/25 10:57 125 MLS/HR Dopamine HCl/ Dextrose 250 ml @ 9.473 mls/ hr Q24H IV 03/03/25 09:45 03/04/25 10:56 9.473 MLS/HR Examination General Appearance: Intubated, sedated, on mechanical ventilation Head Exam: Equal, disconjugate gaze, briskly reactive pupils. Neck Exam: Normal inspection. Non-tender. Normal alignment Pulmonary/Respiratory: Chest non-tender. Coarse and diminished bilateral breath sounds Cardiovascular/Chest: Regular rate and rhythm. Some episodes of tachycardia. No murmurs. No JVD. Peripheral Pulses:. 2+ Pedal (R). 2+ Pedal (L) Abdominal Exam: Normal bowel sounds. Soft. Umbilical abdominal hernia noted Ankle Exam: Trace ankle edema Skin Exam: Generalized body petechiae noted, some bruising on bilateral upper extremities. Normal color. Warm. Dry laboratory and microbiology Laboratory Tests 03/04/25 03:00 Test 03/04/25 03:00 Range/Units Serum Glucose 250 H 74-106 mg/dL Microbiology Date/Time Source Procedure Growth Status 02/27/25 22:45 Nose MRSA Screen - Final Complete 02/27/25 14:05 Sputum Endotracheal Wash Gram Stain - Final Complete 02/27/25 14:05 Sputum Endotracheal Wash Respiratory Culture - Final Complete 02/27/25 10:21 Blood Blood Culture - Final NO GROWTH AFTER 5 DAYS OF INCUBATION. Complete 02/21/25 01:55 Urine - D[place] Urine Culture - Final Escherichia coli - ESBL Complete Labs and/or images reviewed: Labs reviewed by me, Image(s) reviewed by me Problem List/Assessment/Plan Problem List/Assessment/Plan Neurology # acute metabolic encephalopathy # right meningioma - head CT: No acute intracranial abnormality. Probable right vertex meningioma. - brain MRI: No acute intracranial abnormality seen. 1.9 cm right medial posterior frontal extra-axial mass, most compatible with meningioma. No underlying mass effect/vasogenic edema. - EEG report from 02/26/2025: Mild to moderately abnormal EEG seen in [id number] cerebral dysfunction due to metabolic/hypoxic encephalopathy or medication effect. - neurology on board # Sedated - currently off of all sedation since 03/01/2025 5am Cardiovascular # NSTEMI type 1 versus type 2 # septic shock # V-tach - cardiology on board #ROSC s/p Cardiac arrest and CPR, code blue 02/27/2025 -pt had bradycardia, VFib received shock, asystole then V-tach in subsequently received amiodarone. -ROSC post CPR Respiratory # Ventilator -intubated 02/27/2025 -on [facility] vent : VCAC Mode RR 16, TV 450, peep 8, FiO2 30% # Acute hypoxic respiratory failure # obstructive sleep apnea on obesity hypoventilation syndrome - CXR:Cardiomegaly and pulmonary vascular congestion. GI # umbilical hernia containing bowel loops # wound culture from umbilical hernia growing ESBL and MSSA # questionable GI bleed - CT abdomen pelvis: No evidence of acute abdominopelvic abnormalities. Large umbilical hernia containing bowel loops without evidence of obstruction or strangulation. - GI consulted - 100 cc brownish red output noted in NG tube canister - Stable H&H, however, steep decline from hemoglobin 16.1 on admission to 8.2 today. - IV daptomycin # Peptic ulcer prophylaxis -Pantoprazole 40 mg IV daily # Diallo catheter placed on 02/20/2025 # acute complicated UTI growing ESBL - IV meropenem Nephrology # JAMEE likely hemodynamically mediated/VMN versus ATN # hypokalemia # hypernatremia - monitor - discontinued Lasix Infectious disease # infected umbilical wound growing ESBL and MSSA # acute complicated UTI growing ESBL # sepsis due to above # septic shock, now improving - IV meropenem b.i.d. - IV daptomycin Hem/onc # anemia possibly of chronic disease versus blood loss? - monitor Endocrine # type 2 diabetes # morbid obesity # fungal skin infection - moderate sliding scale insulin - topical nystatin b.i.d. DVT prophylaxis holding owing to suspicion of GI bleed? Nutrition Tube feedings Glucerna Lines Right IJ 02/27/2025 Right midline 02/25/2025 Drips during [facility] ventilation None Critical care time 83 minutes excluding procedure. Code status discussed greater than 20 minutes: DNR Family at bedside explained about the condition of the patient Plan discussed with Dr. Villanueva Plan discussed with: Other (RN) My Orders My Orders Orders - ARY MENESES RESIDENT Procedure Category Date Status Time Complete Blood Count LAB 03/05/25 Verified 04:00 Chest Portable XY 03/05/25 Logged 04:00 Abg W/ Co-Ox RT 03/05/25 Logged 04:00 Comprehensive LAB 03/05/25 Verified Metabolic Panel 04:00 Dietary Evaluation Review Comments: Diet Order: Continue CCHO-60, 2-gram sodium diet. Monitoring: Monitor PO intake and tolerance. Monitor renal function and updated lab values (electrolytes, BUN/Cr, GFR). Follow up with nephrology and GI reports. Reassessment: Reassess PRN based on clinical status and intake. Discharge Planning: Address weight management upon discharge. Expected Outcomes/Goals: gradual wt loss Visit Coding STANDARD RES Billing Provider: BRITTANY VILLANUEVA MD Date of Service if different f: Mar 04, 2025 Common Visit Codes: 48057-[id number] CARE 30-74 MIN, 38108-[id number] CARE-EACH +30MIN ARY MENESES Mar 04, 2025 14:54 BRITTANY VILLANUEVA MD Mar 08, 2025 11:20
[2025-03-04] MEDS ORDERED: DEXTROSE (50%) 50ML SYRG IV PRN (15:00)
[2025-03-04] MEDS: ACCU-CHEK COMFORT CURVE STRIP VI SCH (16:06)
[2025-03-04] MEDS: InsuLIN REG 1unit/0.01ml Soln (100units/ml) SC SCH (16:06)
[2025-03-05] VITALS (115 sets, daily range): BP systolic 85–131; BP diastolic 52–93; PULSE 82–103; RESP 15–31; TEMP 97.3–99.1; O2SAT 98–100
[2025-03-05 02:43] LABS: Hematocrit 25.7 % (36.0-46.0); Hemoglobin 8.7 g/dL (12.2-16.2); Mean Corpuscular Hemoglobin 28.2 pg (28.0-32.0); Mean Corpuscular Volume 83.9 fL (80.0-100.0); Nucleated Red Blood Cells % 0.2 %
[2025-03-05 02:56] LABS: Alanine Aminotransferase 15 U/L (7-40); Alkaline Phosphatase 92 U/L (46-116); Anion Gap 10 (5-15); BUN/Creatinine Ratio 29.5 (10.0-20.0); Calcium 8.7 mg/dL (8.7-10.4); Carbon Dioxide 30 mmol/L (20-31); Chloride 102 mmol/L (98-107); Sodium 142 mmol/L (136-145)
[2025-03-05 02:57] LABS: Bilirubin, Total 0.8 mg/dL (0.2-1.0)
[2025-03-05 03:03] LABS: Albumin 2.7 g/dL (3.2-4.8); Blood Urea Nitrogen 67 mg/dL (9-23); Glucose 209 mg/dL (74-106); Potassium 3.0 mmol/L (3.5-5.1); Total Protein 4.8 g/dL (5.7-8.2)
[2025-03-05] MEDS: POTASSIUM CHL 20MEQ/100ML 100 ML IV SCH (03:47)
--- NOTE | 2025-03-05 05:49 | DVH ---
CHEST RADIOGRAPH INDICATION: intubated TECHNIQUE: Single frontal view of the chest was obtained COMPARISON: XY CHEST PORTABLE on DOS: 03/04/25, XY CHEST PORTABLE on DOS: 03/03/25, XY CHEST PORTABLE on DOS: 03/02/25, XY CHEST PORTABLE on DOS: 03/01/25, XY CHEST PORTABLE on DOS: 02/28/25 FINDINGS: Lines and Tubes: Interval advancement of the endotracheal tube such that the tip now projects 1.2 cm above the level of the raza. Remaining lines and tubes unchanged. Lungs: Diminished lung volumes with concomitant crowding of the pulmonary vasculature. Small bilateral pleural effusions. No pneumothorax. Cardiomediastinal contours: Unremarkable Bones: Unremarkable IMPRESSION: 1. Interval advancement of the endotracheal tube such that the tip now projects 1.2 cm above the level of the raza. Remaining lines and tubes unchanged. 2. Crowding of the pulmonary vasculature and small bilateral pleural effusions.
[2025-03-05 06:51] LABS: Base Excess 4.8 mmol/L (-2.0-3.0)
--- NOTE | 2025-03-05 11:04 | DVHPN2 ---
Progress Note Date Seen: Mar 05, 2025 Medical Necessity Reason Pt with a Central, PICC or Fol: Yes The following are medically ne: Diallo Catheter Reason for diallo catheter: Strict I&O Subjective Review of Systems: RESPIRATORY:Abnormal Other Systems: Patient seen and examined by myself today in follow-up, patient remained intubated on ventilator Objective vital signs Vital Sign Date Time Temp Pulse Resp B/P (MAP) Pulse Ox O2 Delivery O2 Flow Rate FiO2 03/05/25 10:34 88 16 106/74 100 30 03/05/25 09:30 Mechanical Ventilator+ 03/05/25 08:02 98.6 98.6 Total Intake and Output 03/04/25 03/04/25 03/05/25 15:00 23:00 07:00 Intake Total 1155.784 ml 2115.784 ml 2173.784 ml Output Total 875 ml 1150 ml Balance 1155.784 ml 1240.784 ml 1023.784 ml medications Current Medications Medications Dose Ordered Sig/Tim Route Start Time Stop Time Status Last Admin Dose Admin Diagnostic Test (Pha) 1 strip IQ4HR 02/21/25 00:00 UNV Sodium Chloride 10 ml Q8HR IV 02/20/25 22:00 03/05/25 07:25 10 ML Docusate Sodium 100 mg BIDPRN PRN PO 02/20/25 20:15 Acetaminophen 650 mg Q6HP PRN PO 02/20/25 20:15 Nitroglycerin 0.4 mg Q5MINP PRN SL 02/20/25 21:15 Hydralazine HCl 10 mg Q6HP PRN IV 02/24/25 16:30 02/25/25 08:46 10 MG Lorazepam 1 mg ONCE PRN IV 02/25/25 10:45 Levofloxacin 50 ml @ 50 mls/hr DAILY IV 02/27/25 10:00 Cancel Midazolam HCl 100 ml @ 1 mls/hr Q24H IV 02/27/25 07:15 02/27/25 07:15 0 MLS/HR Fentanyl Citrate 250 ml @ 2.5 mls/hr Q24H IV 02/27/25 07:15 Norepinephrine Bitartrate 250 ml @ 3.75 mls/hr Q24H IV 02/27/25 07:15 03/03/25 08:51 3.75 MLS/HR Enteral Nutritional Formula 1,000 ml 30ML/HR GT 02/28/25 10:45 03/04/25 21:49 1,000 ML Budesonide 0.5 mg BID NEB 02/28/25 22:00 03/05/25 10:18 0.5 MG Meropenem 50 ml @ 17 mls/hr Q12H IV 03/01/25 20:00 03/05/25 07:25 17 MLS/HR Nystatin 1 applic BID TOP 03/01/25 22:00 03/05/25 07:25 1 APPLIC Pantoprazole Sodium 40 mg DAILY IV 03/03/25 10:00 03/05/25 07:25 40 MG Purified Water 200 ml Q4HR GT 03/03/25 08:45 03/05/25 07:25 200 ML Dextrose 1,000 ml @ 125 mls/hr Q8H IV 03/03/25 09:45 03/05/25 05:46 125 MLS/HR Dopamine HCl/ Dextrose 250 ml @ 9.473 mls/ hr Q24H IV 03/03/25 09:45 03/04/25 10:56 9.473 MLS/HR Diagnostic Test (Pha) 1 strip IQ4HR 03/04/25 16:00 03/05/25 07:25 1 STRIP Insulin Human Regular IQ4HR SC 03/04/25 16:00 03/05/25 08:16 6 UNITS Dextrose 50 ml UD PRN IV 03/04/25 15:00 Examination: LUNGS:Abnormal, CVS:Normal, MSK:Normal laboratory and microbiology Laboratory Tests 03/05/25 02:20 Test 03/05/25 02:20 Range/Units Serum Glucose 209 H 74-106 mg/dL Microbiology Date/Time Source Procedure Growth Status 02/27/25 22:45 Nose MRSA Screen - Final Complete 02/27/25 14:05 Sputum Endotracheal Wash Gram Stain - Final Complete 02/27/25 14:05 Sputum Endotracheal Wash Respiratory Culture - Final Complete 02/27/25 10:21 Blood Blood Culture - Final NO GROWTH AFTER 5 DAYS OF INCUBATION. Complete 02/21/25 01:55 Urine - D[place] Urine Culture - Final Escherichia coli - ESBL Complete Problem List/Assessment/Plan Problem List/Assessment/Plan Acute kidney injury superimposed Chronic Kidney Disease secondary hemodynamic mediated, FeNa < 1% Vancomycin toxicity Acute respiratory failure, intubated on ventilator Status post cardiac arrest 02/17 Septic shock DKA sepsis UTI uncontrolled Dm2 morbid obesity hypernatremia need to insensible water loss, resolved appropriately Hypokalemia Recommendations Kidney function continues to improve increased urine output Diallo catheter Strict I&Os Discontinue vancomycin DC IV fluid Low-dose dopamine KCL replacement IV pressors for blood pressure support Insulin sliding scale Kidney reported within normal limit on CT scan We will continue to follow Plan discussed with: Other (Nurse) Dietary Evaluation Review Comments: Diet Order: Continue CCHO-60, 2-gram sodium diet. Monitoring: Monitor PO intake and tolerance. Monitor renal function and updated lab values (electrolytes, BUN/Cr, GFR). Follow up with nephrology and GI reports. Reassessment: Reassess PRN based on clinical status and intake. Discharge Planning: Address weight management upon discharge. Expected Outcomes/Goals: gradual wt loss MARISELA CUEVA MD Mar 05, 2025 11:04
--- NOTE | 2025-03-05 11:08 | DVHPN2 ---
Consult Progress Note Date Seen: Mar 05, 2025 Subjective Other Systems: No overnight cardiac events reported Objective vital signs Vital Sign Date Time Temp Pulse Resp B/P (MAP) Pulse Ox O2 Delivery O2 Flow Rate FiO2 03/05/25 10:34 88 16 106/74 100 30 03/05/25 09:30 Mechanical Ventilator+ 03/05/25 08:02 98.6 98.6 Total Intake and Output 03/04/25 03/04/25 03/05/25 14:59 22:59 06:59 Intake Total 1155.784 ml 2115.784 ml 2123.784 ml Output Total 875 ml 1150 ml Balance 1155.784 ml 1240.784 ml 973.784 ml medications Current Medications Medications Dose Ordered Sig/Tim Route Start Time Stop Time Status Last Admin Dose Admin Diagnostic Test (Pha) 1 strip IQ4HR 02/21/25 00:00 UNV Sodium Chloride 10 ml Q8HR IV 02/20/25 22:00 03/05/25 07:25 10 ML Docusate Sodium 100 mg BIDPRN PRN PO 02/20/25 20:15 Acetaminophen 650 mg Q6HP PRN PO 02/20/25 20:15 Nitroglycerin 0.4 mg Q5MINP PRN SL 02/20/25 21:15 Hydralazine HCl 10 mg Q6HP PRN IV 02/24/25 16:30 02/25/25 08:46 10 MG Lorazepam 1 mg ONCE PRN IV 02/25/25 10:45 Levofloxacin 50 ml @ 50 mls/hr DAILY IV 02/27/25 10:00 Cancel Midazolam HCl 100 ml @ 1 mls/hr Q24H IV 02/27/25 07:15 02/27/25 07:15 0 MLS/HR Fentanyl Citrate 250 ml @ 2.5 mls/hr Q24H IV 02/27/25 07:15 Norepinephrine Bitartrate 250 ml @ 3.75 mls/hr Q24H IV 02/27/25 07:15 03/03/25 08:51 3.75 MLS/HR Enteral Nutritional Formula 1,000 ml 30ML/HR GT 02/28/25 10:45 03/04/25 21:49 1,000 ML Budesonide 0.5 mg BID NEB 02/28/25 22:00 03/05/25 10:18 0.5 MG Meropenem 50 ml @ 17 mls/hr Q12H IV 03/01/25 20:00 03/05/25 07:25 17 MLS/HR Nystatin 1 applic BID TOP 03/01/25 22:00 03/05/25 07:25 1 APPLIC Pantoprazole Sodium 40 mg DAILY IV 03/03/25 10:00 03/05/25 07:25 40 MG Purified Water 200 ml Q4HR GT 03/03/25 08:45 03/05/25 07:25 200 ML Dextrose 1,000 ml @ 125 mls/hr Q8H IV 03/03/25 09:45 03/05/25 05:46 125 MLS/HR Dopamine HCl/ Dextrose 250 ml @ 9.473 mls/ hr Q24H IV 03/03/25 09:45 03/04/25 10:56 9.473 MLS/HR Diagnostic Test (Pha) 1 strip IQ4HR 03/04/25 16:00 03/05/25 07:25 1 STRIP Insulin Human Regular IQ4HR SC 03/04/25 16:00 03/05/25 08:16 6 UNITS Dextrose 50 ml UD PRN IV 03/04/25 15:00 Examination: GENERAL:Abnormal, LUNGS:Abnormal (Endotracheally intubated with 30% FiO2), CVS:Normal (NSR. On low-dose dopamine drip per renal team), NEURO:Abnormal (Off sedation, not following commands) laboratory and microbiology Laboratory Tests 03/05/25 02:20 Test 03/05/25 02:20 Range/Units Serum Glucose 209 H 74-106 mg/dL Problem List/Assessment/Plan Problem List/Assessment/Plan V-fib/V-tach cardiac arrest status post defibrillation x 2 with ROSC Cardiac arrest likely secondary to metabolic causes (severe acidosis) Acute metabolic encephalopathy likely from sepsis/dehydration Acute on chronic kidney injury likely in the setting of shock Shock liver Thrombocytopenia Plan/Recommendation (Dr. Flor) - A transthoracic echocardiogram revealed an LVEF of 50-55% with severe left ventricular hypertrophy. There are right and left ventricular trabeculation. May consider cardiac MRI for further evaluation if clinical correlated - Full AC therapy held secondary to thrombocytopenia - Aspirin held because of dropping H&H - Monitor electrolytes keep potassium above 4 and Mag above 2 - Strict I&Os, reduced afterload and preload - Continue Nephrology recommendations We will consider further ischemic cardiac workup once the patient is more medically stable, neurological status improved and platelet count has improved. Thank you for allowing us to participate in this patient's care. Please call if you have any questions or concerns. Critical care time: 30 minutes. This medical document was created using an electronic medical record system with voice recognition software and computerized dictation system. Although this document has been carefully reviewed, there might still be some phonetic and typographical errors. Occasional wrong-word or ``sound-alike substitutions may have occurred due to the inherent limitations of voice recognition software. These areas are purely typographical due to imperfections of the software programs and do not reflect any compromise in the patient's medical care. Please read the chart carefully and recognize, using context, where these substitutions have occurred. Plan discussed with: Other Dietary Evaluation Review Comments: Diet Order: Continue CCHO-60, 2-gram sodium diet. Monitoring: Monitor PO intake and tolerance. Monitor renal function and updated lab values (electrolytes, BUN/Cr, GFR). Follow up with nephrology and GI reports. Reassessment: Reassess PRN based on clinical status and intake. Discharge Planning: Address weight management upon discharge. Expected Outcomes/Goals: gradual wt loss Date of Service: Mar 05, 2025 Billing Provider: LYNDA WILKES Cardiology Common Codes: [id number] CARE 30-74 MIN LYNDA WILKES Mar 05, 2025 11:08
--- NOTE | 2025-03-05 13:33 | DVHPNRES ---
Progress Note Date Seen: Mar 05, 2025 Resident Creating Document: ARY MENESES RESIDENT Medical Necessity Reason Pt with a Central, PICC or Fol: Yes The following are medically ne: Diallo Catheter Reason for diallo catheter: Strict I&O Subjective Review of Systems Patient is a 59-year-old female with past medical history diabetes, asthma, hypertension, who was brought in by EMS due to altered mental status. According to EMS, per patient's caregiver patient has been having a gradually progressive decline in her mentation over the last 2 months, currently patient noted to be AO x2. Patient was found to be covered in her own feces, unable to communicate effectively which is what prompted the caregiver to call the EMS. On route patient was noted to have a blood glucose of 470, tachycardic in 120s with blood pressure 118/98 saturating 80% on room air and 100% on 4 L O2 via NC. An accurate review of systems could not be completed as patient AO x2 only. Past medical history: Asthma, hypertension, diabetes Past surgical history: Unable to obtain Home medications: Albuterol, metoprolol, Ozempic Social & Personal history: Unable to obtain 03/05/2025: Patient seen and examined at bedside, physical exam remains the same as prior. Continuing on meropenem. Objective vital signs Vital Sign Date Time Temp Pulse Resp B/P (MAP) Pulse Ox O2 Delivery O2 Flow Rate FiO2 03/05/25 13:17 92 16 121/82 (95) 100 03/05/25 12:29 30 03/05/25 12:17 97.9 97.9 03/05/25 12:00 Mechanical Ventilator+ Total Intake and Output 03/04/25 03/04/25 03/05/25 15:00 23:00 07:00 Intake Total 1155.784 ml 2115.784 ml 2173.784 ml Output Total 875 ml 1150 ml Balance 1155.784 ml 1240.784 ml 1023.784 ml medications Current Medications Medications Dose Ordered Sig/Tim Route Start Time Stop Time Status Last Admin Dose Admin Diagnostic Test (Pha) 1 strip IQ4HR 02/21/25 00:00 UNV Sodium Chloride 10 ml Q8HR IV 02/20/25 22:00 03/05/25 07:25 10 ML Docusate Sodium 100 mg BIDPRN PRN PO 02/20/25 20:15 Acetaminophen 650 mg Q6HP PRN PO 02/20/25 20:15 Nitroglycerin 0.4 mg Q5MINP PRN SL 02/20/25 21:15 Hydralazine HCl 10 mg Q6HP PRN IV 02/24/25 16:30 02/25/25 08:46 10 MG Lorazepam 1 mg ONCE PRN IV 02/25/25 10:45 Levofloxacin 50 ml @ 50 mls/hr DAILY IV 02/27/25 10:00 Cancel Midazolam HCl 100 ml @ 1 mls/hr Q24H IV 02/27/25 07:15 02/27/25 07:15 0 MLS/HR Fentanyl Citrate 250 ml @ 2.5 mls/hr Q24H IV 02/27/25 07:15 Norepinephrine Bitartrate 250 ml @ 3.75 mls/hr Q24H IV 02/27/25 07:15 03/03/25 08:51 3.75 MLS/HR Enteral Nutritional Formula 1,000 ml 30ML/HR GT 02/28/25 10:45 03/04/25 21:49 1,000 ML Budesonide 0.5 mg BID NEB 02/28/25 22:00 03/05/25 10:18 0.5 MG Meropenem 50 ml @ 17 mls/hr Q12H IV 03/01/25 20:00 03/05/25 07:25 17 MLS/HR Nystatin 1 applic BID TOP 03/01/25 22:00 03/05/25 07:25 1 APPLIC Pantoprazole Sodium 40 mg DAILY IV 03/03/25 10:00 03/05/25 07:25 40 MG Purified Water 200 ml Q4HR GT 03/03/25 08:45 03/05/25 12:04 200 ML Dopamine HCl/ Dextrose 250 ml @ 9.473 mls/ hr Q24H IV 03/03/25 09:45 03/05/25 11:58 9.473 MLS/HR Diagnostic Test (Pha) 1 strip IQ4HR 03/04/25 16:00 03/05/25 11:57 1 STRIP Insulin Human Regular IQ4HR SC 03/04/25 16:00 03/05/25 12:04 6 UNITS Dextrose 50 ml UD PRN IV 03/04/25 15:00 Examination General Appearance: Intubated, sedated, on mechanical ventilation Head Exam: Equal, disconjugate gaze, briskly reactive pupils. Neck Exam: Normal inspection. Non-tender. Normal alignment Pulmonary/Respiratory: Chest non-tender. Coarse and diminished bilateral breath sounds Cardiovascular/Chest: Regular rate and rhythm. Some episodes of tachycardia. No murmurs. No JVD. Peripheral Pulses:. 2+ Pedal (R). 2+ Pedal (L) Abdominal Exam: Normal bowel sounds. Soft. Umbilical abdominal hernia noted Ankle Exam: Trace ankle edema Skin Exam: Generalized body petechiae noted, some bruising on bilateral upper extremities. Normal color. Warm. Dry laboratory and microbiology Laboratory Tests 03/05/25 02:20 Test 03/05/25 02:20 Range/Units Serum Glucose 209 H 74-106 mg/dL Microbiology Date/Time Source Procedure Growth Status 02/27/25 22:45 Nose MRSA Screen - Final Complete 02/27/25 14:05 Sputum Endotracheal Wash Gram Stain - Final Complete 02/27/25 14:05 Sputum Endotracheal Wash Respiratory Culture - Final Complete 02/27/25 10:21 Blood Blood Culture - Final NO GROWTH AFTER 5 DAYS OF INCUBATION. Complete 02/21/25 01:55 Urine - [place] Urine Culture - Final Escherichia coli - ESBL Complete Labs and/or images reviewed: Labs reviewed by me, Image(s) reviewed by me Problem List/Assessment/Plan Problem List/Assessment/Plan Neurology # acute metabolic encephalopathy # right meningioma - head CT: No acute intracranial abnormality. Probable right vertex meningioma. - brain MRI: No acute intracranial abnormality seen. 1.9 cm right medial posterior frontal extra-axial mass, most compatible with meningioma. No underlying mass effect/vasogenic edema. - EEG report from 02/26/2025: Mild to moderately abnormal EEG seen in [id number] cerebral dysfunction due to metabolic/hypoxic encephalopathy or medication effect. - neurology on board # Sedated - currently off of all sedation since 03/01/2025 5am Cardiovascular # NSTEMI type 1 versus type 2 # septic shock # V-tach - cardiology on board #ROSC s/p Cardiac arrest and CPR, code blue 02/27/2025 -pt had bradycardia, VFib received shock, asystole then V-tach in subsequently received amiodarone. -ROSC post CPR Respiratory # Ventilator -intubated 02/27/2025 -on [facility] vent : VCAC Mode RR 16, TV 450, peep 8, FiO2 30% # Acute hypoxic respiratory failure # obstructive sleep apnea on obesity hypoventilation syndrome - CXR:Cardiomegaly and pulmonary vascular congestion. GI # umbilical hernia containing bowel loops # wound culture from umbilical hernia growing ESBL and MSSA # questionable GI bleed - CT abdomen pelvis: No evidence of acute abdominopelvic abnormalities. Large umbilical hernia containing bowel loops without evidence of obstruction or strangulation. - GI consulted - 100 cc brownish red output noted in NG tube canister - Stable H&H, however, steep decline from hemoglobin 16.1 on admission to 8.2 today. - IV daptomycin # Peptic ulcer prophylaxis -Pantoprazole 40 mg IV daily # Diallo catheter placed on 02/20/2025 # acute complicated UTI growing ESBL - IV meropenem Nephrology # JAMEE likely hemodynamically mediated/VMN versus ATN # hypokalemia # hypernatremia - monitor - discontinued Lasix Infectious disease # infected umbilical wound growing ESBL and MSSA # acute complicated UTI growing ESBL # sepsis due to above # septic shock, now improving - IV meropenem b.i.d. - IV daptomycin Hem/onc # anemia possibly of chronic disease versus blood loss? - monitor Endocrine # type 2 diabetes # morbid obesity # fungal skin infection - moderate sliding scale insulin - topical nystatin b.i.d. DVT prophylaxis holding owing to suspicion of GI bleed? Nutrition Tube feedings Glucerna Lines Right IJ 02/27/2025 Right midline 02/25/2025 Drips during [facility] ventilation None Critical care time 83 minutes excluding procedure. Code status discussed greater than 20 minutes: DNR Family at bedside explained about the condition of the patient Plan discussed with Dr. Borges Plan discussed with: Other (RN) My Orders My Orders Orders - ARY MENESES RESIDENT Procedure Category Date Status Time Glucose Blood PHA 03/04/25 In Process (Accu-Chek Comfort 16:00 Insulin R (Human) PHA 03/04/25 In Process (Insulin R) 16:00 Dextrose 50% Syringe PHA 03/04/25 In Process 15:00 Communication Order ORDERS 03/04/25 Transmitted 14:51 Code Status CODE 03/04/25 Transmitted 15:46 Dietary Evaluation Review Comments: Diet Order: Continue CCHO-60, 2-gram sodium diet. Monitoring: Monitor PO intake and tolerance. Monitor renal function and updated lab values (electrolytes, BUN/Cr, GFR). Follow up with nephrology and GI reports. Reassessment: Reassess PRN based on clinical status and intake. Discharge Planning: Address weight management upon discharge. Expected Outcomes/Goals: gradual wt loss Visit Coding STANDARD RES Billing Provider: JOSE BORGES MD Date of Service if different f: Mar 05, 2025 Common Visit Codes: 98698-[id number] CARE 30-74 MIN, [id number] CARE-EACH +30MIN ARY MENESES Mar 05, 2025 13:33
--- NOTE | 2025-03-05 23:39 | DVHPN2 ---
Subjective DOS: 03/05/2025 Patient seen and examined at bedside. intubated on mechanical ventilator. Overnight events reviewed. Reviewed: H&P Changes from previous H/P or p: No Changes General: Per HPI Eyes: No Pain, No Vision change, No Conjunctivae inflammation, No Eyelid inflammation, No Other, No Redness ENT: No Ear pain, No Ear discharge, No Nose pain, No Nose discharge, No Nose congestion, No Mouth pain, No Mouth swelling, No Throat pain, No Throat swelling, No Other Cardiovascular: No Chest Pain, No Palpitations, No Orthopnea, No Paroxysmal Noc. Dyspnea, No Edema, No Lt Headedness, No Other Respiratory: No Cough, No Dry, No Shortness of breath, No SOB with excertion, No Wheezing, No Hemoptysis, No Pleuritic Pain, No Sputum, No Other Gastrointestinal: No Nausea, No Vomiting, No Abdominal Pain, No Diarrhea, No Constipation, No Melena, No Hematochezia, No Other Musculoskeletal: No other, No neck pain, No shoulder pain, No arm pain, No back pain, No hand pain, No leg pain, No foot pain Skin: No Rash, No Lesions, No Jaundice, No Bruising, No Other Objective Vitals Vital Signs Date Time Temp Pulse Resp B/P (MAP) Pulse Ox O2 Delivery O2 Flow Rate FiO2 03/05/25 22:47 98 17 91/60 (70) 98 03/05/25 22:18 30 03/05/25 22:00 Mechanical Ventilator+ 03/05/25 20:02 98.0 98.0 Intake/Output Intake and Output 03/05/25 07:00 Intake Total 5445.352 ml Output Total 2025 ml Balance 3420.352 ml Intake Oral 1250 ml IV Total 3557.352 ml Tube Feeding 638 ml Output Urine Total 2025 ml # Bowel Movements 1 Exam Gen.: Patient lying in bed in medical ICU. Intubated on mechanical ventilator. Head: Normocephalic, atraumatic. Eyes: PERRLA. Ears: Normal external anatomy. Throat: Endotracheal tube and orogastric tube in place. Neck: Supple, trachea midline. Chest: Transmitted breath sounds bilaterally. Decreased air entry bilaterally. No wheezing. Bibasilar crackles. Cardiovascular: Positive S1, positive S2. Regular rate and rhythm. Abdomen: Positive bowel sounds in all 4 quadrants. Soft, nontender, nondistended. : [place] in place. Normal external genitalia. Rectal: Deferred. Skin: Warm, dry. Intact. Extremities: 2+ radial pulses bilaterally. No lower extremity edema. Neuro: Off sedation Lungs: Clear to auscultation Cardiovascular: Regular rate, Normal S1, Normal S2, No murmurs Abdomen: Normal bowel sounds, Soft, No tenderness Extremities: No edema Medications Current Medications Medications Dose Ordered Sig/Tim Route Start Time Stop Time Status Last Admin Dose Admin Diagnostic Test (Pha) 1 strip IQ4HR 02/21/25 00:00 UNV Sodium Chloride 10 ml Q8HR IV 02/20/25 22:00 03/05/25 21:30 10 ML Docusate Sodium 100 mg BIDPRN PRN PO 02/20/25 20:15 Acetaminophen 650 mg Q6HP PRN PO 02/20/25 20:15 Nitroglycerin 0.4 mg Q5MINP PRN SL 02/20/25 21:15 Hydralazine HCl 10 mg Q6HP PRN IV 02/24/25 16:30 02/25/25 08:46 10 MG Lorazepam 1 mg ONCE PRN IV 02/25/25 10:45 Levofloxacin 50 ml @ 50 mls/hr DAILY IV 02/27/25 10:00 Cancel Midazolam HCl 100 ml @ 1 mls/hr Q24H IV 02/27/25 07:15 02/27/25 07:15 0 MLS/HR Fentanyl Citrate 250 ml @ 2.5 mls/hr Q24H IV 02/27/25 07:15 Norepinephrine Bitartrate 250 ml @ 3.75 mls/hr Q24H IV 02/27/25 07:15 03/03/25 08:51 3.75 MLS/HR Enteral Nutritional Formula 1,000 ml 30ML/HR GT 02/28/25 10:45 03/04/25 21:49 1,000 ML Budesonide 0.5 mg BID NEB 02/28/25 22:00 03/05/25 22:17 0.5 MG Meropenem 50 ml @ 17 mls/hr Q12H IV 03/01/25 20:00 03/05/25 20:00 17 MLS/HR Nystatin 1 applic BID TOP 03/01/25 22:00 03/05/25 21:31 1 APPLIC Pantoprazole Sodium 40 mg DAILY IV 03/03/25 10:00 03/05/25 07:25 40 MG Purified Water 200 ml Q4HR GT 03/03/25 08:45 03/05/25 21:31 200 ML Dopamine HCl/ Dextrose 250 ml @ 9.473 mls/ hr Q24H IV 03/03/25 09:45 03/05/25 11:58 9.473 MLS/HR Diagnostic Test (Pha) 1 strip IQ4HR 03/04/25 16:00 03/05/25 19:55 1 STRIP Insulin Human Regular IQ4HR SC 03/04/25 16:00 03/05/25 19:59 2 UNITS Dextrose 50 ml UD PRN IV 03/04/25 15:00 Laboratory Results Laboratory Tests 03/05/25 02:20 Chemistry Test 03/05/25 02:20 Albumin 2.7 g/dL (3.2-4.8) L Calcium Level 8.7 mg/dL (8.7-10.4) Magnesium Level 1.8 mg/dL (1.6-2.6) Total Protein 4.8 g/dL (5.7-8.2) L LFT Test 03/05/25 02:20 Alanine Aminotransferase (ALT) 15 U/L (7-40) Alkaline Phosphatase 92 U/L (46-116) Aspartate Amino Transferase (AST) 34 U/L (13-40) Total Bilirubin 0.8 mg/dL (0.2-1.0) Urinalysis Test 02/20/25 21:52 03/02/25 17:20 Urine WBC Clumps Present /hpf (None Seen) Urine Hyaline Casts Few /lpf (0 - 2) Urine Mucus Few (None Seen) Urine Color Yellow (Yellow) Urine Clarity Turbid (Clear) H Urine pH 5.0 (5.0-9.0) Urine Specific [place] 1.013 (1.001-1.035) Urine Protein 1+ (Negative) H Urine Ketones Trace (Negative) Urine Blood 1+ /uL (Negative) H Urine Nitrite Negative (Negative) Urine Bilirubin Negative (Negative) Urine Urobilinogen 2 mg/dL (Negative) H Urine Leukocyte Esterase Trace /uL (Negative) Urine RBC 1 /hpf (0 - 4) Urine Microscopic WBC 2 /HPF (0-5) Urine Squamous Epithelial Cells Few /hpf (<5) Urine Calcium Oxalate Crystals Few (None Seen) Urine Amorphous Crystals Few /hpf (None Seen) Urine Bacteria Few /hpf (None Seen) H Urine Osmolality 329 mOsm/kg Urine Creatinine 73.30 mg/dL (30.0-125.0) Urine Protein/Creatinine Ratio 1.14 Urine Sodium 28 mmol/L (40-220) L Urine Glucose 1+ mg/dL (Normal) H Urine Total Protein 83.3 mg/dL (1-14) H Blood Gas Results Test 03/05/25 06:40 Arterial Blood pH 7.466 (7.350-7.450) FiO2 % 30.0 Microbiology Microbiology Date/Time Source Procedure Growth Status 02/27/25 22:45 Nose MRSA Screen - Final Complete 02/27/25 14:05 Sputum Endotracheal Wash Gram Stain - Final Complete 02/27/25 14:05 Sputum Endotracheal Wash Respiratory Culture - Final Complete 02/27/25 10:21 Blood Blood Culture - Final NO GROWTH AFTER 5 DAYS OF INCUBATION. Complete 02/21/25 01:55 Urine - [place] Urine Culture - Final Escherichia coli - ESBL Complete Assessment/Plan Assessment/Plan Impression: Acute hypoxic respiratory failure On mechanical ventilator S/p cardiac arrest Acute DKA, resolved Acute metabolic encephalopathy BETH on OHS likely Acute kidney injury Hypernatremia Sepsis due to UTI Urinary tract infection Morbid obesity Events: Remains on vent support On AC mode; RR 16, VT 450-->400, PEEP 8, FiO2 30% Patient failed CPAP trial. Off sedation Awaiting for mentation to improve. Off pressors, monitor hemodynamics Continue antibiotics. Pulmicort BID Dopamine 2 mcg/min renally dosed. Nephrology recs appreciated. Accu-Cheks, ISS. Protonix for GI ppx Monitor renal function Monitor electrolytes. Supplement as necessary Monitor sodium On free water supplementation Potassium supplementation Monitor ins and outs. Continue tube feeds for nutritional support CPAP trial in AM OK to increase PS to achieve tidal volume 350-[address] head showed no evidence of stroke or intracranial hemorrhage. Labs and imaging reviewed. Rest of plan as noted below. Plan: s/p intubation on mechanical ventilator. On AC mode; RR 16, VT 400, PEEP 8, FiO2 30% Titrate FIO2 to keep O2 saturation above 90%. VAP bundle. Daily ABG and CXR while intubated Continue IV antibiotics. Follow up cultures. Steroids - Solu-Medrol 40 mg IVP q.12 hours (Discontinued) Pulmicort 0.5 mg BID Pressors as necessary for hemodynamic support Titrate to keep mean arterial pressure greater than 65 mmHg. Follow up Cardiology recs NG tube in place. Tube feeds for nutritional support Monitor renal function Monitor electrolytes. Supplement as necessary. Monitor ins and outs. Maintain euvolemia. Follow up Nephrology recs Recommend diet and lifestyle modifications for weight reduction Obesity complicates all care GI prophylaxis. DVT prophylaxis. Prognosis: Poor given patient's multiple co-morbidities. Condition: Critical Rest of plan per hospitalist and other consultants. A total of 35 minutes of critical care time was spent reviewing the patient record, examining the patient, making a diagnostic and therapeutic plan, discussing this plan with the medical personnel, following up on diagnostic studies and following the patient for clinical stability excluding any and all procedures. At least 50% of this time was spent in direct, [id number] contact. Thank you, Dr. Carreno, for allowing me to participate in this patient's care. Further recommendations will depend on the patient's clinical course. Please do not hesitate to contact me if you have any questions or concerns. This medical document was created using an electronic medical record system with [email or web address] computerized dictation system. Although these documentations are being carefully reviewed, there may still be some phonetic and typographical changes. The errors are purely typographical, due to imperfection on the software program, and do not reflect any compromise in the patient's medical care. Plan discussed with: Other (REI Sapp) My Orders Orders - JOSE CASTRO MD Procedure Category Date Status Time Ventilator Orders RT 03/05/25 Transmitted 18:47 Visit Coding Pulmonary Billing Provider: JOSE CASTRO MD Date of Service if different f: Mar 05, 2025 Common Visit Codes: [id number] INP/OBS CARE(HIGH), [id number] CARE 30-74 MIN JOSE CASTRO MD Mar 05, 2025 23:39
[2025-03-06] VITALS (118 sets, daily range): BP systolic 81–130; BP diastolic 41–82; PULSE 95–116; RESP 11–24; TEMP 98.2–99.7; O2SAT 90–100
[2025-03-06 04:20] LABS: Hematocrit 25.9 % (36.0-46.0); Hemoglobin 8.7 g/dL (12.2-16.2); Mean Corpuscular Hemoglobin 28.2 pg (28.0-32.0); Mean Corpuscular Volume 84.3 fL (80.0-100.0); Nucleated Red Blood Cells % 0.2 %
[2025-03-06 04:31] LABS: Chloride 103 mmol/L (98-107); Potassium 3.6 mmol/L (3.5-5.1); Sodium 143 mmol/L (136-145)
[2025-03-06 04:32] LABS: Anion Gap 9 (5-15); Calcium 8.9 mg/dL (8.7-10.4); Carbon Dioxide 31 mmol/L (20-31)
[2025-03-06 04:37] LABS: BUN/Creatinine Ratio 33.3 (10.0-20.0)
[2025-03-06 04:42] LABS: Blood Urea Nitrogen 57 mg/dL (9-23); Glucose 142 mg/dL (74-106)
--- NOTE | 2025-03-06 05:00 | DVH ---
CHEST RADIOGRAPH Indication: Intubated Technique: Single frontal view of the chest was obtained COMPARISON: XY CHEST PORTABLE on DOS: 03/05/25, XY CHEST PORTABLE on DOS: 03/04/25, XY CHEST PORTABLE on DOS: 03/03/25, XY CHEST PORTABLE on DOS: 03/02/25, XY CHEST PORTABLE on DOS: 03/01/25 FINDINGS: Lines and Tubes: Endotracheal tube, enteric catheter and right central venous catheter in satisfactory position. Lungs: Cardiomegaly and low lung volumes. Unchanged pulmonary vascular congestion. Pleura: No effusion. No pneumothorax. Cardiomediastinal contours: Cardiomegaly Bones: Unremarkable IMPRESSION: Lines and tubes in satisfactory position. No significant interval change.
[2025-03-06 07:16] LABS: Base Excess 4.7 mmol/L (-2.0-3.0)
--- NOTE | 2025-03-06 08:03 | DVHPNRES ---
Progress Note Date Seen: Mar 06, 2025 Resident Creating Document: ARY MENESES RESIDENT Medical Necessity Reason Pt with a Central, PICC or Fol: Yes The following are medically ne: Diallo Catheter Reason for diallo catheter: Strict I&O Subjective Review of Systems Patient is a 59-year-old female with past medical history diabetes, asthma, hypertension, who was brought in by EMS due to altered mental status. According to EMS, per patient's caregiver patient has been having a gradually progressive decline in her mentation over the last 2 months, currently patient noted to be AO x2. Patient was found to be covered in her own feces, unable to communicate effectively which is what prompted the caregiver to call the EMS. On route patient was noted to have a blood glucose of 470, tachycardic in 120s with blood pressure 118/98 saturating 80% on room air and 100% on 4 L O2 via NC. An accurate review of systems could not be completed as patient AO x2 only. Past medical history: Asthma, hypertension, diabetes Past surgical history: Unable to obtain Home medications: Albuterol, metoprolol, Ozempic Social & Personal history: Unable to obtain 03/06/2025: Patient seen and examined at bedside remains on dopamine 2 microgram/minute and Levophed 2 mcg. Plan to CPAP trial today. Put out 100 cc reddish output in NG canister over 5 hours. Objective vital signs Vital Sign Date Time Temp Pulse Resp B/P (MAP) Pulse Ox O2 Delivery O2 Flow Rate FiO2 03/06/25 07:45 105 16 100 Mechanical Ventilator+ 30 30 03/06/25 07:43 109/58 (75) 03/06/25 06:03 99.3 99.3 Total Intake and Output 03/05/25 03/05/25 03/06/25 15:00 23:00 07:00 Intake Total 488.534 ml 1026.784 ml 1078.5853 ml Output Total 1000 ml 1000 ml Balance 488.534 ml 26.784 ml 78.5853 ml medications Current Medications Medications Dose Ordered Sig/Tim Route Start Time Stop Time Status Last Admin Dose Admin Diagnostic Test (Pha) 1 strip IQ4HR 02/21/25 00:00 UNV Sodium Chloride 10 ml Q8HR IV 02/20/25 22:00 03/06/25 07:07 10 ML Docusate Sodium 100 mg BIDPRN PRN PO 02/20/25 20:15 Acetaminophen 650 mg Q6HP PRN PO 02/20/25 20:15 Nitroglycerin 0.4 mg Q5MINP PRN SL 02/20/25 21:15 Hydralazine HCl 10 mg Q6HP PRN IV 02/24/25 16:30 02/25/25 08:46 10 MG Lorazepam 1 mg ONCE PRN IV 02/25/25 10:45 Levofloxacin 50 ml @ 50 mls/hr DAILY IV 02/27/25 10:00 Cancel Midazolam HCl 100 ml @ 1 mls/hr Q24H IV 02/27/25 07:15 02/27/25 07:15 0 MLS/HR Fentanyl Citrate 250 ml @ 2.5 mls/hr Q24H IV 02/27/25 07:15 Norepinephrine Bitartrate 250 ml @ 3.75 mls/hr Q24H IV 02/27/25 07:15 03/06/25 05:56 3.75 MLS/HR Enteral Nutritional Formula 1,000 ml 30ML/HR GT 02/28/25 10:45 03/04/25 21:49 1,000 ML Budesonide 0.5 mg BID NEB 02/28/25 22:00 03/06/25 05:48 0.5 MG Meropenem 50 ml @ 17 mls/hr Q12H IV 03/01/25 20:00 03/06/25 07:07 17 MLS/HR Nystatin 1 applic BID TOP 03/01/25 22:00 03/06/25 07:07 1 APPLIC Pantoprazole Sodium 40 mg DAILY IV 03/03/25 10:00 03/06/25 07:07 40 MG Purified Water 200 ml Q4HR GT 03/03/25 08:45 03/06/25 07:07 200 ML Dopamine HCl/ Dextrose 250 ml @ 9.473 mls/ hr Q24H IV 03/03/25 09:45 03/05/25 11:58 9.473 MLS/HR Diagnostic Test (Pha) 1 strip IQ4HR 03/04/25 16:00 03/06/25 07:07 1 STRIP Insulin Human Regular IQ4HR SC 03/04/25 16:00 03/06/25 07:19 2 UNITS Dextrose 50 ml UD PRN IV 03/04/25 15:00 Examination General Appearance: Intubated, sedated, on mechanical ventilation Head Exam: Equal, disconjugate gaze, briskly reactive pupils. Neck Exam: Normal inspection. Non-tender. Normal alignment Pulmonary/Respiratory: Chest non-tender. Coarse and diminished bilateral breath sounds Cardiovascular/Chest: Regular rate and rhythm. Some episodes of tachycardia. No murmurs. No JVD. Peripheral Pulses:. 2+ Pedal (R). 2+ Pedal (L) Abdominal Exam: Normal bowel sounds. Soft. Umbilical abdominal hernia noted Ankle Exam: Trace ankle edema Skin Exam: Generalized body petechiae noted, some bruising on bilateral upper extremities. Normal color. Warm. Dry laboratory and microbiology Laboratory Tests 03/06/25 03:56 Test 03/06/25 03:56 Range/Units Serum Glucose 142 H 74-106 mg/dL Microbiology Date/Time Source Procedure Growth Status 02/27/25 22:45 Nose MRSA Screen - Final Complete 02/27/25 14:05 Sputum Endotracheal Wash Gram Stain - Final Complete 02/27/25 14:05 Sputum Endotracheal Wash Respiratory Culture - Final Complete 02/27/25 10:21 Blood Blood Culture - Final NO GROWTH AFTER 5 DAYS OF INCUBATION. Complete 02/21/25 01:55 Urine - Diallo Port Urine Culture - Final Escherichia coli - ESBL Complete Labs and/or images reviewed: Labs reviewed by me, Image(s) reviewed by me Problem List/Assessment/Plan Problem List/Assessment/Plan Neurology # acute metabolic encephalopathy # right meningioma - head CT: No acute intracranial abnormality. Probable right vertex meningioma. - brain MRI: No acute intracranial abnormality seen. 1.9 cm right medial posterior frontal extra-axial mass, most compatible with meningioma. No underlying mass effect/vasogenic edema. - EEG report from 02/26/2025: Mild to moderately abnormal EEG seen in [id number] cerebral dysfunction due to metabolic/hypoxic encephalopathy or medication effect. - neurology on board # Sedated - currently off of all sedation since 03/01/2025 5am Cardiovascular # NSTEMI type 1 versus type 2 # septic shock # V-tach - cardiology on board #ROSC s/p Cardiac arrest and CPR, code blue 02/27/2025 -pt had bradycardia, VFib received shock, asystole then V-tach in subsequently received amiodarone. -ROSC post CPR Respiratory # Ventilator -intubated 02/27/2025 -on [facility] vent : VCAC Mode RR 16, TV 450, peep 8, FiO2 30% # Acute hypoxic respiratory failure # obstructive sleep apnea on obesity hypoventilation syndrome - CXR:Cardiomegaly and pulmonary vascular congestion. GI # umbilical hernia containing bowel loops # wound culture from umbilical hernia growing ESBL and MSSA # questionable GI bleed - CT abdomen pelvis: No evidence of acute abdominopelvic abnormalities. Large umbilical hernia containing bowel loops without evidence of obstruction or strangulation. - GI consulted - 100 cc brownish red output noted in NG tube canister - Stable H&H, however, steep decline from hemoglobin 16.1 on admission to 8.2 today. - IV daptomycin # Peptic ulcer prophylaxis -Pantoprazole 40 mg IV daily # Diallo catheter placed on 02/20/2025 # acute complicated UTI growing ESBL - IV meropenem Nephrology # JAMEE likely hemodynamically mediated/VMN versus ATN # hypokalemia # hypernatremia - monitor - discontinued Lasix Infectious disease # infected umbilical wound growing ESBL and MSSA # acute complicated UTI growing ESBL # sepsis due to above # septic shock, now improving - IV meropenem b.i.d. - IV daptomycin Hem/onc # anemia possibly of chronic disease versus blood loss? - monitor Endocrine # type 2 diabetes # morbid obesity # fungal skin infection - moderate sliding scale insulin - topical nystatin b.i.d. DVT prophylaxis holding owing to suspicion of GI bleed? Nutrition Tube feedings Glucerna Lines Right IJ 02/27/2025 Right midline 02/25/2025 Drips during [facility] ventilation None Critical care time 83 minutes excluding procedure. Code status discussed greater than 20 minutes: DNR Family at bedside explained about the condition of the patient Plan discussed with Dr. Borges Plan discussed with: Other (RN) My Orders My Orders Orders - ARY MENESES RESIDENT Procedure Category Date Status Time Chest Portable XY 03/06/25 Resulted 04:00 Abg W/ Co-Ox RT 03/06/25 Logged 06:00 Basic Metabolic Panel LAB 03/07/25 Verified 04:00 Complete Blood Count LAB 03/07/25 Verified 04:00 Chest Portable XY 03/07/25 Verified 04:00 Abg W/ Co-Ox RT 03/07/25 Verified 04:00 Dietary Evaluation Review Comments: Diet Order: Continue CCHO-60, 2-gram sodium diet. Monitoring: Monitor PO intake and tolerance. Monitor renal function and updated lab values (electrolytes, BUN/Cr, GFR). Follow up with nephrology and GI reports. Reassessment: Reassess PRN based on clinical status and intake. Discharge Planning: Address weight management upon discharge. Expected Outcomes/Goals: gradual wt loss Visit Coding STANDARD RES Billing Provider: JOSE BORGES MD Date of Service if different f: Mar 06, 2025 Common Visit Codes: 79414-[id number] CARE 30-74 MIN, [id number] CARE-EACH +30MIN ARY MENESES Mar 06, 2025 08:03
--- NOTE | 2025-03-06 11:20 | DVHPN2 ---
Progress Note Date Seen: Mar 06, 2025 Medical Necessity Reason Pt with a Central, PICC or Fol: Yes The following are medically ne: Diallo Catheter Reason for diallo catheter: Strict I&O Subjective Review of Systems: RESPIRATORY:Abnormal Other Systems: Patient seen and examined by myself today in follow-up, patient remained intubated on ventilator Objective vital signs Vital Sign Date Time Temp Pulse Resp B/P (MAP) Pulse Ox O2 Delivery O2 Flow Rate FiO2 03/06/25 10:03 100 14 95/62 (73) 99 03/06/25 09:45 30 03/06/25 09:31 Mechanical Ventilator+ 03/06/25 09:18 99.1 99.1 Total Intake and Output 03/05/25 03/05/25 03/06/25 15:00 23:00 07:00 Intake Total 488.534 ml 1026.784 ml 1091.8083 ml Output Total 1000 ml 1000 ml Balance 488.534 ml 26.784 ml 91.8083 ml medications Current Medications Medications Dose Ordered Sig/Tim Route Start Time Stop Time Status Last Admin Dose Admin Diagnostic Test (Pha) 1 strip IQ4HR 02/21/25 00:00 UNV Sodium Chloride 10 ml Q8HR IV 02/20/25 22:00 03/06/25 07:07 10 ML Docusate Sodium 100 mg BIDPRN PRN PO 02/20/25 20:15 Acetaminophen 650 mg Q6HP PRN PO 02/20/25 20:15 Nitroglycerin 0.4 mg Q5MINP PRN SL 02/20/25 21:15 Hydralazine HCl 10 mg Q6HP PRN IV 02/24/25 16:30 02/25/25 08:46 10 MG Lorazepam 1 mg ONCE PRN IV 02/25/25 10:45 Levofloxacin 50 ml @ 50 mls/hr DAILY IV 02/27/25 10:00 Cancel Midazolam HCl 100 ml @ 1 mls/hr Q24H IV 02/27/25 07:15 02/27/25 07:15 0 MLS/HR Fentanyl Citrate 250 ml @ 2.5 mls/hr Q24H IV 02/27/25 07:15 Norepinephrine Bitartrate 250 ml @ 3.75 mls/hr Q24H IV 02/27/25 07:15 03/06/25 05:56 3.75 MLS/HR Enteral Nutritional Formula 1,000 ml 30ML/HR GT 02/28/25 10:45 03/04/25 21:49 1,000 ML Budesonide 0.5 mg BID NEB 02/28/25 22:00 03/06/25 05:48 0.5 MG Meropenem 50 ml @ 17 mls/hr Q12H IV 03/01/25 20:00 03/06/25 07:07 17 MLS/HR Nystatin 1 applic BID TOP 03/01/25 22:00 03/06/25 07:07 1 APPLIC Pantoprazole Sodium 40 mg DAILY IV 03/03/25 10:00 03/06/25 07:07 40 MG Purified Water 200 ml Q4HR GT 03/03/25 08:45 03/06/25 07:07 200 ML Dopamine HCl/ Dextrose 250 ml @ 9.473 mls/ hr Q24H IV 03/03/25 09:45 03/05/25 11:58 9.473 MLS/HR Diagnostic Test (Pha) 1 strip IQ4HR 03/04/25 16:00 03/06/25 07:07 1 STRIP Insulin Human Regular IQ4HR SC 03/04/25 16:00 03/06/25 07:19 2 UNITS Dextrose 50 ml UD PRN IV 03/04/25 15:00 Examination: LUNGS:Abnormal, CVS:Normal, MSK:Normal laboratory and microbiology Laboratory Tests 03/06/25 03:56 Test 03/06/25 03:56 Range/Units Serum Glucose 142 H 74-106 mg/dL Microbiology Date/Time Source Procedure Growth Status 02/27/25 22:45 Nose MRSA Screen - Final Complete 02/27/25 14:05 Sputum Endotracheal Wash Gram Stain - Final Complete 02/27/25 14:05 Sputum Endotracheal Wash Respiratory Culture - Final Complete 02/27/25 10:21 Blood Blood Culture - Final NO GROWTH AFTER 5 DAYS OF INCUBATION. Complete 02/21/25 01:55 Urine - D[place] Urine Culture - Final Escherichia coli - ESBL Complete Problem List/Assessment/Plan Problem List/Assessment/Plan Acute kidney injury superimposed Chronic Kidney Disease secondary hemodynamic mediated, FeNa < 1% Vancomycin toxicity Acute respiratory failure, intubated on ventilator Status post cardiac arrest 02/17 Septic shock DKA sepsis UTI uncontrolled Dm2 morbid obesity hypernatremia need to insensible water loss, resolved appropriately Hypokalemia Recommendations Kidney function continues to improve increased urine output Diallo catheter Strict I&Os Discontinue vancomycin DC IV fluid Low-dose dopamine KCL replacement IV pressors for blood pressure support Insulin sliding scale Kidney reported within normal limit on CT scan We will continue to follow Plan discussed with: Other (Nurse) Dietary Evaluation Review Comments: Diet Order: Continue CCHO-60, 2-gram sodium diet. Monitoring: Monitor PO intake and tolerance. Monitor renal function and updated lab values (electrolytes, BUN/Cr, GFR). Follow up with nephrology and GI reports. Reassessment: Reassess PRN based on clinical status and intake. Discharge Planning: Address weight management upon discharge. Expected Outcomes/Goals: gradual wt loss MARISELA CUEVA MD Mar 06, 2025 11:20
--- NOTE | 2025-03-06 12:28 | DVHPN2 ---
Progress Note Date Seen: Mar 06, 2025 Resident Creating Document: SHANNAN JACKSON RESIDENT Medical Necessity Reason Pt with a Central, PICC or Fol: Yes The following are medically ne: Diallo Catheter Reason for diallo catheter: Strict I&O Subjective Review of Systems Neurological status not improved, patient nonresponsive to verbal and physical stimulation No acute cardiac events overnight on the monitor Objective vital signs Vital Sign Date Time Temp Pulse Resp B/P (MAP) Pulse Ox O2 Delivery O2 Flow Rate FiO2 03/06/25 11:58 30 03/06/25 11:58 16 98 Mechanical Ventilator+ 03/06/25 11:58 101 03/06/25 11:48 98.2 119/82 (94) 98.2 Total Intake and Output 03/05/25 03/05/25 03/06/25 15:00 23:00 07:00 Intake Total 488.534 ml 1026.784 ml 1091.8083 ml Output Total 1000 ml 1000 ml Balance 488.534 ml 26.784 ml 91.8083 ml medications Current Medications Medications Dose Ordered Sig/Tim Route Start Time Stop Time Status Last Admin Dose Admin Diagnostic Test (Pha) 1 strip IQ4HR 02/21/25 00:00 UNV Sodium Chloride 10 ml Q8HR IV 02/20/25 22:00 03/06/25 07:07 10 ML Docusate Sodium 100 mg BIDPRN PRN PO 02/20/25 20:15 Acetaminophen 650 mg Q6HP PRN PO 02/20/25 20:15 Nitroglycerin 0.4 mg Q5MINP PRN SL 02/20/25 21:15 Hydralazine HCl 10 mg Q6HP PRN IV 02/24/25 16:30 02/25/25 08:46 10 MG Lorazepam 1 mg ONCE PRN IV 02/25/25 10:45 Levofloxacin 50 ml @ 50 mls/hr DAILY IV 02/27/25 10:00 Cancel Midazolam HCl 100 ml @ 1 mls/hr Q24H IV 02/27/25 07:15 02/27/25 07:15 0 MLS/HR Fentanyl Citrate 250 ml @ 2.5 mls/hr Q24H IV 02/27/25 07:15 Norepinephrine Bitartrate 250 ml @ 3.75 mls/hr Q24H IV 02/27/25 07:15 03/06/25 05:56 3.75 MLS/HR Enteral Nutritional Formula 1,000 ml 30ML/HR GT 02/28/25 10:45 03/04/25 21:49 1,000 ML Budesonide 0.5 mg BID NEB 02/28/25 22:00 03/06/25 05:48 0.5 MG Meropenem 50 ml @ 17 mls/hr Q12H IV 03/01/25 20:00 03/06/25 07:07 17 MLS/HR Nystatin 1 applic BID TOP 03/01/25 22:00 03/06/25 07:07 1 APPLIC Pantoprazole Sodium 40 mg DAILY IV 03/03/25 10:00 03/06/25 07:07 40 MG Purified Water 200 ml Q4HR GT 03/03/25 08:45 03/06/25 11:48 200 ML Dopamine HCl/ Dextrose 250 ml @ 9.473 mls/ hr Q24H IV 03/03/25 09:45 03/05/25 11:58 9.473 MLS/HR Diagnostic Test (Pha) 1 strip IQ4HR 03/04/25 16:00 03/06/25 11:48 1 STRIP Insulin Human Regular IQ4HR SC 03/04/25 16:00 03/06/25 11:48 2 UNITS Dextrose 50 ml UD PRN IV 03/04/25 15:00 Potassium Chloride 100 ml @ 50 mls/hr Q2H IV 03/06/25 11:30 03/06/25 15:29 Examination Skin - Patients skin is warm and dry, wound with the mid abdomen with sterile dressing. HEENT - normocephalic, atraumatic, moist mucous membranes, no scleral icterus, no conjunctival pallor. Neck - full ROM, no LAD, no JVD Pulmonary - B/L coarse breath sounds cardiovascular - regular S1,S2 heard, no added sounds or murmurs appreciated. peripheral pulses normal radial 2+, pedal 2+. Trace extremity edema GI - soft abdomen with dressing no hepatospleenomegaly. Bowel sounds hypoactive Neurological - Patient is on mechanical ventilation, off sedation laboratory and microbiology Laboratory Tests 03/06/25 03:56 Test 03/06/25 03:56 Range/Units Serum Glucose 142 H 74-106 mg/dL Microbiology Date/Time Source Procedure Growth Status 12/19/25 22:45 Nose MRSA Screen - Final Complete 02/27/25 14:05 Sputum Endotracheal Wash Gram Stain - Final Complete 02/27/25 14:05 Sputum Endotracheal Wash Respiratory Culture - Final Complete 02/27/25 10:21 Blood Blood Culture - Final NO GROWTH AFTER 5 DAYS OF INCUBATION. Complete 02/21/25 01:55 Urine - D[place] Urine Culture - Final Escherichia coli - ESBL Complete Problem List/Assessment/Plan Problem List/Assessment/Plan V-fib/V-tach cardiac arrest status post defibrillation x 2 with ROSC Cardiac arrest likely secondary to metabolic causes (severe acidosis) Acute metabolic encephalopathy likely from sepsis/dehydration Acute on chronic kidney injury likely in the setting of shock Shock liver Thrombocytopenia Plan/Recommendation - A transthoracic echocardiogram revealed an LVEF of 50-55% with severe left ventricular hypertrophy. There are right and left ventricular trabeculation. May consider cardiac MRI for further evaluation if clinical correlated - Full AC therapy held secondary to thrombocytopenia - aspirin held because of dropping H&H - Monitor electrolytes keep potassium above 4 and Mag above 2 - Strict I&Os, reduced afterload and preload - Continue Nephrology recommendations We will consider further ischemic cardiac workup once the patient is more medically stable, neurological status improved and platelet count has improved. We will sign off. Please reconsult when the patient's neurological status has improved Thank you for consulting. Goals of care discussed with the patient's primary team, RN Plan discussed with Dr. Hein Plan discussed with: Other (Primary team) Dietary Evaluation Review Comments: Diet Order: Continue CCHO-60, 2-gram sodium diet. Monitoring: Monitor PO intake and tolerance. Monitor renal function and updated lab values (electrolytes, BUN/Cr, GFR). Follow up with nephrology and GI reports. Reassessment: Reassess PRN based on clinical status and intake. Discharge Planning: Address weight management upon discharge. Expected Outcomes/Goals: gradual wt loss SHANNAN JACKSON RESIDENT Mar 06, 2025 12:28
[2025-03-06] MEDS: POTASSIUM CHL 20MEQ/100ML 100 ML IV SCH (12:34)
--- NOTE | 2025-03-06 20:35 | DVHPN2 ---
Progress Note - Dictate Date Seen: Mar 06, 2025 Medical Necessity Reason Pt with a Central, PICC or Fol: Yes The following are medically ne: Diallo Catheter Reason for diallo catheter: Strict I&O Subjective Patient was seen and evaluated in follow-up in the ICU. Patient is intubated and sedated on ventilator. 30% FiO2. Neurological status not improved, patient nonresponsive to verbal and physical stimulation. No acute cardiac events overnight on the conveyor monitor. HGB 8.7, HCT 25.9, BUN 57, WELDING LEAD BURNER 1.71. Chest x- ray shows cardiomegaly and low lung volumes and unchanged pulmonary vascular congestion. vital signs Vital Sign Date Time Temp Pulse Resp B/P (MAP) Pulse Ox O2 Delivery O2 Flow Rate FiO2 03/06/25 17:44 16 98 Mechanical Ventilator+ 30 30 03/06/25 17:44 102 03/06/25 17:33 99/59 (72) 03/06/25 16:03 98.2 98.2 Total Intake and Output 03/05/25 03/05/25 03/06/25 15:00 23:00 07:00 Intake Total 488.534 ml 1026.784 ml 1091.8083 ml Output Total 1000 ml 1000 ml Balance 488.534 ml 26.784 ml 91.8083 ml medications Current Medications Medications Dose Ordered Sig/Tim Route Start Time Stop Time Status Last Admin Dose Admin Diagnostic Test (Pha) 1 strip IQ4HR 02/21/25 00:00 UNV Sodium Chloride 10 ml Q8HR IV 02/20/25 22:00 03/06/25 07:07 10 ML Docusate Sodium 100 mg BIDPRN PRN PO 02/20/25 20:15 Acetaminophen 650 mg Q6HP PRN PO 02/20/25 20:15 Nitroglycerin 0.4 mg Q5MINP PRN SL 02/20/25 21:15 Hydralazine HCl 10 mg Q6HP PRN IV 02/24/25 16:30 02/25/25 08:46 10 MG Lorazepam 1 mg ONCE PRN IV 02/25/25 10:45 Levofloxacin 50 ml @ 50 mls/hr DAILY IV 02/27/25 10:00 Cancel Midazolam HCl 100 ml @ 1 mls/hr Q24H IV 02/27/25 07:15 02/27/25 07:15 0 MLS/HR Fentanyl Citrate 250 ml @ 2.5 mls/hr Q24H IV 02/27/25 07:15 Norepinephrine Bitartrate 250 ml @ 3.75 mls/hr Q24H IV 02/27/25 07:15 03/06/25 05:56 3.75 MLS/HR Enteral Nutritional Formula 1,000 ml 30ML/HR GT 02/28/25 10:45 03/04/25 21:49 1,000 ML Budesonide 0.5 mg BID NEB 02/28/25 22:00 03/06/25 05:48 0.5 MG Meropenem 50 ml @ 17 mls/hr Q12H IV 03/01/25 20:00 03/06/25 07:07 17 MLS/HR Nystatin 1 applic BID TOP 03/01/25 22:00 03/06/25 07:07 1 APPLIC Pantoprazole Sodium 40 mg DAILY IV 03/03/25 10:00 03/06/25 07:07 40 MG Purified Water 200 ml Q4HR GT 03/03/25 08:45 03/06/25 16:05 200 ML Dopamine HCl/ Dextrose 250 ml @ 9.473 mls/ hr Q24H IV 03/03/25 09:45 03/06/25 12:37 9.473 MLS/HR Diagnostic Test (Pha) 1 strip IQ4HR 03/04/25 16:00 03/06/25 16:05 1 STRIP Insulin Human Regular IQ4HR SC 03/04/25 16:00 03/06/25 16:06 3 UNITS Dextrose 50 ml UD PRN IV 03/04/25 15:00 objective GENERAL: Ill appearing, intubated on ventilator. EYES: PERRL, EOMI. Anicteric. HENT: Moist mucous membranes. LUNGS: Decreased breath sounds. CARDIOVASCULAR: Regular rate and rhythm. ABDOMEN: Soft, nontender and nondistended. EXTREMITIES: No edema. SKIN: Warm, dry. Wound with the mid abdomen with sterile dressing. laboratory and microbiology Laboratory Tests 03/06/25 03:56 Test 03/06/25 03:56 Range/Units Serum Glucose 142 H 74-106 mg/dL Problem List V-fib/V-tach cardiac arrest status post defibrillation x 2 with ROSC. Cardiac arrest likely secondary to metabolic causes (severe acidosis). Acute metabolic encephalopathy likely from sepsis/dehydration. Acute on chronic kidney injury likely in the setting of shock. Shock liver. Thrombocytopenia. Assessment/Plan Continued all current supportive medical care. Patient has been seen by Minda Rodriguez Resident on my behalf, we have discussed the plan with the patient A transthoracic echocardiogram revealed an LVEF of 50-55% with severe left ventricular hypertrophy. There are right and left ventricular trabeculation. May consider cardiac MRI for further evaluation if clinical correlated. Full AC therapy held secondary to thrombocytopenia. Aspirin held because of dropping H&H. Monitor electrolytes keep potassium above 4 and Mag above 2. Strict I&Os, reduced afterload and preload. Continue Nephrology recommendations. We will consider further ischemic cardiac workup once the patient is more medically stable, neurological status improved and platelet count has improved. Additional plan as per the hospital course. Critical care time of 45 minutes provided to include time spent evaluation of patient at bedside, when appropriate patient/family education for diagnosis, treatment plan, review of pertinent medical information and discussion of care with specialty providers and PCP. Dietary Evaluation Review Comments: Diet Order: Continue CCHO-60, 2-gram sodium diet. Monitoring: Monitor PO intake and tolerance. Monitor renal function and updated lab values (electrolytes, BUN/Cr, GFR). Follow up with nephrology and GI reports. Reassessment: Reassess PRN based on clinical status and intake. Discharge Planning: Address weight management upon discharge. Expected Outcomes/Goals: gradual wt loss Plan discussed with: Other ARMANDO PATEL MD Mar 06, 2025 18:10
--- NOTE | 2025-03-06 22:30 | DVHPN2 ---
Subjective DOS: 03/06/2025 Patient seen and examined at bedside. intubated on mechanical ventilator. Overnight events reviewed. Reviewed: H&P Changes from previous H/P or p: No Changes General: Per HPI Eyes: No Pain, No Vision change, No Conjunctivae inflammation, No Eyelid inflammation, No Other, No Redness ENT: No Ear pain, No Ear discharge, No Nose pain, No Nose discharge, No Nose congestion, No Mouth pain, No Mouth swelling, No Throat pain, No Throat swelling, No Other Cardiovascular: No Chest Pain, No Palpitations, No Orthopnea, No Paroxysmal Noc. Dyspnea, No Edema, No Lt Headedness, No Other Respiratory: No Cough, No Dry, No Shortness of breath, No SOB with excertion, No Wheezing, No Hemoptysis, No Pleuritic Pain, No Sputum, No Other Gastrointestinal: No Nausea, No Vomiting, No Abdominal Pain, No Diarrhea, No Constipation, No Melena, No Hematochezia, No Other Musculoskeletal: No other, No neck pain, No shoulder pain, No arm pain, No back pain, No hand pain, No leg pain, No foot pain Skin: No Rash, No Lesions, No Jaundice, No Bruising, No Other Objective Vitals Vital Signs Date Time Temp Pulse Resp B/P (MAP) Pulse Ox O2 Delivery O2 Flow Rate FiO2 03/06/25 22:00 108 16 99/61 (74) 99 30 03/06/25 20:03 99.7 99.7 03/06/25 20:00 Mechanical Ventilator+ Intake/Output Intake and Output 03/06/25 07:00 Intake Total 2607.1263 ml Output Total 2000 ml Balance 607.1263 ml Intake Oral 1360 ml IV Total 713.1263 ml Tube Feeding 534 ml Output Urine Total 2000 ml Exam Gen.: Patient lying in bed in medical ICU. Intubated on mechanical ventilator. Head: Normocephalic, atraumatic. Eyes: PERRLA. Ears: Normal external anatomy. Throat: Endotracheal tube and orogastric tube in place. Neck: Supple, trachea midline. Chest: Transmitted breath sounds bilaterally. Decreased air entry bilaterally. No wheezing. Bibasilar crackles. Cardiovascular: Positive S1, positive S2. Regular rate and rhythm. Abdomen: Positive bowel sounds in all 4 quadrants. Soft, nontender, nondistended. : [place] in place. Normal external genitalia. Rectal: Deferred. Skin: Warm, dry. Intact. Extremities: 2+ radial pulses bilaterally. No lower extremity edema. Neuro: Off sedation Lungs: Clear to auscultation Cardiovascular: Regular rate, Normal S1, Normal S2, No murmurs Abdomen: Normal bowel sounds, Soft, No tenderness Extremities: No edema Medications Current Medications Medications Dose Ordered Sig/Tim Route Start Time Stop Time Status Last Admin Dose Admin Diagnostic Test (Pha) 1 strip IQ4HR 02/21/25 00:00 UNV Sodium Chloride 10 ml Q8HR IV 02/20/25 22:00 03/06/25 07:07 10 ML Docusate Sodium 100 mg BIDPRN PRN PO 02/20/25 20:15 Acetaminophen 650 mg Q6HP PRN PO 02/20/25 20:15 Nitroglycerin 0.4 mg Q5MINP PRN SL 02/20/25 21:15 Hydralazine HCl 10 mg Q6HP PRN IV 02/24/25 16:30 02/25/25 08:46 10 MG Lorazepam 1 mg ONCE PRN IV 02/25/25 10:45 Levofloxacin 50 ml @ 50 mls/hr DAILY IV 02/27/25 10:00 Cancel Midazolam HCl 100 ml @ 1 mls/hr Q24H IV 02/27/25 07:15 02/27/25 07:15 0 MLS/HR Fentanyl Citrate 250 ml @ 2.5 mls/hr Q24H IV 02/27/25 07:15 Norepinephrine Bitartrate 250 ml @ 3.75 mls/hr Q24H IV 02/27/25 07:15 03/06/25 05:56 3.75 MLS/HR Enteral Nutritional Formula 1,000 ml 30ML/HR GT 02/28/25 10:45 03/04/25 21:49 1,000 ML Budesonide 0.5 mg BID NEB 02/28/25 22:00 03/06/25 21:59 0.5 MG Meropenem 50 ml @ 17 mls/hr Q12H IV 03/01/25 20:00 03/06/25 20:20 17 MLS/HR Nystatin 1 applic BID TOP 03/01/25 22:00 03/06/25 07:07 1 APPLIC Pantoprazole Sodium 40 mg DAILY IV 03/03/25 10:00 03/06/25 07:07 40 MG Purified Water 200 ml Q4HR GT 03/03/25 08:45 03/06/25 16:05 200 ML Dopamine HCl/ Dextrose 250 ml @ 9.473 mls/ hr Q24H IV 03/03/25 09:45 03/06/25 12:37 9.473 MLS/HR Diagnostic Test (Pha) 1 strip IQ4HR 03/04/25 16:00 03/06/25 20:20 1 STRIP Insulin Human Regular IQ4HR SC 03/04/25 16:00 03/06/25 20:17 3 UNITS Dextrose 50 ml UD PRN IV 03/04/25 15:00 Laboratory Results Laboratory Tests 03/06/25 03:56 Chemistry Test 03/06/25 03:56 Calcium Level 8.9 mg/dL (8.7-10.4) Urinalysis Test 02/20/25 21:52 03/02/25 17:20 Urine WBC Clumps Present /hpf (None Seen) Urine Hyaline Casts Few /lpf (0 - 2) Urine Mucus Few (None Seen) Urine Color Yellow (Yellow) Urine Clarity Turbid (Clear) H Urine pH 5.0 (5.0-9.0) Urine Specific [place] 1.013 (1.001-1.035) Urine Protein 1+ (Negative) H Urine Ketones Trace (Negative) Urine Blood 1+ /uL (Negative) H Urine Nitrite Negative (Negative) Urine Bilirubin Negative (Negative) Urine Urobilinogen 2 mg/dL (Negative) H Urine Leukocyte Esterase Trace /uL (Negative) Urine RBC 1 /hpf (0 - 4) Urine Microscopic WBC 2 /HPF (0-5) Urine Squamous Epithelial Cells Few /hpf (<5) Urine Calcium Oxalate Crystals Few (None Seen) Urine Amorphous Crystals Few /hpf (None Seen) Urine Bacteria Few /hpf (None Seen) H Urine Osmolality 329 mOsm/kg Urine Creatinine 73.30 mg/dL (30.0-125.0) Urine Protein/Creatinine Ratio 1.14 Urine Sodium 28 mmol/L (40-220) L Urine Glucose 1+ mg/dL (Normal) H Urine Total Protein 83.3 mg/dL (1-14) H Blood Gas Results Test 03/06/25 06:54 Arterial Blood pH 7.421 (7.350-7.450) FiO2 % 30.0 Microbiology Microbiology Date/Time Source Procedure Growth Status 02/27/25 22:45 Nose MRSA Screen - Final Complete 02/27/25 14:05 Sputum Endotracheal Wash Gram Stain - Final Complete 02/27/25 14:05 Sputum Endotracheal Wash Respiratory Culture - Final Complete 02/27/25 10:21 Blood Blood Culture - Final NO GROWTH AFTER 5 DAYS OF INCUBATION. Complete 02/21/25 01:55 Urine - [place] Urine Culture - Final Escherichia coli - ESBL Complete Assessment/Plan Assessment/Plan Impression: Acute hypoxic respiratory failure On mechanical ventilator S/p cardiac arrest Acute DKA, resolved Acute metabolic encephalopathy BETH on OHS likely Acute kidney injury Hypernatremia Sepsis due to UTI Urinary tract infection Morbid obesity Events: Remains on vent support On AC mode; RR 16, VT 400, PEEP 5, FiO2 30% ABG reviewed, compensated Patient failed CPAP trial. Off sedation x 4 days Mentation not at goal; awaiting for mentation to improve. SBT CPAP trial with PS 16, PEEP 5. Pressors for hemodynamic support Levophed 2 mcg/min Titrate to keep mean arterial pressure greater than 65 mmHg Continue antibiotics. Pulmicort BID Continue Dopamine 2 mcg/min renally dosed. Nephrology recs appreciated. Accu-Cheks, ISS. Protonix for GI ppx Monitor renal function Monitor electrolytes. Supplement as necessary Monitor sodium On free water supplementation Potassium supplementation Monitor ins and outs. Continue tube feeds for nutritional support CPAP trial OK to increase PS to achieve tidal volume 350-450 mL. Goals of care discussed with family CT head showed no evidence of stroke or intracranial hemorrhage. Labs and imaging reviewed. Rest of plan as noted below. Plan: s/p intubation on mechanical ventilator. On AC mode; RR 16, VT 400, PEEP 5, FiO2 30% Titrate FIO2 to keep O2 saturation above 90%. VAP bundle. Daily ABG and CXR while intubated Continue IV antibiotics. Follow up cultures. Steroids - Solu-Medrol 40 mg IVP q.12 hours (Discontinued) Pulmicort 0.5 mg BID Pressors as necessary for hemodynamic support Titrate to keep mean arterial pressure greater than 65 mmHg. Follow up Cardiology recs NG tube in place. Tube feeds for nutritional support Monitor renal function Monitor electrolytes. Supplement as necessary. Monitor ins and outs. Maintain euvolemia. Follow up Nephrology recs Recommend diet and lifestyle modifications for weight reduction Obesity complicates all care GI prophylaxis. DVT prophylaxis. Prognosis: Poor given patient's multiple co-morbidities. Condition: Critical Rest of plan per hospitalist and other consultants. A total of 35 minutes of critical care time was spent reviewing the patient record, examining the patient, making a diagnostic and therapeutic plan, discussing this plan with the medical personnel, following up on diagnostic studies and following the patient for clinical stability excluding any and all procedures. At least 50% of this time was spent in direct, [id number] contact. Thank you, Dr. Carreno, for allowing me to participate in this patient's care. Further recommendations will depend on the patient's clinical course. Please do not hesitate to contact me if you have any questions or concerns. This medical document was created using an electronic medical record system with [employer] dictation system. Although these documentations are being carefully reviewed, there may still be some phonetic and typographical changes. The errors are purely typographical, due to imperfection on the software program, and do not reflect any compromise in the patient's medical care. Plan discussed with: Other (RN) My Orders Orders - JOSE CASTRO MD Procedure Category Date Status Time Cpap Trial For Am ORDERS 03/06/25 Transmitted 07:44 Visit Coding Pulmonary Billing Provider: JOSE CASTRO MD Date of Service if different f: Mar 06, 2025 Common Visit Codes: 65988-[id number] INP/OBS CARE(HIGH), [id number] CARE 30-74 MIN JOSE CASTRO MD Mar 06, 2025 22:30
[2025-03-07] VITALS (116 sets, daily range): BP systolic 86–127; BP diastolic 50–86; PULSE 94–142; RESP 10–22; TEMP 99.1–100; O2SAT 91–100
[2025-03-07 03:25] LABS: Hematocrit 27.1 % (36.0-46.0); Hemoglobin 9.1 g/dL (12.2-16.2); Mean Corpuscular Hemoglobin 28.8 pg (28.0-32.0); Mean Corpuscular Volume 85.4 fL (80.0-100.0); Nucleated Red Blood Cells % 0.5 %
[2025-03-07 03:43] LABS: Calcium 9.1 mg/dL (8.7-10.4); Chloride 106 mmol/L (98-107); Potassium 4.2 mmol/L (3.5-5.1)
[2025-03-07 03:44] LABS: Anion Gap 9 (5-15); Carbon Dioxide 31 mmol/L (20-31)
[2025-03-07 03:49] LABS: BUN/Creatinine Ratio 31.3 (10.0-20.0)
[2025-03-07 03:50] LABS: Magnesium 1.9 mg/dL (1.6-2.6)
[2025-03-07 03:58] LABS: Blood Urea Nitrogen 47 mg/dL (9-23); Glucose 180 mg/dL (74-106); Sodium 146 mmol/L (136-145)
--- NOTE | 2025-03-07 05:39 | DVH ---
CHEST RADIOGRAPH Indication: intubated Technique: Single frontal view of the chest was obtained COMPARISON: XY CHEST PORTABLE on DOS: 03/06/25, XY CHEST PORTABLE on DOS: 03/05/25, XY CHEST PORTABLE on DOS: 03/04/25, XY CHEST PORTABLE on DOS: 03/03/25, XY CHEST PORTABLE on DOS: 03/02/25 FINDINGS: Lines and Tubes: Endotracheal tube, enteric catheter and right central venous catheter in satisfactory position. Lungs: Low lung volumes. Unchanged pulmonary vascular congestion. Pleura: No effusion. No pneumothorax. Cardiomediastinal contours: Cardiomegaly. Bones: Unremarkable IMPRESSION: Lines and tubes in satisfactory position. No significant interval change.
[2025-03-07 07:39] LABS: Base Excess 4.5 mmol/L (-2.0-3.0)
--- NOTE | 2025-03-07 11:59 | DVHPN2 ---
Progress Note Date Seen: Mar 07, 2025 Medical Necessity Reason Pt with a Central, PICC or Fol: Yes The following are medically ne: Diallo Catheter Reason for diallo catheter: Strict I&O Subjective Review of Systems: RESPIRATORY:Abnormal Other Systems: Patient seen and examined by myself today in follow-up, patient remained intubated on ventilator Objective vital signs Vital Sign Date Time Temp Pulse Resp B/P (MAP) Pulse Ox O2 Delivery O2 Flow Rate FiO2 03/07/25 11:38 104 16 110/71 (84) 97 30 03/07/25 09:30 Mechanical Ventilator+ 03/07/25 07:33 99.4 99.4 Total Intake and Output 03/06/25 03/06/25 03/07/25 15:00 23:00 07:00 Intake Total 222.784 ml 1082.034 ml 1135.784 ml Output Total 900 ml 950 ml Balance 222.784 ml 182.034 ml 185.784 ml medications Current Medications Medications Dose Ordered Sig/Tim Route Start Time Stop Time Status Last Admin Dose Admin Diagnostic Test (Pha) 1 strip IQ4HR 02/21/25 00:00 UNV Sodium Chloride 10 ml Q8HR IV 02/20/25 22:00 03/07/25 07:20 10 ML Docusate Sodium 100 mg BIDPRN PRN PO 02/20/25 20:15 Acetaminophen 650 mg Q6HP PRN PO 02/20/25 20:15 Nitroglycerin 0.4 mg Q5MINP PRN SL 02/20/25 21:15 Hydralazine HCl 10 mg Q6HP PRN IV 02/24/25 16:30 02/25/25 08:46 10 MG Lorazepam 1 mg ONCE PRN IV 02/25/25 10:45 Levofloxacin 50 ml @ 50 mls/hr DAILY IV 02/27/25 10:00 Cancel Midazolam HCl 100 ml @ 1 mls/hr Q24H IV 02/27/25 07:15 02/27/25 07:15 0 MLS/HR Fentanyl Citrate 250 ml @ 2.5 mls/hr Q24H IV 02/27/25 07:15 Norepinephrine Bitartrate 250 ml @ 3.75 mls/hr Q24H IV 02/27/25 07:15 03/07/25 04:17 7.5 MLS/HR Enteral Nutritional Formula 1,000 ml 30ML/HR GT 02/28/25 10:45 03/04/25 21:49 1,000 ML Budesonide 0.5 mg BID NEB 02/28/25 22:00 03/07/25 06:08 0.5 MG Meropenem 50 ml @ 17 mls/hr Q12H IV 03/01/25 20:00 03/07/25 07:20 17 MLS/HR Nystatin 1 applic BID TOP 03/01/25 22:00 03/07/25 07:20 1 APPLIC Pantoprazole Sodium 40 mg DAILY IV 03/03/25 10:00 03/07/25 07:19 40 MG Purified Water 200 ml Q4HR GT 03/03/25 08:45 03/07/25 07:20 200 ML Dopamine HCl/ Dextrose 250 ml @ 9.473 mls/ hr Q24H IV 03/03/25 09:45 03/07/25 04:17 9.473 MLS/HR Diagnostic Test (Pha) 1 strip IQ4HR 03/04/25 16:00 03/07/25 07:20 1 STRIP Insulin Human Regular IQ4HR SC 03/04/25 16:00 03/07/25 07:28 3 UNITS Dextrose 50 ml UD PRN IV 03/04/25 15:00 Examination: LUNGS:Abnormal, CVS:Normal, MSK:Normal laboratory and microbiology Laboratory Tests 03/07/25 02:30 Test 03/07/25 02:30 Range/Units Serum Glucose 180 H 74-106 mg/dL Microbiology Date/Time Source Procedure Growth Status 02/27/25 22:45 Nose MRSA Screen - Final Complete 02/27/25 14:05 Sputum Endotracheal Wash Gram Stain - Final Complete 02/27/25 14:05 Sputum Endotracheal Wash Respiratory Culture - Final Complete 02/27/25 10:21 Blood Blood Culture - Final NO GROWTH AFTER 5 DAYS OF INCUBATION. Complete 02/21/25 01:55 Urine - [place] Urine Culture - Final Escherichia coli - ESBL Complete Problem List/Assessment/Plan Problem List/Assessment/Plan Acute kidney injury superimposed Chronic Kidney Disease secondary hemodynamic mediated, FeNa < 1% Vancomycin toxicity Acute respiratory failure, intubated on ventilator Status post cardiac arrest 02/17 Septic shock DKA sepsis UTI uncontrolled Dm2 morbid obesity hypernatremia need to insensible water loss, Hypokalemia Recommendations Kidney function continues to improve increased urine output Diallo catheter Strict I&Os Discontinue vancomycin DC IV fluid Low-dose dopamine KCL replacement Free water flushes IV pressors for blood pressure support Insulin sliding scale Kidney reported within normal limit on CT scan We will continue to follow Plan discussed with: Other (Nurse) Dietary Evaluation Review Comments: Diet Order: Continue CCHO-60, 2-gram sodium diet. Monitoring: Monitor PO intake and tolerance. Monitor renal function and updated lab values (electrolytes, BUN/Cr, GFR). Follow up with nephrology and GI reports. Reassessment: Reassess PRN based on clinical status and intake. Discharge Planning: Address weight management upon discharge. Expected Outcomes/Goals: gradual wt loss MARISELA CUEVA MD Mar 07, 2025 11:59
--- NOTE | 2025-03-07 15:24 | DVHPNRES ---
Progress Note Date Seen: Mar 07, 2025 Resident Creating Document: ANISH MCKEON RESIDENT Medical Necessity Reason Pt with a Central, PICC or Fol: Yes The following are medically ne: Diallo Catheter Reason for diallo catheter: Strict I&O Subjective Review of Systems Patient is a 59-year-old female with past medical history diabetes, asthma, hypertension, who was brought in by EMS due to altered mental status. According to EMS, per patient's caregiver patient has been having a gradually progressive decline in her mentation over the last 2 months, currently patient noted to be AO x2. Patient was found to be covered in her own feces, unable to communicate effectively which is what prompted the caregiver to call the EMS. On route patient was noted to have a blood glucose of 470, tachycardic in 120s with blood pressure 118/98 saturating 80% on room air and 100% on 4 L O2 via NC. An accurate review of systems could not be completed as patient AO x2 only. Past medical history: Asthma, hypertension, diabetes Past surgical history: Unable to obtain Home medications: Albuterol, metoprolol, Ozempic Social & Personal history: Unable to obtain 03/07/2025: Patient was seen at bedside. Patient had an episode of sinus tachycardia overnight with heart rate going over 120. Sodium borderline elevated, we will continue monitoring. CXR remained unchanged. Patient is currently on Levophed for, dopamine to. CPAP trial with pressures 16/5. Objective vital signs Vital Sign Date Time Temp Pulse Resp B/P (MAP) Pulse Ox O2 Delivery O2 Flow Rate FiO2 03/07/25 14:04 111 16 90/52 (65) 97 03/07/25 13:52 30 03/07/25 13:33 Mechanical Ventilator+ 03/07/25 12:03 99.3 99.3 Total Intake and Output 03/06/25 03/06/25 03/07/25 15:00 23:00 07:00 Intake Total 222.784 ml 1082.034 ml 1135.784 ml Output Total 900 ml 950 ml Balance 222.784 ml 182.034 ml 185.784 ml medications Current Medications Medications Dose Ordered Sig/Tim Route Start Time Stop Time Status Last Admin Dose Admin Diagnostic Test (Pha) 1 strip IQ4HR 02/21/25 00:00 UNV Sodium Chloride 10 ml Q8HR IV 02/20/25 22:00 03/07/25 07:20 10 ML Docusate Sodium 100 mg BIDPRN PRN PO 02/20/25 20:15 Acetaminophen 650 mg Q6HP PRN PO 02/20/25 20:15 Nitroglycerin 0.4 mg Q5MINP PRN SL 02/20/25 21:15 Hydralazine HCl 10 mg Q6HP PRN IV 02/24/25 16:30 02/25/25 08:46 10 MG Lorazepam 1 mg ONCE PRN IV 02/25/25 10:45 Levofloxacin 50 ml @ 50 mls/hr DAILY IV 02/27/25 10:00 Cancel Midazolam HCl 100 ml @ 1 mls/hr Q24H IV 02/27/25 07:15 02/27/25 07:15 0 MLS/HR Fentanyl Citrate 250 ml @ 2.5 mls/hr Q24H IV 02/27/25 07:15 Norepinephrine Bitartrate 250 ml @ 3.75 mls/hr Q24H IV 02/27/25 07:15 03/07/25 04:17 7.5 MLS/HR Enteral Nutritional Formula 1,000 ml 30ML/HR GT 02/28/25 10:45 03/04/25 21:49 1,000 ML Budesonide 0.5 mg BID NEB 02/28/25 22:00 03/07/25 06:08 0.5 MG Meropenem 50 ml @ 17 mls/hr Q12H IV 03/01/25 20:00 03/07/25 07:20 17 MLS/HR Nystatin 1 applic BID TOP 03/01/25 22:00 03/07/25 07:20 1 APPLIC Pantoprazole Sodium 40 mg DAILY IV 03/03/25 10:00 03/07/25 07:19 40 MG Purified Water 200 ml Q4HR GT 03/03/25 08:45 03/07/25 12:24 200 ML Dopamine HCl/ Dextrose 250 ml @ 9.473 mls/ hr Q24H IV 03/03/25 09:45 03/07/25 04:17 9.473 MLS/HR Diagnostic Test (Pha) 1 strip IQ4HR 03/04/25 16:00 03/07/25 12:24 1 STRIP Insulin Human Regular IQ4HR SC 03/04/25 16:00 03/07/25 12:25 3 UNITS Dextrose 50 ml UD PRN IV 03/04/25 15:00 Examination General Appearance: Intubated, sedated, on mechanical ventilation Head Exam: Equal, disconjugate gaze, briskly reactive pupils. Neck Exam: Normal inspection. Non-tender. Normal alignment Pulmonary/Respiratory: Chest non-tender. Coarse and diminished bilateral breath sounds Cardiovascular/Chest: Regular rate and rhythm. Some episodes of tachycardia. No murmurs. No JVD. Peripheral Pulses:. 2+ Pedal (R). 2+ Pedal (L) Abdominal Exam: Normal bowel sounds. Soft. Umbilical abdominal hernia noted Ankle Exam: Trace ankle edema Skin Exam: Generalized body petechiae noted, some bruising on bilateral upper extremities. Normal color. Warm. Dry Sacral exam: Small tear in skin between buttocks. laboratory and microbiology Laboratory Tests 03/07/25 02:30 Test 03/07/25 02:30 Range/Units Serum Glucose 180 H 74-106 mg/dL Microbiology Date/Time Source Procedure Growth Status 02/27/25 22:45 Nose MRSA Screen - Final Complete 02/27/25 14:05 Sputum Endotracheal Wash Gram Stain - Final Complete 02/27/25 14:05 Sputum Endotracheal Wash Respiratory Culture - Final Complete 02/27/25 10:21 Blood Blood Culture - Final NO GROWTH AFTER 5 DAYS OF INCUBATION. Complete 02/21/25 01:55 Urine - [place] Urine Culture - Final Escherichia coli - ESBL Complete Problem List/Assessment/Plan Problem List/Assessment/Plan Neurology # acute metabolic encephalopathy # right meningioma - head CT: No acute intracranial abnormality. Probable right vertex meningioma. - brain MRI: No acute intracranial abnormality seen. 1.9 cm right medial posterior frontal extra-axial mass, most compatible with meningioma. No underlying mass effect/vasogenic edema. - EEG report from 02/26/2025: Mild to moderately abnormal EEG seen in [id number] cerebral dysfunction due to metabolic/hypoxic encephalopathy or medication effect. - neurology on board # Sedated - currently off of all sedation since 03/01/2025 5am Cardiovascular # NSTEMI type 1 versus type 2 # septic shock # V-tach - cardiology on board #ROSC s/p Cardiac arrest and CPR, code blue 02/27/2025 -pt had bradycardia, VFib received shock, asystole then V-tach in subsequently received amiodarone. -ROSC post CPR Respiratory # Ventilator -intubated 02/27/2025 -on [facility] vent : VCAC Mode RR 16, TV 450, peep 8, FiO2 30% # Acute hypoxic respiratory failure # obstructive sleep apnea on obesity hypoventilation syndrome - on ventilator - CXR:Cardiomegaly and pulmonary vascular congestion. - CPAP trial today GI # umbilical hernia containing bowel loops # wound culture from umbilical hernia growing ESBL and MSSA # questionable GI bleed - CT abdomen pelvis: No evidence of acute abdominopelvic abnormalities. Large umbilical hernia containing bowel loops without evidence of obstruction or strangulation. - GI consulted - 100 cc brownish red output noted in NG tube canister - Stable H&H, however, steep decline from hemoglobin 16.1 on admission to 8.2 today. - IV daptomycin # Peptic ulcer prophylaxis -Pantoprazole 40 mg IV daily # Diallo catheter placed on 02/20/2025 # acute complicated UTI growing ESBL - IV meropenem Nephrology # JAMEE likely hemodynamically mediated/VMN versus ATN # hypokalemia # hypernatremia - monitor - discontinued Lasix Infectious disease # infected umbilical wound growing ESBL and MSSA # acute complicated UTI growing ESBL # sepsis due to above # septic shock, now improving - IV meropenem b.i.d. - IV daptomycin Hem/onc # anemia possibly of chronic disease versus blood loss? - monitor Endocrine # type 2 diabetes # morbid obesity # fungal skin infection - moderate sliding scale insulin - topical nystatin b.i.d. DVT prophylaxis holding owing to suspicion of GI bleed? Nutrition Tube feedings Glucerna Lines Right IJ 02/27/2025 Right midline 02/25/2025 Drips during [facility] ventilation Levophed 4 Dopamine 25 Critical care time 81 minutes excluding procedure. Code status discussed greater than 20 minutes: DNR Family at bedside explained about the condition of the patient Plan discussed with Dr. Borges Plan discussed with: Other (Nurses) Dietary Evaluation Review Comments: Diet Order: Continue CCHO-60, 2-gram sodium diet. Monitoring: Monitor PO intake and tolerance. Monitor renal function and updated lab values (electrolytes, BUN/Cr, GFR). Follow up with nephrology and GI reports. Reassessment: Reassess PRN based on clinical status and intake. Discharge Planning: Address weight management upon discharge. Expected Outcomes/Goals: gradual wt loss Visit Coding STANDARD RES Billing Provider: JOSE BORGES MD Date of Service if different f: Mar 07, 2025 Common Visit Codes: 60541-[id number] CARE 30-74 MIN, [id number] CARE-EACH +30MIN ANISH MCKEON RESIDENT Mar 07, 2025 15:24
--- NOTE | 2025-03-07 18:36 | DVHPN2 ---
Progress Note - Dictate Date Seen: Mar 07, 2025 Medical Necessity Reason Pt with a Central, PICC or Fol: Yes The following are medically ne: Diallo Catheter Reason for diallo catheter: Strict I&O Subjective Patient was seen and evaluated in follow up in the ICU. Patient is intubated and sedated on ventilator. 30% FiO2. Patient had an episode of sinus tachycardia overnight with heart rate going over 120. HGB 9.1, HCT 27.1, NA 146, BUN 47, Tobacco Sorter 1.50. Chest x-ray shows unchanged pulmonary vascular congestion and cardiomegaly. vital signs Vital Sign Date Time Temp Pulse Resp B/P (MAP) Pulse Ox O2 Delivery O2 Flow Rate FiO2 03/07/25 17:54 106 17 110/61 (77) 98 30 03/07/25 17:44 Mechanical Ventilator+ 03/07/25 16:19 99.1 99.1 Total Intake and Output 03/06/25 03/06/25 03/07/25 15:00 23:00 07:00 Intake Total 222.784 ml 1082.034 ml 1135.784 ml Output Total 900 ml 950 ml Balance 222.784 ml 182.034 ml 185.784 ml medications Current Medications Medications Dose Ordered Sig/Tim Route Start Time Stop Time Status Last Admin Dose Admin Diagnostic Test (Pha) 1 strip IQ4HR 02/21/25 00:00 UNV Sodium Chloride 10 ml Q8HR IV 02/20/25 22:00 03/07/25 07:20 10 ML Docusate Sodium 100 mg BIDPRN PRN PO 02/20/25 20:15 Acetaminophen 650 mg Q6HP PRN PO 02/20/25 20:15 Nitroglycerin 0.4 mg Q5MINP PRN SL 02/20/25 21:15 Hydralazine HCl 10 mg Q6HP PRN IV 02/24/25 16:30 02/25/25 08:46 10 MG Lorazepam 1 mg ONCE PRN IV 02/25/25 10:45 Levofloxacin 50 ml @ 50 mls/hr DAILY IV 02/27/25 10:00 Cancel Midazolam HCl 100 ml @ 1 mls/hr Q24H IV 02/27/25 07:15 02/27/25 07:15 0 MLS/HR Fentanyl Citrate 250 ml @ 2.5 mls/hr Q24H IV 02/27/25 07:15 Norepinephrine Bitartrate 250 ml @ 3.75 mls/hr Q24H IV 02/27/25 07:15 03/07/25 04:17 7.5 MLS/HR Enteral Nutritional Formula 1,000 ml 30ML/HR GT 02/28/25 10:45 03/04/25 21:49 1,000 ML Budesonide 0.5 mg BID NEB 02/28/25 22:00 03/07/25 17:54 0.5 MG Meropenem 50 ml @ 17 mls/hr Q12H IV 03/01/25 20:00 03/07/25 07:20 17 MLS/HR Nystatin 1 applic BID TOP 03/01/25 22:00 03/07/25 07:20 1 APPLIC Pantoprazole Sodium 40 mg DAILY IV 03/03/25 10:00 03/07/25 07:19 40 MG Purified Water 200 ml Q4HR GT 03/03/25 08:45 03/07/25 16:02 200 ML Dopamine HCl/ Dextrose 250 ml @ 9.473 mls/ hr Q24H IV 03/03/25 09:45 03/07/25 04:17 9.473 MLS/HR Diagnostic Test (Pha) 1 strip IQ4HR 03/04/25 16:00 03/07/25 16:02 1 STRIP Insulin Human Regular IQ4HR SC 03/04/25 16:00 03/07/25 16:02 3 UNITS Dextrose 50 ml UD PRN IV 03/04/25 15:00 objective GENERAL: Ill appearing, intubated on ventilator. EYES: PERRL, EOMI. Anicteric. HENT: Moist mucous membranes. LUNGS: Decreased breath sounds. CARDIOVASCULAR: Regular rate and rhythm. ABDOMEN: Soft, nontender and nondistended. EXTREMITIES: No edema. SKIN: Warm, dry. Wound with the mid abdomen with sterile dressing. laboratory and microbiology Laboratory Tests 03/07/25 02:30 Test 03/07/25 02:30 Range/Units Serum Glucose 180 H 74-106 mg/dL Problem List V-fib/V-tach cardiac arrest status post defibrillation x 2 with ROSC. Cardiac arrest likely secondary to metabolic causes (severe acidosis). Acute metabolic encephalopathy likely from sepsis/dehydration. Acute on chronic kidney injury likely in the setting of shock. Shock liver. Thrombocytopenia. Assessment/Plan Continued all current supportive medical care. Dopamine drip. IV Hydralazine for SBP >150. IV antibiotics as ordered. Nitro SL. Vasopressors for hemodynamic support. GI prophylactics. Additional plan as per the hospital course. Critical care time of 45 minutes provided to include time spent evaluation of patient at bedside, when appropriate patient/family education for diagnosis, treatment plan, review of pertinent medical information and discussion of care with specialty providers and PCP. Dietary Evaluation Review Comments: Diet Order: Continue CCHO-60, 2-gram sodium diet. Monitoring: Monitor PO intake and tolerance. Monitor renal function and updated lab values (electrolytes, BUN/Cr, GFR). Follow up with nephrology and GI reports. Reassessment: Reassess PRN based on clinical status and intake. Discharge Planning: Address weight management upon discharge. Expected Outcomes/Goals: gradual wt loss Plan discussed with: Other ARMANDO PATEL MD Mar 07, 2025 18:36
--- NOTE | 2025-03-07 23:25 | DVHPN2 ---
Subjective DOS: 03/07/2025 Patient seen and examined at bedside. intubated on mechanical ventilator. Overnight events reviewed. Reviewed: H&P Changes from previous H/P or p: No Changes General: Per HPI Eyes: No Pain, No Vision change, No Conjunctivae inflammation, No Eyelid inflammation, No Other, No Redness ENT: No Ear pain, No Ear discharge, No Nose pain, No Nose discharge, No Nose congestion, No Mouth pain, No Mouth swelling, No Throat pain, No Throat swelling, No Other Cardiovascular: No Chest Pain, No Palpitations, No Orthopnea, No Paroxysmal Noc. Dyspnea, No Edema, No Lt Headedness, No Other Respiratory: No Cough, No Dry, No Shortness of breath, No SOB with excertion, No Wheezing, No Hemoptysis, No Pleuritic Pain, No Sputum, No Other Gastrointestinal: No Nausea, No Vomiting, No Abdominal Pain, No Diarrhea, No Constipation, No Melena, No Hematochezia, No Other Musculoskeletal: No other, No neck pain, No shoulder pain, No arm pain, No back pain, No hand pain, No leg pain, No foot pain Skin: No Rash, No Lesions, No Jaundice, No Bruising, No Other Objective Vitals Vital Signs Date Time Temp Pulse Resp B/P (MAP) Pulse Ox O2 Delivery O2 Flow Rate FiO2 03/07/25 22:19 99 16 114/75 (88) 99 03/07/25 22:00 30 03/07/25 22:00 Mechanical Ventilator+ 03/07/25 20:04 100.0 100.0 Intake/Output Intake and Output 03/07/25 07:00 Intake Total 2440.602 ml Output Total 1850 ml Balance 590.602 ml Intake Oral 1400 ml IV Total 490.602 ml Tube Feeding 550 ml Output Urine Total 1850 ml Exam Gen.: Patient lying in bed in medical ICU. Intubated on mechanical ventilator. Head: Normocephalic, atraumatic. Eyes: PERRLA. Ears: Normal external anatomy. Throat: Endotracheal tube and orogastric tube in place. Neck: Supple, trachea midline. Chest: Transmitted breath sounds bilaterally. Decreased air entry bilaterally. No wheezing. Bibasilar crackles. Cardiovascular: Positive S1, positive S2. Regular rate and rhythm. Abdomen: Positive bowel sounds in all 4 quadrants. Soft, nontender, nondistended. : [place] in place. Normal external genitalia. Rectal: Deferred. Skin: Warm, dry. Intact. Extremities: 2+ radial pulses bilaterally. No lower extremity edema. Neuro: Off sedation Lungs: Clear to auscultation Cardiovascular: Regular rate, Normal S1, Normal S2, No murmurs Abdomen: Normal bowel sounds, Soft, No tenderness Extremities: No edema Medications Current Medications Medications Dose Ordered Sig/Tim Route Start Time Stop Time Status Last Admin Dose Admin Diagnostic Test (Pha) 1 strip IQ4HR 02/21/25 00:00 UNV Sodium Chloride 10 ml Q8HR IV 02/20/25 22:00 03/07/25 20:59 10 ML Docusate Sodium 100 mg BIDPRN PRN PO 02/20/25 20:15 Acetaminophen 650 mg Q6HP PRN PO 02/20/25 20:15 Nitroglycerin 0.4 mg Q5MINP PRN SL 02/20/25 21:15 Hydralazine HCl 10 mg Q6HP PRN IV 02/24/25 16:30 02/25/25 08:46 10 MG Lorazepam 1 mg ONCE PRN IV 02/25/25 10:45 Levofloxacin 50 ml @ 50 mls/hr DAILY IV 02/27/25 10:00 Cancel Midazolam HCl 100 ml @ 1 mls/hr Q24H IV 02/27/25 07:15 02/27/25 07:15 0 MLS/HR Fentanyl Citrate 250 ml @ 2.5 mls/hr Q24H IV 02/27/25 07:15 Norepinephrine Bitartrate 250 ml @ 3.75 mls/hr Q24H IV 02/27/25 07:15 03/07/25 04:17 7.5 MLS/HR Enteral Nutritional Formula 1,000 ml 30ML/HR GT 02/28/25 10:45 03/04/25 21:49 1,000 ML Budesonide 0.5 mg BID NEB 02/28/25 22:00 03/07/25 17:54 0.5 MG Meropenem 50 ml @ 17 mls/hr Q12H IV 03/01/25 20:00 03/07/25 20:53 17 MLS/HR Nystatin 1 applic BID TOP 03/01/25 22:00 03/07/25 20:59 1 APPLIC Pantoprazole Sodium 40 mg DAILY IV 03/03/25 10:00 03/07/25 07:19 40 MG Purified Water 200 ml Q4HR GT 03/03/25 08:45 03/07/25 21:00 200 ML Dopamine HCl/ Dextrose 250 ml @ 9.473 mls/ hr Q24H IV 03/03/25 09:45 03/07/25 04:17 9.473 MLS/HR Diagnostic Test (Pha) 1 strip IQ4HR 03/04/25 16:00 03/07/25 20:52 1 STRIP Insulin Human Regular IQ4HR SC 03/04/25 16:00 03/07/25 20:59 3 UNITS Dextrose 50 ml UD PRN IV 03/04/25 15:00 Laboratory Results Laboratory Tests 03/07/25 02:30 Chemistry Test 03/07/25 02:30 Calcium Level 9.1 mg/dL (8.7-10.4) Magnesium Level 1.9 mg/dL (1.6-2.6) Phosphorus Level 4.4 mg/dL (2.4-5.1) Urinalysis Test 02/20/25 21:52 03/02/25 17:20 Urine WBC Clumps Present /hpf (None Seen) Urine Hyaline Casts Few /lpf (0 - 2) Urine Mucus Few (None Seen) Urine Color Yellow (Yellow) Urine Clarity Turbid (Clear) H Urine pH 5.0 (5.0-9.0) Urine Specific [place] 1.013 (1.001-1.035) Urine Protein 1+ (Negative) H Urine Ketones Trace (Negative) Urine Blood 1+ /uL (Negative) H Urine Nitrite Negative (Negative) Urine Bilirubin Negative (Negative) Urine Urobilinogen 2 mg/dL (Negative) H Urine Leukocyte Esterase Trace /uL (Negative) Urine RBC 1 /hpf (0 - 4) Urine Microscopic WBC 2 /HPF (0-5) Urine Squamous Epithelial Cells Few /hpf (<5) Urine Calcium Oxalate Crystals Few (None Seen) Urine Amorphous Crystals Few /hpf (None Seen) Urine Bacteria Few /hpf (None Seen) H Urine Osmolality 329 mOsm/kg Urine Creatinine 73.30 mg/dL (30.0-125.0) Urine Protein/Creatinine Ratio 1.14 Urine Sodium 28 mmol/L (40-220) L Urine Glucose 1+ mg/dL (Normal) H Urine Total Protein 83.3 mg/dL (1-14) H Blood Gas Results Test 03/07/25 07:24 Arterial Blood pH 7.397 (7.350-7.450) FiO2 % 30.0 Microbiology Microbiology Date/Time Source Procedure Growth Status 02/27/25 22:45 Nose MRSA Screen - Final Complete 02/27/25 14:05 Sputum Endotracheal Wash Gram Stain - Final Complete 02/27/25 14:05 Sputum Endotracheal Wash Respiratory Culture - Final Complete 02/27/25 10:21 Blood Blood Culture - Final NO GROWTH AFTER 5 DAYS OF INCUBATION. Complete 02/21/25 01:55 Urine - [place] Urine Culture - Final Escherichia coli - ESBL Complete Assessment/Plan Assessment/Plan Impression: Acute hypoxic respiratory failure On mechanical ventilator S/p cardiac arrest Acute DKA, resolved Acute metabolic encephalopathy BETH on OHS likely Acute kidney injury Hypernatremia Sepsis due to UTI Urinary tract infection Morbid obesity Events: Remains on vent support On AC mode; RR 16, VT 400, PEEP 5, FiO2 30% ABG reviewed, compensated CXR demonstrates unchanged pulmonary vascular congestion. Patient failed CPAP trial. Off sedation x 5 days Mentation not at goal; awaiting for mentation to improve. SBT CPAP trial with PS 16, PEEP 5. Pressors for hemodynamic support Levophed 4 mcg/min Titrate to keep mean arterial pressure greater than 65 mmHg Interval increase in pressor requirements Continue antibiotics. Pulmicort BID Continue Dopamine 2 mcg/min renally dosed. Nephrology recs appreciated. Accu-Cheks, ISS. Protonix for GI ppx Monitor renal function Monitor electrolytes. Supplement as necessary Monitor sodium On free water supplementation Potassium supplementation Monitor ins and outs. Continue tube feeds for nutritional support CPAP trial OK to increase PS to achieve tidal volume 350-450 mL. Goals of care discussed with family CT head showed no evidence of stroke or intracranial hemorrhage. Labs and imaging reviewed. Rest of plan as noted below. Plan: s/p intubation on mechanical ventilator. On AC mode; RR 16, VT 400, PEEP 5, FiO2 30% Titrate FIO2 to keep O2 saturation above 90%. VAP bundle. Daily ABG and CXR while intubated Continue IV antibiotics. Follow up cultures. Steroids - Solu-Medrol 40 mg IVP q.12 hours (Discontinued) Pulmicort 0.5 mg BID Pressors as necessary for hemodynamic support Titrate to keep mean arterial pressure greater than 65 mmHg. Follow up Cardiology recs NG tube in place. Tube feeds for nutritional support Monitor renal function Monitor electrolytes. Supplement as necessary. Monitor ins and outs. Maintain euvolemia. Follow up Nephrology recs Recommend diet and lifestyle modifications for weight reduction Obesity complicates all care GI prophylaxis. DVT prophylaxis. Prognosis: Poor given patient's multiple co-morbidities. Condition: Critical Rest of plan per hospitalist and other consultants. A total of 35 minutes of critical care time was spent reviewing the patient record, examining the patient, making a diagnostic and therapeutic plan, discussing this plan with the medical personnel, following up on diagnostic studies and following the patient for clinical stability excluding any and all procedures. At least 50% of this time was spent in direct, [id number] contact. Thank you, Dr. Carreno, for allowing me to participate in this patient's care. Further recommendations will depend on the patient's clinical course. Please do not hesitate to contact me if you have any questions or concerns. This medical document was created using an electronic medical record system with Power[employer] dictation system. Although these documentations are being carefully reviewed, there may still be some phonetic and typographical changes. The errors are purely typographical, due to imperfection on the software program, and do not reflect any compromise in the patient's medical care. Plan discussed with: Other (REI Benitez) Visit Coding Pulmonary Billing Provider: JOSE CASTRO MD Date of Service if different f: Mar 07, 2025 Common Visit Codes: [id number] INP/OBS CARE(HIGH), [id number] CARE 30-74 MIN JOSE CASTRO MD Mar 07, 2025 23:25
[2025-03-08] VITALS (107 sets, daily range): BP systolic 90–136; BP diastolic 54–80; PULSE 78–104; RESP 14–20; TEMP 96.9–99.3; O2SAT 93–100
[2025-03-08 03:35] LABS: Hematocrit 25.8 % (36.0-46.0); Hemoglobin 8.6 g/dL (12.2-16.2); Mean Corpuscular Hemoglobin 28.8 pg (28.0-32.0); Mean Corpuscular Volume 86.3 fL (80.0-100.0); Nucleated Red Blood Cells % 0.3 %
[2025-03-08 04:07] LABS: Alanine Aminotransferase 14 U/L (7-40); Albumin 2.8 g/dL (3.2-4.8); Alkaline Phosphatase 96 U/L (46-116); Anion Gap 10 (5-15); BUN/Creatinine Ratio 27.5 (10.0-20.0); Bilirubin, Total 0.5 mg/dL (0.2-1.0); Blood Urea Nitrogen 41 mg/dL (9-23); Calcium 9.0 mg/dL (8.7-10.4); Carbon Dioxide 31 mmol/L (20-31); Chloride 108 mmol/L (98-107); Glucose 159 mg/dL (74-106); Potassium 4.2 mmol/L (3.5-5.1); Sodium 149 mmol/L (136-145); Total Protein 4.8 g/dL (5.7-8.2)
--- NOTE | 2025-03-08 07:56 | DVH ---
CLINICAL HISTORY: Intubated TECHNIQUE: 1 view of the chest was obtained. WID: COMPARISON: XY CHEST PORTABLE on DOS: 03/07/25, XY CHEST PORTABLE on DOS: 03/06/25, XY CHEST PORTABLE on DOS: 03/05/25, XY CHEST PORTABLE on DOS: 03/04/25, XY CHEST PORTABLE on DOS: 03/03/25 FINDINGS: Lungs: Endotracheal tube terminates 4 cm from the raza. Right internal jugular central venous catheter terminates within the mid superior vena cava. There is right infrahilar opacification. There is obscuration of the left hemidiaphragm. Cardiomediastinal silhouette: In large Bones: No acute osseous abnormality. Imaged Upper Abdomen: unremarkable. IMPRESSION: Cardiomegaly with left lower lobe atelectasis. Right infrahilar opacity may represent atelectasis or developing pneumonia /aspiration. Trace interstitial edema Improved lung volumes when compared to prior
[2025-03-08 08:14] LABS: Base Excess 4.3 mmol/L (-2.0-3.0)
--- NOTE | 2025-03-08 09:05 | DVHPNRES ---
Progress Note Date Seen: Mar 08, 2025 Resident Creating Document: ARY MENESES RESIDENT Medical Necessity Reason Pt with a Central, PICC or Fol: Yes The following are medically ne: Diallo Catheter Reason for diallo catheter: Strict I&O Subjective Review of Systems Patient is a 59-year-old female with past medical history diabetes, asthma, hypertension, who was brought in by EMS due to altered mental status. According to EMS, per patient's caregiver patient has been having a gradually progressive decline in her mentation over the last 2 months, currently patient noted to be AO x2. Patient was found to be covered in her own feces, unable to communicate effectively which is what prompted the caregiver to call the EMS. On route patient was noted to have a blood glucose of 470, tachycardic in 120s with blood pressure 118/98 saturating 80% on room air and 100% on 4 L O2 via NC. An accurate review of systems could not be completed as patient AO x2 only. Past medical history: Asthma, hypertension, diabetes Past surgical history: Unable to obtain Home medications: Albuterol, metoprolol, Ozempic Social & Personal history: Unable to obtain 03/08/2025: Patient seen and examined at bedside, physical exam largely unchanged. Noted to have scattered wheezes. Remains on Levophed at 2 mcg and dopamine at 2 mg. CPAP trial with pressure support of 14. Serum sodium 149, restarted D5 Objective vital signs Vital Sign Date Time Temp Pulse Resp B/P (MAP) Pulse Ox O2 Delivery O2 Flow Rate FiO2 03/08/25 08:19 97.7 88 16 90/54 (66) 100 97.7 03/08/25 08:00 Mechanical Ventilator+ 30 30 Total Intake and Output 03/07/25 03/07/25 03/08/25 15:00 23:00 07:00 Intake Total 154.784 ml 1135.784 ml 1157.034 ml Output Total 700 ml 650 ml Balance 154.784 ml 435.784 ml 507.034 ml medications Current Medications Medications Dose Ordered Sig/Tim Route Start Time Stop Time Status Last Admin Dose Admin Diagnostic Test (Pha) 1 strip IQ4HR 02/21/25 00:00 UNV Sodium Chloride 10 ml Q8HR IV 02/20/25 22:00 03/08/25 07:42 10 ML Docusate Sodium 100 mg BIDPRN PRN PO 02/20/25 20:15 Acetaminophen 650 mg Q6HP PRN PO 02/20/25 20:15 Nitroglycerin 0.4 mg Q5MINP PRN SL 02/20/25 21:15 Hydralazine HCl 10 mg Q6HP PRN IV 02/24/25 16:30 02/25/25 08:46 10 MG Lorazepam 1 mg ONCE PRN IV 02/25/25 10:45 Levofloxacin 50 ml @ 50 mls/hr DAILY IV 02/27/25 10:00 Cancel Midazolam HCl 100 ml @ 1 mls/hr Q24H IV 02/27/25 07:15 02/27/25 07:15 0 MLS/HR Fentanyl Citrate 250 ml @ 2.5 mls/hr Q24H IV 02/27/25 07:15 Norepinephrine Bitartrate 250 ml @ 3.75 mls/hr Q24H IV 02/27/25 07:15 03/07/25 04:17 7.5 MLS/HR Enteral Nutritional Formula 1,000 ml 30ML/HR GT 02/28/25 10:45 03/08/25 02:51 1,000 ML Budesonide 0.5 mg BID NEB 02/28/25 22:00 03/08/25 06:04 0.5 MG Meropenem 50 ml @ 17 mls/hr Q12H IV 03/01/25 20:00 03/08/25 07:41 17 MLS/HR Nystatin 1 applic BID TOP 03/01/25 22:00 03/08/25 07:42 1 APPLIC Pantoprazole Sodium 40 mg DAILY IV 03/03/25 10:00 03/08/25 07:41 40 MG Purified Water 200 ml Q4HR GT 03/03/25 08:45 03/08/25 07:41 200 ML Dopamine HCl/ Dextrose 250 ml @ 9.473 mls/ hr Q24H IV 03/03/25 09:45 03/08/25 03:04 9.473 MLS/HR Diagnostic Test (Pha) 1 strip IQ4HR 03/04/25 16:00 03/08/25 07:41 1 STRIP Insulin Human Regular IQ4HR SC 03/04/25 16:00 03/08/25 07:51 2 UNITS Dextrose 50 ml UD PRN IV 03/04/25 15:00 Examination General Appearance: Intubated, sedated, on mechanical ventilation Head Exam: Equal, disconjugate gaze, briskly reactive pupils. Neck Exam: Normal inspection. Non-tender. Normal alignment Pulmonary/Respiratory: Chest non-tender. Coarse and diminished bilateral breath sounds, scattered wheezes Cardiovascular/Chest: Regular rate and rhythm. Some episodes of tachycardia. No murmurs. No JVD. Peripheral Pulses:. 2+ Pedal (R). 2+ Pedal (L) Abdominal Exam: Normal bowel sounds. Soft. Umbilical abdominal hernia noted Ankle Exam: Trace ankle edema Skin Exam: Generalized body petechiae noted, some bruising on bilateral upper extremities. Normal color. Warm. Dry laboratory and microbiology Laboratory Tests 03/08/25 03:21 Test 03/08/25 03:21 Range/Units Serum Glucose 159 H 74-106 mg/dL Microbiology Date/Time Source Procedure Growth Status 02/27/25 22:45 Nose MRSA Screen - Final Complete 02/27/25 14:05 Sputum Endotracheal Wash Gram Stain - Final Complete 02/27/25 14:05 Sputum Endotracheal Wash Respiratory Culture - Final Complete 02/27/25 10:21 Blood Blood Culture - Final NO GROWTH AFTER 5 DAYS OF INCUBATION. Complete 02/21/25 01:55 Urine - [place] Urine Culture - Final Escherichia coli - ESBL Complete Labs and/or images reviewed: Labs reviewed by me, Image(s) reviewed by me Problem List/Assessment/Plan Problem List/Assessment/Plan Neurology # acute metabolic encephalopathy # right meningioma - head CT: No acute intracranial abnormality. Probable right vertex meningioma. - brain MRI: No acute intracranial abnormality seen. 1.9 cm right medial posterior frontal extra-axial mass, most compatible with meningioma. No underlying mass effect/vasogenic edema. - EEG report from 02/26/2025: Mild to moderately abnormal EEG seen in [id number] cerebral dysfunction due to metabolic/hypoxic encephalopathy or medication effect. - neurology on board # Sedated - currently off of all sedation since 03/01/2025 5am Cardiovascular # NSTEMI type 1 versus type 2 # septic shock # V-tach - cardiology on board #ROSC s/p Cardiac arrest and CPR, code blue 02/27/2025 -pt had bradycardia, VFib received shock, asystole then V-tach in subsequently received amiodarone. -ROSC post CPR Respiratory # Ventilator -intubated 02/27/2025 -on [facility] vent : VCAC Mode RR 16, TV 450, peep 8, FiO2 30% # Acute hypoxic respiratory failure # obstructive sleep apnea on obesity hypoventilation syndrome - CXR:Cardiomegaly and pulmonary vascular congestion. GI # umbilical hernia containing bowel loops # wound culture from umbilical hernia growing ESBL and MSSA # questionable GI bleed - CT abdomen pelvis: No evidence of acute abdominopelvic abnormalities. Large umbilical hernia containing bowel loops without evidence of obstruction or strangulation. - GI consulted - 100 cc brownish red output noted in NG tube canister - Stable H&H, however, steep decline from hemoglobin 16.1 on admission to 8.2 today. - IV daptomycin # Peptic ulcer prophylaxis -Pantoprazole 40 mg IV daily # Diallo catheter placed on 02/20/2025 # acute complicated UTI growing ESBL - IV meropenem Nephrology # JAMEE likely hemodynamically mediated/VMN versus ATN # hypokalemia # hypernatremia - monitor - discontinued Lasix Infectious disease # infected umbilical wound growing ESBL and MSSA # acute complicated UTI growing ESBL # sepsis due to above # septic shock, now improving - IV meropenem b.i.d. - IV daptomycin Hem/onc # anemia possibly of chronic disease versus blood loss? - monitor Endocrine # type 2 diabetes # morbid obesity # fungal skin infection - moderate sliding scale insulin - topical nystatin b.i.d. DVT prophylaxis holding owing to suspicion of GI bleed? Nutrition Tube feedings Glucerna Lines Right IJ 02/27/2025 Right midline 02/25/2025 Drips during [facility] ventilation None Critical care time 83 minutes excluding procedure. Code status discussed greater than 20 minutes: DNR Family at bedside explained about the condition of the patient Plan discussed with Dr. Borges Plan discussed with: Other (RN) Dietary Evaluation Review Comments: Diet Order: Continue CCHO-60, 2-gram sodium diet. Monitoring: Monitor PO intake and tolerance. Monitor renal function and updated lab values (electrolytes, BUN/Cr, GFR). Follow up with nephrology and GI reports. Reassessment: Reassess PRN based on clinical status and intake. Discharge Planning: Address weight management upon discharge. Expected Outcomes/Goals: gradual wt loss Visit Coding STANDARD RES Billing Provider: JOSE BORGES MD Date of Service if different f: Mar 08, 2025 Common Visit Codes: [id number] CARE 30-74 MIN, [id number] CARE-EACH +30MIN ARY MENESES RESIDENT Mar 08, 2025 09:05
[2025-03-08] MEDS: D5W 5% 1,000 ML IV SCH (09:57)
--- NOTE | 2025-03-08 10:21 | DVHPN2 ---
Progress Note Date Seen: Mar 08, 2025 Medical Necessity Reason Pt with a Central, PICC or Fol: Yes The following are medically ne: Diallo Catheter Reason for diallo catheter: Strict I&O Subjective Review of Systems: RESPIRATORY:Abnormal Other Systems: Patient seen and examined by myself today in follow-up, patient remained intubated on ventilator Objective vital signs Vital Sign Date Time Temp Pulse Resp B/P (MAP) Pulse Ox O2 Delivery O2 Flow Rate FiO2 03/08/25 10:04 84 17 131/78 (95) 97 03/08/25 09:38 30 03/08/25 09:38 Mechanical Ventilator+ 03/08/25 08:19 97.7 97.7 Total Intake and Output 03/07/25 03/07/25 03/08/25 15:00 23:00 07:00 Intake Total 154.784 ml 1135.784 ml 1157.034 ml Output Total 700 ml 650 ml Balance 154.784 ml 435.784 ml 507.034 ml medications Current Medications Medications Dose Ordered Sig/Tim Route Start Time Stop Time Status Last Admin Dose Admin Diagnostic Test (Pha) 1 strip IQ4HR 02/21/25 00:00 UNV Sodium Chloride 10 ml Q8HR IV 02/20/25 22:00 03/08/25 07:42 10 ML Docusate Sodium 100 mg BIDPRN PRN PO 02/20/25 20:15 Acetaminophen 650 mg Q6HP PRN PO 02/20/25 20:15 Nitroglycerin 0.4 mg Q5MINP PRN SL 02/20/25 21:15 Hydralazine HCl 10 mg Q6HP PRN IV 02/24/25 16:30 02/25/25 08:46 10 MG Lorazepam 1 mg ONCE PRN IV 02/25/25 10:45 Levofloxacin 50 ml @ 50 mls/hr DAILY IV 02/27/25 10:00 Cancel Midazolam HCl 100 ml @ 1 mls/hr Q24H IV 02/27/25 07:15 02/27/25 07:15 0 MLS/HR Norepinephrine Bitartrate 250 ml @ 3.75 mls/hr Q24H IV 02/27/25 07:15 03/07/25 04:17 7.5 MLS/HR Enteral Nutritional Formula 1,000 ml 30ML/HR GT 02/28/25 10:45 03/08/25 02:51 1,000 ML Budesonide 0.5 mg BID NEB 02/28/25 22:00 03/08/25 06:04 0.5 MG Meropenem 50 ml @ 17 mls/hr Q12H IV 03/01/25 20:00 03/08/25 07:41 17 MLS/HR Nystatin 1 applic BID TOP 03/01/25 22:00 03/08/25 07:42 1 APPLIC Pantoprazole Sodium 40 mg DAILY IV 03/03/25 10:00 03/08/25 07:41 40 MG Purified Water 200 ml Q4HR GT 03/03/25 08:45 03/08/25 07:41 200 ML Dopamine HCl/ Dextrose 250 ml @ 9.473 mls/ hr Q24H IV 03/03/25 09:45 03/08/25 03:04 9.473 MLS/HR Diagnostic Test (Pha) 1 strip IQ4HR 03/04/25 16:00 03/08/25 07:41 1 STRIP Insulin Human Regular IQ4HR SC 03/04/25 16:00 03/08/25 07:51 2 UNITS Dextrose 50 ml UD PRN IV 03/04/25 15:00 Dextrose 1,000 ml @ 100 mls/hr Q10H IV 03/08/25 09:15 03/08/25 23:00 03/08/25 09:57 100 MLS/HR Examination: LUNGS:Abnormal, CVS:Normal, MSK:Normal laboratory and microbiology Laboratory Tests 03/08/25 03:21 Test 03/08/25 03:21 Range/Units Serum Glucose 159 H 74-106 mg/dL Microbiology Date/Time Source Procedure Growth Status 02/27/25 22:45 Nose MRSA Screen - Final Complete 02/27/25 14:05 Sputum Endotracheal Wash Gram Stain - Final Complete 02/27/25 14:05 Sputum Endotracheal Wash Respiratory Culture - Final Complete 02/27/25 10:21 Blood Blood Culture - Final NO GROWTH AFTER 5 DAYS OF INCUBATION. Complete 02/21/25 01:55 Urine - [place] Urine Culture - Final Escherichia coli - ESBL Complete Problem List/Assessment/Plan Problem List/Assessment/Plan Acute kidney injury superimposed Chronic Kidney Disease secondary hemodynamic mediated, FeNa < 1% Vancomycin toxicity Acute respiratory failure, intubated on ventilator Status post cardiac arrest 02/17 Septic shock DKA sepsis UTI uncontrolled Dm2 morbid obesity hypernatremia need to insensible water loss, Hypokalemia Recommendations Kidney function continues to improve increased urine output Diallo catheter Strict I&Os Discontinue vancomycin DC IV fluid Low-dose dopamine KCL replacement Free water flushes IV pressors for blood pressure support Insulin sliding scale Kidney reported within normal limit on CT scan We will continue to follow Plan discussed with: Other (Nurse) Dietary Evaluation Review Comments: Diet Order: Continue CCHO-60, 2-gram sodium diet. Monitoring: Monitor PO intake and tolerance. Monitor renal function and updated lab values (electrolytes, BUN/Cr, GFR). Follow up with nephrology and GI reports. Reassessment: Reassess PRN based on clinical status and intake. Discharge Planning: Address weight management upon discharge. Expected Outcomes/Goals: gradual wt loss MARISELA CUEVA MD Mar 08, 2025 10:21
[2025-03-08] MEDS: ALBUTEROL SULF 2.5 MG/0.5ML(0.5%) NEB SOLN NEB PRN (14:29)
[2025-03-08] MEDS: IPRATROPIUM BROM 0.5 MG/2.5ML INH SOL NEB PRN (14:29)
--- NOTE | 2025-03-08 20:10 | DVHPN2 ---
Progress Note - Dictate Date Seen: Mar 08, 2025 Medical Necessity Reason Pt with a Central, PICC or Fol: Yes The following are medically ne: Diallo Catheter Reason for diallo catheter: Strict I&O Subjective Patient was seen and evaluated in follow up in the ICU. Patient is intubated and sedated on ventilator. 30% FiO2. HGB 8.6, HCT 25.8, NA 149, CL 108, BUN 41, [employer]NA[employer] 1.49. Chest x-ray shows cardiomegaly with left lower lobe atelectasis, right infrahilar opacity may represent atelectasis or developing pneumonia /aspiration, trace interstitial edema. vital signs Vital Sign Date Time Temp Pulse Resp B/P (MAP) Pulse Ox O2 Delivery O2 Flow Rate FiO2 03/08/25 13:31 30 03/08/25 13:31 93 03/08/25 13:31 16 99 Mechanical Ventilator+ 03/08/25 12:49 109/67 (81) 03/08/25 11:34 97.4 97.4 Total Intake and Output 03/07/25 03/07/25 03/08/25 15:00 23:00 07:00 Intake Total 154.784 ml 1135.784 ml 1157.034 ml Output Total 700 ml 650 ml Balance 154.784 ml 435.784 ml 507.034 ml medications Current Medications Medications Dose Ordered Sig/Tim Route Start Time Stop Time Status Last Admin Dose Admin Diagnostic Test (Pha) 1 strip IQ4HR 02/21/25 00:00 UNV Sodium Chloride 10 ml Q8HR IV 02/20/25 22:00 03/08/25 07:42 10 ML Docusate Sodium 100 mg BIDPRN PRN PO 02/20/25 20:15 Acetaminophen 650 mg Q6HP PRN PO 02/20/25 20:15 Nitroglycerin 0.4 mg Q5MINP PRN SL 02/20/25 21:15 Hydralazine HCl 10 mg Q6HP PRN IV 02/24/25 16:30 02/25/25 08:46 10 MG Lorazepam 1 mg ONCE PRN IV 02/25/25 10:45 Levofloxacin 50 ml @ 50 mls/hr DAILY IV 02/27/25 10:00 Cancel Midazolam HCl 100 ml @ 1 mls/hr Q24H IV 02/27/25 07:15 02/27/25 07:15 0 MLS/HR Norepinephrine Bitartrate 250 ml @ 3.75 mls/hr Q24H IV 02/27/25 07:15 03/07/25 04:17 7.5 MLS/HR Enteral Nutritional Formula 1,000 ml 30ML/HR GT 02/28/25 10:45 03/08/25 02:51 1,000 ML Budesonide 0.5 mg BID NEB 02/28/25 22:00 03/08/25 06:04 0.5 MG Meropenem 50 ml @ 17 mls/hr Q12H IV 03/01/25 20:00 03/08/25 07:41 17 MLS/HR Nystatin 1 applic BID TOP 03/01/25 22:00 03/08/25 07:42 1 APPLIC Pantoprazole Sodium 40 mg DAILY IV 03/03/25 10:00 03/08/25 07:41 40 MG Purified Water 200 ml Q4HR GT 03/03/25 08:45 03/08/25 11:42 200 ML Dopamine HCl/ Dextrose 250 ml @ 9.473 mls/ hr Q24H IV 03/03/25 09:45 03/08/25 03:04 9.473 MLS/HR Diagnostic Test (Pha) 1 strip IQ4HR 03/04/25 16:00 03/08/25 11:35 1 STRIP Insulin Human Regular IQ4HR SC 03/04/25 16:00 03/08/25 11:41 2 UNITS Dextrose 50 ml UD PRN IV 03/04/25 15:00 Dextrose 1,000 ml @ 100 mls/hr Q10H IV 03/08/25 09:15 03/08/25 23:00 03/08/25 09:57 100 MLS/HR Albuterol 2.5 mg Q4HPRN PRN NEB 03/08/25 10:45 Ipratropium [place] 0.5 mg Q6HPRN PRN NEB 03/08/25 10:45 objective GENERAL: Ill appearing, intubated on ventilator. EYES: PERRL, EOMI. Anicteric. HENT: Moist mucous membranes. LUNGS: Decreased breath sounds. CARDIOVASCULAR: Regular rate and rhythm. ABDOMEN: Soft, nontender and nondistended. EXTREMITIES: No edema. SKIN: Warm, dry. Wound with the mid abdomen with sterile dressing. laboratory and microbiology Laboratory Tests 03/08/25 03:21 Test 03/08/25 03:21 Range/Units Serum Glucose 159 H 74-106 mg/dL Problem List V-fib/V-tach cardiac arrest status post defibrillation x 2 with ROSC. Cardiac arrest likely secondary to metabolic causes (severe acidosis). Acute metabolic encephalopathy likely from sepsis/dehydration. Acute on chronic kidney injury likely in the setting of shock. Shock liver. Thrombocytopenia. Assessment/Plan Continued all current supportive medical care. Dopamine drip. IV Hydralazine for SBP >150. IV antibiotics as ordered. Nitro SL. Vasopressors for hemodynamic support. GI prophylactics. Additional plan as per the hospital course. Critical care time of 45 minutes provided to include time spent evaluation of patient at bedside, when appropriate patient/family education for diagnosis, treatment plan, review of pertinent medical information and discussion of care with specialty providers and PCP. Dietary Evaluation Review Comments: Diet Order: Continue CCHO-60, 2-gram sodium diet. Monitoring: Monitor PO intake and tolerance. Monitor renal function and updated lab values (electrolytes, BUN/Cr, GFR). Follow up with nephrology and GI reports. Reassessment: Reassess PRN based on clinical status and intake. Discharge Planning: Address weight management upon discharge. Expected Outcomes/Goals: gradual wt loss Plan discussed with: Other ARMANDO PATEL MD Mar 08, 2025 13:58
--- NOTE | 2025-03-08 23:16 | DVHPN2 ---
Subjective DOS: 03/08/2025 Patient seen and examined at bedside. intubated on mechanical ventilator. Overnight events reviewed. Reviewed: H&P Changes from previous H/P or p: No Changes General: Per HPI Eyes: No Pain, No Vision change, No Conjunctivae inflammation, No Eyelid inflammation, No Other, No Redness ENT: No Ear pain, No Ear discharge, No Nose pain, No Nose discharge, No Nose congestion, No Mouth pain, No Mouth swelling, No Throat pain, No Throat swelling, No Other Cardiovascular: No Chest Pain, No Palpitations, No Orthopnea, No Paroxysmal Noc. Dyspnea, No Edema, No Lt Headedness, No Other Respiratory: No Cough, No Dry, No Shortness of breath, No SOB with excertion, No Wheezing, No Hemoptysis, No Pleuritic Pain, No Sputum, No Other Gastrointestinal: No Nausea, No Vomiting, No Abdominal Pain, No Diarrhea, No Constipation, No Melena, No Hematochezia, No Other Musculoskeletal: No other, No neck pain, No shoulder pain, No arm pain, No back pain, No hand pain, No leg pain, No foot pain Skin: No Rash, No Lesions, No Jaundice, No Bruising, No Other Objective Vitals Vital Signs Date Time Temp Pulse Resp B/P (MAP) Pulse Ox O2 Delivery O2 Flow Rate FiO2 03/08/25 22:49 86 17 119/64 (82) 100 03/08/25 22:17 30 03/08/25 22:04 96.9 96.9 03/08/25 22:00 Mechanical Ventilator+ Intake/Output Intake and Output 03/08/25 07:00 Intake Total 2447.602 ml Output Total 1350 ml Balance 1097.602 ml Intake Oral 1400 ml IV Total 457.602 ml Tube Feeding 590 ml Output Urine Total 1350 ml # Bowel Movements 1 Exam Gen.: Patient lying in bed in medical ICU. Intubated on mechanical ventilator. Head: Normocephalic, atraumatic. Eyes: PERRLA. Ears: Normal external anatomy. Throat: Endotracheal tube and orogastric tube in place. Neck: Supple, trachea midline. Chest: Transmitted breath sounds bilaterally. Decreased air entry bilaterally. No wheezing. Bibasilar crackles. Cardiovascular: Positive S1, positive S2. Regular rate and rhythm. Abdomen: Positive bowel sounds in all 4 quadrants. Soft, nontender, nondistended. : [place] in place. Normal external genitalia. Rectal: Deferred. Skin: Warm, dry. Intact. Extremities: 2+ radial pulses bilaterally. No lower extremity edema. Neuro: Off sedation Lungs: Clear to auscultation Cardiovascular: Regular rate, Normal S1, Normal S2, No murmurs Abdomen: Normal bowel sounds, Soft, No tenderness Extremities: No edema Medications Current Medications Medications Dose Ordered Sig/Tim Route Start Time Stop Time Status Last Admin Dose Admin Diagnostic Test (Pha) 1 strip IQ4HR 02/21/25 00:00 UNV Sodium Chloride 10 ml Q8HR IV 02/20/25 22:00 03/08/25 22:36 10 ML Docusate Sodium 100 mg BIDPRN PRN PO 02/20/25 20:15 Acetaminophen 650 mg Q6HP PRN PO 02/20/25 20:15 Nitroglycerin 0.4 mg Q5MINP PRN SL 02/20/25 21:15 Hydralazine HCl 10 mg Q6HP PRN IV 02/24/25 16:30 02/25/25 08:46 10 MG Lorazepam 1 mg ONCE PRN IV 02/25/25 10:45 Levofloxacin 50 ml @ 50 mls/hr DAILY IV 02/27/25 10:00 Cancel Midazolam HCl 100 ml @ 1 mls/hr Q24H IV 02/27/25 07:15 02/27/25 07:15 0 MLS/HR Norepinephrine Bitartrate 250 ml @ 3.75 mls/hr Q24H IV 02/27/25 07:15 03/07/25 04:17 7.5 MLS/HR Enteral Nutritional Formula 1,000 ml 30ML/HR GT 02/28/25 10:45 03/08/25 02:51 1,000 ML Budesonide 0.5 mg BID NEB 02/28/25 22:00 03/08/25 22:17 0.5 MG Meropenem 50 ml @ 17 mls/hr Q12H IV 03/01/25 20:00 03/08/25 20:46 17 MLS/HR Nystatin 1 applic BID TOP 03/01/25 22:00 03/08/25 22:36 1 APPLIC Pantoprazole Sodium 40 mg DAILY IV 03/03/25 10:00 03/08/25 07:41 40 MG Purified Water 200 ml Q4HR GT 03/03/25 08:45 03/08/25 22:36 200 ML Dopamine HCl/ Dextrose 250 ml @ 9.473 mls/ hr Q24H IV 03/03/25 09:45 03/08/25 03:04 9.473 MLS/HR Diagnostic Test (Pha) 1 strip IQ4HR 03/04/25 16:00 03/08/25 20:00 1 STRIP Insulin Human Regular IQ4HR SC 03/04/25 16:00 03/08/25 21:04 2 UNITS Dextrose 50 ml UD PRN IV 03/04/25 15:00 Albuterol 2.5 mg Q4HPRN PRN NEB 03/08/25 10:45 03/08/25 14:29 2.5 MG Ipratropium [place] 0.5 mg Q6HPRN PRN NEB 03/08/25 10:45 03/08/25 14:29 0.5 MG Laboratory Results Laboratory Tests 03/08/25 03:21 Chemistry Test 03/08/25 03:21 Albumin 2.8 g/dL (3.2-4.8) L Calcium Level 9.0 mg/dL (8.7-10.4) Total Protein 4.8 g/dL (5.7-8.2) L LFT Test 03/08/25 03:21 Alanine Aminotransferase (ALT) 14 U/L (7-40) Alkaline Phosphatase 96 U/L (46-116) Aspartate Amino Transferase (AST) 30 U/L (13-40) Total Bilirubin 0.5 mg/dL (0.2-1.0) Urinalysis Test 02/20/25 21:52 03/02/25 17:20 Urine WBC Clumps Present /hpf (None Seen) Urine Hyaline Casts Few /lpf (0 - 2) Urine Mucus Few (None Seen) Urine Color Yellow (Yellow) Urine Clarity Turbid (Clear) H Urine pH 5.0 (5.0-9.0) Urine Specific [place] 1.013 (1.001-1.035) Urine Protein 1+ (Negative) H Urine Ketones Trace (Negative) Urine Blood 1+ /uL (Negative) H Urine Nitrite Negative (Negative) Urine Bilirubin Negative (Negative) Urine Urobilinogen 2 mg/dL (Negative) H Urine Leukocyte Esterase Trace /uL (Negative) Urine RBC 1 /hpf (0 - 4) Urine Microscopic WBC 2 /HPF (0-5) Urine Squamous Epithelial Cells Few /hpf (<5) Urine Calcium Oxalate Crystals Few (None Seen) Urine Amorphous Crystals Few /hpf (None Seen) Urine Bacteria Few /hpf (None Seen) H Urine Osmolality 329 mOsm/kg Urine Creatinine 73.30 mg/dL (30.0-125.0) Urine Protein/Creatinine Ratio 1.14 Urine Sodium 28 mmol/L (40-220) L Urine Glucose 1+ mg/dL (Normal) H Urine Total Protein 83.3 mg/dL (1-14) H Blood Gas Results Test 03/08/25 08:05 Arterial Blood pH 7.392 (7.350-7.450) FiO2 % 30.0 Microbiology Microbiology Date/Time Source Procedure Growth Status 02/27/25 22:45 Nose MRSA Screen - Final Complete 02/27/25 14:05 Sputum Endotracheal Wash Gram Stain - Final Complete 02/27/25 14:05 Sputum Endotracheal Wash Respiratory Culture - Final Complete 02/27/25 10:21 Blood Blood Culture - Final NO GROWTH AFTER 5 DAYS OF INCUBATION. Complete 02/21/25 01:55 Urine - [place] Urine Culture - Final Escherichia coli - ESBL Complete Assessment/Plan Assessment/Plan Impression: Acute hypoxic respiratory failure On mechanical ventilator S/p cardiac arrest Acute DKA, resolved Acute metabolic encephalopathy BETH on OHS likely Acute kidney injury Hypernatremia Sepsis due to UTI Urinary tract infection Morbid obesity Events: Remains on vent support On AC mode; RR 16, VT 400, PEEP 5-->8, FiO2 30% Chest x-ray reviewed, RLL opacities noted, suggestive of atelectasis. Continue pulmonary toileting ABG reviewed, compensated Patient tolerated CPAP for 2 hours. Plan for PICC line placement. Off sedation x 6 days Mentation not at goal; awaiting for mentation to improve. Pressors for hemodynamic support Levophed 2 mcg/min Titrate to keep mean arterial pressure greater than 65 mmHg Improved pressor requirements, taper off pressors Bronchodilators - wheezing noted. Continue antibiotics. Pulmicort BID Continue Dopamine 2 mcg/min renally dosed. Nephrology recs appreciated. Accu-Cheks, ISS. Protonix for GI ppx Monitor renal function Monitor electrolytes. Supplement as necessary Monitor sodium - Na of 149 On free water supplementation Monitor ins and outs. Continue tube feeds for nutritional support CPAP trial OK to increase PS to achieve tidal volume 350-[address] head showed no evidence of stroke or intracranial hemorrhage. Labs and imaging reviewed. Rest of plan as noted below. Plan: s/p intubation on mechanical ventilator. On AC mode; RR 16, VT 400, PEEP 8, FiO2 30% Titrate FIO2 to keep O2 saturation above 90%. VAP bundle. Daily ABG and CXR while intubated Continue IV antibiotics. Follow up cultures. Steroids - Solu-Medrol 40 mg IVP q.12 hours (Discontinued) Pulmicort 0.5 mg BID Pressors as necessary for hemodynamic support Titrate to keep mean arterial pressure greater than 65 mmHg. Follow up Cardiology recs NG tube in place. Tube feeds for nutritional support Monitor renal function Monitor electrolytes. Supplement as necessary. Monitor ins and outs. Maintain euvolemia. Follow up Nephrology recs Recommend diet and lifestyle modifications for weight reduction Obesity complicates all care GI prophylaxis. DVT prophylaxis. Prognosis: Poor given patient's multiple co-morbidities. Condition: Critical Rest of plan per hospitalist and other consultants. A total of 35 minutes of critical care time was spent reviewing the patient record, examining the patient, making a diagnostic and therapeutic plan, discussing this plan with the medical personnel, following up on diagnostic studies and following the patient for clinical stability excluding any and all procedures. At least 50% of this time was spent in direct, [id number] contact. Thank you, Dr. Carreno, for allowing me to participate in this patient's care. Further recommendations will depend on the patient's clinical course. Please do not hesitate to contact me if you have any questions or concerns. This medical document was created using an electronic medical record system with [employer] dictation system. Although these documentations are being carefully reviewed, there may still be some phonetic and typographical changes. The errors are purely typographical, due to imperfection on the software program, and do not reflect any compromise in the patient's medical care. Plan discussed with: Other (REI Benitez) My Orders Orders - JOSE CASTRO MD Procedure Category Date Status Time Abg W/ Co-Ox RT 03/08/25 Logged 06:00 Visit Coding Pulmonary Billing Provider: JOSE CASTRO MD Date of Service if different f: Mar 08, 2025 Common Visit Codes: [id number] INP/OBS CARE(HIGH), [id number] CARE 30-74 MIN JOSE CASTRO MD Mar 08, 2025 23:16
[2025-03-09] VITALS (98 sets, daily range): BP systolic 86–147; BP diastolic 56–88; PULSE 78–98; RESP 14–24; TEMP 97.6–98; O2SAT 95–100
[2025-03-09 03:44] LABS: Hematocrit 22.1 % (36.0-46.0); Hemoglobin 7.3 g/dL (12.2-16.2)
[2025-03-09 03:46] LABS: Mean Corpuscular Hemoglobin 29.0 pg (28.0-32.0); Mean Corpuscular Volume 87.9 fL (80.0-100.0); Nucleated Red Blood Cells % 0.1 %
[2025-03-09 03:51] LABS: Anion Gap 8 (5-15); Chloride 103 mmol/L (98-107); Potassium 3.9 mmol/L (3.5-5.1); Sodium 143 mmol/L (136-145)
[2025-03-09 03:55] LABS: Calcium 8.6 mg/dL (8.7-10.4); Carbon Dioxide 32 mmol/L (20-31)
[2025-03-09 03:57] LABS: BUN/Creatinine Ratio 31.1 (10.0-20.0)
[2025-03-09 04:10] LABS: Blood Urea Nitrogen 37 mg/dL (9-23); Glucose 169 mg/dL (74-106)
--- NOTE | 2025-03-09 05:44 | DVH ---
CHEST RADIOGRAPH INDICATION: FOLLOW UP ETT TECHNIQUE: Single frontal view of the chest was obtained COMPARISON: XY CHEST PORTABLE on DOS: 03/09/25. FINDINGS: Lines and Tubes: The endotracheal tube terminates 3.4 cm above the raza. The enteric tube courses below the left hemidiaphragm and the tip extends outside the field of view. Right central venous catheter terminates in the superior vena cava new since prior study. Left PICC has been removed. Lungs: Bilateral Interstitial prominence. Pleura: No effusion. No pneumothorax. Cardiomediastinal contours: Unremarkable Bones: No acute osseous abnormality. IMPRESSION: 1. Removal of the left PICC. Interval placement of right central venous catheter with tip terminating in the superior vena cava. Endotracheal and enteric tube are unchanged. 2. Bilateral interstitial prominence which may reflect pulmonary congestion.
[2025-03-09 07:58] LABS: Base Excess 6.6 mmol/L (-2.0-3.0)
--- NOTE | 2025-03-09 14:03 | DVHPN2 ---
Progress Note Date Seen: Mar 09, 2025 Medical Necessity Reason Pt with a Central, PICC or Fol: Yes The following are medically ne: Diallo Catheter Reason for diallo catheter: Strict I&O Subjective Review of Systems: Deferred Objective vital signs Vital Sign Date Time Temp Pulse Resp B/P (MAP) Pulse Ox O2 Delivery O2 Flow Rate FiO2 03/09/25 12:00 30 03/09/25 12:00 16 99 Mechanical Ventilator+ 03/09/25 11:29 88 128/84 (99) 03/09/25 04:20 97.7 97.7 Total Intake and Output 03/08/25 03/08/25 03/09/25 15:00 23:00 07:00 Intake Total 724.784 ml 1825.784 ml 1705.784 ml Output Total 650 ml 525 ml Balance 724.784 ml 1175.784 ml 1180.784 ml medications Current Medications Medications Dose Ordered Sig/Tim Route Start Time Stop Time Status Last Admin Dose Admin Diagnostic Test (Pha) 1 strip IQ4HR 02/21/25 00:00 UNV Sodium Chloride 10 ml Q8HR IV 02/20/25 22:00 03/09/25 06:07 10 ML Docusate Sodium 100 mg BIDPRN PRN PO 02/20/25 20:15 Acetaminophen 650 mg Q6HP PRN PO 02/20/25 20:15 Nitroglycerin 0.4 mg Q5MINP PRN SL 02/20/25 21:15 Hydralazine HCl 10 mg Q6HP PRN IV 02/24/25 16:30 02/25/25 08:46 10 MG Lorazepam 1 mg ONCE PRN IV 02/25/25 10:45 Levofloxacin 50 ml @ 50 mls/hr DAILY IV 02/27/25 10:00 Cancel Midazolam HCl 100 ml @ 1 mls/hr Q24H IV 02/27/25 07:15 02/27/25 07:15 0 MLS/HR Norepinephrine Bitartrate 250 ml @ 3.75 mls/hr Q24H IV 02/27/25 07:15 03/07/25 04:17 7.5 MLS/HR Enteral Nutritional Formula 1,000 ml 30ML/HR GT 02/28/25 10:45 03/09/25 03:41 1,000 ML Budesonide 0.5 mg BID NEB 02/28/25 22:00 03/09/25 06:41 0.5 MG Nystatin 1 applic BID TOP 03/01/25 22:00 03/09/25 10:04 1 APPLIC Pantoprazole Sodium 40 mg DAILY IV 03/03/25 10:00 03/09/25 09:37 40 MG Purified Water 200 ml Q4HR GT 03/03/25 08:45 03/09/25 10:00 200 ML Dopamine HCl/ Dextrose 250 ml @ 9.473 mls/ hr Q24H IV 03/03/25 09:45 03/09/25 03:29 9.473 MLS/HR Diagnostic Test (Pha) 1 strip IQ4HR 03/04/25 16:00 03/09/25 13:05 1 STRIP Insulin Human Regular IQ4HR SC 03/04/25 16:00 03/09/25 13:06 2 UNITS Dextrose 50 ml UD PRN IV 03/04/25 15:00 Albuterol 2.5 mg Q4HPRN PRN NEB 03/08/25 10:45 03/08/25 14:29 2.5 MG Ipratropium [place] 0.5 mg Q6HPRN PRN NEB 03/08/25 10:45 03/08/25 14:29 0.5 MG Meropenem 50 ml @ 17 mls/hr Q8H IV 03/09/25 17:00 Examination: GENERAL:Abnormal, LUNGS:Abnormal, ABDOMEN:Abnormal, SKIN:Abnormal laboratory and microbiology Laboratory Tests 03/09/25 03:15 Test 03/09/25 03:15 Range/Units Serum Glucose 169 H 74-106 mg/dL Microbiology Date/Time Source Procedure Growth Status 02/27/25 22:45 Nose MRSA Screen - Final Complete 02/27/25 14:05 Sputum Endotracheal Wash Gram Stain - Final Complete 02/27/25 14:05 Sputum Endotracheal Wash Respiratory Culture - Final Complete 02/27/25 10:21 Blood Blood Culture - Final NO GROWTH AFTER 5 DAYS OF INCUBATION. Complete 02/21/25 01:55 Urine - [place] Urine Culture - Final Escherichia coli - ESBL Complete Problem List/Assessment/Plan Problem List/Assessment/Plan Acute kidney injury hemodynamically in the setting of shock and hypotension DKA sepsis UTI uncontrolled Dm2 morbid obesity hypernatremia Lactic acidosis in the setting of hypoperfusion Cardiac arrest 02/27 Acute respiratory failure JAMEE resolving monitor fluid balances Maintain map greater than 65 replace K and Mg per hospital guidelines ABX insulin subQ protocol Plan discussed with: Other Dietary Evaluation Review Comments: Diet Order: Continue CCHO-60, 2-gram sodium diet. Monitoring: Monitor PO intake and tolerance. Monitor renal function and updated lab values (electrolytes, BUN/Cr, GFR). Follow up with nephrology and GI reports. Reassessment: Reassess PRN based on clinical status and intake. Discharge Planning: Address weight management upon discharge. Expected Outcomes/Goals: gradual wt loss ANTHONY LYMAN MD Mar 09, 2025 14:03
--- NOTE | 2025-03-09 16:32 | ECG ---
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
--- NOTE | 2025-03-09 16:57 | DVHPNRES ---
Progress Note Date Seen: Mar 09, 2025 Resident Creating Document: ARY MENESES RESIDENT Medical Necessity Reason Pt with a Central, PICC or Fol: Yes The following are medically ne: Diallo Catheter Reason for diallo catheter: Strict I&O Subjective Review of Systems Patient is a 59-year-old female with past medical history diabetes, asthma, hypertension, who was brought in by EMS due to altered mental status. According to EMS, per patient's caregiver patient has been having a gradually progressive decline in her mentation over the last 2 months, currently patient noted to be AO x2. Patient was found to be covered in her own feces, unable to communicate effectively which is what prompted the caregiver to call the EMS. On route patient was noted to have a blood glucose of 470, tachycardic in 120s with blood pressure 118/98 saturating 80% on room air and 100% on 4 L O2 via NC. An accurate review of systems could not be completed as patient AO x2 only. Past medical history: Asthma, hypertension, diabetes Past surgical history: Unable to obtain Home medications: Albuterol, metoprolol, Ozempic Social & Personal history: Unable to obtain 03/09/2025, patient seen and examined at bedside, overnight episodes of diarrhea. Remains on Levophed at 2 mcg and dopamine at 2 mg. Objective vital signs Vital Sign Date Time Temp Pulse Resp B/P (MAP) Pulse Ox O2 Delivery O2 Flow Rate FiO2 03/09/25 16:00 16 100 Mechanical Ventilator+ 30 30 03/09/25 16:00 95 03/09/25 15:33 110/63 (79) 03/09/25 12:04 98.0 98.0 Total Intake and Output 03/08/25 03/08/25 03/09/25 15:00 23:00 07:00 Intake Total 724.784 ml 1825.784 ml 1705.784 ml Output Total 650 ml 525 ml Balance 724.784 ml 1175.784 ml 1180.784 ml medications Current Medications Medications Dose Ordered Sig/Tim Route Start Time Stop Time Status Last Admin Dose Admin Diagnostic Test (Pha) 1 strip IQ4HR 02/21/25 00:00 UNV Sodium Chloride 10 ml Q8HR IV 02/20/25 22:00 03/09/25 06:07 10 ML Docusate Sodium 100 mg BIDPRN PRN PO 02/20/25 20:15 Acetaminophen 650 mg Q6HP PRN PO 02/20/25 20:15 Nitroglycerin 0.4 mg Q5MINP PRN SL 02/20/25 21:15 Hydralazine HCl 10 mg Q6HP PRN IV 02/24/25 16:30 02/25/25 08:46 10 MG Lorazepam 1 mg ONCE PRN IV 02/25/25 10:45 Levofloxacin 50 ml @ 50 mls/hr DAILY IV 02/27/25 10:00 Cancel Midazolam HCl 100 ml @ 1 mls/hr Q24H IV 02/27/25 07:15 02/27/25 07:15 0 MLS/HR Norepinephrine Bitartrate 250 ml @ 3.75 mls/hr Q24H IV 02/27/25 07:15 03/07/25 04:17 7.5 MLS/HR Enteral Nutritional Formula 1,000 ml 30ML/HR GT 02/28/25 10:45 03/09/25 03:41 1,000 ML Budesonide 0.5 mg BID NEB 02/28/25 22:00 03/09/25 06:41 0.5 MG Nystatin 1 applic BID TOP 03/01/25 22:00 03/09/25 10:04 1 APPLIC Pantoprazole Sodium 40 mg DAILY IV 03/03/25 10:00 03/09/25 09:37 40 MG Purified Water 200 ml Q4HR GT 03/03/25 08:45 03/09/25 10:00 200 ML Dextrose 50 ml UD PRN IV 03/04/25 15:00 Albuterol 2.5 mg Q4HPRN PRN NEB 03/08/25 10:45 03/08/25 14:29 2.5 MG Ipratropium [place] 0.5 mg Q6HPRN PRN NEB 03/08/25 10:45 03/08/25 14:29 0.5 MG Meropenem 50 ml @ 17 mls/hr Q8H IV 03/09/25 17:00 Diagnostic Test (Pha) 1 strip Q6HR 03/09/25 18:00 Insulin Human Regular Q6HR SC 03/09/25 18:00 Examination General Appearance: Intubated, sedated, on mechanical ventilation Head Exam: Equal, disconjugate gaze, briskly reactive pupils. Neck Exam: Normal inspection. Non-tender. Normal alignment Pulmonary/Respiratory: Chest non-tender. Coarse and diminished bilateral breath sounds, scattered wheezes Cardiovascular/Chest: Regular rate and rhythm. Some episodes of tachycardia. No murmurs. No JVD. Peripheral Pulses:. 2+ Pedal (R). 2+ Pedal (L) Abdominal Exam: Normal bowel sounds. Soft. Umbilical abdominal hernia noted Ankle Exam: Trace ankle edema Skin Exam: Generalized body petechiae noted, some bruising on bilateral upper extremities. Normal color. Warm. Dry laboratory and microbiology Laboratory Tests 03/09/25 03:15 Test 03/09/25 03:15 Range/Units Serum Glucose 169 H 74-106 mg/dL Microbiology Date/Time Source Procedure Growth Status 02/27/25 22:45 Nose MRSA Screen - Final Complete 02/27/25 14:05 Sputum Endotracheal Wash Gram Stain - Final Complete 02/27/25 14:05 Sputum Endotracheal Wash Respiratory Culture - Final Complete 02/27/25 10:21 Blood Blood Culture - Final NO GROWTH AFTER 5 DAYS OF INCUBATION. Complete 02/21/25 01:55 Urine - [place] Urine Culture - Final Escherichia coli - ESBL Complete Labs and/or images reviewed: Labs reviewed by me, Image(s) reviewed by me Problem List/Assessment/Plan Problem List/Assessment/Plan Neurology # acute metabolic encephalopathy # right meningioma - head CT: No acute intracranial abnormality. Probable right vertex meningioma. - brain MRI: No acute intracranial abnormality seen. 1.9 cm right medial posterior frontal extra-axial mass, most compatible with meningioma. No underlying mass effect/vasogenic edema. - EEG report from 02/26/2025: Mild to moderately abnormal EEG seen in [id number] cerebral dysfunction due to metabolic/hypoxic encephalopathy or medication effect. - neurology on board # Sedated - currently off of all sedation since 03/01/2025 5am Cardiovascular # NSTEMI type 1 versus type 2 # septic shock # V-tach - cardiology on board #ROSC s/p Cardiac arrest and CPR, code blue 02/27/2025 -pt had bradycardia, VFib received shock, asystole then V-tach in subsequently received amiodarone. -ROSC post CPR Respiratory # Ventilator -intubated 02/27/2025 -on [facility] vent : VCAC Mode RR 16, TV 450, peep 8, FiO2 30% # Acute hypoxic respiratory failure # obstructive sleep apnea on obesity hypoventilation syndrome - CXR:Cardiomegaly and pulmonary vascular congestion. GI # umbilical hernia containing bowel loops # wound culture from umbilical hernia growing ESBL and MSSA # questionable GI bleed - CT abdomen pelvis: No evidence of acute abdominopelvic abnormalities. Large umbilical hernia containing bowel loops without evidence of obstruction or strangulation. - GI consulted - 100 cc brownish red output noted in NG tube canister - Stable H&H, however, steep decline from hemoglobin 16.1 on admission to 8.2 today. - IV daptomycin # Peptic ulcer prophylaxis -Pantoprazole 40 mg IV daily # Diallo catheter placed on 02/20/2025 # acute complicated UTI growing ESBL - IV meropenem Nephrology # JAMEE likely hemodynamically mediated/VMN versus ATN # hypokalemia # hypernatremia - monitor - discontinued Lasix Infectious disease # infected umbilical wound growing ESBL and MSSA # acute complicated UTI growing ESBL # sepsis due to above # septic shock, now improving - IV meropenem b.i.d. - IV daptomycin Hem/onc # anemia possibly of chronic disease versus blood loss? - monitor Endocrine # type 2 diabetes # morbid obesity # fungal skin infection - moderate sliding scale insulin - topical nystatin b.i.d. DVT prophylaxis holding owing to suspicion of GI bleed? Nutrition Tube feedings Glucerna Lines Right IJ 02/27/2025 Right midline 02/25/2025 Drips during mech ventilation None Critical care time 83 minutes excluding procedure. Code status discussed greater than 20 minutes: DNR Family at bedside explained about the condition of the patient Plan discussed with Dr. Villanueva Plan discussed with: Other (RN) My Orders My Orders Orders - ARY MENESES RESIDENT Procedure Category Date Status Time Strict Aspiration [place] 03/08/25 In Process Precautions 17:54 Chest Xray 1 View XY 03/09/25 Resulted 04:33 Stool Occult Blood LAB 03/09/25 Logged 13:29 Glucose Blood PHA 03/09/25 In Process (Accu-Chek Comfort 18:00 Insulin R (Human) PHA 03/09/25 In Process (Insulin R) 18:00 Complete Blood Count LAB 03/10/25 Verified 04:00 Basic Metabolic Panel LAB 03/10/25 Verified 04:00 Chest Portable XY 03/10/25 Logged 04:00 Abg W/ Co-Ox RT 03/10/25 Logged 04:00 Dietary Evaluation Review Comments: Diet Order: Continue CCHO-60, 2-gram sodium diet. Monitoring: Monitor PO intake and tolerance. Monitor renal function and updated lab values (electrolytes, BUN/Cr, GFR). Follow up with nephrology and GI reports. Reassessment: Reassess PRN based on clinical status and intake. Discharge Planning: Address weight management upon discharge. Expected Outcomes/Goals: gradual wt loss Visit Coding STANDARD RES Billing Provider: BRITTANY VILLANUEVA MD Date of Service if different f: Mar 09, 2025 Common Visit Codes: [id number] CARE 30-74 MIN, [id number] CARE-EACH +30MIN ARY MENESES Mar 09, 2025 16:57 BRITTANY VILLANUEVA MD Mar 10, 2025 12:50
[2025-03-09] MEDS: MEROPENEM 1GM IVPB 50 ML IV SCH (17:34)
[2025-03-09] MEDS: InsuLIN REG 1unit/0.01ml Soln (100units/ml) SC SCH (17:54)
[2025-03-09] MEDS: ACCU-CHEK COMFORT CURVE STRIP VI SCH (17:55)
--- NOTE | 2025-03-09 23:19 | DVHPN2 ---
Progress Note - Dictate Date Seen: Mar 09, 2025 Medical Necessity Reason Pt with a Central, PICC or Fol: Yes The following are medically ne: Diallo Catheter Reason for diallo catheter: Strict I&O Subjective Patient was seen and evaluated in follow up in the ICU. Patient is intubated and sedated on ventilator. 30% FiO2. Vasopressors are being held, BP stable. HGB 7.3, HCT 22.1, CO2 32, BUN 37, Utility Driver 1.19. Occult blood stool is negative. 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 Chest x-ray shows bilateral interstitial prominence which may reflect pulmonary congestion. vital signs Vital Sign Date Time Temp Pulse Resp B/P (MAP) Pulse Ox O2 Delivery O2 Flow Rate FiO2 03/09/25 22:31 78 20 122/63 (82) 98 30 03/09/25 22:00 Mechanical Ventilator+ 03/09/25 20:05 97.7 97.7 Total Intake and Output 03/08/25 03/08/25 03/09/25 15:00 23:00 07:00 Intake Total 724.784 ml 1825.784 ml 1705.784 ml Output Total 650 ml 525 ml Balance 724.784 ml 1175.784 ml 1180.784 ml medications Current Medications Medications Dose Ordered Sig/Tim Route Start Time Stop Time Status Last Admin Dose Admin Diagnostic Test (Pha) 1 strip IQ4HR 02/21/25 00:00 UNV Sodium Chloride 10 ml Q8HR IV 02/20/25 22:00 03/09/25 21:21 10 ML Docusate Sodium 100 mg BIDPRN PRN PO 02/20/25 20:15 Acetaminophen 650 mg Q6HP PRN PO 02/20/25 20:15 Nitroglycerin 0.4 mg Q5MINP PRN SL 02/20/25 21:15 Hydralazine HCl 10 mg Q6HP PRN IV 02/24/25 16:30 02/25/25 08:46 10 MG Lorazepam 1 mg ONCE PRN IV 02/25/25 10:45 Levofloxacin 50 ml @ 50 mls/hr DAILY IV 02/27/25 10:00 Cancel Midazolam HCl 100 ml @ 1 mls/hr Q24H IV 02/27/25 07:15 02/27/25 07:15 0 MLS/HR Norepinephrine Bitartrate 250 ml @ 3.75 mls/hr Q24H IV 02/27/25 07:15 03/07/25 04:17 7.5 MLS/HR Enteral Nutritional Formula 1,000 ml 30ML/HR GT 02/28/25 10:45 03/09/25 03:41 1,000 ML Budesonide 0.5 mg BID NEB 02/28/25 22:00 03/09/25 22:31 0.5 MG Nystatin 1 applic BID TOP 03/01/25 22:00 03/09/25 21:21 1 APPLIC Pantoprazole Sodium 40 mg DAILY IV 03/03/25 10:00 03/09/25 09:37 40 MG Purified Water 200 ml Q4HR GT 03/03/25 08:45 03/09/25 21:21 200 ML Dextrose 50 ml UD PRN IV 03/04/25 15:00 Albuterol 2.5 mg Q4HPRN PRN NEB 03/08/25 10:45 03/08/25 14:29 2.5 MG Ipratropium [place] 0.5 mg Q6HPRN PRN NEB 03/08/25 10:45 03/08/25 14:29 0.5 MG Meropenem 50 ml @ 17 mls/hr Q8H IV 03/09/25 17:00 03/09/25 17:34 17 MLS/HR Diagnostic Test (Pha) 1 strip Q6HR 03/09/25 18:00 03/09/25 17:55 1 STRIP Insulin Human Regular Q6HR SC 03/09/25 18:00 objective GENERAL: Ill appearing, intubated on ventilator. EYES: PERRL, EOMI. Anicteric. HENT: Moist mucous membranes. LUNGS: Decreased breath sounds. CARDIOVASCULAR: Regular rate and rhythm. ABDOMEN: Soft, nontender and nondistended. EXTREMITIES: No edema. SKIN: Warm, dry. Wound with the mid abdomen with sterile dressing. laboratory and microbiology Laboratory Tests 03/09/25 03:15 Test 03/09/25 03:15 Range/Units Serum Glucose 169 H 74-106 mg/dL Problem List V-fib/V-tach cardiac arrest status post defibrillation x 2 with ROSC. Cardiac arrest likely secondary to metabolic causes (severe acidosis). Acute metabolic encephalopathy likely from sepsis/dehydration. Acute on chronic kidney injury likely in the setting of shock. Shock liver. Thrombocytopenia. Assessment/Plan Continued all current supportive medical care. Dopamine drip. IV Hydralazine for SBP >150. IV antibiotics as ordered. Nitro SL. Vasopressors for hemodynamic support. GI prophylactics. Additional plan as per the hospital course. Critical care time of 45 minutes provided to include time spent evaluation of patient at bedside, when appropriate patient/family education for diagnosis, treatment plan, review of pertinent medical information and discussion of care with specialty providers and PCP. Dietary Evaluation Review Comments: Diet Order: Continue CCHO-60, 2-gram sodium diet. Monitoring: Monitor PO intake and tolerance. Monitor renal function and updated lab values (electrolytes, BUN/Cr, GFR). Follow up with nephrology and GI reports. Reassessment: Reassess PRN based on clinical status and intake. Discharge Planning: Address weight management upon discharge. Expected Outcomes/Goals: gradual wt loss Plan discussed with: Other ARMANDO PATEL MD Mar 09, 2025 23:19
[2025-03-10] VITALS (35 sets, daily range): BP systolic 76–142; BP diastolic 41–84; PULSE 60–118; RESP 14–24; TEMP 96.9–98.6; O2SAT 64–100
[2025-03-10 04:15] LABS: Nucleated Red Blood Cells % 0.1 %
[2025-03-10 04:18] LABS: Hematocrit 21.6 % (36.0-46.0); Hemoglobin 7.1 g/dL (12.2-16.2); Mean Corpuscular Hemoglobin 29.2 pg (28.0-32.0); Mean Corpuscular Volume 88.6 fL (80.0-100.0)
[2025-03-10 04:24] LABS: Anion Gap 7 (5-15); Calcium 8.7 mg/dL (8.7-10.4); Chloride 104 mmol/L (98-107); Potassium 3.8 mmol/L (3.5-5.1); Sodium 144 mmol/L (136-145)
[2025-03-10 04:30] LABS: BUN/Creatinine Ratio 32.4 (10.0-20.0); Blood Urea Nitrogen 34 mg/dL (9-23); Carbon Dioxide 33 mmol/L (20-31); Glucose 119 mg/dL (74-106)
--- NOTE | 2025-03-10 04:59 | DVH ---
CHEST RADIOGRAPH Indication: pna Technique: Single frontal view of the chest was obtained COMPARISON: XY CHEST XRAY 1 VIEW on DOS: 03/09/25, XY CHEST PORTABLE on DOS: 03/09/25, XY CHEST PORTABLE on DOS: 03/08/25, XY CHEST PORTABLE on DOS: 03/07/25, XY CHEST PORTABLE on DOS: 03/06/25 FINDINGS: Lines and Tubes: Endotracheal tube, enteric catheter and right central venous catheter in satisfactory position. Lungs: Unchanged to slightly improved pulmonary vascular congestion. Pleura: No effusion. No pneumothorax. Cardiomediastinal contours: Cardiomegaly. Bones: Unremarkable IMPRESSION: Unchanged to slightly improved pulmonary vascular congestion.
[2025-03-10 07:12] LABS: Base Excess 5.5 mmol/L (-2.0-3.0)
[2025-03-10] MEDS ORDERED: HYDROmorphone HCL 2 MG/ML VL/or syr IV PRN (13:45)
[2025-03-10] MEDS ORDERED: LORazepam 2MG/ML-1ML VIAL IV PRN (13:45)
--- NOTE | 2025-03-10 14:09 | DVHPNRES ---
Progress Note Date Seen: Mar 10, 2025 Resident Creating Document: ARY MENESES RESIDENT Medical Necessity Reason Pt with a Central, PICC or Fol: Yes The following are medically ne: Diallo Catheter Reason for diallo catheter: Strict I&O Subjective Review of Systems Patient is a 59-year-old female with past medical history diabetes, asthma, hypertension, who was brought in by EMS due to altered mental status. According to EMS, per patient's caregiver patient has been having a gradually progressive decline in her mentation over the last 2 months, currently patient noted to be AO x2. Patient was found to be covered in her own feces, unable to communicate effectively which is what prompted the caregiver to call the EMS. On route patient was noted to have a blood glucose of 470, tachycardic in 120s with blood pressure 118/98 saturating 80% on room air and 100% on 4 L O2 via NC. An accurate review of systems could not be completed as patient AO x2 only. Past medical history: Asthma, hypertension, diabetes Past surgical history: Unable to obtain Home medications: Albuterol, metoprolol, Ozempic Social & Personal history: Unable to obtain 03/10/2025, patient seen and examined at bedside, detailed discussion held in a family meeting with patient's family as well as sister who joined in via telephone, family ultimately decided to compassionately extubate the patient and opted for comfort care measures. Medication orders were discontinued, appropriate pain medication and antianxiety medications were ordered for the patient. Objective vital signs Vital Sign Date Time Temp Pulse Resp B/P (MAP) Pulse Ox O2 Delivery O2 Flow Rate FiO2 03/10/25 12:00 30 03/10/25 12:00 16 100 Mechanical Ventilator+ 03/10/25 11:55 105 122/73 (89) 03/10/25 04:00 97.9 97.9 Total Intake and Output 03/09/25 03/09/25 03/10/25 15:00 23:00 07:00 Intake Total 66.311 ml 1050 ml 1160 ml Output Total 550 ml 500 ml Balance 66.311 ml 500 ml 660 ml medications Current Medications Medications Dose Ordered Sig/Tim Route Start Time Stop Time Status Last Admin Dose Admin Diagnostic Test (Pha) 1 strip IQ4HR 02/21/25 00:00 UNV Sodium Chloride 10 ml Q8HR IV 02/20/25 22:00 03/10/25 05:50 10 ML Docusate Sodium 100 mg BIDPRN PRN PO 02/20/25 20:15 Acetaminophen 650 mg Q6HP PRN PO 02/20/25 20:15 Nitroglycerin 0.4 mg Q5MINP PRN SL 02/20/25 21:15 Levofloxacin 50 ml @ 50 mls/hr DAILY IV 02/27/25 10:00 Cancel Enteral Nutritional Formula 1,000 ml 30ML/HR GT 02/28/25 10:45 03/09/25 03:41 1,000 ML Budesonide 0.5 mg BID NEB 02/28/25 22:00 03/10/25 09:57 0.5 MG Nystatin 1 applic BID TOP 03/01/25 22:00 03/10/25 09:41 1 APPLIC Pantoprazole Sodium 40 mg DAILY IV 03/03/25 10:00 03/10/25 09:40 40 MG Dextrose 50 ml UD PRN IV 03/04/25 15:00 Albuterol 2.5 mg Q4HPRN PRN NEB 03/08/25 10:45 03/10/25 06:02 2.5 MG Ipratropium [place] 0.5 mg Q6HPRN PRN NEB 03/08/25 10:45 03/10/25 06:02 0.5 MG Diagnostic Test (Pha) 1 strip Q6HR 03/09/25 18:00 03/10/25 05:52 1 STRIP Insulin Human Regular Q6HR SC 03/09/25 18:00 Hydromorphone HCl 1 mg Q2HPRN PRN IV 03/10/25 13:45 Lorazepam 1 mg Q2HP PRN IV 03/10/25 13:45 Examination General Appearance: Intubated, sedated, on mechanical ventilation Head Exam: Equal, disconjugate gaze, briskly reactive pupils. Neck Exam: Normal inspection. Non-tender. Normal alignment Pulmonary/Respiratory: Chest non-tender. Coarse and diminished bilateral breath sounds, scattered wheezes Cardiovascular/Chest: Regular rate and rhythm. Some episodes of tachycardia. No murmurs. No JVD. Peripheral Pulses:. 2+ Pedal (R). 2+ Pedal (L) Abdominal Exam: Normal bowel sounds. Soft. Umbilical abdominal hernia noted Ankle Exam: Trace ankle edema Skin Exam: Generalized body petechiae noted, some bruising on bilateral upper extremities. Normal color. Warm. Dry laboratory and microbiology Laboratory Tests 03/10/25 03:25 Test 03/10/25 03:25 Range/Units Serum Glucose 119 H 74-106 mg/dL Microbiology Date/Time Source Procedure Growth Status 02/27/25 22:45 Nose MRSA Screen - Final Complete 02/27/25 14:05 Sputum Endotracheal Wash Gram Stain - Final Complete 02/27/25 14:05 Sputum Endotracheal Wash Respiratory Culture - Final Complete 02/27/25 10:21 Blood Blood Culture - Final NO GROWTH AFTER 5 DAYS OF INCUBATION. Complete 02/21/25 01:55 Urine - [place] Urine Culture - Final Escherichia coli - ESBL Complete Labs and/or images reviewed: Labs reviewed by me, Image(s) reviewed by me Problem List/Assessment/Plan Problem List/Assessment/Plan Neurology # acute metabolic encephalopathy # right meningioma - head CT: No acute intracranial abnormality. Probable right vertex meningioma. - brain MRI: No acute intracranial abnormality seen. 1.9 cm right medial posterior frontal extra-axial mass, most compatible with meningioma. No underlying mass effect/vasogenic edema. - EEG report from 02/26/2025: Mild to moderately abnormal EEG seen in [id number] cerebral dysfunction due to metabolic/hypoxic encephalopathy or medication effect. - neurology on board # Sedated - currently off of all sedation since 03/01/2025 5am Cardiovascular # NSTEMI type 1 versus type 2 # septic shock # V-tach - cardiology on board #ROSC s/p Cardiac arrest and CPR, code blue 02/27/2025 -pt had bradycardia, VFib received shock, asystole then V-tach in subsequently received amiodarone. -ROSC post CPR Respiratory # Ventilator -intubated 02/27/2025 -on [facility] vent : VCAC Mode RR 16, TV 450, peep 8, FiO2 30% # Acute hypoxic respiratory failure # obstructive sleep apnea on obesity hypoventilation syndrome - CXR:Cardiomegaly and pulmonary vascular congestion. GI # umbilical hernia containing bowel loops # wound culture from umbilical hernia growing ESBL and MSSA # questionable GI bleed - CT abdomen pelvis: No evidence of acute abdominopelvic abnormalities. Large umbilical hernia containing bowel loops without evidence of obstruction or strangulation. - GI consulted - 100 cc brownish red output noted in NG tube canister - Stable H&H, however, steep decline from hemoglobin 16.1 on admission to 8.2 today. - IV daptomycin # Peptic ulcer prophylaxis -Pantoprazole 40 mg IV daily # Diallo catheter placed on 02/20/2025 # acute complicated UTI growing ESBL - IV meropenem Nephrology # JAMEE likely hemodynamically mediated/VMN versus ATN # hypokalemia # hypernatremia - monitor - discontinued Lasix Infectious disease # infected umbilical wound growing ESBL and MSSA # acute complicated UTI growing ESBL # sepsis due to above # septic shock, now improving - IV meropenem b.i.d. - IV daptomycin Hem/onc # anemia possibly of chronic disease versus blood loss? - monitor Endocrine # type 2 diabetes # morbid obesity # fungal skin infection - moderate sliding scale insulin - topical nystatin b.i.d. DVT prophylaxis holding owing to suspicion of GI bleed? Nutrition Tube feedings Glucerna Lines Right IJ 02/27/2025 Right midline 02/25/2025 Drips during mech ventilation None Critical care time 83 minutes and including long dw family and family conference and excluding procedure. Code status discussed greater than 20 minutes: Comfort measures only Family at bedside explained about the condition of the patient Plan discussed with Dr. Villanueva Plan discussed with: Other (Brothers, sister, RN) My Orders My Orders Orders - ARY MENESES RESIDENT Procedure Category Date Status Time Glucose Blood PHA 03/09/25 In Process (Accu-Chek Comfort 18:00 Insulin R (Human) PHA 03/09/25 In Process (Insulin R) 18:00 Chest Portable XY 03/10/25 Resulted 04:00 Abg W/ Co-Ox RT 03/10/25 Logged 05:20 Hydromorphone PHA 03/10/25 In Process Injection (Dilaudid 13:45 Lorazepam 2mg/Ml Inj PHA 03/10/25 In Process (Ativan Inj) 13:45 Dietary Evaluation Review Comments: Diet Order: Continue CCHO-60, 2-gram sodium diet. Monitoring: Monitor PO intake and tolerance. Monitor renal function and updated lab values (electrolytes, BUN/Cr, GFR). Follow up with nephrology and GI reports. Reassessment: Reassess PRN based on clinical status and intake. Discharge Planning: Address weight management upon discharge. Expected Outcomes/Goals: gradual wt loss Visit Coding STANDARD RES Billing Provider: BRITTANY VILLANUEVA MD Date of Service if different f: Mar 10, 2025 Common Visit Codes: [id number] CARE 30-74 MIN, [id number] CARE-EACH +30MIN ARY MENESES [facility] Mar 10, 2025 14:09 BRITTANY VILLANUEVA MD Mar 13, 2025 12:42
[2025-03-10] MEDS: GLYCOPYRROLATE 0.2 MG/ML 1ML VIAL IV PRN (21:56)
--- NOTE | 2025-03-11 | DVHPN2 ---
Progress Note - Dictate Date Seen: Mar 10, 2025 Medical Necessity Reason Pt with a Central, PICC or Fol: Yes The following are medically ne: Diallo Catheter Reason for diallo catheter: Strict I&O Subjective Patient was seen and evaluated in follow up in the ICU. Patient is intubated and sedated on ventilator. 30% FiO2. WBC 3.9, HGB 7.1, HCT 21.6, CO2 33, BUN 34, YIELD ANALYST 1.05. Chest x-ray showed unchanged to slightly improved pulmonary vascular congestion. vital signs Vital Sign Date Time Temp Pulse Resp B/P (MAP) Pulse Ox O2 Delivery O2 Flow Rate FiO2 03/10/25 12:00 30 03/10/25 12:00 16 100 Mechanical Ventilator+ 03/10/25 11:55 105 122/73 (89) 03/10/25 04:00 97.9 97.9 Total Intake and Output 03/09/25 03/09/25 03/10/25 14:59 22:59 06:59 Intake Total 75.784 ml 1050 ml 1160 ml Output Total 550 ml 500 ml Balance 75.784 ml 500 ml 660 ml medications Current Medications Medications Dose Ordered Sig/Tim Route Start Time Stop Time Status Last Admin Dose Admin Diagnostic Test (Pha) 1 strip IQ4HR 02/21/25 00:00 UNV Sodium Chloride 10 ml Q8HR IV 02/20/25 22:00 03/10/25 05:50 10 ML Docusate Sodium 100 mg BIDPRN PRN PO 02/20/25 20:15 Acetaminophen 650 mg Q6HP PRN PO 02/20/25 20:15 Nitroglycerin 0.4 mg Q5MINP PRN SL 02/20/25 21:15 Levofloxacin 50 ml @ 50 mls/hr DAILY IV 02/27/25 10:00 Cancel Enteral Nutritional Formula 1,000 ml 30ML/HR GT 02/28/25 10:45 03/09/25 03:41 1,000 ML Budesonide 0.5 mg BID NEB 02/28/25 22:00 03/10/25 09:57 0.5 MG Nystatin 1 applic BID TOP 03/01/25 22:00 03/10/25 09:41 1 APPLIC Pantoprazole Sodium 40 mg DAILY IV 03/03/25 10:00 03/10/25 09:40 40 MG Dextrose 50 ml UD PRN IV 03/04/25 15:00 Albuterol 2.5 mg Q4HPRN PRN NEB 03/08/25 10:45 03/10/25 06:02 2.5 MG Ipratropium Rawlings 0.5 mg Q6HPRN PRN NEB 03/08/25 10:45 03/10/25 06:02 0.5 MG Diagnostic Test (Pha) 1 strip Q6HR 03/09/25 18:00 03/10/25 05:52 1 STRIP Insulin Human Regular Q6HR SC 03/09/25 18:00 Hydromorphone HCl 1 mg Q2HPRN PRN IV 03/10/25 13:45 Lorazepam 1 mg Q2HP PRN IV 03/10/25 13:45 objective GENERAL: Ill appearing, intubated on ventilator. EYES: PERRL, EOMI. Anicteric. HENT: Moist mucous membranes. LUNGS: Decreased breath sounds. CARDIOVASCULAR: Regular rate and rhythm. ABDOMEN: Soft, nontender and nondistended. EXTREMITIES: No edema. SKIN: Warm, dry. Wound with the mid abdomen with sterile dressing. laboratory and microbiology Laboratory Tests 03/10/25 03:25 Test 03/10/25 03:25 Range/Units Serum Glucose 119 H 74-106 mg/dL Problem List V-fib/V-tach cardiac arrest status post defibrillation x 2 with ROSC. Cardiac arrest likely secondary to metabolic causes (severe acidosis). Acute metabolic encephalopathy likely from sepsis/dehydration. Acute on chronic kidney injury likely in the setting of shock. Shock liver. Thrombocytopenia. Assessment/Plan Continued all current supportive medical care. Dopamine drip. IV Hydralazine for SBP >150. IV antibiotics as ordered. Nitro SL. Vasopressors for hemodynamic support. GI prophylactics. Additional plan as per the hospital course. Critical care time of 45 minutes provided to include time spent evaluation of patient at bedside, when appropriate patient/family education for diagnosis, treatment plan, review of pertinent medical information and discussion of care with specialty providers and PCP. Mechanical ventilator parameters, treatment and adjustments have personally been reviewed by me and treatment plan by rubber goods inspector has also been reviewed. Dietary Evaluation Review Comments: Diet Order: Continue CCHO-60, 2-gram sodium diet. Monitoring: Monitor PO intake and tolerance. Monitor renal function and updated lab values (electrolytes, BUN/Cr, GFR). Follow up with nephrology and GI reports. Reassessment: Reassess PRN based on clinical status and intake. Discharge Planning: Address weight management upon discharge. Expected Outcomes/Goals: gradual wt loss Plan discussed with: Other ARMANDO PATEL MD Mar 10, 2025 13:43
[2025-03-11 01:00] VITALS: BP 78/43; PULSE 90; RESP 14; TEMP 98; O2SAT 60
[2025-03-11 05:00] VITALS: BP 79/59; PULSE 77; RESP 10; TEMP 96.9; O2SAT 71
--- NOTE | 2025-03-11 08:31 | DVHDS2 ---
Summary Date of Admission Feb 20, 2025 at 21:03 Date and Time of Expiration: Mar 11, 2025 05:18 Reason for Admission: Altered level of consciousness Labs/Diagnostic Data: Laboratory Results Test 03/10/25 12:58 03/10/25 07:06 03/10/25 03:25 03/09/25 12:00 POC Glucose 112 mg/dl (70-106) Blood Gas Specimen Type Arterial Blood Gas Sample Site Left radial Blood Gas Patient Temperature 37.0 Arterial Blood Date Drawn [id number] Arterial Blood pH 7.460 (7.350-7.450) Arterial Blood Partial Pressure CO2 42.9 mmHg (32.0-45.0) Arterial Blood Partial Pressure O2 79.9 mmHg (83.0-108.0) Arterial Blood HCO3 29.8 mmol/L (21.0-28.0) Arterial Blood Oxygen Saturation 96.0 % (94.0-98.0) Arterial Blood Base Excess 5.5 mmol/L (-2.0-3.0) Arterial Blood Oxyhemoglobin 94.8 % (94.0-98.0) Arterial Blood Carboxyhemoglobin 1.1 % (0.5-1.5) Arterial Blood Methemoglobin 0.1 % (0.0-1.5) Arterial Blood Deoxyhemoglobin 4.0 % (0.0-5.0) Fox Test Modified Blood Gas Total Hemoglobin 8.10 g/dL (12.0-16.0) Blood Gas Set Respiration Rate 16.0 Blood Gas Modality Vent - ac FiO2 % 30.0 Blood Gas Tidal Volume 400.0 Blood Gas PEEP or CPAP 5.0 White Blood Count 3.9 10^3/uL (4.4-10.8) Red Blood Count 2.44 10^6/uL (4.0-5.20) Hemoglobin 7.1 g/dL (12.2-16.2) Hematocrit 21.6 % (36.0-46.0) Mean Corpuscular Volume 88.6 fL (80.0-100.0) Mean Corpuscular Hemoglobin 29.2 pg (28.0-32.0) Mean Corpuscular Hemoglobin Concent 32.9 g/dL (32.0-36.0) Red Cell Distribution Width 21.3 % (11.8-14.3) Platelet Count 172 10^3/uL (140-450) Mean Platelet Volume 9.6 fL (6.9-10.8) Neutrophils (%) (Auto) 62.5 % (37.0-80.0) Lymphocytes (%) (Auto) 23.9 % (10.0-50.0) Monocytes (%) (Auto) 7.7 % (0.0-12.0) Eosinophils (%) (Auto) 5.3 % (0.0-7.0) Basophils (%) (Auto) 0.6 % (0.0-2.0) Neutrophils # (Auto) 2.4 10 ^3/uL (1.6-8.6) Lymphocytes # (Auto) 0.9 10 ^3/uL (0.4-5.4) Monocytes # (Auto) 0.3 10 ^3/uL (0-1.3) Eosinophils # (Auto) 0.2 10 ^3/uL (0-0.8) Basophils # (Auto) 0 10 ^3/uL (0-0.2) Nucleated Red Blood Cells 0.1 % Sodium Level 144 mmol/L (136-145) Potassium Level 3.8 mmol/L (3.5-5.1) Chloride Level 104 mmol/L (98-107) Carbon Dioxide Level 33 mmol/L (20-31) Anion Gap 7 (5-15) Blood Urea Nitrogen 34 mg/dL (9-23) Creatinine 1.05 mg/dL (0.550-1.02) Glomerular Filtration Rate Calc 62 mL/min (>90) BUN/Creatinine Ratio 32.4 (10.0-20.0) Serum Glucose 119 mg/dL (74-106) Calcium Level 8.7 mg/dL (8.7-10.4) Stool Occult Blood Negative (Negative) Stool Occult Blood Sample #3 (Negative) Test 03/08/25 03:21 03/07/25 02:30 03/02/25 17:20 02/28/25 03:03 Total Bilirubin 0.5 mg/dL (0.2-1.0) Aspartate Amino Transferase (AST) 30 U/L (13-40) Alanine Aminotransferase (ALT) 14 U/L (7-40) Alkaline Phosphatase 96 U/L (46-116) Total Protein 4.8 g/dL (5.7-8.2) Albumin 2.8 g/dL (3.2-4.8) Phosphorus Level 4.4 mg/dL (2.4-5.1) Magnesium Level 1.9 mg/dL (1.6-2.6) Urine Color Yellow (Yellow) Urine Clarity Turbid (Clear) Urine pH 5.0 (5.0-9.0) Urine Specific [place] 1.013 (1.001-1.035) Urine Protein 1+ (Negative) Urine Ketones Trace (Negative) Urine Blood 1+ /uL (Negative) Urine Nitrite Negative (Negative) Urine Bilirubin Negative (Negative) Urine Urobilinogen 2 mg/dL (Negative) Urine Leukocyte Esterase Trace /uL (Negative) Urine RBC 1 /hpf (0 - 4) Urine Microscopic WBC 2 /HPF (0-5) Urine Squamous Epithelial Cells Few /hpf (<5) Urine Calcium Oxalate Crystals Few (None Seen) Urine Amorphous Crystals Few /hpf (None Seen) Urine Bacteria Few /hpf (None Seen) Urine Osmolality 329 mOsm/kg Urine Creatinine 73.30 mg/dL (30.0-125.0) Urine Protein/Creatinine Ratio 1.14 Urine Sodium 28 mmol/L (40-220) Urine Glucose 1+ mg/dL (Normal) Urine Total Protein 83.3 mg/dL (1-14) Ammonia < 10 umol/L (11-32) Test 02/27/25 19:09 02/27/25 11:18 02/27/25 10:21 02/27/25 10:02 Lactic Acid Level 2.5 mmol/L (0.4-2.0) Blood Gas Critical Value Read Back yes Blood Gas Notified Whom Blood Gas Notified Time [id number] Blood Gas Notified By moisture machine tender eugene Prothrombin Time 12.3 sec (9.3-11.8) Prothrombin Time INR 1.18 (0.9-1.15) Activated Partial Thromboplast Time 23.6 SEC (24.5-34.5) Platelet Estimate Decrea Large Platelets Few Test 02/27/25 07:14 02/24/25 09:23 02/24/25 04:27 02/23/25 06:00 Blood Gas Spontaneous Rate 24 Vitamin B12 Level 682 pg/mL (211-911) Folic Acid 3.45 ng/mL (>5.38) Creatine Kinase 108 U/L (34-145) Thyroid Stimulating Hormone (TSH) 3.24 uIU/mL (0.55-4.78) Random Vancomycin Level 14.6 ug/mL (5-10) Test 02/22/25 02:20 02/20/25 22:15 02/20/25 21:52 02/20/25 19:15 Hemoglobin A1c 8.4 % A1C (<5.7) Troponin I High Sensitivity 204 ng/L (</=34) Urine WBC Clumps Present /hpf (None Seen) Urine Hyaline Casts Few /lpf (0 - 2) Urine Mucus Few (None Seen) Serum Osmolality 352 mOsm/kg (278-298) B-Type Natriuretic Peptide 30.16 pg/mL (0-100) Beta-Hydroxybutyric Acid 0.662 mmol/L (< 0.4) Other Laboratory Tests 03/10/25 03:25 Brief Hx & Hospital Course: Hospital Course: The patient is a 59-year-old female with a history of type 2 diabetes mellitus, asthma, hypertension, and morbid obesity who presented via EMS for altered mental status. Per caregiver, the patient had a progressive decline in mentation over two months and was found at home covered in feces, prompting EMS activation. On arrival, she was AO 2, tachycardic (HR 120s), hypoxic (SpO? 80% on room air, improved to 100% on 4 L NC), and hyperglycemic (glucose 470 mg/dL). Initial labs revealed diabetic ketoacidosis (DKA), hypernatremia, hypokalemia, acute kidney injury (likely vasomotor nephropathy), transaminitis, leukocytosis, and metabolic acidosis with respiratory alkalosis. She was admitted to the ICU for management of DKA, sepsis secondary to complicated UTI, and metabolic encephalopathy. The patient was started on IV fluids, insulin infusion, electrolyte replacement, and broad-spectrum antibiotics (cefepime and vancomycin). Cultures later grew ESBL E. coli from urine and wound, and MSSA from umbilical wound; antibiotics were escalated to meropenem and later levofloxacin. DKA resolved by 02/23, but hypernatremia persisted, requiring ongoing IV fluid adjustments. JAMEE worsened, and nephrology was consulted. The hospital course was complicated by metabolic encephalopathy, umbilical hernia wound infection, and septic shock requiring vasopressor support. On 02/27, the patient developed acute hypoxic respiratory failure and sustained cardiac arrest with PEA/V-fib requiring CPR, defibrillation, epinephrine, amiodarone, and magnesium. ROSC was achieved, and the patient was intubated and placed on mechanical ventilation. Cardiology was consulted and ventricular tachycardia; pulmonology managed ventilator settings. Despite aggressive care, the patient remained critically ill, including anuria, worsening metabolic encephalopathy, and thrombocytopenia. Imaging revealed a probable right frontal meningioma without acute intracranial abnormality. EEG showed [id number] cerebral dysfunction likely due to metabolic/hypoxic encephalopathy. Patient's pupils remained nonreactive with a dysconjugate gaze for his longest she remained on mechanical ventilation, physical exam remain largely unchanged. After extensive family discussions regarding prognosis, goals of care were transitioned to comfort measures on 03/01. The patient was compassionately extubated, and appropriate palliative medications were administered for comfort. All invasive interventions were discontinued. Final Diagnosis/Problems List # acute metabolic encephalopathy # right meningioma # NSTEMI type 1 versus type 2 # septic shock # V-tach #ROSC s/p Cardiac arrest and CPR, code blue 02/27/2025 # Acute hypoxic respiratory failure # obstructive sleep apnea on obesity hypoventilation syndrome # umbilical hernia containing bowel loops # wound culture from umbilical hernia growing ESBL and MSSA # questionable GI bleed # Marshall catheter placed on 02/20/2025 # acute complicated UTI growing ESBL # JAMEE likely hemodynamically mediated/VMN versus ATN # hypokalemia # hypernatremia # infected umbilical wound growing ESBL and MSSA # acute complicated UTI growing ESBL # sepsis due to above # septic shock, now improving # anemia possibly of chronic disease versus blood loss? # type 2 diabetes # morbid obesity # fungal skin infection Secondary Diagnosis: [facility] Mar 11, [facility]25 08:31 BRITTANY VILLANUEVA MD Mar 13, 2025 13:11
== END 2025-03-11 05:18 | DRG 870 ==
LOC: EDBD 17:32 → ER 17:32 → OVERFLOW 21:03 → ICU CENTRL 02-21 01:30 → TELE-WESTW 02-22 13:05 → TELE-EAST 02-23 21:05 → ICU WEST 02-27 10:09 → TELE-CENTR 03-10 22:27
PROVIDERS: ADMIT Internal Medicine; ATTEND Internal Medicine
PROC: 05HB33Z Insertion of Infusion Device into Right Basilic Vein, Percutaneous Approach (ICD-10-PCS; 2025-02-25)
PROC: B54MZZA Ultrasonography of Right Upper Extremity Veins, Guidance (ICD-10-PCS; 2025-02-25)
PROC: 5A1955Z Respiratory Ventilation, Greater than 96 Consecutive Hours (ICD-10-PCS; principal; 2025-02-27)
PROC: 0BH17EZ Insertion of Endotracheal Airway into Trachea, Via Natural or Artificial Opening (ICD-10-PCS; 2025-02-27)
PROC: 04HY32Z Insertion of Monitoring Device into Lower Artery, Percutaneous Approach (ICD-10-PCS; 2025-02-27)
PROC: 05HM33Z Insertion of Infusion Device into Right Internal Jugular Vein, Percutaneous Approach (ICD-10-PCS; 2025-02-27)
PROC: B543ZZA Ultrasonography of Right Jugular Veins, Guidance (ICD-10-PCS; 2025-02-27)
PROC: 5A12012 Performance of Cardiac Output, Single, Manual (ICD-10-PCS; 2025-02-27)
DX: A41.9 Sepsis, unspecified organism (principal); E11.10 Type 2 diabetes mellitus with ketoacidosis without coma; G92.8 Other toxic encephalopathy; N17.0 Acute kidney failure with tubular necrosis; I21.4 Non-ST elevation (NSTEMI) myocardial infarction; K72.00 Acute and subacute hepatic failure without coma; J96.21 Acute and chronic respiratory failure with hypoxia; R65.21 Severe sepsis with septic shock; G93.1 Anoxic brain damage, not elsewhere classified; N39.0 Urinary tract infection, site not specified; K92.2 Gastrointestinal hemorrhage, unspecified; D69.6 Thrombocytopenia, unspecified; I46.9 Cardiac arrest, cause unspecified; B96.20 Unspecified Escherichia coli [E. coli] as the cause of diseases classified elsewhere; I49.01 Ventricular fibrillation; E66.2 Morbid (severe) obesity with alveolar hypoventilation; I10 Essential (primary) hypertension; J45.909 Unspecified asthma, uncomplicated; G93.89 Other specified disorders of brain; D63.8 Anemia in other chronic diseases classified elsewhere; I47.20 Ventricular tachycardia, unspecified; E87.4 Mixed disorder of acid-base balance; E87.0 Hyperosmolality and hypernatremia; Z16.12 Extended spectrum beta lactamase (ESBL) resistance; Z68.43 Body mass index [BMI] 50.0-59.9, adult; B95.61 Methicillin susceptible Staphylococcus aureus infection as the cause of diseases classified elsewhere; E86.0 Dehydration; E87.6 Hypokalemia; K21.9 Gastro-esophageal reflux disease without esophagitis; R00.1 Bradycardia, unspecified; B36.9 Superficial mycosis, unspecified; I45.10 Unspecified right bundle-branch block; K42.9 Umbilical hernia without obstruction or gangrene; Z88.0 Allergy status to penicillin; Z51.5 Encounter for palliative care; Z79.899 Other long term (current) drug therapy; Z82.49 Family history of ischemic heart disease and other diseases of the circulatory system; Z83.3 Family history of diabetes mellitus
CPT/HCPCS: 31500; 36415; 36556; 36600; 70450; 70551; 71045; 74176; 80048; 80053; 80202; 81001; 82010; 82140; 82270; 82550; 82565; 82570; 82607; 82746; 82805; 82962; 83036; 83605; 83735; 83880; 83930; 83935; 84100; 84156; 84295; 84300; 84443; 84484; 85025; 85610; 85730; 87040; 87070; 87081; 87086; 87088; 87186; 87205; 92950; 93005; 93306; 93925; 94002; 94003; 94640; 95819; 99291; 99292; G0378; J1815; J1956; J2003; J2185; J2470; J3480; J3490